=== PATIENT | male | born 1955 | race Caucasian/White ===

== ENCOUNTER 2022-12-12 12:58 | Emergency (ER) | payer MEDICARE, OTHER, SELFPAY ==
[2022-12-12] VITALS (8 sets, daily range): BP systolic 150–194; BP diastolic 70–119; PULSE 56–78; RESP 16–20; TEMP 36.8; O2SAT 94–100; BMI 42.6; BMI 29.9
--- NOTE | 2022-12-12 13:35 | PC.NURSE ---
ROUNDED ON PT HE STATES NO COMPLAINTS AT THIS TIME
--- NOTE | 2022-12-12 13:52 | XR_ITS ---
PROCEDURE INFORMATION: Exam: XR Pelvis Exam date and time: 12/12/2022 2:21 PM Age: 66 years old Clinical indication: Patient HX: Pelvic pain for 2 weeks, no known injury. ; Additional info: Right groin pain TECHNIQUE: Imaging protocol: Radiologic exam of the pelvis. Views: 1 or 2 view. COMPARISON: No relevant prior studies available. FINDINGS: Bones/joints: Degenerative changes of both hips and sacroiliac joints. Findings identified. Normal bony density. Soft tissues: Unremarkable. IMPRESSION: No acute radiographic
--- NOTE | 2022-12-12 14:17 | PC.NURSE ---
PT IS GETTING XRAY AT BEDSIDE
--- NOTE | 2022-12-12 14:50 | HMH.EDGENADL ---
Discharge Plan Disposition Patient Disposition: Home, Self-Care Condition: Good Prescriptions Prescriptions: New diclofenac sodium [Arthritis Pain (diclofenac)] 1 % gel 4 g topical QID Qty: 100 0RF Rx Instructions: apply to single knee, ankle, foot; for foot includes sole/toes/top of foot Referrals Follow up/Referrals: Leigh Chauhan APRN [Primary Care Provider] - See instructions Instructions Patient Instructions: DI for Acute Pain -- Adult Print Language Print Language: Setswana Discharge ED Provider: Jean-Paul Lantigua General Adult HPI General Chief complaint: PAIN Stated complaint: RT leg pain weakness no accident Time Seen by Provider: 12/12/22 14:58 Mode of Arrival: Wheelchair Source of Information: Patient Limitations: No Limitations Description of Symptoms (Recalled from ER Triage Doc. by RN): pt comes in with c/o pain in RIGHT groin area. pt reports that he was laying in bed about a week ago, he stretched his leg out and felt the pain. pt reports weakness in that leg. testicular pain off and on. History of Present Illness HPI narrative: Patient presents to the emergency department with right proximal thigh pain extending into his groin. He states that he was in his bed 2 weeks ago and was startled and his leg jumped. He states that since then he has had pain. He was seen at [facility] and had ultrasound but is unsure of the result. He denies any abdominal pain. He states that he has some pain with pulling his leg up. Denies any back pain. Denies any other trauma Related Data Previous Rx's Medication Instructions Recorded diclofenac sodium 1 % topical gel 4 g topical QID #100 grams 12/12/22 (Arthritis Pain (diclofenac)) Allergies Allergy/AdvReac Type Severity Reaction Status Date / Time INGREDIENT: NO KNOWN - NO Allergy Unknown Uncoded 10/11/17 14:50 KNOWN DRUG ALLERGY [facility] Disclaimer: The information contained in this section may have been updated after the patient was seen, as this information can be updated by other users. Social History Smoking Status: Current every day smoker alcohol intake: never current occupational status: retired Travel in the last 8 weeks: Inside the [place] ROS Obtained: Yes All systems reviewed & no additional complaints except as documented Musculoskeletal Comments: Right thigh pain Physical Exam General General appearance: alert and in no apparent distress Head Head exam: atraumatic and normocephalic Eye Eye exam: Present normal appearance, PERRL and EOMI Respiratory Respiratory exam: Present normal lung sounds bilaterally Cardiovascular Cardiovascular exam: Present regular rate, normal rhythm and normal heart sounds Abdominal Exam Abdominal exam: Present soft Comment: No significant abdominal tenderness. No guarding. No rebound. Normal bowel sounds. No hernia appreciated. Extremities Exam Extremities exam: Present normal inspection and tenderness Neurological Exam Neurological exam: Present alert Psychiatric Psychiatric exam: Present normal affect Skin Skin exam: Present warm, dry, intact and normal color Medical Decision Making Medical Records Medical records reviewed: Yes I reviewed the patient's medical records. Jerome Inquiry Pt receiving controlled substance: No Jerome was queried for this patient: No Vital Signs: 12/12/22 13:11 12/12/22 13:05 12/12/22 13:31 Temperature 98.3 F Temperature Source Oral Pulse Rate 78 72 Pulse Rate [Left] 78 Respiratory Rate 16 20 20 Blood Pressure 194/76 H 156/119 H Blood Pressure [Right Arm] 194/76 H Blood Pressure Mean 91 125 Blood Pressure Mean [Right Arm] 115 02 Sat by Pulse Oximetry 96 94 L 96 Oxygen Delivery Method 12/12/22 14:00 12/12/22 14:34 12/12/22 14:45 Temperature Temperature Source Pulse Rate 64 59 L 60 Pulse Rate [Left] Respiratory Rate Blood Pressure 151/99 H 156/119 H 151/99 H Blood Pres
== END 2022-12-12 15:18 | disposition home or self-care (01) ==
PROVIDERS: Emergency Provider Emergency Medicine; PCP Nurse Practitioner Family
DX: R10.2 Pelvic and perineal pain (principal); R53.1 Weakness; F17.210 Nicotine dependence, cigarettes, uncomplicated
CPT/HCPCS: 72170; 99283; 99284

== ENCOUNTER 2023-10-08 13:28 | Emergency (ER) | payer MEDICARE, SELFPAY ==
[2023-10-08 13:29] VITALS: BP 177/55; PULSE 82; RESP 20; O2SAT 95; BMI 35.5
[2023-10-08 14:01] VITALS: BP 159/65; PULSE 78; O2SAT 95
--- NOTE | 2023-10-08 14:19 | HMH.EDGENADL ---
Discharge Plan Disposition Patient Disposition: Home, Self-Care Condition: Good Prescriptions Prescriptions: New methocarbamol 500 mg tablet 500 mg PO Q8H PRN (Reason: pain) Qty: 20 0RF lidocaine [Lidoderm] 5 % adhesive patch,medicated 1 patch topical DAILY Qty: 15 0RF Rx Instructions: leave on most painful area for up to 12 hrs No Action furosemide 40 mg tablet 40 mg PO DAILY Patient Comments: TAKE ONE TABLET BY MOUTH EVERY MORNING potassium chloride 10 mEq capsule, extended release 10 meq PO DAILY Patient Comments: Take 1 capsule twice a day by oral route for 30 days. ropinirole 1 mg tablet 1 mg PO HS Patient Comments: take 1 tablet 1 to 3 hours before bedtime Once a day for 30 day(s) cetirizine 10 mg tablet 10 mg PO DAILY Patient Comments: take 1 tablet Once a day for 30 day(s) atorvastatin 10 mg tablet 10 mg PO DAILY Patient Comments: TAKE ONE TABLET BY MOUTH DAILY nifedipine 30 mg tablet extended release 30 mg PO DAILY Patient Comments: Take 1 Tablet(s) 1 time a day isosorbide mononitrate 60 mg tablet extended release 24 hr 120 mg PO POSTTR Patient Comments: TAKE TWO TABLETS BY MOUTH ONCE DAILY tamsulosin 0.4 mg capsule 0.4 mg PO DAILY Patient Comments: TAKE ONE CAPSULE BY MOUTH ONCE DAILY for 30 days trazodone 100 mg tablet 1 mg PO HS PRN (Reason: Insomnia) Patient Comments: take 1 tablet at bedtime as needed Once a day for 30 day(s) bumetanide 1 mg tablet 1 mg PO DAILY Patient Comments: Take 1 tablet every day by oral route for 30 days. hydralazine 50 mg tablet 50 mg PO TID Patient Comments: TAKE ONE TABLET BY MOUTH THREE TIMES DAILY gabapentin 100 mg capsule 100 mg PO HS Patient Comments: Take 1 capsule every day by oral route at bedtime for 30 days. lisinopril 40 mg tablet 40 mg PO DAILY Patient Comments: TAKE ONE TABLET BY MOUTH EVERY DAY olmesartan 20 mg tablet 20 mg PO DAILY Patient Comments: Take 1 tablet every day by oral route for 90 days. Eliquis 5 mg tablet 5 mg PO BID Patient Comments: TAKE ONE TABLET BY MOUTH TWICE DAILY for 30 days Referrals Follow up/Referrals: Provider,Referral, MD [Primary Care Provider] - See instructions Activity Restrictions/Add. Instructions Additional Instructions/Restrictions: You were evaluated in the emergency department today. Please meat pickler your prescriptions and use them as needed for pain. You may also take Tylenol and ibuprofen in addition to these. Follow-up with your primary care provider over the next 3 days for reassessment. Return to the emergency department for new or worsening symptoms, such as worsening pain, new numbness or tingling, or other concerns. Clinical Impressions Clinical Impression: Chronic neck and back pain Instructions Patient Instructions: DI for Low Back Pain, DI for Neck Pain Discharge ED Provider: Yasmeen Bermudez General Adult HPI General Chief complaint: Back Pain/Injury Stated complaint: neck pain, difficulty walking, no accident Time Seen by Provider: 10/08/23 13:33 Mode of Arrival: Ambulatory Source of Information: Patient Limitations: No Limitations Description of Symptoms (Recalled from ER Triage Doc. by RN): pt presents to ED c/o neck and back pain x 1 month. pt denies any known injury. pt reports taking Tylenol with no relief. Denies fever. History of Present Illness HPI narrative: This patient is a 67-year-old male with a history of hypertension, hyperlipidemia, atrial fibrillation, and chronic back pain presenting to the emergency department for evaluation with concern for 1 month of neck and back pain. He states that he has not had any trauma or injuries. He states it is mostly on the right side of his neck and back that are hurting. He notes that he has had issues with his neck and back for a daria
[2023-10-08 15:23] VITALS: BP 159/65; PULSE 78; RESP 20; TEMP 36.7; O2SAT 95
== END 2023-10-08 15:24 | disposition home or self-care (01) ==
PROVIDERS: Emergency Provider Emergency Medicine
DX: M54.2 Cervicalgia (principal); M54.9 Dorsalgia, unspecified; I10 Essential (primary) hypertension; E78.5 Hyperlipidemia, unspecified; I48.91 Unspecified atrial fibrillation; Z87.891 Personal history of nicotine dependence
CPT/HCPCS: 99283

== ENCOUNTER 2023-12-12 16:02 | Emergency (ER) | payer MEDICARE, SELFPAY ==
[2023-12-12] VITALS (9 sets, daily range): BP systolic 154–177; BP diastolic 51–93; PULSE 71–89; RESP 16–18; TEMP 36.8; O2SAT 94–96; BMI 38.7
--- NOTE | 2023-12-12 16:22 | PC.NURSE ---
DR BUNN AT BEDSIDE
[2023-12-12 17:27] LABS: Basophils % 0.2 % (0.1-2.0); Eosinophils # 0.2 K/mm3 (0.0-0.4); Eosinophils % 2.5 % (0.1-12.0); Hematocrit 30.6 % (42.0-52.0); Hemoglobin 10.2 g/dL (14.1-18.0); Lymphocytes % 13.5 % (10-50); Mean Corpuscular HGB Conc 33.5 g/dL (31.8-35.4); Mean Corpuscular Volume 83.5 fl (80-94); Mean Platelet Volume 8.3 fl (7.4-10.4); Monocytes # 0.4 K/mm3 (0.1-1.0); Monocytes % 5.7 % (1.7-9.3); Neutrophils # 5.7 K/mm3 (1.8-7.8); Neutrophils % 78.2 % (37.0-80.0); Platelet Count 211 K/mm3 (142-424); Red Blood Count 3.66 M/mm3 (4.60-6.20); Red Cell Distribution Width 15.7 % (11.5-17.5); White Blood Count 7.3 K/mm3 (4.8-10.8)
[2023-12-12 17:35] LABS: Anion Gap 9.6 mEq/L (5-15); Blood Urea Nitrogen 24 mg/dl (9-20); Calcium 9.1 mg/dl (8.4-10.2); Carbon Dioxide 32 mmol/L (22.0-30.0); Chloride 102 mmol/L (98-107); Creatinine Clearance Estimated 55 mL/min (50-200); Estimated Glomerular Filt Rate 33 ml/min (>60); GFR (African American) 41 ML/MIN (>60); Glucose 97 mg/dl (74-100); Potassium 4.6 mmoL/L (3.5-5.1); Sodium 139 mmol/L (136-145)
[2023-12-12 17:41] LABS: C-Reactive Protein 24.2 mg/L (0-4)
[2023-12-12 17:44] LABS: NT Pro Brain Natriuretic Pep. 144 pg/mL (0-125)
[2023-12-12 17:53] LABS: Erythrocyte Sedimentation Rate 97 mm/hr (0-20)
[2023-12-12 18:06] LABS: Activated Partial Thrombo Time 30.4 seconds (22.8-30.6); Prothrombin Time 11.8 seconds (10.1-12.5)
--- NOTE | 2023-12-12 18:23 | PC.NURSE ---
Rounded on pt. No needs voiced and call light within reach.
[2023-12-12 18:30] LABS: D-Dimer 0.93 ug/mL (0.0-0.5)
--- NOTE | 2023-12-12 18:39 | PC.NURSE ---
Urinal emptied and warm blanket provided. Call light within reach.
--- NOTE | 2023-12-12 19:10 | ED_ITS ---
Discharge Plan Disposition Patient Disposition: Home, Self-Care Chief Complaint: Extremity Problem,Nontraumatic Prescriptions Prescriptions: No Action furosemide 40 mg tablet 40 mg PO DAILY Patient Comments: TAKE ONE TABLET BY MOUTH EVERY MORNING potassium chloride 10 mEq capsule, extended release 10 meq PO DAILY Patient Comments: Take 1 capsule twice a day by oral route for 30 days. ropinirole 1 mg tablet 1 mg PO HS Patient Comments: take 1 tablet 1 to 3 hours before bedtime Once a day for 30 day(s) cetirizine 10 mg tablet 10 mg PO DAILY Patient Comments: take 1 tablet Once a day for 30 day(s) atorvastatin 10 mg tablet 10 mg PO DAILY Patient Comments: TAKE ONE TABLET BY MOUTH DAILY nifedipine 30 mg tablet extended release 30 mg PO DAILY Patient Comments: Take 1 Tablet(s) 1 time a day isosorbide mononitrate 60 mg tablet extended release 24 hr 120 mg PO POSTTR Patient Comments: TAKE TWO TABLETS BY MOUTH ONCE DAILY tamsulosin 0.4 mg capsule 0.4 mg PO DAILY Patient Comments: TAKE ONE CAPSULE BY MOUTH ONCE DAILY for 30 days trazodone 100 mg tablet 1 mg PO HS PRN (Reason: Insomnia) Patient Comments: take 1 tablet at bedtime as needed Once a day for 30 day(s) bumetanide 1 mg tablet 1 mg PO DAILY Patient Comments: Take 1 tablet every day by oral route for 30 days. hydralazine 50 mg tablet 50 mg PO TID Patient Comments: TAKE ONE TABLET BY MOUTH THREE TIMES DAILY gabapentin 100 mg capsule 100 mg PO HS Patient Comments: Take 1 capsule every day by oral route at bedtime for 30 days. lisinopril 40 mg tablet 40 mg PO DAILY Patient Comments: TAKE ONE TABLET BY MOUTH EVERY DAY olmesartan 20 mg tablet 20 mg PO DAILY Patient Comments: Take 1 tablet every day by oral route for 90 days. Eliquis 5 mg tablet 5 mg PO BID Patient Comments: TAKE ONE TABLET BY MOUTH TWICE DAILY for 30 days methocarbamol 500 mg tablet 500 mg PO Q8H PRN (Reason: pain) Qty: 20 0RF lidocaine [Lidoderm] 5 % adhesive patch,medicated 1 patch topical DAILY Qty: 15 0RF Rx Instructions: leave on most painful area for up to 12 hrs Referrals Follow up/Referrals: Leigh Chauhan APRN [Primary Care Provider] - See instructions Activity Restrictions/Add. Instructions Additional Instructions/Restrictions: Call your local emergency number (911 in the [place]) for any of the following: * You cannot walk. * You have chest pain or trouble breathing that is worse when you lie down. * You suddenly feel lightheaded and have trouble breathing. * You have new and sudden chest pain. You may have more pain when you take deep breaths or cough. * You cough up blood. Return to the emergency department if: * You feel faint or confused. * Your skin turns blue or chow. * Your leg feels warm, tender, and painful. It may be swollen and red. Call your doctor if: * You have a fever or feel more tired than usual. * The veins in your legs look larger than usual. They may look full or bulging. * Your legs itch or feel heavy. * You have red or white areas or sores on your legs. The skin may also appear dimpled or have indentations. * You are gaining weight. * You have trouble moving your ankles. * The swelling does not go away, or other parts of your body swell. * You have questions or concerns about your condition or care. Self-care: * Elevate your legs.?Raise your legs above the level of your heart as often as you can. This will help decrease swelling and pain. Prop your legs on pillows or blankets to keep them elevated comfortably. * Wear pressure stockings, if directed.?These tight stockings put pressure on your legs to promote blood flow and prevent blood clots. Put them on before you get out of bed. Wear the stockings during the day. Do not wear them while you sleep. Clinical Impressions Clinical Impression: Swelling of left lower extremity Discharge ED Provider: Mckenna Craig General Adult HPI General Chief complaint: Extremity Problem,Nontraumatic Stated complaint: Left knee swelling Time Seen by Provider: 12/12/23 16:13 Mode of Arrival: Wheelchair Source of Information: Patient Limitations: No Limitations Description of Symptoms (Recalled from ER Triage Doc. by RN): PT REPORTS LEFT KNEE PAIN/SWELLING FOR ABOUT 3 WEEKS. NO INJURY History of Present Illness HPI narrative: Forrest Chauhan is a 67-year-old male with previous medical history of hypert ension, hyperlipidemia, coronary artery disease, atrial fibrillation, back pain. He is presenting with acute left lower leg swelling. He states that he has some bilateral lower extremity swelling at baseline and has been told to elevate his legs but had worsening of his left lower leg compared to right over the past 2 weeks. He saw [facility] for this and was told to elevate his le g but says he has difficult doing so because he does not have enough pillows in his house. No fevers, skin changes aside from mild erythema, or other concerns. No injuries. Related Data Home Medications Medication Instructions Recorded Confirmed apixaban 5 mg tablet (Eliquis) 5 mg PO BID Supplement 12/12/22 12/12/22 atorvastatin 10 mg tablet 10 mg PO DAILY Cholesterol 12/12/22 12/12/22 bumetanide 1 mg tablet 1 mg PO DAILY Edema 12/12/22 12/12/22 cetirizine 10 mg tablet 10 mg PO DAILY Seasonal Allergies 12/12/22 12/12/22 furosemide 40 mg tablet 40 mg PO DAILY Edema 12/12/22 12/12/22 gabapentin 100 mg capsule 100 mg PO HS Neuropathy 12/12/22 12/12/22 hydralazine 50 mg tablet 50 mg PO TID Anxiety 12/12/22 12/12/22 isosorbide mononitrate 60 mg 120 mg PO POSTTR Heart 12/12/22 12/12/22 tablet,extended release 24 hr lisinopril 40 mg tablet 40 mg PO DAILY Heart 12/12/22 12/12/22 nifedipine 30 mg tablet,extended 30 mg PO DAILY Heart 12/12/22 12/12/22 release olmesartan 20 mg tablet 20 mg PO DAILY Cholesterol 12/12/22 12/12/22 potassium chloride 10 mEq 10 meq PO DAILY Supplement 12/12/22 12/12/22 capsule,extended release ropinirole 1 mg tablet 1 mg PO HS RLS 12/12/22 12/12/22 tamsulosin 0.4 mg capsule 0.4 mg PO DAILY BPH 12/12/22 12/12/22 trazodone 100 mg tablet 1 mg PO HS PRN Insomnia 12/12/22 12/12/22 Previous Rx's Medication Instructions Recorded lidocaine 5 % topical patch 1 patch topical DAILY #15 ea 10/08/23 (Lidoderm) methocarbamol 500 mg tablet 500 mg PO Q8H PRN pain #20 tabs 10/08/23 Allergies Allergy/AdvReac Type Severity Reaction Status Date / Time No Known Drug Allergies Allergy Verified 10/08/23 13:41 INGREDIENT: NO KNOWN - NO Allergy Unknown Uncoded 10/11/17 14:50 KNOWN DRUG ALLERGY [facility] Disclaimer: The information contained in this section may have been updated after the patient was seen, as this information can be updated by other users. Medical History Former smoker HLD (hyperlipidemia) HTN (hypertension) Surgical History Hx of CABG Hx of tonsillectomy Social History Smoking Status: Former smoker alcohol intake: never current occupational status: retired Travel in the last 8 weeks: Inside the [place] ROS Obtained: Yes All systems reviewed & no additional complaints except as doc umented Physical Exam General General appearance: alert, in no apparent distress and obese Head Head exam: atraumatic, normocephalic and normal inspection Eye Eye exam: Present normal appearance, PERRL and EOMI ENT ENT exam: Present normal exam, normal oropharynx, mucous membranes moist, TM's normal bilaterally and normal external ear exam Neck Neck exam: Present normal inspection, full ROM and trachea midline; Absent meningismus or lymphadenopathy Chest Chest inspection: Present normal inspection and symmetric chest wall rise; Absent tenderness Respiratory Respiratory exam: Present normal lung sounds bilaterally; Absent respiratory distress Cardiovascular Cardiovascular exam: Present regular rate and normal rhythm; Absent JVD Abdominal Exam Abdominal exam: Present soft and normal bowel sounds; Absent distention, tenderness or guarding Extremities Exam Extremities exam: Present full ROM, normal capillary refill and other (Moderate edema from feet to the knees bilaterally. 2+ pitting edema of the right lower extremity, 3+ pitting edema of the left lower extremity and mild erythema of the left lower extremity below the knee.) Back Exam Back exam: Present normal inspection; Absent tenderness Neurological Exam Neurological exam: Present alert and oriented X3 Psychiatric Psychiatric exam: Present normal affect and normal mood Skin Skin exam: Present warm, dry, intact and normal color Lymphatic Lymphatic Findings: no adenopathy Medical Decision Making Jerome Inquiry Pt receiving controlled substance: No Vital Signs: 12/12/23 16:03 12/12/23 16:20 12/12/23 17:00 Temperature 98.3 F Temperature Source Oral Pulse Rate 80 71 Pulse Rate [Radial] 89 Respiratory Rate 18 Blood Pressure 177/77 H 154/51 H Blood Pressure [Right Arm] 168/73 H Blood Pressure Mean Blood Pressure Mean [Right Arm] 104 Blood Pressure Source [Right Arm] Automatic Cuff Blood Pressure Position [Right Arm] Sitting 02 Sat by Pulse Oximetry 96 94 L 96 Oxygen Delivery Method Room Air Room Air Room Air 12/12/23 17:41 12/12/23 18:00 12/12/23 19:00 Temperature Temperature Source Pulse Rate 73 74 75 Pulse Rate [Radial] Respiratory Rate Blood Pressure 174/70 H 163/62 H 170/93 H Blood Pressure [Right Arm] Blood Pressure Mean 118 Blood Pressure Mean [Right Arm] Blood Pressure Source [Right Arm] Blood Pressure Position [Right Arm] 02 Sat by Pulse Oximetry 96 95 96 Oxygen Delivery Method Room Air Room Air Lab Data Lab Results 12/12/23 17:11: WBC 7.3, RBC 3.66 L, Hgb 10.2 L, Hct 30.6 L, MCV 83.5, MCH 28.0, MCHC 33.5, RDW 15.7, Plt Count 211, MPV 8.3, Neut % (Auto) 78.2, Lymph % (Auto) 13.5, [place] % (Auto) 5.7, Eos % (Auto) 2.5, Baso % (Auto) 0.2, Neut # (Auto) 5.7, Lymph # (Auto) 1.0, [place] # (Auto) 0.4, Eos # (Auto) 0.2, Baso # (Auto) 0.0, ESR 97 H, PT Cancelled, INR Cancelled, APTT Cancelled, Sodium 139, Potassium 4.6, Chloride 102, Carbon Dioxide 32 H, Anion Gap 9.6, BUN 24 H, Creatinine 2.00 H, Estimated Creat Clear 55, Estimated GFR 33 L, Est GFR ( Amer) 41 L, Glucose 97, Calcium 9.1, C-Reactive Protein 24.2 H, NT-Pro-B Natriuret Pep 144 H 12/12/23 17:45: PT 11.8, INR 1.10, APTT 30.4, D-Dimer 0.93 H 12/12/23 17:11 12/12/23 17:11 Orders (Tests/Meds): ORDERS Category Date Time Status POCUS Point of Care (ER Only) Stat Exams 12/12/23 19:11 Ordered BMP [Basic Metabolic Panel] Stat Lab 12/12/23 17:11 Completed BNP [Brain Natriuretic Peptide] Stat Lab 12/12/23 17:11 Completed CBC [Complete Blood Count Auto Diff] Stat Lab 12/12/23 17:11 Completed CRP [C-Reactive Protein] Stat Lab 12/12/23 17:11 Completed D-Dimer Stat Lab 12/12/23 17:45 Completed Erythrocyte Sedimentation Rate Stat Lab 12/12/23 17:11 Completed PT/PTT Stat Lab 12/12/23 17:45 Completed Medical Decision Narrative: Considered multiple causes of patient's left lower leg swelling compared to right, including DVT, low suspicion for cellulitis as patient's erythema is extremely mild and is not accompanied by warmth, is not well-demarcated, is not especially tender compared to right. Also low suspicion for injuries to explain this based on patient's history. Obtained laboratory evaluation to risk stratify patient's risk of infection and he has some inflammatory changes to sedimentation rate and CRP but no significant signs of severe infection. D- dimer is positive which in the setting of his unilateral leg swelling is quite concerning for a DVT however patient is already on Eliquis 5 mg twice daily. I then attempted [id number] bedside ultrasound to evaluate for DVT however due to patient's adipose tissue vascular probe was unable to penetrate to the deep veins sufficiently to evaluate for DVT. Discussed with patient that at this time the most likely cause of his symptoms is venous insufficiency vs. DVT so we will provide him with outpatient referral for formal venous ultrasound of the left lower extremity and instructions to follow closely with his primary care. Also discussed with patient that he had kidney dysfunction on his laboratory evaluation and he confirmed that he does have known chronic kidney disease but has been urinating well with no concerns to suggest acute renal failure. At this time patient does not seem to have immediately life-threatening causes of his symptoms and is appropriate for close outpatient follow-up to further elucidate whether he may have a DVT causing his symptoms but this does not seem to be infectious in nature. He understands and agrees to monitor symptoms at home, elevate the leg, and follow-up as referred. Critical Care Critical Care Time Critical Care Time: No
== END 2023-12-12 20:19 | disposition home or self-care (01) ==
PROVIDERS: Emergency Provider Emergency Medicine; PCP Nurse Practitioner Family
DX: R22.42 Localized swelling, mass and lump, left lower limb (principal); M25.562 Pain in left knee; I10 Essential (primary) hypertension; E78.5 Hyperlipidemia, unspecified; I25.10 Atherosclerotic heart disease of native coronary artery without angina pectoris; I48.91 Unspecified atrial fibrillation; Z87.891 Personal history of nicotine dependence
CPT/HCPCS: 80048; 83880; 85025; 85378; 85610; 85651; 85730; 86140; 99285

== ENCOUNTER 2023-12-13 12:30 | Outpatient (CLI) | payer MEDICARE, SELFPAY ==
--- NOTE | 2023-12-13 | CA_ITS ---
FINAL REPORT TECHNIQUE: Ultrasound images of the deep venous system were obtained from the left groin to the calf veins. CLINICAL HISTORY: HTN, HLD, CAD, morbid obesity, AFIB, edema x 2 weeks LLE, Hx CABG, denies trauma, positive d-dimer. Patient currently takes Eliquis 2 times a day. FINDINGS: The deep venous system is normally compressible. Normal flow is identified. IMPRESSION: No evidence of left lower extremity DVT. Reviewed, Interpreted and Dictated by Mamadou Garcia MD Transcribed by Tiffani Medina Authenticated and [facility]
== END 2023-12-13 23:59 ==
LOC: RT 12:33
PROVIDERS: Visit Provider Emergency Medicine
DX: R60.0 Localized edema; M79.605 Pain in left leg
CPT/HCPCS: 93971

== ENCOUNTER 2023-12-24 12:56 | Observation (INO) | payer MEDICARE, SELFPAY ==
[2023-12-24] VITALS (10 sets, daily range): BP systolic 102–172; BP diastolic 49–78; PULSE 62–89; RESP 16–20; TEMP 36.8–37.2; O2SAT 92–98; BMI 30.8; BMI 40.0
--- NOTE | 2023-12-24 13:19 | PC.NURSE ---
Dr. Bermudez at BS for pt eval
--- NOTE | 2023-12-24 13:21 | XR_ITS ---
PROCEDURE INFORMATION: Exam: XR Left Knee Exam date and time: 12/24/2023 1:55 PM Age: 68 years old Clinical indication: Pain; Swelling or effusion of joint; Knee; Left; Additional info: Pain lle, swelling, nwb TECHNIQUE: Imaging protocol: Radiologic exam of the left knee. Views: 3 views. COMPARISON: CA VENOUS DOPPLER LE LT 12/13/2023 12:44 PM FINDINGS: Bones/joints: Tricompartmental joint space narrowing and osteophyte formation consistent with degenerative changes. There is no evidence of acute fracture.There is no evidence of malalignment or dislocation. Soft tissues: Normal. IMPRESSION: 1. Tricompartmental joint space narrowing and osteophyte formation consistent with degenerative changes. 2. There is no evidence of acute fracture.There is no evidence of malalignment or dislocation.
--- NOTE | 2023-12-24 13:21 | XR_ITS ---
PROCEDURE INFORMATION: Exam: XR Left Femur Exam date and time: 12/24/2023 1:56 PM Age: 68 years old Clinical indication: Pain; Swelling or effusion of joint; Joint not specified; Thigh; Left; Additional info: Pain lle, swelling, nwb TECHNIQUE: Imaging protocol: Radiologic exam of the left femur. Views: 2 views. COMPARISON: CA VENOUS DOPPLER LE LT 12/13/2023 12:44 PM FINDINGS: Bones/joints: There is no evidence of acute fracture.There is no evidence of malalignment or dislocation. Degenerative changes in the hip and the knee Soft tissues: Unremarkable. IMPRESSION: There is no evidence of acute fracture.There is no evidence of malalignment or dislocation.
--- NOTE | 2023-12-24 13:21 | XR_ITS ---
PROCEDURE INFORMATION: Exam: XR Left Tibia and Fibula Exam date and time: 12/24/2023 1:52 PM Age: 68 years old Clinical indication: Pain; Swelling or effusion of joint; Joint not specified; Lower leg; Left; Additional info: Pain lle, swelling, nwb TECHNIQUE: Imaging protocol: Radiologic exam of the left tibia and fibula. Views: 2 views. COMPARISON: CA VENOUS DOPPLER LE LT 12/13/2023 12:44 PM FINDINGS: Bones/joints: Tricompartmental joint space narrowing and osteophyte formation consistent with degenerative changes. There is no evidence of acute fracture of the tibia and fibula.There is no evidence of malalignment or dislocation. Soft tissues: Soft tissue swelling of the leg IMPRESSION: 1. Tricompartmental joint space narrowing and osteophyte formation consistent with degenerative changes. 2. There is no evidence of acute fracture of the tibia and fibula.There is no evidence of malalignment or dislocation.
--- NOTE | 2023-12-24 13:21 | XR_ITS ---
PROCEDURE INFORMATION: Exam: XR Left Hip Exam date and time: 12/24/2023 2:02 PM Age: 68 years old Clinical indication: Swelling or effusion of joint; Hip pain; Left hip; Additional info: Pain lle, swelling, nwb TECHNIQUE: Imaging protocol: Radiologic exam of the left hip. Views: 2 or 3 views hip with pelvis when performed. COMPARISON: CR XR FEMUR LT 2V 12/24/2023 1:56 PM FINDINGS: Bones/joints: Degenerative changes in the left hip. There is no evidence of acute fracture.There is no evidence of malalignment or dislocation. Soft tissues: Unremarkable. IMPRESSION: There is no evidence of acute fracture.There is no evidence of malalignment or dislocation.
--- NOTE | 2023-12-24 13:23 | ED_ITS ---
Discharge Plan Disposition Patient Disposition: Admitted Clinical Impressions Clinical Impression: Left leg swelling, Left leg weakness, Physical deconditioning, Declining functional status Discharge ED Provider: Austyn Brown General Adult HPI <Yasmeen Sullivan Bermudez, DO - Last Filed: 12/24/23 16:10> General Chief complaint: Extremity Problem,Nontraumatic Stated complaint: left leg pain Time Seen by Provider: 12/24/23 13:12 Mode of Arrival: Wheelchair Source of Information: Patient Limitations: No Limitations Description of Symptoms (Recalled from ER Triage Doc. by RN): pt c/o pain in his L knee down his guerra. pt presents with 3+ edema on the LLE, acute pain 1/10, and inability to walk due to difficulty bearing wt. pt states he was [place] [employer] [place] when his L leg gave out suddenly. pt was seen here last wk and had a doppler on his L leg. pt reports it was negative for a clot. History of Present Illness HPI narrative: This patient is a 68-year-old male with history of hypertension, hyperlipidemia, atrial fibrillation, and chronic back pain presenting to the emergency department for evaluation with concern for left lower leg pain and weakness. He states that since he was seen here, he has had continued leg swelling and pain. He notes that today, his leg is so weak and heavy he is having a hard time walking and cannot get around. Given this, he decided to come back. On medical record review, he was evaluated here 12/12/2023 for similar symptoms and was found to have elevated D-dimer. Workup was otherwise reassuring, so he was referred outpatient for DVT ultrasound. He did obtain a DVT ultrasound on 12/13/2023, which was negative for any DVT in the left lower extremity. He denies any falls or injuries. He denies any back pain or radiation of pain. He denies any redness, warmth, or lesions. He denies any other concerns or complaints at this time. Related Data Home Medications Medication Instructions Recorded Confirmed apixaban 5 mg tablet (Eliquis) 5 mg PO BID Blood Thinner 12/12/22 12/24/23 atorvastatin 10 mg tablet 10 mg PO DAILY Cholesterol 12/12/22 12/24/23 cetirizine 10 mg tablet 10 mg PO DAILY Seasonal Allergies 12/12/22 12/24/23 furosemide 40 mg tablet 80 mg PO DAILY Edema 12/12/22 12/24/23 gabapentin 100 mg capsule 100 mg PO HS Neuropathy 12/12/22 12/24/23 hydralazine 50 mg tablet 50 mg PO TID BP 12/12/22 12/24/23 isosorbide mononitrate 60 mg 120 mg PO DAILY Heart 12/12/22 12/24/23 tablet,extended release 24 hr nifedipine 30 mg tablet,extended 30 mg PO DAILY Heart 12/12/22 12/24/23 release olmesartan 20 mg tablet 20 mg PO DAILY Cholesterol 12/12/22 12/24/23 potassium chloride 10 mEq 10 meq PO DAILY Supplement 12/12/22 12/24/23 capsule,extended release tamsulosin 0.4 mg capsule 0.4 mg PO DAILY BPH 12/12/22 12/24/23 Previous Rx's Medication Instructions Recorded lidocaine 5 % topical patch 1 patch topical DAILY #15 ea 10/08/23 (Lidoderm) Allergies Allergy/AdvReac Type Severity Reaction Status Date / Time No Known Allergies Allergy Verified 12/24/23 13:22 [facility] <Yasmeen Bermudez DO - Last Filed: 12/24/23 16:10> [facility] Disclaimer: The information contained in this section may have been updated after the patient was seen, as this information can be updated by other users. Medical History Former smoker HLD (hyperlipidemia) HTN (hypertension) Surgical History Hx of CABG Hx of tonsillectomy Social History Smoking Status: Never smoker alcohol intake: never current occupational status: retired Travel in the last 8 weeks: Inside the [place] <Yasmeen Bermudez DO - Last Filed: 12/24/23 16:10> ROS Obtained: Yes All systems reviewed & no additional complaints except as documented Physical Exam <Yasmeen Bermudez DO - Last Filed: 12/24/23 16:10> General General appearance: alert, in no apparent distress and obese Head Head exam: atraumatic and normocephalic Eye Eye exam: Present normal appearance, PERRL and EOMI ENT ENT exam: Present normal exam, normal oropharynx, mucous membranes moist and normal external ear exam Neck Neck exam: Present normal inspection, full ROM and trachea midline; Absent tend erness Chest Chest inspection: Present normal inspection and symmetric chest wall rise; Absent tenderness Respiratory Respiratory exam: Present normal lung sounds bilaterally; Absent respiratory distress, wheezes, stridor or accessory muscle use Cardiovascular Cardiovascular exam: Present regular rate and normal rhythm Abdominal Exam Abdominal exam: Present soft; Absent distention, tenderness or guarding Extremities Exam Extremities exam: Present full ROM, normal capillary refill, edema (Bilateral lower extremity, which is substantially worse on the left leg all the way up to the thigh.) and other (No redness, warmth, lesions, or skin color changes to the left lower extremity. The foot is warm and well-perfused. Range of motion preserved.); Absent tenderness Back Exam Back exam: Present normal inspection and full ROM; Absent tenderness Neurological Exam Neurological exam: Present alert, oriented X3, CN II-XII intact and normal gait; Absent motor sensory deficit Psychiatric Psychiatric exam: Present normal affect and normal mood Skin Skin exam: Present warm and dry Medical Decision Making <Yasmeen Bermudez DO - Last Filed: 12/24/23 16:10> Medical Records Medical records reviewed: Yes I reviewed the patient's medical records. Jerome Inquiry Pt receiving controlled substance: No Vital Signs: 12/24/23 13:11 12/24/23 13:15 12/24/23 13:31 Temperature 98.4 F Temperature Source Oral Pulse Rate 81 70 Pulse Rate [Left] 83 Respiratory Rate 18 Blood Pressure 152/52 H 123/49 L Blood Pressure [Right Arm] 152/52 H Blood Pressure Mean [Right Arm] 85 Blood Pressure Source [Right Arm] Automatic Cuff Blood Pressure Position [Right Arm] Sitting 02 Sat by Pulse Oximetry 96 97 98 Oxygen Delivery Method Room Air Room Air 12/24/23 16:04 12/24/23 17:01 12/24/23 17:30 Temperature Temperature Source Pulse Rate 72 80 62 Pulse Rate [Left] Respiratory Rate Blood Pressure 141/55 H 165/69 H 102/49 L Blood Pressure [Right Arm] Blood Pressure Mean [Right Arm] Blood Pressure Source [Right Arm] Blood Pressure Position [Right Arm] 02 Sat by Pulse Oximetry 96 96 97 Oxygen Delivery Method Room Air Room Air Room Air 12/24/23 17:55 12/24/23 18:36 Temperature 98.4 F Temperature Source Oral Pulse Rate 70 87 Pulse Rate [Left] Respiratory Rate 16 Blood Pressure 144/65 H 144/65 H Blood Pressure [Right Arm] Blood Pressure Mean [Right Arm] Blood Pressure Source [Right Arm] Blood Pressure Position [Right Arm] 02 Sat by Pulse Oximetry 96 Oxygen Delivery Method Room Air Room Air Lab Data Lab results reviewed: Yes I reviewed the patient's lab results. Lab Results 12/24/23 14:50: WBC 17.4 H, RBC 3.72 L, Hgb 10.2 L, Hct 33.5 L, MCV 90.3, MCH 27.4, MCHC 30.3 L, RDW 15.8, Plt Count 286, MPV 8.7, Neut % (Auto) 89.3 H, Lymph % (Auto) 5.9 L, Lanier % (Auto) 4.5, Eos % (Auto) 0.2, Baso % (Auto) 0.1, Neut # (Auto) 15.6 H, Lymph # (Auto) 1.0, Lanier # (Auto) 0.8, Eos # (Auto) 0.0, Baso # (Auto) 0.0, Total Counted 100, Neutrophils % (Manual) 94 H, Lymphocytes % (Manual) 5 L, Monocytes % (Manual) 1 L, Platelet Estimate Normal, RBC Morphology Not Reportable, Hypochromasia 1+, Ovalocytes 1+, ESR 78 H, D-Dimer 0.96 H, Sodium 141, Potassium 4.6, Chloride 108 H, Carbon Dioxide 26, Anion Gap 11.6, BUN 42 H, Creatinine 2.00 H, Estimated Creat Clear 54, Estimated GFR 33 L, Est GFR ( Amer) 40 L, Glucose 99, Calcium 8.5, Total Bilirubin 0.2, AST 23, ALT 18, Alkaline Phosphatase 72, C-Reactive Protein 6.0 H, NT-Pro-B Natriuret Pep 413 H, Total Protein 7.1, Albumin 3.8, Globulin 3.3 H, Albumin/Globulin Ratio 1.2 12/24/23 14:50 12/24/23 14:50 Orders (Tests/Meds): ED MEDICATIONS Generic Name Dose Route Start Last Admin Trade Name Freq PRN Reason Stop Dose Admin Miscellaneous 1 each 12/24/23 15:45 12/24/23 15:50 Vancomycin Consult Request NOTAPPLIC 01/23/24 15:44 1 each CONSULT PHARMACY [facility] Administration Sodium Chloride 10 ml 12/24/23 16:33 12/24/23 16:40 Sodium Chloride 0.9% 10ml Syr (Rad Only) IV 01/23/24 16:32 10 ml NEEDED PRN Administration Maintain IV Site Discontinued Medications Generic Name Dose Route Start Last Admin Trade Name Hubert PRN Reason Stop Dose Admin Ceftriaxone Sodium 2 gm/ 100 mls @ 200 mls/hr 12/24/23 15:44 12/24/23 17:16 Sodium Chloride IV 12/24/23 16:13 200 mls/hr ONCE ONE Administration Vancomycin/PEG/NADA/Lysine/Water 1.75 gm in 350 mls @ 175 mls/hr 12/24/23 16:00 12/24/23 17:29 Vancomycin 1.75gm/350ml (Peg) Premix IV 12/24/23 17:59 175 mls/hr ONCE ONE Administration Iopamidol 120 ml 12/24/23 16:33 12/24/23 16:39 Iopamidol-370 (76%);100ml Bottle IV 12/24/23 16:34 120 ml ONCE ONE Administration Sodium Chloride 250 ml 12/24/23 16:14 12/24/23 17:29 Sodium Chloride 0.9% 250ml Bag IV 12/24/23 16:15 250 ml ONCE ONE Administration Sodium Chloride 100 ml 12/24/23 16:33 12/24/23 16:39 0.9 % Sodium Chloride 50 Ml Vial IV 12/24/23 16:34 100 ml ONCE ONE Administration ORDERS Category Date Time Status CT angio LE BI Stat Cat Scan 12/24/23 15:42 Completed XR femur LT 2V Stat Exams 12/24/23 13:21 Completed XR hip LT 2-3V w/pelvis Stat Exams 12/24/23 13:21 Completed XR knee LT 3V Stat Exams 12/24/23 13:21 Completed XR tibia fibula LT 2V Stat Exams 12/24/23 13:21 Completed Brain Natriuretic Peptide Stat Lab 12/24/23 14:50 Completed C-Reactive Protein Stat Lab 12/24/23 14:50 Completed Complete Blood Count Auto Diff Stat Lab 12/24/23 14:50 Completed Comprehensive Metabolic Panel Stat Lab 12/24/23 14:50 Completed D-Dimer Stat Lab 12/24/23 14:50 Completed Erythrocyte Sedimentation Rate Stat Lab 12/24/23 14:50 Completed Blood Culture Stat Micro 12/24/23 16:16 Received Medical Decision Narrative: In summary, this patient is a 68-year-old male presenting to the Emergency Department for evaluation of persistent left leg swelling and now difficulty walking given left leg weakness and heaviness. Differential diagnoses considered include but are not limited to DVT, cellulitis, sciatica, lumbar radiculopathy. Ruling out the most morbid conditions drove assessment. On exam, the patient is well-appearing. He has significant left lower extremity swelling, however he has no skin color changes or other concerns. He is neurovascularly intact. Workup included lab evaluation including CBC, CMP, ESR, CRP, D-dimer, as well as x-rays of the pelvis, left hip/femur/knee/tib-fib. I independently interpreted x-rays prior to the radiologist read and noted to frac ture or other bony abnormality. I also do not appreciate any subcutaneous gas. Please see their read for final interpretation. Labs were obtained that demonstrated new leukocytosis of 17.4 with neutrophilic predominance, which was not present on prior lab evaluation from 12/12. His BNP is slightly more elevated than it was then, though not clinically significant. Inflammatory markers are elevated. Given leukocytosis and the marked swelling of his leg, I decided to obtain CT scan with contrast to evaluate for possible deep space infection. I also sent blood cultures and administered IV vancomycin and Rocephin for empiric coverage of cellulitis/soft tissue infection. At this time, patient care was signed out to the oncoming provider, Dr. Brown, pending CT. <Austyn Brown MD - Last Filed: 12/24/23 19:57> Vital Signs: 12/24/23 13:11 12/24/23 13:15 12/24/23 13:31 Temperature 98.4 F Temperature Source Oral Pulse Rate 81 70 Pulse Rate [Left] 83 Respiratory Rate 18 Blood Pressure 152/52 H 123/49 L Blood Pressure [Right Arm] 152/52 H Blood Pressure Mean [Right Arm] 85 Blood Pressure Source [Right Arm] Automatic Cuff Blood Pressure Position [Right Arm] Sitting 02 Sat by Pulse Oximetry 96 97 98 Oxygen Delivery Method Room Air Room Air 12/24/23 16:04 12/24/23 17:01 03/02/24 17:30 Temperature Temperature Source Pulse Rate 72 80 62 Pulse Rate [Left] Respiratory Rate Blood Pressure 141/55 H 165/69 H 102/49 L Blood Pressure [Right Arm] Blood Pressure Mean [Right Arm] Blood Pressure Source [Right Arm] Blood Pressure Position [Right Arm] 02 Sat by Pulse Oximetry 96 96 97 Oxygen Delivery Method Room Air Room Air Room Air 12/24/23 17:55 12/24/23 18:36 Temperature 98.4 F Temperature Source Oral Pulse Rate 70 87 Pulse Rate [Left] Respiratory Rate 16 Blood Pressure 144/65 H 144/65 H Blood Pressure [Right Arm] Blood Pressure Mean [Right Arm] Blood Pressure Source [Right Arm] Blood Pressure Position [Right Arm] 02 Sat by Pulse Oximetry 96 Oxygen Delivery Method Room Air Room Air Lab Data Lab Results 12/24/23 14:50: WBC 17.4 H, RBC 3.72 L, Hgb 10.2 L, Hct 33.5 L, MCV 90.3, MCH 27.4, MCHC 30.3 L, RDW 15.8, Plt Count 286, MPV 8.7, Neut % (Auto) 89.3 H, Lymph % (Auto) 5.9 L, Lanier % (Auto) 4.5, Eos % (Auto) 0.2, Baso % (Auto) 0.1, Neut # (Auto) 15.6 H, Lymph # (Auto) 1.0, Lanier # (Auto) 0.8, Eos # (Auto) 0.0, Baso # (Auto) 0.0, Total Counted 100, Neutrophils % (Manual) 94 H, Lymphocytes % (Manual) 5 L, Monocytes % (Manual) 1 L, Platelet Estimate Normal, RBC Morphology Not Reportable, Hypochromasia 1+, Ovalocytes 1+, ESR 78 H, D-Dimer 0.96 H, Sodium 141, Potassium 4.6, Chloride 108 H, Carbon Dioxide 26, Anion Gap 11.6, BUN 42 H, Creatinine 2.00 H, Estimated Creat Clear 54, Estimated GFR 33 L, Est GFR ( Amer) 40 L, Glucose 99, Calcium 8.5, Total Bilirubin 0.2, AST 23, ALT 18, Alkaline Phosphatase 72, C-Reactive Protein 6.0 H, NT-Pro-B Natriuret Pep 413 H, Total Protein 7.1, Albumin 3.8, Globulin 3.3 H, Albumin/Globulin Ratio 1.2 Orders (Tests/Meds): ED MEDICATIONS Generic Name Dose Route Start Last Admin Trade Name Frejory PRN Reason Stop Dose Admin Miscellaneous 1 each 12/24/23 15:45 12/24/23 15:50 Vancomycin Consult Request NOTAPPLIC 01/23/24 15:44 1 each CONSULT PHARMACY [facility] Administration Sodium Chloride 10 ml 12/24/23 16:33 12/24/23 16:40 Sodium Chloride 0.9% 10ml Syr (Rad Only) IV 01/23/24 16:32 10 ml NEEDED PRN Administration Maintain IV Site Discontinued Medications Generic Name Dose Route Start Last Admin Trade Name Freq PRN Reason Stop Dose Admin Ceftriaxone Sodium 2 gm/ 100 mls @ 200 mls/hr 12/24/23 15:44 12/24/23 17:16 Sodium Chloride IV 12/24/23 16:13 200 mls/hr ONCE ONE Administration Vancomycin/PEG/NADA/Lysine/Water 1.75 gm in 350 mls @ 175 mls/hr 12/24/23 16:00 12/24/23 17:29 Vancomycin 1.75gm/350ml (Peg) Premix IV 12/24/23 17:59 175 mls/hr ONCE ONE Administration Iopamidol 120 ml 12/24/23 16:33 12/24/23 16:39 Iopamidol-370 (76%);100ml Bottle IV 12/24/23 16:34 120 ml ONCE ONE Administration Sodium Chloride 250 ml 12/24/23 16:14 12/24/23 17:29 Sodium Chloride 0.9% 250ml Bag IV 12/24/23 16:15 250 ml ONCE ONE Administration Sodium Chloride 100 ml 12/24/23 16:33 12/24/23 16:39 0.9 % Sodium Chloride 50 Ml Vial IV 12/24/23 16:34 100 ml ONCE ONE Administration ORDERS Category Date Time Status CT angio LE BI Stat Cat Scan 12/24/23 15:42 Completed XR femur LT 2V Stat Exams 12/24/23 13:21 Completed XR hip LT 2-3V w/pelvis Stat Exams 12/24/23 13:21 Completed XR knee LT 3V Stat Exams 12/24/23 13:21 Completed XR tibia fibula LT 2V Stat Exams 12/24/23 13:21 Completed Brain Natriuretic Peptide Stat Lab 12/24/23 14:50 Completed C-Reactive Protein Stat Lab 12/24/23 14:50 Completed Complete Blood Count Auto Diff Stat Lab 12/24/23 14:50 Completed Comprehensive Metabolic Panel Stat Lab 12/24/23 14:50 Completed D-Dimer Stat Lab 12/24/23 14:50 Completed Erythrocyte Sedimentation Rate Stat Lab 12/24/23 14:50 Completed Blood Culture Stat Micro 12/24/23 16:16 Received Medical Decision Narrative: In summary, this patient is a 68-year-old male presenting to the Emergency Department for evaluation of persistent left leg swelling and now difficulty walking given left leg weakness and heaviness. Differential diagnoses considered include but are not limited to DVT, cellulitis, sciatica, lumbar radiculopathy. Ruling out the most morbid conditions drove assessment. On exam, the patient is well-appearing. He has significant left lower extremity swelling, however he has no skin color changes or other concerns. He is neurovascularly intact. Workup included lab evaluation including CBC, CMP, ESR, CRP, D-dimer, as well as x-rays of the pelvis, left hip/femur/knee/tib-fib. I independently interpreted x-rays prior to the radiologist read and noted to fracture or other bony abnormality. I also do not appreciate any subcutaneous gas. Please see their read for final interpretation. Labs were obtained that demonstrated new leukocytosis of 17.4 with neutrophilic predominance, which was not present on prior lab evaluation from 12/12. His BNP is slightly more elevated than it was then, though not clinically significant. Inflammatory markers are elevated. Given leukocytosis and the marked swelling of his leg, I decided to obtain CT scan with contrast to evaluate for possible deep space infection. I also sent blood cultures and administered IV vancomycin and Rocephin for empiric coverage of cellulitis/soft tissue infection. At this time, patient care was signed out to the oncoming provider, Dr. Brown, pending CT. Kevin: I assume primary responsibility for this patient after signout from previous physician. On my evaluation, patient still unable to ambulate secondary to severe lower extremity swelling. Independent interpretation of workup demonstrates leukocytosis with neutrophilia, stable CKD, elevated dimer and mildly elevated BNP. CT of the left lower extremity without acute findings. Previous imaging was personally interpreted and negative for acute DVT. D- dimer elevated, but this appears to be chronic for patient. I am unsure as to why patient having severe, progressively worsening swelling. May be attributed to lymphedema of unknown etiology, this was discussed with hospitalist on. Because patient high risk for clinical decompensation, deemed appropriate for inpatient admission. Results were relayed to patient who voiced understanding and patient was agreeable to inpatient admission and management. Patient was admitted to the hospital for further definitive management. Critical Care <Yasmeen Bermudez, DO - Last Filed: 12/24/23 16:10> Critical Care Time Critical Care Time: No
--- NOTE | 2023-12-24 14:00 | PC.NURSE ---
pt going to xr
--- NOTE | 2023-12-24 14:22 | PC.NURSE ---
Pt returned from xray
[2023-12-24 15:02] LABS: Basophils % 0.1 % (0.1-2.0); Eosinophils % 0.2 % (0.1-12.0); Hematocrit 33.5 % (42.0-52.0); Hemoglobin 10.2 g/dL (14.1-18.0); Lymphocytes % 5.9 % (10-50); Mean Corpuscular HGB Conc 30.3 g/dL (31.8-35.4); Mean Corpuscular Hemoglobin 27.4 pg (27.0-31.2); Mean Corpuscular Volume 90.3 fl (80-94); Mean Platelet Volume 8.7 fl (7.4-10.4); Monocytes # 0.8 K/mm3 (0.1-1.0); Monocytes % 4.5 % (1.7-9.3); Neutrophils # 15.6 K/mm3 (1.8-7.8); Neutrophils % 89.3 % (37.0-80.0); Platelet Count 286 K/mm3 (142-424); Red Blood Count 3.72 M/mm3 (4.60-6.20); Red Cell Distribution Width 15.8 % (11.5-17.5); White Blood Count 17.4 K/mm3 (4.8-10.8)
[2023-12-24 15:08] LABS: MANUAL DIFFERENTIAL MANUAL DIFFERENTIAL (MANUAL DIFF)
[2023-12-24 15:18] LABS: Alanine Aminotransferase 18 U/L (12-78); Albumin Level 3.8 g/dl (3.5-5.0); Albumin/Globulin Ratio 1.2 (1.1-1.8); Alkaline Phosphatase 72 U/L (38-126); Anion Gap 11.6 mEq/L (5-15); Aspartate Amino Transferase 23 U/L (17-59); Bilirubin,Total 0.2 mg/dl (0.2-1.3); Blood Urea Nitrogen 42 mg/dl (9-20); Calcium 8.5 mg/dl (8.4-10.2); Carbon Dioxide 26 mmol/L (22.0-30.0); Chloride 108 mmol/L (98-107); Creatinine Clearance Estimated 54 mL/min (50-200); Estimated Glomerular Filt Rate 33 ml/min (>60); GFR (African American) 40 ML/MIN (>60); Globulin 3.3 g/dL (1.3-3.2); Glucose 99 mg/dl (74-100); Potassium 4.6 mmoL/L (3.5-5.1); Sodium 141 mmol/L (136-145); Total Protein,Serum 7.1 g/dl (6.3-8.2)
[2023-12-24 15:23] LABS: D-Dimer 0.96 ug/mL (0.0-0.5)
[2023-12-24 15:26] LABS: Erythrocyte Sedimentation Rate 78 mm/hr (0-20)
--- NOTE | 2023-12-24 15:42 | CT_ITS ---
PROCEDURE INFORMATION: Exam: CTA Abdominal Aorta and Bilateral Lower Extremities (Run-off) With Contrast Exam date and time: 12/24/2023 4:32 PM Age: 68 years old Clinical indication: Swelling, leg or foot; Additional info: Significant soft tissue swelling, pain TECHNIQUE: Imaging protocol: Computed tomographic angiography of the of the abdominal aorta, pelvis and bilateral lower extremities with contrast. 3D rendering (Not supervised by radiologist): MIP and/or 3D reconstructed images were created by the technologist. Radiation optimization: All CT scans at this facility use at least one of these dose optimization techniques: automated exposure control; mA and/or kV adjustment per patient size (includes targeted exams where dose is matched to clinical indication); or iterative reconstruction. Contrast material: ISOVUE; Contrast volume: 120 ml; Contrast route: IV; COMPARISON: CR XR PELVIS 1-2V 12/12/2022 2:21 PM FINDINGS: Aorta: No aortic aneurysm. No aortic dissection. 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 Right iliac arteries: No occlusion or significant stenosis. Right femoral/popliteal arteries: No occlusion or significant stenosis. Right infrapopliteal arteries: No occlusion or significant stenosis. Left iliac arteries: No occlusion or significant stenosis. Left femoral/popliteal arteries: No occlusion or significant stenosis. Left infrapopliteal arteries: No occlusion or significant stenosis. Liver: No mass. Gallbladder and bile ducts: Unremarkable. No calcified stones. No ductal dilation. Pancreas: Unremarkable. No mass. No ductal dilation. Spleen: Normal. No splenomegaly. Adrenal glands: Normal. No mass. Kidneys and ureters: Five millimeter distal LEFT ureteral calculus . No significant dilatation of LEFT collecting system or LEFT ureter. Stomach and bowel: Unremarkable. No obstruction. No mucosal thickening. Appendix: No evidence of appendicitis. Urinary bladder: Unremarkable. No mass. Reproductive: The prostate is enlarged, greater than 6 cm. Recommend urology consult. Intraperitoneal space: Unremarkable. No free air. No significant fluid collection. Lymph nodes: Enlarged node adjacent to the left common iliac artery 2.2 x 1.4 cm series 6, image 78 Bones/joints: No acute fracture. No dislocation. Soft tissues: Edema in the subcutaneous fat of both legs left worse than right Other findings: Motion artifact degrades images IMPRESSION: 1. Five millimeter distal LEFT ureteral calculus . No significant dilatation of LEFT collecting system or LEFT ureter. 2. The prostate is enlarged, greater than 6 cm. Recommend urology consult.
[2023-12-24] MEDS: VANCOMYCIN CONSULT REQUEST 1 EACH NOTAPPLIC (15:50)
[2023-12-24 15:54] LABS: NT Pro Brain Natriuretic Pep. 413 pg/mL (0-125)
[2023-12-24 16:09] LABS: Hypochromasia 1+; Lymphocytes % 5 % (10-50); Monocytes % 1 % (2-9); Neutrophils % 94 % (42-76); Ovalocytes 1+; Platelet Estimate Normal; Total Cells Counted 100
--- NOTE | 2023-12-24 16:27 | PC.NURSE ---
PT gone to RAD via stretcher
[2023-12-24] MEDS: IOPAMIDOL-370 (76%);100ML BOTTLE 120 ML IV (16:39)
[2023-12-24] MEDS: 0.9 % SODIUM CHLORIDE 50 ML VIAL 100 ML IV (16:39)
[2023-12-24] MEDS: SODIUM CHLORIDE 0.9% 10ML SYR (RAD ONLY) 10 ML IV (16:40)
[2023-12-24] MEDS: CEFTRIAXONE SODIUM 2 GM in 0.9 % SODIUM CHLORIDE 100 ML IV (17:16)
[2023-12-24] MEDS: SODIUM CHLORIDE 0.9% 250ML BAG 250 ML IV (17:29)
[2023-12-24] MEDS: VANCOMYCIN/WATER FOR INJ (PEG) 1.75 GM/350 ML PIGGYBACK IV (17:29)
--- NOTE | 2023-12-24 18:20 | PC.NURSE ---
Admissions notified of admit to room 206 for Functional Decline to . OBS
--- NOTE | 2023-12-24 18:28 | PC.NURSE ---
Pt provided with sandwich and drink
--- NOTE | 2023-12-24 18:28 | PC.NURSE ---
report called to melinda strong on second floor
--- NOTE | 2023-12-24 18:39 | PC.NURSE ---
arrived to floor by w/c from ED
--- NOTE | 2023-12-24 20:11 | P.HP_ITS ---
Attending attestation Patient was seen and evaluated at the bedside myself, agree with GERALDINE note. History of Present Illness *Admission Date: 12/24/23 *Reason for visit:: left leg cellulitis *History of present illness: 68 year old male presented to [facility] ED for c/o left lower leg swelling and difficulty ambulating. PMHX of htn, hld, a fib, chronic back pain, and peripheral edema. On 12/13/23, he had a DVT study performed which was negative for DVT in the left leg. The ED workup revealed a leukocytosis of 17.4, d-dimer of 0.96, and BNP of 413. His CTA of his lower extremity demonstrated subcutaneous fat edema of both legs but worse in left. His XRAYs of the left femur, hip, knee, and tib/fib demonstrate no fracture or malignance. There is narrowing of the tricompartmental joint space and osteophyte formation. The ED physician consulted the hospitalist team for further medical management. The pt lives alone and is unable to safely ambulate. He was started on rocephin and vancomycin to cover for cellulitis. Blood cultures are pending. I admitted the pt to the medical floor and will place a consult for physical therapy. [facility] Disclaimer: The information contained in this section may have been updated after the patient was seen, as this information can be updated by other users. Medical History (Updated 12/24/23 @ 20:29 by LIBAN Gerber) Former smoker HLD (hyperlipidemia) HTN (hypertension) Surgical History Hx of CABG Hx of tonsillectomy Social History Smoking Status: Never smoker alcohol intake: never current occupational status: retired Travel in the last 8 weeks: Inside the [place] Review of Systems *Cardiovascular Cardiovascular: Reports leg edema (bilateral w/ left greater than right ) *Musculoskeletal Musculoskeletal: Reports abnormal gait and Reports limited range of motion *Neurologic Neurologic: Reports abnormal gait Meds Home Medications and Allergies Home Medications Medication Instructions Recorded Confirmed Type apixaban 5 mg tablet (Eliquis) 5 mg PO BID Blood Thinner 12/12/22 12/24/23 History atorvastatin 10 mg tablet 10 mg PO DAILY Cholesterol 12/12/22 12/24/23 History cetirizine 10 mg tablet 10 mg PO DAILY Seasonal Allergies 12/12/22 12/24/23 History furosemide 40 mg tablet 80 mg PO DAILY Edema 12/12/22 12/24/23 History gabapentin 100 mg capsule 100 mg PO HS Neuropathy 12/12/22 12/24/23 History hydralazine 50 mg tablet 50 mg PO TID BP 12/12/22 12/24/23 History isosorbide mononitrate 60 mg 120 mg PO DAILY Heart 12/12/22 12/24/23 History tablet,extended release 24 hr nifedipine 30 mg tablet,extended 30 mg PO DAILY Heart 12/12/22 12/24/23 History release olmesartan 20 mg tablet 20 mg PO DAILY Cholesterol 12/12/22 12/24/23 History potassium chloride 10 mEq 10 meq PO DAILY Supplement 12/12/22 12/24/23 History capsule,extended release tamsulosin 0.4 mg capsule 0.4 mg PO DAILY BPH 12/12/22 12/24/23 History lidocaine 5 % topical patch 1 patch topical DAILY #15 ea 10/08/23 12/24/23 Rx (Lidoderm) New Prescriptions to Start Prescriptions: Allergies Allergy/AdvReac Type Severity Reaction Status Date / Time No Known Allergies Allergy Verified 12/24/23 13:22 Exam Data for Last 24 hours Vital signs and Labs for Last 24 Hours: Temp Pulse Resp BP Pulse Ox O2 Del Method 98.3 F 89 20 172/78 H 92 L Room Air 12/24/23 18:46 12/24/23 18:46 12/24/23 18:46 12/24/23 18:46 12/24/23 18:46 12/24/23 19:00 Laboratory Results - last 24 hr 12/24/23 14:50: WBC 17.4 H, RBC 3.72 L, Hgb 10.2 L, Hct 33.5 L, MCV 90.3, MCH 27.4, MCHC 30.3 L, RDW 15.8, Plt Count 286, MPV 8.7, Neut % (Auto) 89.3 H, Lymph % (Auto) 5.9 L, Dorado % (Auto) 4.5, Eos % (Auto) 0.2, Baso % (Auto) 0.1, Neut # (Auto) 15.6 H, Lymph # (Auto) 1.0, Dorado # (Auto) 0.8, Eos # (Auto) 0.0, Baso # (Auto) 0.0, Total Counted 100, Neutrophils % (Manual) 94 H, Lymphocytes % (Manual) 5 L, Monocytes % (Manual) 1 L, Platelet Estimate Normal, RBC Morphology Not Reportable, Hypochromasia 1+, Ovalocytes 1+, ESR 78 H, D-Dimer 0.96 H, Sodium 141, Potassium 4.6, Chloride 108 H, Carbon Dioxide 26, Anion Gap 11.6, BUN 42 H, Creatinine 2.00 H, Estimated Creat Clear 54, Estimated GFR 33 L, Est GFR ( Amer) 40 L, Glucose 99, Calcium 8.5, Total Bilirubin 0.2, AST 23, ALT 18, Alkaline Phosphatase 72, C-Reactive Protein 6.0 H, NT-Pro-B Natriuret Pep 413 H, Total Protein 7.1, Albumin 3.8, Globulin 3.3 H, Albumin/Globulin Ratio 1.2 I & O for Last 24 hours: Intake & Output 12/21/23 12/22/23 12/23/23 12/24/23 23:59 23:59 23:59 23:59 Weight 112.519 kg Constitutional Constitutional: obese *Routine HEENT Exam Head: Present normocephalic Eye: Present EOMI ENT: Present mucous membranes moist *Routine Neck Exam Neck: Present full ROM *Routine Respiratory Exam Respiratory: Present wheezes and symmetric chest movement *Routine Cardiovascular Exam Cardiovascular: Present RRR *Routine Abdominal Exam Abdominal: Present soft, normoactive bowel sounds and distended; Absent tenderness *Routine Rectal Exam Rectal:: deferred *Routine Genitalia Exam Genitalia:: deferred *Routine Extremities Exam Extremities: Present edema and tenderness (left leg ) *Routine Skin Exam Skin: Present warm (left leg ) *Routine Neurological Exam Neurological: Present alert and oriented X3 Assessment and Plan *Assessment and plan (1) Left leg weakness: Status: Acute Category: Medical Code(s): R29.898 - Other symptoms and signs involving the musculoskeletal system (2) Left leg swelling: Status: Acute Category: Medical Code(s): M79.89 - Other specified soft tissue disorders (3) Peripheral edema: Status: Acute Category: Medical Code(s): R60.0 - Localized edema (4) HLD (hyperlipidemia): Status: Acute Category: Medical Code(s): E78.5 - Hyperlipidemia, unspecified (5) HTN (hypertension): Status: Acute Category: Medical Code(s): I10 - Essential (primary) hypertension (6) A-fib: Status: Acute Category: Medical Code(s): I48.91 - Unspecified atrial fibrillation (7) Tobacco use: Status: Acute Category: Social Hx Code(s): Z72.0 - Tobacco use (8) Obesity: Status: Acute Category: Medical Code(s): E66.9 - Obesity, unspecified Plan 68 year old male presented to [facility] ED for c/o left lower leg swelling and difficulty ambulating. PMHX of htn, hld, a fib, chronic back pain, and peripheral edema. On 12/13/23, he had a DVT study performed which was negative for DVT in the left leg. The ED workup revealed a leukocytosis of 17.4, d-dimer of 0.96, and BNP of 413. His CTA of his lower extremity demonstrated subcutaneous fat edema of both legs but worse in left. His XRAYs of the left femur, hip, knee, and tib/fib demonstrate no fracture or malignance. There is narrowing of the tricompartmental joint space and osteophyte formation. The ED physician consulted the hospitalist team for further medical management. The pt lives alone and is unable to safely ambulate. He was started on rocephin and vancomycin to cover for cellulitis. Blood cultures are pending. I admitted the pt to the medical floor and will place a consult for physical therapy. LEFT LEG WEAKNESS LEFT LEG SWELLING -leukocytosis of 17.4, d-dimer of 0.96, and BNP of 413 -CTA of his lower extremity reviewed and reveals subcutaneous fat edema of both legs but worse in left -XRAYs of the left femur, hip, knee, and tib/fib reviewed and reveals no fracture or malignance -Continue rocephin and vancomycin. blood cultures pending -PT consult for difficulty ambulating PERIPHERAL EDEMA HLD HTN A FIB -continue home medications of apixaban, atorvastatin, cetirizine, lasix, gabapentin, hydralazine, isosorbide monoitrate, nifedipine, olmesartan, and tamsulosin TOBACCO USE -nicotine patch prn OBESITY -complicates all aspects of care FULL CODE CARDIAC DIET DVT: APIXABAN
[2023-12-24] MEDS: GABAPENTIN 100MG CAPSULE 100 MG PO (21:38)
--- NOTE | 2023-12-24 21:40 | PC.NURSE ---
pt states he already took hydralazine and eliquis tonight. these night meds held
[2023-12-25] MEDS: CEFTRIAXONE SODIUM 2 GM in 0.9 % SODIUM CHLORIDE 100 ML IV ×2 (03:55→20:19)
[2023-12-25 04:00] VITALS: BP 145/76; PULSE 69; RESP 18; TEMP 37; O2SAT 97; BMI 41.1
[2023-12-25 07:33] VITALS: BP 180/71; PULSE 66; RESP 16; TEMP 36.6; O2SAT 96
[2023-12-25] MEDS: ATORVASTATIN 10MG TABLET 10 MG PO (09:00)
[2023-12-25] MEDS: APIXABAN 5MG TABLET 5 MG PO ×2 (09:00→20:19)
[2023-12-25] MEDS: FUROSEMIDE 80 MG TABLET PO (09:00)
[2023-12-25] MEDS: HYDRALAZINE HCL 25MG TABLET 50 MG PO ×3 (09:00→20:19)
[2023-12-25] MEDS: ISOSORBIDE MONO 60MG TAB.ER.24H 120 MG PO (09:00)
[2023-12-25] MEDS: IRBESARTAN 150MG TAB 150 MG PO (09:00)
[2023-12-25] MEDS: NIFEdipine XL 30MG TABLET 30 MG PO (09:01)
[2023-12-25] MEDS: TAMSULOSIN 0.4MG CAPSULE 0.400000000000000022 MG PO (09:01)
[2023-12-25] MEDS: LORATADINE 10MG TABLET 10 MG PO (09:01)
--- NOTE | 2023-12-25 09:21 | P.CONPHA_ITS ---
Pharmacy Consult Date: 12/25/23 Time: 09:21 Referring provider: DR. FOSTER Reason for Consult:: VANCOMYCIN DOSING Allergies Allergy/AdvReac Type Severity Reaction Status Date / Time No Known Allergies Allergy Verified 12/24/23 13:22 Home Medications Medication Instructions Recorded Confirmed Type apixaban 5 mg tablet (Eliquis) 5 mg PO BID Blood Thinner 12/12/22 12/24/23 History atorvastatin 10 mg tablet 10 mg PO DAILY Cholesterol 12/12/22 12/24/23 History cetirizine 10 mg tablet 10 mg PO DAILY Seasonal Allergies 12/12/22 12/24/23 History furosemide 40 mg tablet 80 mg PO DAILY Edema 12/12/22 12/24/23 History gabapentin 100 mg capsule 100 mg PO HS Neuropathy 12/12/22 12/24/23 History hydralazine 50 mg tablet 50 mg PO TID BP 12/12/22 12/24/23 History isosorbide mononitrate 60 mg 120 mg PO DAILY Heart 12/12/22 12/24/23 History tablet,extended release 24 hr nifedipine 30 mg tablet,extended 30 mg PO DAILY Heart 12/12/22 12/24/23 History release olmesartan 20 mg tablet 20 mg PO DAILY Cholesterol 12/12/22 12/24/23 History potassium chloride 10 mEq 10 meq PO DAILY Supplement 12/12/22 12/24/23 History capsule,extended release tamsulosin 0.4 mg capsule 0.4 mg PO DAILY BPH 12/12/22 12/24/23 History lidocaine 5 % topical patch 1 patch topical DAILY #15 ea 10/08/23 12/24/23 Rx (Lidoderm) New Prescriptions to Start Prescriptions: Height: 1.68 m Weight: 116.21 kg Laboratory Results:: Laboratory Results - last 24 hr 12/24/23 14:50: WBC 17.4 H, RBC 3.72 L, Hgb 10.2 L, Hct 33.5 L, MCV 90.3, MCH 2 7.4, MCHC 30.3 L, RDW 15.8, Plt Count 286, MPV 8.7, Neut % (Auto) 89.3 H, Lymph % (Auto) 5.9 L, Rush % (Auto) 4.5, Eos % (Auto) 0.2, Baso % (Auto) 0.1, Neut # (Auto) 15.6 H, Lymph # (Auto) 1.0, Rush # (Auto) 0.8, Eos # (Auto) 0.0, Baso # (Auto) 0.0, Total Counted 100, Neutrophils % (Manual) 94 H, Lymphocytes % (Manual) 5 L, Monocytes % (Manual) 1 L, Platelet Estimate Normal, RBC Morphology Not Reportable, Hypochromasia 1+, Ovalocytes 1+, ESR 78 H, D-Dimer 0.96 H, Sodium 141, Potassium 4.6, Chloride 108 H, Carbon Dioxide 26, Anion Gap 11.6, BUN 42 H, Creatinine 2.00 H, Estimated Creat Clear 54, Estimated GFR 33 L, Est GFR ( Amer) 40 L, Glucose 99, Calcium 8.5, Total Bilirubin 0.2, AST 23, ALT 18, Alkaline Phosphatase 72, C-Reactive Protein 6.0 H, NT-Pro-B Natriuret Pep 413 H, Total Protein 7.1, Albumin 3.8, Globulin 3.3 H, Albumin/Globulin Ratio 1.2 Medical History: Medical History (Updated 12/24/23 @ 20:29 by LIBAN Gerber) Former smoker HLD (hyperlipidemia) HTN (hypertension) Assessment and Plan Assessment and plan all Dx Assessment and Plan for all problems:: Pharmacokinetic dosing service Objective: Patient: Floor: Age: 68 yo Serum creatinine: 2 mg/dL Height: 66.1 Inches Weight (kg): 116 Assessment: IBW (kg): 64.03 Dosing wt(kg): 116 Estimated Creatinine clearance (ml/min): 32.0 CRCL method: Cockcroft and Gault using ibw(default). Drug selected: Vancomycin Loading dose (mg): 0 Vd (liters): 98.6 (factor used: 0.85 L/kg) Tarik (hr-1): 0.031 Half life (hrs): 22.36 Recommended dose: 1750 mg Interval: 24 hrs Infusion time (hrs): 2.0 Predicted peak (mcg/mL): 32.8 Predicted trough (mcg/mL): 16.58 Total body weight is being used for vancomycin dosing. Recommendations: Give Vancomycin 1750 mg q 24 hrs with an expected Cpeak of 32.8 mcg/ml and an expected Ctrough of 16.58 mcg/ml ----Vanco only - ignore for aminoglycosides----- CLvanco= 3.06 L/hr AUC 0-24 /LAW Data: LAW 0.5 mcg/mL: AUC/LAW: 1143.8 LAW 1.0 mcg/mL: AUC/LAW: 571.9 --------- LAW 1.5 mcg/mL: AUC/LAW: 381.3 LAW 2.0 mcg/mL: AUC/LAW: 285.9
--- NOTE | 2023-12-25 14:18 | HMH.PHAINT1 ---
Pharmacy Intervention Comments: MED LIST ADJUSTED WITH FILL HX.
[2023-12-25 15:20] VITALS: BP 155/81; PULSE 69; RESP 18; TEMP 36.6; O2SAT 97
--- NOTE | 2023-12-25 15:49 | PC.NURSE ---
PT IS RESTING IN BED. ALERT AND ORIENTED X4. EATING AND DRINKING WELL. 3+ PITTING EDEMA NOTED TO BLE. VOIDING PER URINAL. LUNG SOUNDS DIMINISHED. ABDOMEN LARGE/FIRM WITH HYPOACTIVE BOWEL SOUNDS. WILL CONTINUE TO MONITOR.
--- NOTE | 2023-12-25 16:08 | P.PN_ITS ---
Subjective *Date: 12/25/23 *Time: 16:08 Interval history: seen at bedside, still has LE swelling with edema, denied SOB, CP, N/V Exam Data for Last 24 hours Vital signs and Labs for Last 24 Hours: Temp Pulse Resp BP Pulse Ox O2 Del Method O2 Flow Rate 97.8 F 69 18 155/81 H 97 Room Air 3 12/25/23 15:20 12/25/23 15:20 12/25/23 15:20 12/25/23 15:20 12/25/23 15:20 12/25/23 15:20 12/24/23 20:00 Laboratory Results - last 24 hr 12/24/23 14:50: Total Counted 100, Neutrophils % (Manual) 94 H, Lymphocytes % (Manual) 5 L, Monocytes % (Manual) 1 L, Platelet Estimate Normal, RBC Morphology Not Reportable, Hypochromasia 1+, Ovalocytes 1+ I & O for Last 24 hours: Intake & Output 12/22/23 12/23/23 12/24/23 12/25/23 23:59 23:59 23:59 23:59 Intake Total 1080 / 1080 Output Total 250 / 250 1750 / 1750 Balance -250 / -250 -670 / -670 Weight 112.519 kg 116.21 kg Constitutional Constitutional: no acute distress *Routine HEENT Exam Head: Present normocephalic Eye: Present EOMI and PERRL ENT: Present mucous membranes moist *Routine Neck Exam Neck: Present supple; Absent lymphadenopathy *Routine Respiratory Exam Respiratory: Present CTA bilaterally *Routine Cardiovascular Exam Cardiovascular: Present RRR *Routine Abdominal Exam Abdominal: Present soft and normoactive bowel sounds; Absent tenderness *Routine Extremities Exam Extremities: Present edema; Absent cyanosis or clubbing Comments: pitting edema LLE *Routine Skin Exam Skin: Present warm; Absent rash *Routine Neurological Exam Neurological: Present alert and oriented X3 Assessment and Plan *Assessment and plan (1) Left leg weakness: Status: Acute Category: Medical Code(s): R29.898 - Other symptoms and signs involving the musculoskeletal system (2) Left leg swelling: Status: Acute Category: Medical Code(s): M79.89 - Other specified soft tissue disorders (3) Peripheral edema: Status: Acute Category: Medical Code(s): R60.0 - Localized edema (4) HLD (hyperlipidemia): Status: Acute Category: Medical Code(s): E78.5 - Hyperlipidemia, unspecified (5) HTN (hypertension): Status: Acute Category: Medical Code(s): I10 - Essential (primary) hypertension (6) A-fib: Status: Acute Category: Medical Code(s): I48.91 - Unspecified atrial fibrillation (7) Tobacco use: Status: Acute Category: Social Hx Code(s): Z72.0 - Tobacco use (8) Obesity: Status: Acute Category: Medical Code(s): E66.9 - Obesity, unspecified Plan 68 year old male presented to [facility] ED for c/o left lower leg swelling and difficulty ambulating. PMHX of htn, hld, a fib, chronic back pain, and peripheral edema. On 12/13/23, he had a DVT study performed which was negative for DVT in the left leg. The ED workup revealed a leukocytosis of 17.4, d-dimer of 0.96, and BNP of 413. His CTA of his lower extremity demonstrated subcutaneous fat edema of both legs but worse in left. His XRAYs of the left femur, hip, knee, and tib/fib demonstrate no fracture or malignance. There is narrowing of the tricompartmental joint space and osteophyte formation. The ED physician consulted the hospitalist team for further medical management. The pt lives alone and is unable to safely ambulate. He was started on rocephin and vancomycin to cover for cellulitis. Blood cultures are pending. I admitted the pt to the medical floor and will place a consult for physical therapy. LEFT LEG WEAKNESS LEFT LEG SWELLING -leukocytosis of 17.4, d-dimer of 0.96, and BNP of 413 -CTA of his lower extremity reviewed and reveals subcutaneous fat edema of both legs but worse in left -XRAYs of the left femur, hip, knee, and tib/fib reviewed and reveals no fracture or malignance -Continue rocephin and vancomycin. blood cultures pending - Consult cardiology for possible venous insufficiency/ Lympedema, / PAD PERIPHERAL EDEMA HLD HTN A FIB -continue home medications of apixaban, atorvastatin, cetirizine, lasix, gabapentin, hydralazine, isosorbide monoitrate, nifedipine, olmesartan, and tamsulosin TOBACCO USE -nicotine patch prn OBESITY -complicates all aspects of care FULL CODE CARDIAC DIET DVT: APIXABAN continue above managment for now, DC 1-2 days, consult PT/OT
[2023-12-25] MEDS: VANCOMYCIN/WATER FOR INJ (PEG) 1.75 GM/350 ML PIGGYBACK IV (17:01)
[2023-12-25 20:00] VITALS: BP 150/72; PULSE 62; RESP 16; TEMP 36.6; O2SAT 95
[2023-12-25] MEDS: GABAPENTIN 100MG CAPSULE 100 MG PO (20:19)
[2023-12-25 20:26] VITALS: BMI 41.1
[2023-12-26 04:00] VITALS: BP 154/66; PULSE 62; RESP 17; TEMP 36.8; O2SAT 95; BMI 40.8
--- NOTE | 2023-12-26 05:21 | PC.NURSE ---
Patient has had a good night tonight. Has had no complaints. remains on RA and AxO times 4
[2023-12-26 08:00] VITALS: BP 163/69; PULSE 61; RESP 18; TEMP 36.7; O2SAT 96
[2023-12-26] MEDS: TAMSULOSIN 0.4MG CAPSULE 0.400000000000000022 MG PO (08:17)
[2023-12-26] MEDS: APIXABAN 5MG TABLET 5 MG PO ×2 (08:17→20:41)
[2023-12-26] MEDS: IRBESARTAN 150MG TAB 150 MG PO (08:18)
[2023-12-26] MEDS: FUROSEMIDE 80 MG TABLET PO (08:18)
[2023-12-26] MEDS: ISOSORBIDE MONO 60MG TAB.ER.24H 120 MG PO (08:18)
[2023-12-26] MEDS: LORATADINE 10MG TABLET 10 MG PO (08:18)
[2023-12-26] MEDS: HYDRALAZINE HCL 25MG TABLET 50 MG PO ×3 (08:18→20:41)
[2023-12-26] MEDS: ATORVASTATIN 10MG TABLET 10 MG PO (08:18)
[2023-12-26] MEDS: NIFEdipine XL 30MG TABLET 30 MG PO (08:19)
--- NOTE | 2023-12-26 09:59 | CA_ITS ---
APPROVED REPORT EXAM: Comprehensive 2D, Doppler, and color-flow Echocardiogram Registered Nurse Bone [facility] Transplant: Heidy Pacheco RVT Ht: 5 ft 6 in Wt: 253lbs BSA: 2.21 BP: 155/81 mmHg Indications: CHF,CABG,A-FIB,HTN,EDEMA,HLD,EX SMOKER 2D Dimensions LA Volume 36.00 mL LA Volume Index 16.29 mL/m2 (M/F) 16-34 M-Mode Dimensions RVDd 4.66 cm (0.9-2.6) LA Diam 4.72 cm (1.9-4.0) LVDd 4.82 cm (3.5-5.7) LVDs 3.01 cm (3.5-5.7) IVSd 1.13 cm (0.6-1.1) PWd 0.84 cm (0.6-1.1) EF (Teich) 67.50% FS 37.60% EDV (Teich) 108.60 mL TAPSE 1.22 (<1.7) ESV (Teich) 35.30 mL LV Diastology E Decel Time 150 (160-240 msec) E/A Ratio 1.1 Aortic Valve CARMEN Index 1.13 cm2/m2 AoV Peak Jassi. 188.0 (50-130 cm/s) AO Peak GR. 14.10 mmHg AO Mean GR. 9.00 (<5 mmHg) AO VTI 33.1 (18-25 cm) CARMEN (VTI) 2.56 (2.5-4.5 cm2) Mitral Valve MV E Max Jassi. 98.0 (40-130 cm/s) MV A Velocity 88.0 (40-130 cm/s) E/A Ratio 1.12 MV PHT 44.0 ms Pulmonary Valve PV Peak Velocity 95.0 (50-150 cm/s) Tricuspid Valve TR P. Velocity 188.00 cm/s RAP Estimate 10.00 mmHg RVSP 24.10 mmHg Left Ventricle The left ventricle is normal size. The left ventricular systolic function is normal. The left ventricular ejection fraction is within the normal range. There is increased LV wall thickness. There is normal LV segmental wall motion. Transmitral Doppler flow pattern suggests impaired LV relaxation. LVEF is 55%. Right Ventricle Right ventricle is moderately dilated. Right ventricle is mildly hypokinetic. Atria The left atrium size is normal. The right atrium size is normal. There is no Doppler evidence of interatrial shunt. Aortic Valve The aortic valve is mildly thickened. There is no aortic valvular stenosis. Trace aortic regurgitation. Mitral Valve Mitral valve leaflets are mildly thickened. No evidence of mitral valve stenosis. Trace mitral regurgitation. Tricuspid Valve The tricuspid valve leaflets are thin and pliable. Trace tricuspid regurgitation. There is insufficient TR jet to estimate RVSP. Pulmonic Valve The pulmonary valve is normal in structure. Trace pulmonic regurgitation. Great Vessels The aortic root is not well-visualized. The IVC is not well visualized. Pericardium There is no pericardial effusion. Other Information Study Quality: Technically Difficult Conclusion Technically difficult study due to poor accoustic windows. Normal LV systolic function. Moderate RV dilation with mild reduction in RV function. No significant valvular stenosis or regurgitation. Electronically signed by : Laura Warner MD 12/27/2023 20:04:54
--- NOTE | 2023-12-26 10:04 | SW/DCPLANNER ---
Addendum entered by [facility] 12/27/23 15:12: Rochelle w/ [facility] stated that services will start this week for this patient. Addendum entered by [facility] 12/27/23 14:09: Tee schneider/ [facility] stated that she can not accept this patient. Patient information/order has been faxed to [facility]. Addendum entered by [facility] 12/27/23 13:48: Patient information/order has been faxed to Tee schneider/ [facility] [facility]. I will follow up wyatt/ Tee once information is reviewed. Original Note: I spoke w/ this patient regarding plans once medically stable for discharge. PT evaluated patient and recommended home w/ home health services. Patient is agreeable to home health and does not have a preference for home health agency. Patient stated that he does have a rolling walker at home. I will set patient up w/ home health services at time of discharge. Discharge date is unknown at this time.
--- NOTE | 2023-12-26 10:40 | XR_ITS ---
FINAL REPORT CLINICAL HISTORY: Knee pain COMPARISON: 11/15/2023 FINDINGS: Two views of the left knee were obtained. There is no evidence of fracture or dislocation. The bony alignment is normal. Mild and moderate degenerative changes are present in the knee. There are loose bodies measuring up to 18 mm in size in the posterolateral soft tissues. There is no evidence of joint effusion. Anterior soft tissue swelling is noted. There is no evidence of foreign body. No significant changes noted since prior exam of November 20. IMPRESSION: No acute abnormality identified. Mild and moderate degenerative change, with loose bodies, and anterior soft tissue swelling, stable. Reviewed, Interpreted and Dictated by Geovanny Maurice III, MD Transcribed by Linette Mills Authenticated and [facility]
--- NOTE | 2023-12-26 10:49 | HMH.PTEV ---
Physical Therapy Evaluation Rehab PT IP Evaluation Start: 12/24/23 20:38 Freq: ONCE Status: Active Protocol: Document 12/26/23 10:00 JEWELS (Rec: 12/26/23 10:48 PHORNE [id number]) Subjective/History History History 68 yowm adm to [facility] with generalized weakness. He has PMH of HTN, HLD, a-fib. He reports he lives alone in a mobile home, 2-3 ADILIA the home, and he does use a RW for all ambulation at baseline. He states, [place] and I couldn 't walk out. My legs just wouldn't work. Subjective Subjective Pt reports feeling better overall and agrees to OOB mobility assesment. He does reports arellano of 06/02 with WBing on the L LE. New diagnosis of cancer in past 12 No months? Rehab PT IP Eval Objective Appearance Patient Behavior Appropriate Patient Orientation Person,Place,Time Speech Pattern Coherent,Garbled,Patient Baseline Ambulation Patient Able to Ambulate Yes Ambulation Observation IP General Gait Pattern Observation Wide Based Gait,Decrease Stride Lngth (L) Ambulation Distance (feet) 40 Ambulation Assistive Device Rolling Walker Ambulation Ability Contact Guard/Hand Hold Balance Ability to Arise Able, uses arms to help Sitting Balance Steady, safe Standing Balance Steady, wide stance Dynamic Sitting Balance Ability Good Dynamic Standing Balance Ability Fair Transfers Bed Transfer Ability Contact Guard/Hand Hold Chair Transfer Ability Contact Guard/Hand Hold Sit to Stand Bed Transfer Ability Contact Guard/Hand Hold Sit to Stand Chair Transfer Ability Contact Guard/Hand Hold Rehab PT IP prob,goals,plan Problems Date of Evaluation: 12/26/23 PT IP Problems Bed Mobility,Transfers,Gait Rehab Potential Rehab Potential Good Plan PT Intervention Plan Bed Mobility,Transfers,Gait, Therapeutic Exercise PT Plan Frequency Daily Duration LOS Discharge Goals Bed Transfer Ability Supervision/Stand by Sit to Stand Chair Transfer Ability Supervision/Stand by Ambulation Assistive Device Rolling Walker Ambulation Distance (feet) 50 Discharge Plan PT Discharge Plan Pt is appropriate currently to return home with home health therapy after medically stable to d/c. Skilled intervention is needed to prevent further wounds, falls, injury, ot debility. Eval Complexity Eval Charge Codes 68921 - High Complexity PHYSICIAN CERTIFICATION: I certify the specified therapy services for Edward Dom Tien are required, authorized, and reviewed every 30 days.
--- NOTE | 2023-12-26 14:52 | P.CONCA_ITS ---
History of Present Illness History of Present Illness Consult date: 12/26/23 Requesting physician: Olya Alfredo Chief complaint: LLE edema History of present illness: This is a 68-year-old white gentleman who presented to the emergency department complaints of left lower extremity edema and difficulty walking. The patient states that he has been having edema in his left leg for approximately 2 to 3 weeks. He denies any chest pain or pressure. He denies any shortness of breath. He denies any fever, chills, nausea, vomiting, diarrhea, PND or orthopnea. The patient did have a ultrasound of his left leg on December 13 which was negative for a DVT. CTA of the left lower extremity shows no stenosis or thrombus to the left lower extremity. There is subcutaneous fat edema. And he does have an enlarged prostate. [facility] Disclaimer: The information contained in this section may have been updated after the patient was seen, as this information can be updated by other users. Medical History (Updated 12/26/23 @ 14:55 by Romelia Goodman APRN) Former smoker HLD (hyperlipidemia) HTN (hypertension) Surgical History Hx of CABG Hx of tonsillectomy Social History Smoking Status: Never smoker alcohol intake: never current occupational status: retired Travel in the last 8 weeks: Inside the [place] Review of Systems Review of Systems Review of systems:: pertinent systems reviewed and negative unless documented below Constitutional Constitutional: Reports system reviewed and no additional complaints, except as documented Eyes Eyes: Reports system reviewed and no additional complaints, except as documented ENT Ears, Nose, Mouth, and Throat: Reports system reviewed and no additional complaints, except as documented *Cardiovascular Cardiovascular: Reports system reviewed and no additional complaints, except as documented, Denies chest pain, Denies dyspnea and Reports leg edema *Respiratory Respiratory: Reports system reviewed and no additional complaints, except as documented and Denies dyspnea *Gastrointestinal Gastrointestinal: Reports system reviewed and no additional complaints, except as documented *Genitourinary Genitourinary: Reports system reviewed and no additional complaints, except as documented *Musculoskeletal Musculoskeletal: Reports abnormal gait Integumentary/Breasts Skin/Breast: Reports system reviewed and no additional complaints, except as documented *Neurologic Neurologic: Reports abnormal gait Psychiatric Psychiatric: Reports system reviewed and no additional complaints, except as documented Endocrine Endocrine: Reports system reviewed and no additional complaints, except as documented Hematologic/Lymphatic Hematologic/Lymphatic: Reports system reviewed and no additional complaints, except as documented Allergic/Immunologic Allergic/Immunologic: Reports system reviewed and no additional complaints, except as documented Exam Data for Last 24 hours Vital signs and Labs for Last 24 Hours: Temp Pulse Resp BP Pulse Ox O2 Del Method O2 Flow Rate 98.1 F 61 18 163/69 H 96 Room Air 3 12/26/23 08:00 12/26/23 08:00 12/26/23 08:00 12/26/23 08:00 12/26/23 08:00 12/26/23 14:26 12/24/23 20:00 I & O for Last 24 hours: Intake & Output 12/23/23 12/24/23 12/25/23 12/26/23 23:59 23:59 23:59 23:59 Intake Total 1550 / 1900 950 / 950 Output Total 250 / 250 3350 / 3750 2200 / 2200 Balance -250 / -250 -1800 / -1850 -1250 / -1250 Weight 248 lb 1 oz 256 lb 2.834 oz 253 lb 14.4 oz Constitutional Constitutional: no acute distress and average body habitus *Routine HEENT Exam Head: Present normocephalic and atraumatic ENT: Present mucous membranes moist *Routine Neck Exam Neck: Present supple, full ROM and normal carotid upstroke; Absent JVD, carotid bruit or lymphadenopathy *Routine Respiratory Exam Respiratory: Present CTA bilaterally, normal respiratory effort, able to speak in complete sentences and symmetric chest movement *Routine Cardiovascular Exam Cardiovascular: Present RRR, Normal S1 and Normal S2; Absent murmur or gallop *Routine Abdominal Exam Abdominal: Present soft and normoactive bowel sounds; Absent tenderness, distended or organomegaly *Routine Extremities Exam Extremities: Present edema (Left greater than right), full ROM, pulses intact and normal capillary refill; Absent cyanosis or clubbing *Routine Skin Exam Skin: Present intact and warm; Absent erythema *Routine Neurological Exam Neurological: Present alert, oriented X3 and CN II-XII intact; Absent sensory deficit or motor deficit Routine Psychiatric Exam Psychiatric: Present normal affect Meds Home Medications and Allergies Home Medications Medication Instructions Recorded Confirmed Type apixaban 5 mg tablet (Eliquis) 5 mg PO BID Blood Thinner 12/12/22 12/24/23 History atorvastatin 10 mg tablet 10 mg PO DAILY Cholesterol 12/12/22 12/24/23 History cetirizine 10 mg tablet 10 mg PO DAILY Seasonal Allergies 12/12/22 12/24/23 History gabapentin 100 mg capsule 200 mg PO HS Neuropathy 12/12/22 12/25/23 History hydralazine 50 mg tablet 50 mg PO TID Hypertension 12/12/22 12/24/23 History isosorbide mononitrate 60 mg 120 mg PO DAILY Heart 12/12/22 12/24/23 History tablet,extended release 24 hr nifedipine 30 mg tablet,extended 30 mg PO DAILY Heart 12/12/22 12/24/23 History release olmesartan 20 mg tablet 20 mg PO DAILY Cholesterol 12/12/22 12/24/23 History potassium chloride 10 mEq 10 meq PO BID Supplement 12/12/22 12/25/23 History capsule,extended release tamsulosin 0.4 mg capsule 0.4 mg PO DAILY BPH 12/12/22 12/24/23 History bumetanide 1 mg tablet 1 mg PO DAILY Fluid 12/25/23 12/25/23 History furosemide 80 mg tablet 80 mg PO DAILY Fluid 12/25/23 12/25/23 History trazodone 100 mg tablet 100 mg PO HSP PRN Sleep 12/25/23 12/25/23 History New Prescriptions to Start Prescriptions: Allergies Allergy/AdvReac Type Severity Reaction Status Date / Time No Known Allergies Allergy Verified 12/24/23 13:22 Assessment and Plan *Assessment and plan (1) Peripheral edema: Status: Acute Category: Medical Code(s): R60.0 - Localized edema (2) HTN (hypertension): Status: Acute Qualifiers: Hypertension type: primary hypertension Qualified Code(s): I10 - Essential (primary) hypertension Category: Medical Code(s): I10 - Essential (primary) hypertension (3) HLD (hyperlipidemia): Status: Acute Qualifiers: Hyperlipidemia type: mixed hyperlipidemia Qualified Code(s): E78.2 - Mixed hyperlipidemia Category: Medical Code(s): E78.5 - Hyperlipidemia, unspecified (4) A-fib: Status: Acute Qualifiers: Atrial fibrillation type: paroxysmal Qualified Code(s): I48.0 - Paroxysmal atrial fibrillation Category: Medical Code(s): I48.91 - Unspecified atrial fibrillation (5) Obesity: Status: Acute Qualifiers: Obesity classification: adult class 3 (BMI >= 40) Serious obesity comorbidity presence: without serious comorbidity Body mass index: BMI 40.0- 44.9 Obesity type: due to excess calories Qualified Code(s): E66.01 - Morbid (severe) obesity due to excess calories; Z68.41 - Body mass index [BMI] 40.0-4 4.9, adult Category: Medical Code(s): E66.9 - Obesity, unspecified (6) Tobacco use: Status: Acute Category: Social Hx Code(s): Z72.0 - Tobacco use Plan Plan: 1. This patient was admitted to the hospital with left lower extremity edema. CTA of the lower extremity showed no thrombus or stenosis. It did show subcutaneous fat and an enlarged prostate. The patient's left lower extremity is likely not cardiac in nature. 2. His echocardiogram showed a normal ejection fraction with slight increase in LV wall thickness. He had some very mild right ventricular dilatation. We do recommend Lasix 40 mg IV twice daily x 2 doses then he can resume his normal Lasix 80 mg daily dose. 3. His blood pressure is elevated. The addition of Lasix will likely improve his blood pressure as well. 4. His LDL goal is less than 100. 5. Tobacco cessation is highly advised and counseled. 6. No further recommendations at this time from a cardiac standpoint. If the patient has any other cardiac issues arise throughout his hospitalization, please feel free to contact cardiology again. Thank you for the opportunity to participate in the care of this patient. All recommendations and orders are per Dr. Warner.
--- NOTE | 2023-12-26 15:20 | EXP.PN ---
Subjective *Date: 12/26/23 *Time: 15:20 Interval history: seen at bedside, still has LE swelling with edema, he mentions he takes lasix and bumex at home, denied SOB, CP, N/V Exam Data for Last 24 hours Vital signs and Labs for Last 24 Hours: Temp Pulse Resp BP Pulse Ox O2 Del Method O2 Flow Rate 98.1 F 61 18 163/69 H 96 Room Air 3 12/26/23 08:00 12/26/23 08:00 12/26/23 08:00 12/26/23 08:00 12/26/23 08:00 12/26/23 14:26 12/24/23 20:00 I & O for Last 24 hours: Intake & Output 12/23/23 12/24/23 12/25/23 12/26/23 23:59 23:59 23:59 23:59 Intake Total 1550 / 1900 950 / 950 Output Total 250 / 250 3350 / 3750 2200 / 2200 Balance -250 / -250 -1800 / -1850 -1250 / -1250 Weight 112.519 kg 116.2 kg 115.167 kg Constitutional Constitutional: no acute distress *Routine HEENT Exam Head: Present normocephalic Eye: Present EOMI and PERRL ENT: Present mucous membranes moist *Routine Neck Exam Neck: Present supple; Absent lymphadenopathy *Routine Respiratory Exam Respiratory: Present CTA bilaterally *Routine Cardiovascular Exam Cardiovascular: Present RRR *Routine Abdominal Exam Abdominal: Present soft and normoactive bowel sounds; Absent tenderness *Routine Extremities Exam Extremities: Present edema; Absent cyanosis or clubbing Comments: pitting edema LLE *Routine Skin Exam Skin: Present warm; Absent rash *Routine Neurological Exam Neurological: Present alert and oriented X3 Assessment and Plan *Assessment and plan (1) Left leg weakness: Status: Acute Category: Medical Code(s): R29.898 - Other symptoms and signs involving the musculoskeletal system (2) Left leg swelling: Status: Acute Category: Medical Code(s): M79.89 - Other specified soft tissue disorders (3) Peripheral edema: Status: Acute Category: Medical Code(s): R60.0 - Localized edema (4) HLD (hyperlipidemia): Status: Acute Qualifiers: Hyperlipidemia type: mixed hyperlipidemia Qualified Code(s): E78.2 - Mixed hyperlipidemia Category: Medical Code(s): E78.5 - Hyperlipidemia, unspecified (5) HTN (hypertension): Status: Acute Qualifiers: Hypertension type: primary hypertension Qualified Code(s): I10 - Essential (primary) hypertension Category: Medical Code(s): I10 - Essential (primary) hypertension (6) A-fib: Status: Acute Qualifiers: Atrial fibrillation type: paroxysmal Qualified Code(s): I48.0 - Paroxysmal atrial fibrillation Category: Medical Code(s): I48.91 - Unspecified atrial fibrillation (7) Tobacco use: Status: Acute Category: Social Hx Code(s): Z72.0 - Tobacco use (8) Obesity: Status: Acute Qualifiers: Obesity type: due to excess calories Obesity classification: adult class 3 (BMI >= 40) Serious obesity comorbidity presence: without serious comorbidity Body mass index: BMI 40.0-44.9 Qualified Code(s): E66.01 - Morbid (severe) obesity due to excess calories; Z68.41 - Body mass index [BMI] 40.0-44.9, adult Category: Medical Code(s): E66.9 - Obesity, unspecified Plan 68 year old male presented to [facility] ED for c/o left lower leg swelling and difficulty ambulating. PMHX of htn, hld, a fib, chronic back pain, and peripheral edema. On 12/13/23, he had a DVT study performed which was negative for DVT in the left leg. The ED workup revealed a leukocytosis of 17.4, d-dimer of 0.96, and BNP of 413. His CTA of his lower extremity demonstrated subcutaneous fat edema of both legs but worse in left. His XRAYs of the left femur, hip, knee, and tib/fib demonstrate no fracture or malignance. There is narrowing of the tricompartmental joint space and osteophyte formation. The ED physician consulted the hospitalist team for further medical management. The pt lives alone and is unable to safely ambulate. He was started on rocephin and vancomycin to cover for cellulitis. Blood cultures are pending. I admitted the pt to the medical floor and will place a consult for physical therapy. LEFT LEG WEAKNESS LEFT LEG SWELLING -leukocytosis of 17.4, d-dimer of 0.96, and BNP of 413 -CTA of his lower extremity reviewed and reveals subcutaneous fat edema of both legs but worse in left -XRAYs of the left femur, hip, knee, and tib/fib reviewed and reveals no fracture or malignance -Continue rocephin and vancomycin. blood cultures pending - Consult cardiology for possible venous insufficiency/ Lympedema, / PAD - CTA leg - negative for vascular occulsion PERIPHERAL EDEMA HLD HTN A FIB -continue home medications of apixaban, atorvastatin, cetirizine, lasix, gabapentin, hydralazine, isosorbide monoitrate, nifedipine, olmesartan, and tamsulosin TOBACCO USE -nicotine patch prn OBESITY -complicates all aspects of care FULL CODE CARDIAC DIET DVT: APIXABAN started on IV lasix, will dc tomorrow
[2023-12-26 15:47] LABS: Chloride 102 mmol/L (98-107); Potassium 5.1 mmoL/L (3.5-5.1); Sodium 133 mmol/L (136-145)
[2023-12-26 15:50] LABS: Anion Gap 10.1 mEq/L (5-15); Blood Urea Nitrogen 54 mg/dl (9-20); Carbon Dioxide 26 mmol/L (22.0-30.0); Creatinine Clearance Estimated 50 mL/min (50-200); Estimated Glomerular Filt Rate 28 ml/min (>60); GFR (African American) 34 ML/MIN (>60)
[2023-12-26 15:51] LABS: Calcium 8.5 mg/dl (8.4-10.2); Glucose 111 mg/dl (74-100)
[2023-12-26] MEDS: FUROSEMIDE 40MG/4ML VIAL 40 MG IV (15:54)
[2023-12-26 16:00] VITALS: BP 157/67; PULSE 65; RESP 22; TEMP 36.4; O2SAT 96
[2023-12-26] MEDS: VANCOMYCIN/WATER FOR INJ (PEG) 1.75 GM/350 ML PIGGYBACK IV (16:00)
--- NOTE | 2023-12-26 19:20 | PC.NURSE ---
NO COMPLAINTS THIS SHIFT. DID AMBULATE MULTIPLE TIMES AND SPENT MULTIPLE HOURS UP TO CHAIR.
[2023-12-26 20:00] VITALS: BP 160/76; PULSE 68; RESP 16; TEMP 37.1; O2SAT 97
[2023-12-26] MEDS: GABAPENTIN 100MG CAPSULE 100 MG PO (20:41)
[2023-12-26] MEDS: CEFTRIAXONE SODIUM 2 GM in 0.9 % SODIUM CHLORIDE 100 ML IV (20:43)
[2023-12-27 04:00] VITALS: BP 162/77; PULSE 58; RESP 18; TEMP 36.7; O2SAT 95; BMI 39.9
--- NOTE | 2023-12-27 05:39 | P.DS_ITS ---
General Admission date:: 12/24/23 Discharge date: 12/27/23 HPI HPI HPI: 68 year old male presented to [facility] ED for c/o left lower leg swelling and difficulty ambulating. PMHX of htn, hld, a fib, chronic back pain, and peripheral edema. On 12/13/23, he had a DVT study performed which was negative for DVT in the left leg. The ED workup revealed a leukocytosis of 17.4, d-dimer of 0.96, and BNP of 413. His CTA of his lower extremity demonstrated subcutaneous fat edema of both legs but worse in left. His XRAYs of the left femur, hip, knee, and tib/fib demonstrate no fracture or malignance. There is narrowing of the tricompartmental joint space and osteophyte formation. The ED physician consulted the hospitalist team for further medical management. The pt lives alone and is unable to safely ambulate. He was started on rocephin and vancomycin to cover for cellulitis. Blood cultures are pending. I admitted the pt to the medical floor and will place a consult for physical therapy. Hospital Course Hospital Course Hospital Course: 68 year old male presented to [facility] ED for c/o left lower leg swelling and difficulty ambulating. PMHX of htn, hld, a fib, chronic back pain, and peripheral edema. On 12/13/23, he had a DVT study performed which was negative for DVT in the left leg. The ED workup revealed a leukocytosis of 17.4, d-dimer of 0.96, and BNP of 413. His CTA of his lower extremity demonstrated subcutaneous fat edema of both legs but worse in left. His XRAYs of the left femur, hip, knee, and tib/fib demonstrate no fracture or malignance. There is narrowing of the tricompartmental joint space and osteophyte formation. The ED physician consulted the hospitalist team for further medical management. The pt lives alone and is unable to safely ambulate. He was started on rocephin and vancomycin to cover for cellulitis. Blood cultures are pending. Admitted for further management. Therapy evaluated. Patient able to ambulate and is safe to return home with home health. Cardiology consulted for peripheral edema. Recommended Lasix during admission and return to oral Lasix at discharge. Problems addressed as follows: This patient was admitted to the hospital with left lower extremity edema. CTA of the lower extremity showed no thrombus or stenosis. It did show subcutaneous fat and an enlarged prostate. The patient's left lower extremity is likely not cardiac in nature. His echocardiogram showed a normal ejection fraction with slight increase in LV wall thickness. He had some very mild right ventricular dilatation. This is likely not the cause of his lower extremity edema. However, the patient was given 2 doses of IV Lasix and will resume his normal oral Lasix dose at this time. Increase hydralazine to 100 mg 3 times daily for better blood pressure control. LDL is 75. On a statin. Stable discharge home with therapy. Exam Data for Last 24 hours Vital signs and Labs for Last 24 Hours: Temp Pulse Resp BP Pulse Ox O2 Del Method O2 Flow Rate 98.7 F 68 16 160/76 H 97 Room Air 3 12/26/23 20:00 12/26/23 20:00 12/26/23 20:00 12/26/23 20:00 12/26/23 20:00 12/27/23 03:00 12/24/23 20:00 Laboratory Results - last 24 hr 12/26/23 15:30: Sodium 133 L, Potassium 5.1, Chloride 102, Carbon Dioxide 26, Anion Gap 10.1, BUN 54 H D, Creatinine 2.30 H, Estimated Creat Clear 50, Estimated GFR 28 L, Est GFR ( Amer) 34 L, Glucose 111 H, Calcium 8.5 I & O for Last 24 hours: Intake & Output 12/24/23 12/25/23 12/26/23 12/27/23 23:59 23:59 23:59 23:59 Intake Total 1550 / 1900 1310 / 1750 440 / 440 Output Total 250 / 250 3350 / 3750 3450 / 3675 425 / 425 Balance -250 / -250 -1800 / -1850 -2140 / -1925 15 15 Weight 112.519 kg 116.2 kg 115.167 kg Constitutional Constitutional: no acute distress, obese and chronically ill appearing *Routine HEENT Exam Head: Present normocephalic Eye: Present EOMI and PERRL ENT: Present mucous membranes moist *Routine Neck Exam Neck: Present supple; Absent lymphadenopathy *Routine Respiratory Exam Respiratory: Present CTA bilaterally; Absent rhonchi, wheezes or crackles *Routine Cardiovascular Exam Cardiovascular: Present RRR *Routine Abdominal Exam Abdominal: Present soft and normoactive bowel sounds; Absent tenderness *Routine Rectal Exam Patient deferred: visual exam *Routine Exam Patient deferred: penile exam *Routine Extremities Exam Extremities: Absent cyanosis, clubbing or edema *Routine Skin Exam Skin: Present warm; Absent rash *Routine Neurological Exam Neurological: Present alert, oriented X3 and moving all extremities; Absent altered mental status Results Data Completed and Pending Labs on day of discharge: Labs from last 24 hours 12/26/23 15:30 Sodium 133 L Potassium 5.1 Chloride 102 Carbon Dioxide 26 Anion Gap 10.1 BUN 54 H D Creatinine 2.30 H Estimated Creat Clear 50 Estimated GFR 28 L Est GFR ( Amer) 34 L Glucose 111 H Calcium 8.5 DS: Diagnosis Discharge Diagnosis (1) Left leg weakness: Status: Acute Code(s): R29.898 - Other symptoms and signs involving the musculoskeletal system (2) Left leg swelling: Status: Acute Code(s): M79.89 - Other specified soft tissue disorders (3) Peripheral edema: Status: Acute Code(s): R60.0 - Localized edema (4) HLD (hyperlipidemia): Status: Acute Code(s): E78.5 - Hyperlipidemia, unspecified Qualifiers: Hyperlipidemia type: mixed hyperlipidemia Qualified Code(s): E78.2 - Mixed hyperlipidemia (5) HTN (hypertension): Status: Acute Code(s): I10 - Essential (primary) hypertension Qualifiers: Hypertension type: primary hypertension Qualified Code(s): I10 - Essential (primary) hypertension (6) A-fib: Status: Acute Code(s): I48.91 - Unspecified atrial fibrillation Qualifiers: Atrial fibrillation type: paroxysmal Qualified Code(s): I48.0 - Paroxysmal atrial fibrillation (7) Tobacco use: Status: Acute Code(s): Z72.0 - Tobacco use (8) Obesity: Status: Acute Code(s): E66.9 - Obesity, unspecified Qualifiers: Body mass index: BMI 40.0-44.9 Obesity classification: adult class 3 (BMI >= 40) Obesity type: due to excess calories Serious obesity comorbidity presence: without serious comorbidity Qualified Code(s): E66.01 - Morbid (severe) obesity due to excess calories; Z68.41 - Body mass index [BMI] 40.0-44.9, adult Meds Home Medications and Allergies Home Medications Medication Instructions Recorded Confirmed Type apixaban 5 mg tablet (Eliquis) 5 mg PO BID Blood Thinner 12/12/22 12/24/23 History atorvastatin 10 mg tablet 10 mg PO DAILY 12/12/22 12/24/23 History cetirizine 10 mg tablet 10 mg PO DAILY 12/12/22 12/24/23 History gabapentin 100 mg capsule 200 mg PO HS 12/12/22 12/25/23 History hydralazine 50 mg tablet 50 mg PO TID 12/12/22 12/24/23 History isosorbide mononitrate 60 mg 120 mg PO DAILY Heart 12/12/22 12/24/23 History tablet,extended release 24 hr nifedipine 30 mg tablet,extended 30 mg PO DAILY 12/12/22 12/24/23 History release olmesartan 20 mg tablet 20 mg PO DAILY 12/12/22 12/24/23 History potassium chloride 10 mEq 10 meq PO BID 12/12/22 12/25/23 History capsule,extended release tamsulosin 0.4 mg capsule 0.4 mg PO DAILY 12/12/22 12/24/23 History furosemide 80 mg tablet 80 mg PO DAILY 12/25/23 12/25/23 History trazodone 100 mg tablet 100 mg PO HSP PRN Sleep 12/25/23 12/25/23 History nicotine 21 mg/24 hr daily 21 mg transdermal DAILY 30 days 12/27/23 Rx transdermal patch #30 ea New Prescriptions to Start Prescriptions: Jerry Paniagua Allergies Allergy/AdvReac Type Severity Reaction Status Date / Time No Known Allergies Allergy Verified 12/24/23 13:22 Discharge Plan Disposition Patient Disposition: Home Health Service Condition: Fair Discharge Order Discharge Orders: Discharge Order (Routine); Ordered 12/27/23 Ordered By: Jerry Price Follow up Plan Prescriptions/Medication Reconciliation: New nicotine 21 mg/24 hr Patch 24 Hour 21 mg transdermal DAILY 30 Days Qty: 30 0RF Continued furosemide 80 mg tablet 80 mg PO DAILY trazodone 100 mg tablet 100 mg PO HSP PRN (Reason: Sleep) Patient Comments: take 1 tablet at bedtime as needed Once a day potassium chloride 10 mEq capsule, extended release 10 meq PO BID Patient Comments: Take 1 capsule twice a day by oral route for 30 days. cetirizine 10 mg tablet 10 mg PO DAILY Patient Comments: take 1 tablet Once a day for 30 day(s) atorvastatin 10 mg tablet 10 mg PO DAILY Patient Comments: TAKE ONE TABLET BY MOUTH DAILY nifedipine 30 mg tablet extended release 30 mg PO DAILY Patient Comments: Take 1 Tablet(s) 1 time a day isosorbide mononitrate 60 mg tablet extended release 24 hr 120 mg PO DAILY Patient Comments: TAKE TWO TABLETS BY MOUTH ONCE DAILY tamsulosin 0.4 mg capsule 0.4 mg PO DAILY Patient Comments: TAKE ONE CAPSULE BY MOUTH ONCE DAILY for 30 days hydralazine 50 mg tablet 50 mg PO TID Patient Comments: TAKE ONE TABLET BY MOUTH THREE TIMES DAILY gabapentin 100 mg capsule 200 mg PO HS Patient Comments: Take 2 capsule every day by oral route at bedtime for 30 days. olmesartan 20 mg tablet 20 mg PO DAILY Patient Comments: Take 1 tablet every day by oral route for 90 days. Eliquis 5 mg tablet 5 mg PO BID Patient Comments: TAKE ONE TABLET BY MOUTH TWICE DAILY for 30 days Discontinued bumetanide 1 mg tablet 1 mg PO DAILY Problem Reconciliation Problems Reviewed?: Yes Patient Discharge Instructions ACTIVITY: Continue current activity DIET: continue same diet Providers Primary Care Provider: Provider,Referral Admit Provider: Olya Alfredo Attending Provider: Olya Alfredo
[2023-12-27 06:27] LABS: Anion Gap 10.4 mEq/L (5-15); Blood Urea Nitrogen 53 mg/dl (9-20); Calcium 8.3 mg/dl (8.4-10.2); Carbon Dioxide 28 mmol/L (22.0-30.0); Chloride 102 mmol/L (98-107); Creatinine Clearance Estimated 54 mL/min (50-200); Estimated Glomerular Filt Rate 32 ml/min (>60); GFR (African American) 38 ML/MIN (>60); Glucose 91 mg/dl (74-100); Potassium 5.4 mmoL/L (3.5-5.1); Sodium 135 mmol/L (136-145)
--- NOTE | 2023-12-27 06:27 | PC.NURSE ---
pt voided well through the night. no c/o verbalized. pt anxious to go home today
[2023-12-27 06:36] LABS: Basophils % 0.2 % (0.1-2.0); Eosinophils # 0.3 K/mm3 (0.0-0.4); Eosinophils % 2.6 % (0.1-12.0); Hematocrit 32.7 % (42.0-52.0); Hemoglobin 10.2 g/dL (14.1-18.0); Lymphocytes # 1.6 K/mm3 (0.7-4.5); Lymphocytes % 14.6 % (10-50); Mean Corpuscular HGB Conc 31.3 g/dL (31.8-35.4); Mean Corpuscular Hemoglobin 27.7 pg (27.0-31.2); Mean Corpuscular Volume 88.8 fl (80-94); Mean Platelet Volume 8.8 fl (7.4-10.4); Monocytes # 0.9 K/mm3 (0.1-1.0); Monocytes % 7.7 % (1.7-9.3); Neutrophils # 8.3 K/mm3 (1.8-7.8); Neutrophils % 74.8 % (37.0-80.0); Platelet Count 250 K/mm3 (142-424); Red Blood Count 3.68 M/mm3 (4.60-6.20); Red Cell Distribution Width 15.5 % (11.5-17.5); White Blood Count 11.2 K/mm3 (4.8-10.8)
[2023-12-27 08:00] VITALS: BP 188/88; PULSE 59; RESP 22; TEMP 36.9; O2SAT 96
[2023-12-27] MEDS: TAMSULOSIN 0.4MG CAPSULE 0.400000000000000022 MG PO (09:00)
[2023-12-27] MEDS: IRBESARTAN 150MG TAB 150 MG PO (09:00)
[2023-12-27] MEDS: NIFEdipine XL 30MG TABLET 30 MG PO (09:00)
[2023-12-27] MEDS: FUROSEMIDE 40MG/4ML VIAL 40 MG IV (09:00)
[2023-12-27] MEDS: LORATADINE 10MG TABLET 10 MG PO (09:01)
[2023-12-27] MEDS: APIXABAN 5MG TABLET 5 MG PO (09:01)
[2023-12-27] MEDS: ISOSORBIDE MONO 60MG TAB.ER.24H 120 MG PO (09:01)
[2023-12-27] MEDS: ATORVASTATIN 10MG TABLET 10 MG PO (09:01)
[2023-12-27] MEDS: HYDRALAZINE HCL 25MG TABLET 50 MG PO (09:02)
[2023-12-27 09:07] LABS: Chol/HDL Ratio 4.3 (1-3.5); Cholesterol 129 mg/dl (140-200); HDL Cholesterol 30 mg/dl (40-60); Triglycerides 80 mg/dl (30-150); VLDL Cholesterol 16 mg/dL (0-40)
[2023-12-27 09:18] LABS: Direct LDL Cholesterol 75.09 mg/dL (100-129)
[2023-12-27 10:48] VITALS: BP 149/65; PULSE 65; O2SAT 97
--- NOTE | 2023-12-27 13:14 | EXP.CARD.PN ---
Subjective Subjective Date: 12/27/23 Time: 09:30 Principal diagnosis: LLE edema Interval history: The patient denies any chest pain or pressure. He denies any shortness of breath. He states his edema has improved but is still present. He has bilateral lower extremity edema but is worse on the left than the right. He denies any fever, chills, nausea, vomiting, diarrhea, PND or orthopnea. Exam Data for Last 24 hours Vital signs and Labs for Last 24 Hours: Temp Pulse Resp BP Pulse Ox O2 Del Method O2 Flow Rate 98.4 F 65 22 149/65 H 97 Room Air 3 12/27/23 08:00 12/27/23 10:48 12/27/23 08:00 12/27/23 10:48 12/27/23 10:48 12/27/23 12:27 12/24/23 20:00 Laboratory Results - last 24 hr 12/26/23 15:30: Sodium 133 L, Potassium 5.1, Chloride 102, Carbon Dioxide 26, Anion Gap 10.1, BUN 54 H D, Creatinine 2.30 H, Estimated Creat Clear 50, Estimated GFR 28 L, Est GFR ( Amer) 34 L, Glucose 111 H, Calcium 8.5 12/27/23 05:28: WBC 11.2 H D, RBC 3.68 L, Hgb 10.2 L, Hct 32.7 L, MCV 88.8, MCH 27.7, MCHC 31.3 L, RDW 15.5, Plt Count 250, MPV 8.8, Neut % (Auto) 74.8, Lymph % (Auto) 14.6, [place] % (Auto) 7.7, Eos % (Auto) 2.6, Baso % (Auto) 0.2, Neut # (Auto) 8.3 H, Lymph # (Auto) 1.6, [place] # (Auto) 0.9, Eos # (Auto) 0.3, Baso # (Auto) 0.0, Sodium 135 L, Potassium 5.4 H, Chloride 102, Carbon Dioxide 28, Anion Gap 10.4, BUN 53 H, Creatinine 2.10 H, Estimated Creat Clear 54, Estimated GFR 32 L, Est GFR ( Amer) 38 L, Glucose 91, Calcium 8.3 L, Triglycerides 80, Cholesterol 129 L, LDL Cholesterol Direct 75.09 L, VLDL Cholesterol 16, HDL Cholesterol 30 L, Cholesterol/HDL Ratio 4.3 H I & O for Last 24 hours: Intake & Output 12/24/23 12/25/23 12/26/23 12/27/23 23:59 23:59 23:59 23:59 Intake Total 1550 / 1900 1310 / 1750 940 / 940 Output Total 250 / 250 3350 / 3750 3450 / 3675 2300 / 2300 Balance -250 / -250 -1800 / -1850 -2140 / -1925 -1360 / -1360 Weight 248 lb 1 oz 256 lb 2.834 oz 253 lb 14.4 oz 248 lb 8 oz Constitutional Constitutional: no acute distress and average body habitus *Routine HEENT Exam Head: Present normocephalic and atraumatic ENT: Present mucous membranes moist *Routine Neck Exam Neck: Present supple, full ROM and normal carotid upstroke; Absent JVD, carotid bruit or lymphadenopathy *Routine Respiratory Exam Respiratory: Present CTA bilaterally, normal respiratory effort, able to speak in complete sentences and symmetric chest movement *Routine Cardiovascular Exam Cardiovascular: Present RRR, Normal S1 and Normal S2; Absent murmur or gallop *Routine Abdominal Exam Abdominal: Present soft and normoactive bowel sounds; Absent tenderness, distended or organomegaly *Routine Extremities Exam Extremities: Present edema (Left greater than right), full ROM, pulses intact and normal capillary refill; Absent cyanosis or clubbing *Routine Skin Exam Skin: Present intact and warm; Absent erythema *Routine Neurological Exam Neurological: Present alert, oriented X3 and CN II-XII intact; Absent sensory deficit or motor deficit Routine Psychiatric Exam Psychiatric: Present normal affect Progress Note: A&P Assessment and plan (1) Left leg weakness: Status: Acute (2) Left leg swelling: Status: Acute (3) Peripheral edema: Status: Acute (4) HLD (hyperlipidemia): Status: Acute (5) HTN (hypertension): Status: Acute (6) A-fib: Status: Acute (7) Tobacco use: Status: Acute (8) Obesity: Status: Acute Assessment and Plan Assessment and Plan for All Diagnoses:: Plan: 1. This patient was admitted to the hospital with left lower extremity edema. CTA of the lower extremity showed no thrombus or stenosis. It did show subcutaneous fat and an enlarged prostate. The patient's left lower extremity is likely not cardiac in nature. 2. His echocardiogram showed a normal ejection fraction with slight increase in LV wall thickness. He had some very mild right ventricular dilatation. This is likely not the cause of his lower extremity edema. 3. However, the patient was given 2 doses of IV Lasix and will resume his normal oral Lasix dose at this time. 4. His blood pressure is elevated. Increase hydralazine to 100 mg 3 times daily for better blood pressure control. 5. His LDL goal is less than 100. LDL is 75. On a statin. 6. Tobacco cessation is highly advised and counseled. 7. No further recommendations at this time from a cardiac standpoint. If the patient has any other cardiac issues arise throughout his hospitalization, please feel free to contact cardiology again. Thank you for the opportunity to participate in the care of this patient. All recommendations and orders are per Dr. Warner.
[2023-12-27] MEDS: HYDRALAZINE HCL 25MG TABLET 100 MG PO (13:45)
--- NOTE | 2023-12-28 15:45 | SW/DCPLANNER ---
Follow up phone call w/ this patient: patient stated that he is doing well at home at this time. Patient did have any questions/needs at this time.
== END 2023-12-27 14:35 | disposition home health service (06) ==
LOC: ER 15:47 → 2ND 18:34
PROVIDERS: Emergency Medicine; Nurse Practitioner Family; Admitting Provider Internal Medicine; Emergency Provider Emergency Medicine; Visit Provider Internal Medicine
DX: R60.0 Localized edema (principal); R29.898 Other symptoms and signs involving the musculoskeletal system; L03.116 Cellulitis of left lower limb; M79.89 Other specified soft tissue disorders; E78.5 Hyperlipidemia, unspecified; I10 Essential (primary) hypertension; I48.91 Unspecified atrial fibrillation; Z72.0 Tobacco use; E66.9 Obesity, unspecified; E78.2 Mixed hyperlipidemia; I48.0 Paroxysmal atrial fibrillation; E66.01 Morbid (severe) obesity due to excess calories; Z68.41 Body mass index [BMI] 40.0-44.9, adult; G89.29 Other chronic pain; M54.9 Dorsalgia, unspecified; Z87.891 Personal history of nicotine dependence
CPT/HCPCS: 36415; 73502; 73552; 73560; 73562; 73590; 73706; 80048; 80053; 80061; 83880; 85007; 85025; 85378; 85651; 86140; 87040; 93306; 97110; 97116; 97163; 97530; 99285; G0378; J0696; Q9967

== ENCOUNTER 2024-03-04 22:43 | Observation (INO) | payer MEDICARE, SELFPAY ==
[2024-03-04 22:45] VITALS: BP 148/87; PULSE 78; RESP 22; TEMP 36.9; O2SAT 98; BMI 30.8
[2024-03-05] VITALS (7 sets, daily range): BP systolic 131–165; BP diastolic 57–75; PULSE 60–74; RESP 16–20; TEMP 36.6–36.9; O2SAT 96–98; BMI 31.8
--- NOTE | 2024-03-05 00:03 | XR_ITS ---
PROCEDURE INFORMATION: Exam: XR Chest Exam date and time: 03/05/2024 12:29 AM Age: 68 years old Clinical indication: Shortness of breath; Additional info: SOA fluid overload TECHNIQUE: Imaging protocol: Radiologic exam of the chest. Views: 1 view. COMPARISON: CT ANGIO LE BI 12/24/2023 4:32 PM FINDINGS: Lungs: Unremarkable. No consolidation. Pleural spaces: Unremarkable. No pleural effusion. No pneumothorax. Heart/Mediastinum: The heart is enlarged. There is evidence of prior CABG. Vasculature: Unremarkable. Bones/joints: Unremarkable. IMPRESSION: No acute findings. No pulmonary edema.
--- NOTE | 2024-03-05 00:03 | ECG_ITS ---
APPROVED REPORT Exam: Resting ECG HR:71 bpm ECG Measurements Heart Rate 71 AXES OH 198 P 73 QRSd 169 QRS -34 QT 409 T 67 QTc 431 Conclusion SINUS RHYTHM LEFT AXIS DEVIATION [QRS AXIS < -30] RIGHT BUNDLE BRANCH BLOCK [120+ ms QRS DURATION, UPRIGHT V1, 40+ ms S IN I/aVL/V4/V5/V6] ABNORMAL ECG Electronically signed by : OLIVIA CRAIG, 03/05/2024 07:14:26
--- NOTE | 2024-03-05 00:04 | ED_ITS ---
Discharge Plan Disposition Patient Disposition: Admitted Clinical Impressions Clinical Impression: Bilateral edema of lower extremity, Kidney dysfunction Discharge ED Provider: Magdalena Rascon General Adult HPI General Chief complaint: Extremity Problem,Nontraumatic Stated complaint: Legs hurting from knees down Time Seen by Provider: 03/04/24 23:59 Mode of Arrival: Wheelchair Source of Information: Patient Limitations: No Limitations Description of Symptoms (Recalled from ER Triage Doc. by RN): 68 M presents with c/o BLE pain and swelling. 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 Patient states he is unable to walk very far when his legs get this way. Patient denies chest pain, shortness of air, fever, or chills. History of Present Illness HPI narrative: 68-year-old male with history of CHF, hypertension, hyperlipidemia on 80 mg diuretic presents to the ER with concerns of bilateral lower extremity swelling and pain. Patient states has been going on for multiple months, but he noticed today the pain in the left leg specifically was worse than normal. He states this is like that also is significantly more swollen. Patient states he is unable to walk very far due to shortness of breath. He denies chest pain, fevers, nausea, or other associated symptoms at this time. Related Data Home Medications Medication Instructions Recorded Confirmed apixaban 5 mg tablet (Eliquis) 5 mg PO BID Blood Thinner 12/12/22 03/05/24 atorvastatin 10 mg tablet 10 mg PO DAILY 12/12/22 03/05/24 cetirizine 10 mg tablet 10 mg PO DAILY 12/12/22 03/05/24 gabapentin 100 mg capsule 200 mg PO HS 12/12/22 03/05/24 hydralazine 50 mg tablet 50 mg PO TID 12/12/22 03/05/24 isosorbide mononitrate 60 mg 120 mg PO DAILY Heart 12/12/22 03/05/24 tablet,extended release 24 hr nifedipine 30 mg tablet,extended 30 mg PO DAILY 12/12/22 03/05/24 release olmesartan 20 mg tablet 20 mg PO DAILY 12/12/22 03/05/24 potassium chloride 10 mEq 10 meq PO BID 12/12/22 03/05/24 capsule,extended release tamsulosin 0.4 mg capsule 0.4 mg PO DAILY 12/12/22 03/05/24 furosemide 80 mg tablet 80 mg PO DAILY 12/25/23 03/05/24 trazodone 100 mg tablet 100 mg PO HSP PRN Sleep 12/25/23 03/05/24 Allergies Allergy/AdvReac Type Severity Reaction Status Date / Time No Known Allergies Allergy Verified 01/12/24 15:00 [facility] Disclaimer: The information contained in this section may have been updated after the patient was seen, as this information can be updated by other users. Medical History Former smoker HLD (hyperlipidemia) HTN (hypertension) Surgical History Hx of tonsillectomy Hx of CABG Social History (Updated 03/05/24 @ 02:00 by Sejal Coates RN) Smoking Status: Former smoker tobacco type: cigarettes years smoked: 32 smoking status stop date: 2005 alcohol intake: never current occupational status: retired Travel in the last 8 weeks: Inside the [place] ROS Obtained: Yes All systems reviewed & no additional complaints except as documented Constitutional Constitutional: Denies chills, Denies fever(s), Denies headache(s) and Denies weakness Eyes Eyes: Denies change in vision ENT Ears, Nose, Mouth, and Throat: Denies dizziness, Denies headache(s), Denies nasal congestion and Denies sore throat Cardiovascular Cardiovascular: Denies chest pain, Reports dyspnea and Reports leg edema Respiratory Respiratory: Denies cough and Reports dyspnea Gastrointestinal Gastrointestingal: Denies constipation, diarrhea, nausea or vomiting Genitourinary Male Genitourinary: Denies difficulty urinating Musculoskeletal Musculoskeletal: Denies arthralgias, Denies myalgias, Denies numbness and Denies tingling Integumentary/Breasts Skin/Breast: Denies change in pigmentation Neurologic Neurologic: Denies dizziness, Denies headache(s), Denies numbness, Denies tingling and Denies weakness Physical Exam General General appearance: alert and in no apparent distress Head Head exam: atraumatic and normocephalic Eye Eye exam: Present PERRL and EOMI ENT ENT exam: Present mucous membranes moist Neck Neck exam: Present normal inspection and full ROM Chest Chest inspection: Present symmetric chest wall rise Respiratory Respiratory exam: Present normal lung sounds bilaterally; Absent respiratory distress, wheezes or stridor Cardiovascular Cardiovascular exam: Present regular rate and normal rhythm Abdominal Exam Abdominal exam: Present soft; Absent distention, tenderness, guarding or rebound Extremities Exam Extremities exam: Present full ROM, edema (+4 bilateral lower extremity edema, left greater than right) and other (+2 DP and PT bilaterally); Absent tenderness (No findings of trauma) Neurological Exam Neurological exam: Present alert and oriented X3; Absent motor sensory deficit Psychiatric Psychiatric exam: Present normal affect and normal mood Skin Skin exam: Present warm and dry Medical Decision Making Jerome Inquiry Pt receiving controlled substance: No Vital Signs: 03/04/24 22:45 03/05/24 01:15 Temperature 98.5 F 98.5 F Temperature Source Oral Oral Pulse Rate 74 Pulse Rate [Left] 78 Respiratory Rate 22 20 Blood Pressure 141/72 H Blood Pressure [Right Arm] 148/87 H Blood Pressure Mean [Right Arm] 107 Blood Pressure Source [Right Arm] Automatic Cuff Blood Pressure Position [Right Arm] Sitting 02 Sat by Pulse Oximetry 98 Oxygen Delivery Method Room Air Room Air Lab Data Lab Results 03/05/24 00:12: WBC 8.5, RBC 3.59 L, Hgb 9.8 L, Hct 31.7 L, MCV 88.1, MCH 27.2, MCHC 30.9 L, RDW 16.6, Plt Count 241, MPV 9.1, Neut % (Auto) 77.5, Lymph % (Auto) 13.8, [place] % (Auto) 5.6, Eos % (Auto) 2.6, Baso % (Auto) 0.5, Neut # (Auto) 6.6, Lymph # (Auto) 1.2, [place] # (Auto) 0.5, Eos # (Auto) 0.2, Baso # (Auto) 0.0, Sodium 139, Potassium 4.6, Chloride 107, Carbon Dioxide 23, Anion Gap 13.6, BUN 29 H, Creatinine 2.50 H, Estimated Creat Clear 44, Estimated GFR 26 L, Est GFR ( Amer) 31 L, Glucose 92, Calcium 8.9, Total Bilirubin 0.5, AST 23, ALT 14, Alkaline Phosphatase 91, Troponin I 0.04 H, NT-Pro-B Natriuret Pep 198 H, Total Protein 7.5, Albumin 3.9, Globulin 3.6 H, Albumin/Globulin Ratio 1.1 03/05/24 00:12 03/05/24 00:12 Orders (Tests/Meds): ED MEDICATIONS Generic Name Dose Route Start Last Admin Trade Name Freq PRN Reason Stop Dose Admin Acetaminophen 500 mg 03/05/24 01:02 03/05/24 01:15 Acetaminophen 500mg Tab PO 03/05/24 01:03 500 mg ONCE ONE Administration Apixaban 5 mg 03/05/24 09:00 Apixaban 5mg Tablet PO 04/04/24 08:59 BID ROSELYN Atorvastatin Calcium 10 mg 03/05/24 09:00 Atorvastatin 10mg Tablet PO 04/04/24 08:59 DAILY ROSELYN Furosemide 40 mg 03/05/24 01:03 03/05/24 01:15 Furosemide 40mg/4ml Vial IV 03/05/24 01:04 40 mg ONCE ONE Administration Gabapentin 200 mg 03/05/24 21:00 Gabapentin 100mg Capsule PO 04/04/24 20:59 HS ROSELYN Isosorbide Mononitrate 120 mg 03/05/24 09:00 Isosorbide [place] 60mg Tab.Er.24h PO 04/04/24 08:59 DAILY ROSELYN Loratadine 10 mg 03/05/24 09:00 Loratadine 10mg Tablet PO 04/04/24 08:59 DAILY ROSELYN Non-Formulary Medication 50 mg 03/05/24 09:00 Hydralazine PO 04/04/24 08:59 TID ROSELYN Non-Formulary Medication 30 mg 03/05/24 09:00 Nifedipine PO 04/04/24 08:59 DAILY ROSELYN Non-Formulary Medication 100 mg 03/05/24 02:27 Trazodone PO HSP PRN Sleep ORDERS Category Date Time Status CXR --portable [XR chest portable] Stat Exams 03/05/24 00:03 Completed BNP [NT Pro Brain Natriuretic Pep.] Stat Lab 03/05/24 00:12 Completed Basic Metabolic Panel AMLAB Lab 03/05/24 06:00 Ordered CBC w/Auto Diff [Complete Blood Count Auto Diff] Stat Lab 03/05/24 00:12 Completed CMP [Comprehensive Metabolic Panel] Stat Lab 03/05/24 00:12 Completed Complete Blood Count Auto Diff AMLAB Lab 03/05/24 06:00 Ordered Trop I [Troponin I] Stat Lab 03/05/24 00:12 Completed Troponin I Q3H Lab 03/05/24 03:15 Ordered Troponin I Q3H Lab 03/05/24 06:15 Ordered ECG Request Stat Y 03/05/24 00:03 Ordered Medical Decision Narrative: In summary, this 68year old male presents to the emergency department today with bilateral lower extremity swelling, pain, shortness of breath with exertion. Comorbidities of current condition include history of hypertension, hyperlipidemia, peripheral edema, atrial fibrillation, all of which increases overall morbidity. On initial evaluation patient is hemodynamically stable, afebrile, significant peripheral edema, lungs clear to auscultation bilaterally. Differential diagnosis includes but is not limited to CHF, ACS, electrolyte abnormality, dehydration, kidney dysfunction. ECG personally interpreted demonstrates normal sinus rhythm, rate 71, left axis deviation, right bundle branch block, CT nearly prolonged at 198, QTc normal at 431. Labs personally reviewed demonstrate no leukocytosis, anemia is present but stable compared to prior based off my review of previous labs, patient has worsening kidney dysfunction with creatinine 2.5, he also has mildly elevated troponin at 0.04, likely related to patient's kidney dysfunction given his EKG is nonacute appearing. XR personally interpreted demonstrates no obvious pulmonary edema, no pleural effusion, no acute thoracic abnormality, see radiology read for final interpretation. I had interactive discussion with the hospitalist regarding patient's kidney dysfunction and findings of fluid overload despite not having a significantly elevated BNP. They are going to admit the patient for continued management. Patient is amenable to this plan. He was admitted in stable condition. Critical Care Critical Care Time Critical Care Time: No
[2024-03-05 00:21] LABS: Basophils % 0.5 % (0.1-2.0); Eosinophils # 0.2 K/mm3 (0.0-0.4); Eosinophils % 2.6 % (0.1-12.0); Hematocrit 31.7 % (42.0-52.0); Hemoglobin 9.8 g/dL (14.1-18.0); Lymphocytes # 1.2 K/mm3 (0.7-4.5); Lymphocytes % 13.8 % (10-50); Mean Corpuscular HGB Conc 30.9 g/dL (31.8-35.4); Mean Corpuscular Hemoglobin 27.2 pg (27.0-31.2); Mean Corpuscular Volume 88.1 fl (80-94); Mean Platelet Volume 9.1 fl (7.4-10.4); Monocytes # 0.5 K/mm3 (0.1-1.0); Monocytes % 5.6 % (1.7-9.3); Neutrophils # 6.6 K/mm3 (1.8-7.8); Neutrophils % 77.5 % (37.0-80.0); Platelet Count 241 K/mm3 (142-424); Red Blood Count 3.59 M/mm3 (4.60-6.20); Red Cell Distribution Width 16.6 % (11.5-17.5); White Blood Count 8.5 K/mm3 (4.8-10.8)
[2024-03-05 00:25] LABS: Chloride 107 mmol/L (98-107)
[2024-03-05 00:26] LABS: Potassium 4.6 mmoL/L (3.5-5.1); Sodium 139 mmol/L (136-145)
[2024-03-05 00:28] LABS: Alanine Aminotransferase 14 U/L (12-78); Aspartate Amino Transferase 23 U/L (17-59); Blood Urea Nitrogen 29 mg/dl (9-20); Creatinine Clearance Estimated 44 mL/min (50-200); Estimated Glomerular Filt Rate 26 ml/min (>60); GFR (African American) 31 ML/MIN (>60)
[2024-03-05 00:29] LABS: Albumin Level 3.9 g/dl (3.5-5.0); Albumin/Globulin Ratio 1.1 (1.1-1.8); Alkaline Phosphatase 91 U/L (38-126); Anion Gap 13.6 mEq/L (5-15); Bilirubin,Total 0.5 mg/dl (0.2-1.3); Calcium 8.9 mg/dl (8.4-10.2); Carbon Dioxide 23 mmol/L (22.0-30.0); Globulin 3.6 g/dL (1.3-3.2); Glucose 92 mg/dl (74-100); Total Protein,Serum 7.5 g/dl (6.3-8.2)
[2024-03-05 00:41] LABS: Troponin I 0.04 ng/ml (0.00-0.034)
[2024-03-05 00:48] LABS: NT Pro Brain Natriuretic Pep. 198 pg/mL (0-125)
--- NOTE | 2024-03-05 01:04 | PC.NURSE ---
Admitting notified for admission
--- NOTE | 2024-03-05 01:09 | PC.NURSE ---
Report given to Charity
[2024-03-05] MEDS: ACETAMINOPHEN 500MG TAB 500 MG PO (01:15)
[2024-03-05] MEDS: FUROSEMIDE 40MG/4ML VIAL 40 MG IV ×3 (01:15→15:57)
--- NOTE | 2024-03-05 01:23 | PC.NURSE ---
Patient arrived to floor via wheelchair from ED at 1:20.
--- NOTE | 2024-03-05 02:27 | P.HP_ITS ---
History of Present Illness *Admission Date: 03/05/24 *Reason for visit:: Lower extremity edema *History of present illness: This is a 68-year-old male with past medical history of CKD, HTN, HLD, A-fib, obesity, peripheral edema who presents emergency department today with complaints of shortness of breath and lower extremity edema. Patient was admitted approximately 1 month ago for similar complaint. He underwent testing at that time and was noted to have normal EF on his echocardiogram but with persistent peripheral edema. He reports approximately 2 days ago developing shortness of breath that is not typical for him. States that he also has had increasing lower extremity edema. States that has been using his Lasix at home but does not feel he has been urinating like normal. He denies any cough fever or congestion otherwise. States that he has been having difficulty ambulating secondary to his leg edema Emergency department workup notable for mildly worsening renal function with a creatinine of 2.5 with a baseline of around 2. GFR 26. BUN of 29. Mildly elevated troponin at 0.04. EKG without ischemia. BNP of 198. Chest x-ray without notable edema. Given his worsening renal failure and continued increase in lower extremity edema, he will need careful diuresis with monitoring of his renal function. He is admitted to the hospital service for further evaluation management. [facility] Disclaimer: The information contained in this section may have been updated after the patient was seen, as this information can be updated by other users. Medical History Former smoker HLD (hyperlipidemia) HTN (hypertension) Surgical History Hx of tonsillectomy Hx of CABG Social History Smoking Status: Former smoker tobacco type: cigarettes years smoked: 32 smoking status stop date: 2005 alcohol intake: never current occupational status: retired Travel in the last 8 weeks: [place] the [place] Review of Systems Constitutional Constitutional: Reports as per HPI Eyes Eyes: Reports as per HPI ENT Ears, Nose, Mouth, and Throat: Reports as per HPI *Cardiovascular Cardiovascular: Reports as per HPI *Respiratory Respiratory: Reports as per HPI *Gastrointestinal Gastrointestinal: Reports as per HPI *Genitourinary Genitourinary: Reports as per HPI *Musculoskeletal Musculoskeletal: Reports as per HPI Integumentary/Breasts Skin/Breast: Reports as per HPI *Neurologic Neurologic: Reports as per HPI Psychiatric Psychiatric: Reports as per HPI Endocrine Endocrine: Reports as per HPI Meds Home Medications and Allergies Home Medications Medication Instructions Recorded Confirmed Type apixaban 5 mg tablet (Eliquis) 5 mg PO BID Afib 12/12/22 03/05/24 History atorvastatin 10 mg tablet 10 mg PO DAILY 12/12/22 03/05/24 History cetirizine 10 mg tablet 10 mg PO DAILY 12/12/22 03/05/24 History gabapentin 100 mg capsule 200 mg PO HS 12/12/22 03/05/24 History hydralazine 50 mg tablet 50 mg PO TID 12/12/22 03/05/24 History isosorbide mononitrate 60 mg 120 mg PO DAILY 12/12/22 03/05/24 History tablet,extended release 24 hr nifedipine 30 mg tablet,extended 30 mg PO DAILY 12/12/22 03/05/24 History release olmesartan 20 mg tablet 20 mg PO DAILY 12/12/22 03/05/24 History potassium chloride 10 mEq 10 meq PO BID 12/12/22 03/05/24 History capsule,extended release tamsulosin 0.4 mg capsule 0.4 mg PO DAILY 12/12/22 03/05/24 History trazodone 100 mg tablet 100 mg PO HSP PRN Sleep 12/25/23 03/05/24 History bumetanide 2 mg tablet 2 mg PO DAILY 30 days #30 tabs 03/05/24 Rx ropinirole 1 mg tablet 1 mg PO HS 03/05/24 03/05/24 History New Prescriptions to Start Prescriptions: Jerry Keith Allergies Allergy/AdvReac Type Severity Reaction Status Date / Time No Known Allergies Allergy Verified 01/12/24 15:00 Exam Data for Last 24 hours Vital signs and Labs for Last 24 Hours: Temp Pulse Resp BP Pulse Ox O2 Del Method 98.1 F 73 18 165/75 H 96 Room Air 03/05/24 01:37 03/05/24 01:37 03/05/24 01:37 03/05/24 01:37 03/05/24 01:37 03/05/24 02:01 Laboratory Results - last 24 hr 03/05/24 00:12: WBC 8.5, RBC 3.59 L, Hgb 9.8 L, Hct 31.7 L, MCV 88.1, MCH 27.2, MCHC 30.9 L, RDW 16.6, Plt Count 241, MPV 9.1, Neut % (Auto) 77.5, Lymph % (Auto) 13.8, [place] % (Auto) 5.6, Eos % (Auto) 2.6, Baso % (Auto) 0.5, Neut # (Auto) 6.6, Lymph # (Auto) 1.2, [place] # (Auto) 0.5, Eos # (Auto) 0.2, Baso # (Auto) 0.0, Sodium 139, Potassium 4.6, Chloride 107, Carbon Dioxide 23, Anion Gap 13.6, BUN 29 H, Creatinine 2.50 H, Estimated Creat Clear 44, Estimated GFR 26 L, Est GFR ( Amer) 31 L, Glucose 92, Calcium 8.9, Total Bilirubin 0.5, AST 23, ALT 14, Alkaline Phosphatase 91, Troponin I 0.04 H, NT-Pro-B Natriuret Pep 198 H, Total Protein 7.5, Albumin 3.9, Globulin 3.6 H, Albumin/Globulin Ratio 1.1 I & O for Last 24 hours: Intake & Output 03/02/24 03/03/24 03/04/24 03/05/24 23:59 23:59 23:59 23:59 Output Total 100 / 100 Balance -100 / -100 Weight 108.862 kg 112.763 kg Constitutional Constitutional: no acute distress *Routine HEENT Exam Head: Present normocephalic Eye: Present EOMI and PERRL ENT: Present mucous membranes moist *Routine Neck Exam Neck: Present supple; Absent lymphadenopathy *Routine Respiratory Exam Respiratory: Present CTA bilaterally *Routine Cardiovascular Exam Cardiovascular: Present RRR Comments: Bilateral lower extremity edema, +4 pitting *Routine Abdominal Exam Abdominal: Present soft and normoactive bowel sounds; Absent tenderness *Routine Rectal Exam Rectal:: deferred *Routine Genitalia Exam Genitalia:: deferred *Routine Extremities Exam Extremities: Absent cyanosis, clubbing or edema *Routine Skin Exam Skin: Present warm *Routine Neurological Exam Neurological: Present alert and oriented X3 Assessment and Plan *Assessment and plan (1) CKD (chronic kidney disease), stage IV: Status: Acute Category: Medical Code(s): N18.4 - Chronic kidney disease, stage 4 (severe) (2) Acute kidney injury: Status: Acute Category: Medical Code(s): N17.9 - Acute kidney failure, unspecified (3) NSTEMI (non-ST elevated myocardial infarction): Status: Acute Category: Medical Code(s): I21.4 - Non-ST elevation (NSTEMI) myocardial infarction (4) Peripheral edema: Status: Acute Category: Medical Code(s): R60.0 - Localized edema (5) HTN (hypertension): Status: Acute Qualifiers: Hypertension type: primary hypertension Qualified Code(s): I10 - Essential (primary) hypertension Category: Medical Code(s): I10 - Essential (primary) hypertension (6) HLD (hyperlipidemia): Status: Acute Qualifiers: Hyperlipidemia type: mixed hyperlipidemia Qualified Code(s): E78.2 - Mixed hyperlipidemia Category: Medical Code(s): E78.5 - Hyperlipidemia, unspecified Plan This is a 68-year-old male with past medical history of atrial fibrillation, hypertension, hyperlipidemia, CKD and peripheral edema admitted for further evaluation of dyspnea on exertion, increased lower extremity edema. # Peripheral edema +4 pitting edema noted. Patient also reports dyspnea on exertion Recent echocardiogram with normal LV With moderate RV dilatation and mild reduction in RV function Will initiate IV Lasix. Patient states that his oral Lasix is not him to be creating as much urine at baseline Unsure of any recent weight gain #ALBERT on CKD stage IV Likely secondary to mild volume overload. Does appear to need IV diuresis. Will monitor renal function Avoid other nephrotoxic medications #Hypertension Continue oral home medications #Atrial fibrillation Continue Eliquis #HLD Continue statin medication #Obesity class II Complicates all aspects of care DVT PPx on Eliquis Full code Rounded on patient after nurse practitioner. Personally examined and interviewed patient. Agree with exam findings and care plan as documented.
[2024-03-05 05:13] LABS: Basophils % 0.4 % (0.1-2.0); Eosinophils # 0.2 K/mm3 (0.0-0.4); Eosinophils % 3.1 % (0.1-12.0); Hematocrit 30.3 % (42.0-52.0); Hemoglobin 9.4 g/dL (14.1-18.0); Lymphocytes # 1.2 K/mm3 (0.7-4.5); Lymphocytes % 15.7 % (10-50); Mean Corpuscular HGB Conc 31.2 g/dL (31.8-35.4); Mean Corpuscular Hemoglobin 27.4 pg (27.0-31.2); Mean Corpuscular Volume 88.1 fl (80-94); Monocytes # 0.5 K/mm3 (0.1-1.0); Monocytes % 6.5 % (1.7-9.3); Neutrophils # 5.7 K/mm3 (1.8-7.8); Neutrophils % 74.4 % (37.0-80.0); Platelet Count 226 K/mm3 (142-424); Red Blood Count 3.44 M/mm3 (4.60-6.20); Red Cell Distribution Width 16.5 % (11.5-17.5); White Blood Count 7.6 K/mm3 (4.8-10.8)
[2024-03-05 05:18] LABS: Blood Urea Nitrogen 31 mg/dl (9-20); Calcium 8.7 mg/dl (8.4-10.2); Carbon Dioxide 28 mmol/L (22.0-30.0); Chloride 104 mmol/L (98-107); Creatinine Clearance Estimated 47 mL/min (50-200); Estimated Glomerular Filt Rate 27 ml/min (>60); GFR (African American) 33 ML/MIN (>60); Glucose 97 mg/dl (74-100); Sodium 141 mmol/L (136-145)
[2024-03-05 05:31] LABS: Troponin I 0.04 ng/ml (0.00-0.034)
--- NOTE | 2024-03-05 08:18 | HMH.PHAINT1 ---
Pharmacy Intervention Comments: MEDICATION RECONCILIATION COMPLETED ON PATIENT USING EXTERNAL FILL HISTORY FROM PHARMACY, LIST FROM CARDIOLOGY OFFICE, AND DISCHARGE SUMMARY FROM PREVIOUS ADMISSION. -UBALDO DIOP, PHARMD
[2024-03-05 08:30] LABS: Troponin I 0.04 ng/ml (0.00-0.034)
[2024-03-05] MEDS: NIFEdipine XL 30MG TABLET 30 MG PO (08:54)
[2024-03-05] MEDS: APIXABAN 5MG TABLET 5 MG PO (08:54)
[2024-03-05] MEDS: HYDRALAZINE HCL 25MG TABLET 50 MG PO ×2 (08:54→14:39)
[2024-03-05] MEDS: ISOSORBIDE MONO 60MG TAB.ER.24H 120 MG PO (08:54)
[2024-03-05] MEDS: LORATADINE 10MG TABLET 10 MG PO (08:55)
[2024-03-05 10:00] LABS: Microscopic, Urine URINE MICROSCOPIC (MICROSCOPIC)
--- NOTE | 2024-03-05 11:37 | EXP.DC.SUM ---
General Admission date:: 03/05/24 Discharge date: 03/05/24 HPI HPI HPI: This is a 68-year-old male with past medical history of CKD, HTN, HLD, A-fib, obesity, peripheral edema who presents emergency department today with complaints of shortness of breath and lower extremity edema. Patient was admitted approximately 1 month ago for similar complaint. He underwent testing at that time and was noted to have normal EF on his echocardiogram but with persistent peripheral edema. He reports approximately 2 days ago developing shortness of breath that is not typical for him. States that he also has had increasing lower extremity edema. States that has been using his Lasix at home but does not feel he has been urinating like normal. He denies any cough fever or congestion otherwise. States that he has been having difficulty ambulating secondary to his leg edema Emergency department workup notable for mildly worsening renal function with a creatinine of 2.5 with a baseline of around 2. GFR 26. BUN of 29. Mildly elevated troponin at 0.04. EKG without ischemia. BNP of 198. Chest x-ray without notable edema. Given his worsening renal failure and continued increase in lower extremity edema, he will need careful diuresis with monitoring of his renal function. He is admitted to the hospital service for further evaluation management. Hospital Course Hospital Course Hospital Course: This is a 68-year-old male with past medical history of atrial fibrillation, hypertension, hyperlipidemia, CKD and peripheral edema admitted for further evaluation of dyspnea on exertion, increased lower extremity edema. Admitted to medicine for diuresis. Responded well overnight. Stable on room air. Cardiology evaluated, optimizing diuretic therapy. Stable to discharge home with further management as an outpatient. # Peripheral edema +3 pitting edema noted. Patient also reports dyspnea on exertion. O2 sats above 90 during admission. No oxygen requirement. Recent echocardiogram reviewed with normal LV with moderate RV dilation and mild reduction in RV function. Initiated on IV Lasix. Diuresed over a liter over the course of the night. Patient feeling better. Marginal improvement in swelling. Oral Lasix just not having diuretic effect that he thinks it should. Cardiology was consulted, recommend changing Lasix to Bumex for better efficacy. Transition to Bumex 2 mg daily. Recommend follow-up with cardiology in 2 to 3 weeks to monitor fluid status. Would benefit from follow-up with lymphedema clinic. Will refer for further management. #CKD stage IV BUN and creatinine at patient's baseline. BUN 31, creatinine 2.4 on day of discharge. Appears to be within the upper limit of his normal range. Would benefit from referral to nephrology. Discussed this with cardiology, will defer referral to cardiology at follow-up. #Hypertension: Continue oral home medications #Atrial fibrillation: Continue Eliquis #HLD: Continue statin medication #Obesity class II: Complicates all aspects of care Exam Data for Last 24 hours Vital signs and Labs for Last 24 Hours: Temp Pulse Resp BP Pulse Ox O2 Del Method 97.9 F 62 16 152/73 H 97 Room Air 03/05/24 08:00 03/05/24 08:00 03/05/24 08:00 03/05/24 08:00 03/05/24 08:00 03/05/24 09:09 Laboratory Results - last 24 hr 03/05/24 00:12: WBC 8.5, RBC 3.59 L, Hgb 9.8 L, Hct 31.7 L, MCV 88.1, MCH 27.2, MCHC 30.9 L, RDW 16.6, Plt Count 241, MPV 9.1, Neut % (Auto) 77.5, Lymph % (Auto) 13.8, [place] % (Auto) 5.6, Eos % (Auto) 2.6, Baso % (Auto) 0.5, Neut # (Auto) 6.6, Lymph # (Auto) 1.2, [place] # (Auto) 0.5, Eos # (Auto) 0.2, Baso # (Auto) 0.0, Sodium 139, Potassium 4.6, Chloride 107, Carbon Dioxide 23, Anion Gap 13.6, BUN 29 H, Creatinine 2.50 H, Estimated Creat Clear 44, Estimated GFR 26 L, Est GFR ( Amer) 31 L, Glucose 92, Calcium 8.9, Total Bilirubin 0.5, AST 23, ALT 14, Alkaline Phosphatase 91, Troponin I 0.04 H, NT-Pro-B Natriuret Pep 198 H, Total Protein 7.5, Albumin 3.9, Globulin 3.6 H, Albumin/Globulin Ratio 1.1 03/05/24 04:40: WBC 7.6, RBC 3.44 L, Hgb 9.4 L, Hct 30.3 L, MCV 88.1, MCH 27.4, MCHC 31.2 L, RDW 16.5, Plt Count 226, MPV 9.0, Neut % (Auto) 74.4, Lymph % (Auto) 15.7, [place] % (Auto) 6.5, Eos % (Auto) 3.1, Baso % (Auto) 0.4, Neut # (Auto) 5.7, Lymph # (Auto) 1.2, [place] # (Auto) 0.5, Eos # (Auto) 0.2, Baso # (Auto) 0.0, Sodium 141, Potassium 4.0, Chloride 104, Carbon Dioxide 28, Anion Gap 13.0, BUN 31 H, Creatinine 2.40 H, Estimated Creat Clear 47, Estimated GFR 27 L, Est GFR ( Amer) 33 L, Glucose 97, Calcium 8.7, Troponin I 0.04 H 03/05/24 07:45: Troponin I 0.04 H I & O for Last 24 hours: Intake & Output 03/02/24 03/03/24 03/04/24 03/05/24 23:59 23:59 23:59 23:59 Intake Total 480 / 480 Output Total 1950 / 1950 Balance -1470 / -1470 Weight 108.862 kg 112.763 kg Constitutional Constitutional: no acute distress, obese and chronically ill appearing *Routine HEENT Exam Head: Present normocephalic Eye: Present EOMI and PERRL ENT: Present mucous membranes moist *Routine Neck Exam Neck: Present supple; Absent lymphadenopathy *Routine Respiratory Exam Respiratory: Present CTA bilaterally; Absent rhonchi, wheezes or crackles *Routine Cardiovascular Exam Cardiovascular: Present RRR *Routine Abdominal Exam Abdominal: Present soft and normoactive bowel sounds; Absent tenderness *Routine Rectal Exam Patient deferred: visual exam *Routine Exam Patient deferred: penile exam *Routine Extremities Exam Extremities: Present edema (3+ to mid guerra); Absent cyanosis or clubbing *Routine Skin Exam Skin: Present warm; Absent rash *Routine Neurological Exam Neurological: Present alert, oriented X3 and moving all extremities; Absent altered mental status Results Data Completed and Pending Labs on day of discharge: Labs from last 24 hours 03/05/24 03/05/24 03/05/24 07:45 04:40 00:12 WBC 7.6 8.5 RBC 3.44 L 3.59 L Hgb 9.4 L 9.8 L Hct 30.3 L 31.7 L MCV 88.1 88.1 MCH 27.4 27.2 MCHC 31.2 L 30.9 L RDW 16.5 16.6 Plt Count 226 241 MPV 9.0 9.1 Neut % (Auto) 74.4 77.5 Lymph % (Auto) 15.7 13.8 [place] % (Auto) 6.5 5.6 Eos % (Auto) 3.1 2.6 Baso % (Auto) 0.4 0.5 Neut # (Auto) 5.7 6.6 Lymph # (Auto) 1.2 1.2 [place] # (Auto) 0.5 0.5 Eos # (Auto) 0.2 0.2 Baso # (Auto) 0.0 0.0 Sodium 141 139 Potassium 4.0 4.6 Chloride 104 107 Carbon Dioxide 28 23 Anion Gap 13.0 13.6 BUN 31 H 29 H Creatinine 2.40 H 2.50 H Estimated Creat Clear 47 44 Estimated GFR 27 L 26 L Est GFR ( Amer) 33 L 31 L Glucose 97 92 Calcium 8.7 8.9 Total Bilirubin 0.5 AST 23 ALT 14 Alkaline Phosphatase 91 Troponin I 0.04 H 0.04 H 0.04 H NT-Pro-B Natriuret Pep 198 H Total Protein 7.5 Albumin 3.9 Globulin 3.6 H Albumin/Globulin Ratio 1.1 DS: Diagnosis Discharge Diagnosis (1) CKD (chronic kidney disease), stage IV: Status: Acute Code(s): N18.4 - Chronic kidney disease, stage 4 (severe) (2) Acute kidney injury: Status: Acute Code(s): N17.9 - Acute kidney failure, unspecified (3) NSTEMI (non-ST elevated myocardial infarction): Status: Acute Code(s): I21.4 - Non-ST elevation (NSTEMI) myocardial infarction (4) Peripheral edema: Status: Acute Code(s): R60.0 - Localized edema (5) HTN (hypertension): Status: Acute Code(s): I10 - Essential (primary) hypertension Qualifiers: Hypertension type: primary hypertension Qualified Code(s): I10 - Essential (primary) hypertension (6) HLD (hyperlipidemia): Status: Acute Code(s): E78.5 - Hyperlipidemia, unspecified Qualifiers: Hyperlipidemia type: mixed hyperlipidemia Qualified Code(s): E78.2 - Mixed hyperlipidemia Meds Home Medications and Allergies Home Medications Medication Instructions Recorded Confirmed Type apixaban 5 mg tablet (Eliquis) 5 mg PO BID Afib 12/12/22 03/05/24 History atorvastatin 10 mg tablet 10 mg PO DAILY 12/12/22 03/05/24 History cetirizine 10 mg tablet 10 mg PO DAILY 12/12/22 03/05/24 History gabapentin 100 mg capsule 200 mg PO HS 12/12/22 03/05/24 History hydralazine 50 mg tablet 50 mg PO TID 12/12/22 03/05/24 History isosorbide mononitrate 60 mg 120 mg PO DAILY 12/12/22 03/05/24 History tablet,extended release 24 hr nifedipine 30 mg tablet,extended 30 mg PO DAILY 12/12/22 03/05/24 History release olmesartan 20 mg tablet 20 mg PO DAILY 12/12/22 03/05/24 History potassium chloride 10 mEq 10 meq PO BID 12/12/22 03/05/24 History capsule,extended release tamsulosin 0.4 mg capsule 0.4 mg PO DAILY 12/12/22 03/05/24 History trazodone 100 mg tablet 100 mg PO HSP PRN Sleep 12/25/23 03/05/24 History bumetanide 2 mg tablet 2 mg PO DAILY 30 days #30 tabs 03/05/24 Rx ropinirole 1 mg tablet 1 mg PO HS 03/05/24 03/05/24 History New Prescriptions to Start Prescriptions: Jerry Keith Allergies Allergy/AdvReac Type Severity Reaction Status Date / Time No Known Allergies Allergy Verified 01/12/24 15:00 Discharge Plan Disposition Patient Disposition: Home, Self-Care Condition: Fair Follow up Plan Follow up with: Lymphedema clinic [Other] - 03/08/24 11:00 am Nima Galan MD [Primary Care Provider] - 03/12/24 11:30 am Malik Warner MD [Staff Physician] - 03/20/24 1:30 pm Prescriptions/Medication Reconciliation: New bumetanide 2 mg tablet 2 mg PO DAILY 30 Days Qty: 30 0RF Continued trazodone 100 mg tablet 100 mg PO HSP PRN (Reason: Sleep) Patient Comments: take 1 tablet at bedtime as needed Once a day potassium chloride 10 mEq capsule, extended release 10 meq PO BID Patient Comments: Take 1 capsule twice a day by oral route for 30 days. cetirizine 10 mg tablet 10 mg PO DAILY Patient Comments: take 1 tablet Once a day for 30 day(s) atorvastatin 10 mg tablet 10 mg PO DAILY Patient Comments: TAKE ONE TABLET BY MOUTH DAILY nifedipine 30 mg tablet extended release 30 mg PO DAILY Patient Comments: Take 1 Tablet(s) 1 time a day isosorbide mononitrate 60 mg tablet extended release 24 hr 120 mg PO DAILY Patient Comments: TAKE TWO TABLETS BY MOUTH ONCE DAILY tamsulosin 0.4 mg capsule 0.4 mg PO DAILY Patient Comments: TAKE ONE CAPSULE BY MOUTH ONCE DAILY for 30 days hydralazine 50 mg tablet 50 mg PO TID Patient Comments: TAKE ONE TABLET BY MOUTH THREE TIMES DAILY gabapentin 100 mg capsule 200 mg PO HS Patient Comments: Take 2 capsule every day by oral route at bedtime for 30 days. olmesartan 20 mg tablet 20 mg PO DAILY Patient Comments: Take 1 tablet every day by oral route for 90 days. Eliquis 5 mg tablet 5 mg PO BID Patient Comments: TAKE ONE TABLET BY MOUTH TWICE DAILY for 30 days ropinirole 1 mg tablet 1 mg PO HS Patient Comments: TAKE ONE TABLET BY MOUTH AT BEDTIME Discontinued furosemide 80 mg tablet 80 mg PO DAILY Problem Reconciliation Problems Reviewed?: Yes Patient Discharge Instructions ACTIVITY: Continue current activity DIET: continue same diet Patient Instructions: Edema Providers Primary Care Provider: Nima Galan Admit Provider: Jerry Price Attending Provider: Jerry Price
[2024-03-05 11:50] LABS: Appearance,Urine CLEAR (Clear); Bilirubin,Urine Negative (Negative); Blood, Urine Negative (Negative); Color,Urine YELLOW (Yellow); Glucose,Urine (UA) Negative (Negative); Ketones,Urine Negative (Negative); Leukocyte Esterase,Urine Negative (Negative); Nitrate,Urine Negative (Negative); PH,Urine 5.5 (5.0-8.5); Protein,Urine Negative (Negative); Specific Gravity, Urine 1.015 (1.005-1.030); Urobilinogen,Urine 0.2 EU/dl (0.2)
[2024-03-05 12:16] LABS: Bacteria,Urine Trace /lpf; Squamous Epithelial Cell,Urine Occasional #/hpf (0-5); WBC,Urine Occasional #/hpf (0-3)
--- NOTE | 2024-03-05 13:52 | EXP.CARD.CON ---
History of Present Illness History of Present Illness Consult date: 03/05/24 Requesting physician: Jerry Price Chief complaint: edema Additional Medical History:: History of present illness: 68 yo WM with hx of PAF and Moderate RV dilation admitted with vol overload. He was here for the same in December which is when we started seeing him. ECHO at that time showed normal EF. Cr is 2+ at baseline but has not seen Nephrology yet. States his mother from renal failure. Pt started on Bumex over the weekend and he reports some improvement in his LE Edema. He presented with flank edema and it is now just below knees. He has severe swelling on the stops of his feet. Has never seen lymphedema clinic. ProBNP 198, CXR clear. PFSH [facility] Disclaimer: The information contained in this section may have been updated after the patient was seen, as this information can be updated by other users. Medical History Former smoker HLD (hyperlipidemia) HTN (hypertension) Surgical History Hx of tonsillectomy Hx of CABG Social History Smoking Status: Former smoker tobacco type: cigarettes years smoked: 32 smoking status stop date: 2005 alcohol intake: never current occupational status: retired Travel in the last 8 weeks: Inside the [place] Review of Systems Constitutional Constitutional: Denies headache(s) and Denies weakness Eyes Eyes: Denies loss of vision ENT Ears, Nose, Mouth, and Throat: Denies dizziness and Denies headache(s) *Cardiovascular Cardiovascular: Denies chest pain and Denies dyspnea Comments: BLE Edema *Respiratory Respiratory: Denies cough and Denies dyspnea *Gastrointestinal Gastrointestinal: Denies change in stool character, Denies nausea and Denies vomiting *Genitourinary Genitourinary: Denies difficulty urinating *Musculoskeletal Musculoskeletal: Denies numbness and Denies tingling Integumentary/Breasts Skin/Breast: Denies changing lesions *Neurologic Neurologic: Reports as per HPI, Denies dizziness, Denies headache(s), Denies loss of vision, Denies numbness, Denies tingling and Denies weakness Exam Data for Last 24 hours Vital signs and Labs for Last 24 Hours: Temp Pulse Resp BP Pulse Ox O2 Del Method 98.1 F 63 16 131/57 L 96 Room Air 03/05/24 12:00 03/05/24 12:00 03/05/24 12:00 03/05/24 12:00 03/05/24 12:00 03/05/24 13:00 Laboratory Results - last 24 hr 03/05/24 00:12: WBC 8.5, RBC 3.59 L, Hgb 9.8 L, Hct 31.7 L, MCV 88.1, MCH 27.2, MCHC 30.9 L, RDW 16.6, Plt Count 241, MPV 9.1, Neut % (Auto) 77.5, Lymph % (Auto) 13.8, [place] % (Auto) 5.6, Eos % (Auto) 2.6, Baso % (Auto) 0.5, Neut # (Auto) 6.6, Lymph # (Auto) 1.2, [place] # (Auto) 0.5, Eos # (Auto) 0.2, Baso # (Auto) 0.0, Sodium 139, Potassium 4.6, Chloride 107, Carbon Dioxide 23, Anion Gap 13.6, BUN 29 H, Creatinine 2.50 H, Estimated Creat Clear 44, Estimated GFR 26 L, Est GFR ( Amer) 31 L, Glucose 92, Calcium 8.9, Total Bilirubin 0.5, AST 23, ALT 14, Alkaline Phosphatase 91, Troponin I 0.04 H, NT-Pro-B Natriuret Pep 198 H, Total Protein 7.5, Albumin 3.9, Globulin 3.6 H, Albumin/Globulin Ratio 1.1 03/05/24 04:40: WBC 7.6, RBC 3.44 L, Hgb 9.4 L, Hct 30.3 L, MCV 88.1, MCH 27.4, MCHC 31.2 L, RDW 16.5, Plt Count 226, MPV 9.0, Neut % (Auto) 74.4, Lymph % (Auto) 15.7, [place] % (Auto) 6.5, Eos % (Auto) 3.1, Baso % (Auto) 0.4, Neut # (Auto) 5.7, Lymph # (Auto) 1.2, [place] # (Auto) 0.5, Eos # (Auto) 0.2, Baso # (Auto) 0.0, Sodium 141, Potassium 4.0, Chloride 104, Carbon Dioxide 28, Anion Gap 13.0, BUN 31 H, Creatinine 2.40 H, Estimated Creat Clear 47, Estimated GFR 27 L, Est GFR ( Amer) 33 L, Glucose 97, Calcium 8.7, Troponin I 0.04 H 03/05/24 07:45: Troponin I 0.04 H 03/05/24 09:56: Urine Color Yellow, Urine Appearance Clear, Urine pH 5.5, Ur Specific [place] 1.015, Urine Protein Negative, Urine Glucose (UA) Negative, Urine Ketones Negative, Urine Blood Negative, Urine Nitrate Negative, Urine Bilirubin Negative, Urine Urobilinogen 0.2, Ur Leukocyte Esterase Negative, Urine RBC None, Urine WBC Occasional, Ur Squamous Epith Cells Occasional, Urine Bacteria Trace I & O for Last 24 hours: Intake & Output 03/02/24 03/03/24 03/04/24 03/05/24 23:59 23:59 23:59 23:59 Intake Total 960 / 960 Output Total 1949 / 1949 Balance -990 / -990 Weight 240 lb 248 lb 9.6 oz Constitutional Constitutional: no acute distress and cooperative *Routine HEENT Exam Eye: Present PERRL *Routine Respiratory Exam Respiratory: Present CTA bilaterally; Absent accessory muscle use, wheezes or crackles *Routine Cardiovascular Exam Cardiovascular: Present RRR, Normal S1 and Normal S2; Absent murmur, gallop or rubs *Routine Abdominal Exam Abdominal: Present soft; Absent tenderness *Routine Extremities Exam Extremities: Present pulses intact; Absent cyanosis or edema *Routine Skin Exam Skin: Present intact; Absent erythema or wounds *Routine Neurological Exam Neurological: Present alert and oriented X3 Comments: baseline speech impairment/stuttering since childhood Routine Psychiatric Exam Psychiatric: Present cooperative Meds Home Medications and Allergies Home Medications Medication Instructions Recorded Confirmed Type apixaban 5 mg tablet (Eliquis) 5 mg PO BID Afib 12/12/22 03/05/24 History atorvastatin 10 mg tablet 10 mg PO DAILY 12/12/22 03/05/24 History cetirizine 10 mg tablet 10 mg PO DAILY 12/12/22 03/05/24 History gabapentin 100 mg capsule 200 mg PO HS 12/12/22 03/05/24 History hydralazine 50 mg tablet 50 mg PO TID 12/12/22 03/05/24 History isosorbide mononitrate 60 mg 120 mg PO DAILY 12/12/22 03/05/24 History tablet,extended release 24 hr nifedipine 30 mg tablet,extended 30 mg PO DAILY 12/12/22 03/05/24 History release olmesartan 20 mg tablet 20 mg PO DAILY 12/12/22 03/05/24 History potassium chloride 10 mEq 10 meq PO BID 12/12/22 03/05/24 History capsule,extended release tamsulosin 0.4 mg capsule 0.4 mg PO DAILY 12/12/22 03/05/24 History trazodone 100 mg tablet 100 mg PO HSP PRN Sleep 12/25/23 03/05/24 History furosemide 80 mg tablet 80 mg PO DAILY 03/05/24 03/05/24 History ropinirole 1 mg tablet 1 mg PO HS 03/05/24 03/05/24 History New Prescriptions to Start Prescriptions: Allergies Allergy/AdvReac Type Severity Reaction Status Date / Time No Known Allergies Allergy Verified 01/12/24 15:00 Assessment and Plan *Assessment and plan (1) CKD (chronic kidney disease), stage IV: Status: Acute Category: Medical Code(s): N18.4 - Chronic kidney disease, stage 4 (severe) (2) A-fib: Status: Acute Qualifiers: Atrial fibrillation type: paroxysmal Qualified Code(s): I48.0 - Paroxysmal atrial fibrillation Category: Medical Code(s): I48.91 - Unspecified atrial fibrillation (3) Lymphedema: Status: Acute Category: Medical Code(s): I89.0 - Lymphedema, not elsewhere classified Plan Anasarca - known dx, appears to be renal etiology - change lasix to bumex for better efficacy at home BLE Lymphedema - recommend Barbara boots and f/u with lymphedema clinic PAF - SR here - cont Eliquis CKD-IV - Cr 2+ at baseline - needs outpatient Nephrology evaluation -*Of note, pt's mother from renal failure CV stable for discharge home with plans as outlined above. Office f/u with us in 2-3 weeks.
--- NOTE | 2024-03-06 12:57 | CARE MANAGER ---
Contacted patient related to hospital discharge. He is aware of appointments and informed him of lymphedema appointment on . He has new medication and denies any questions or concerns. DINO García
== END 2024-03-05 16:20 | disposition home or self-care (01) ==
LOC: ER 03-05 01:03 → 2ND 03-05 01:13
PROVIDERS: Nurse Practitioner Acute Care; Physician Assistant; Admitting Provider Internal Medicine Adolescent Medicine; Emergency Provider Emergency Medicine; PCP Family Medicine; Visit Provider Internal Medicine Adolescent Medicine
DX: N18.4 Chronic kidney disease, stage 4 (severe); N17.9 Acute kidney failure, unspecified; I12.9 Hypertensive chronic kidney disease with stage 1 through stage 4 chronic kidney disease, or unspecified chronic kidney disease; E78.2 Mixed hyperlipidemia; I48.0 Paroxysmal atrial fibrillation; I89.0 Lymphedema, not elsewhere classified; Z79.899 Other long term (current) drug therapy; Z79.01 Long term (current) use of anticoagulants; Z79.891 Long term (current) use of opiate analgesic; E66.9 Obesity, unspecified; Z68.31 Body mass index [BMI] 31.0-31.9, adult; R06.02 Shortness of breath; Z87.891 Personal history of nicotine dependence
CPT/HCPCS: 71045; 80048; 80053; 81001; 83880; 84484; 85025; 93005; 99285; G0378

== ENCOUNTER 2024-03-28 10:52 | Emergency (ER) | payer MEDICARE, SELFPAY ==
[2024-03-28 10:53] VITALS: BP 188/64; PULSE 72; RESP 14; TEMP 36.7; O2SAT 98; BMI 32.5
--- NOTE | 2024-03-28 11:25 | XR_ITS ---
FINAL REPORT CLINICAL HISTORY: atraumtiac R kniee pain FINDINGS: Right knee Three views were obtained. There is no acute fracture or dislocation. There are mild degenerative changes. No soft tissue abnormality is identified. IMPRESSION: No acute process. Reviewed, Interpreted and Dictated by Geovanny Maurice III, MD Transcribed by Tiffani Medina Authenticated and . [facility]
--- NOTE | 2024-03-28 11:25 | XR_ITS ---
FINAL REPORT CLINICAL HISTORY: leg swelling, uinable to ambulate FINDINGS: SINGLE-VIEW CHEST There is cardiomegaly. Patient is status post median sternotomy. There is mild bibasilar atelectasis or scar. There is no pneumothorax. IMPRESSION: Bibasilar atelectasis versus scar. Reviewed, Interpreted and Dictated by Geovanny Maurice III, MD Transcribed by Tiffani Medina Authenticated and [facility]
[2024-03-28 11:30] VITALS: BP 168/70; PULSE 65; O2SAT 97
[2024-03-28 11:47] LABS: Basophils % 0.6 % (0.1-2.0); Eosinophils # 0.2 K/mm3 (0.0-0.4); Eosinophils % 2.8 % (0.1-12.0); Hematocrit 30.7 % (42.0-52.0); Hemoglobin 9.7 g/dL (14.1-18.0); Lymphocytes # 1.1 K/mm3 (0.7-4.5); Lymphocytes % 15.8 % (10-50); Mean Corpuscular HGB Conc 31.7 g/dL (31.8-35.4); Mean Corpuscular Hemoglobin 27.7 pg (27.0-31.2); Mean Corpuscular Volume 87.3 fl (80-94); Mean Platelet Volume 10.2 fl (7.4-10.4); Monocytes # 0.4 K/mm3 (0.1-1.0); Monocytes % 6.2 % (1.7-9.3); Neutrophils # 5.3 K/mm3 (1.8-7.8); Neutrophils % 74.6 % (37.0-80.0); Platelet Count 232 K/mm3 (142-424); Red Blood Count 3.52 M/mm3 (4.60-6.20); Red Cell Distribution Width 15.9 % (11.5-17.5); White Blood Count 7.1 K/mm3 (4.8-10.8)
[2024-03-28 11:50] LABS: Chloride 105 mmol/L (98-107); Potassium 4.2 mmoL/L (3.5-5.1); Sodium 138 mmol/L (136-145)
[2024-03-28 11:52] LABS: Blood Urea Nitrogen 22 mg/dl (9-20)
[2024-03-28 11:53] LABS: Alanine Aminotransferase 15 U/L (12-78); Albumin Level 3.7 g/dl (3.5-5.0); Albumin/Globulin Ratio 1.1 (1.1-1.8); Alkaline Phosphatase 78 U/L (38-126); Anion Gap 9.2 mEq/L (5-15); Aspartate Amino Transferase 22 U/L (17-59); Bilirubin,Total 0.3 mg/dl (0.2-1.3); Carbon Dioxide 28 mmol/L (22.0-30.0); Creatinine Clearance Estimated 57 mL/min (50-200); Estimated Glomerular Filt Rate 35 ml/min (>60); GFR (African American) 43 ML/MIN (>60); Globulin 3.4 g/dL (1.3-3.2); Total Protein,Serum 7.1 g/dl (6.3-8.2)
[2024-03-28 11:54] LABS: Calcium 8.7 mg/dl (8.4-10.2); Glucose 112 mg/dl (74-100)
--- NOTE | 2024-03-28 11:54 | ED_ITS ---
Discharge Plan Disposition Patient Disposition: Home, Self-Care Chief Complaint: PAIN Prescriptions Prescriptions: No Action trazodone 100 mg tablet 100 mg PO HSP PRN (Reason: Sleep) Patient Comments: take 1 tablet at bedtime as needed Once a day potassium chloride 10 mEq capsule, extended release 10 meq PO BID Patient Comments: Take 1 capsule twice a day by oral route for 30 days. cetirizine 10 mg tablet 10 mg PO DAILY Patient Comments: take 1 tablet Once a day for 30 day(s) atorvastatin 10 mg tablet 10 mg PO DAILY Patient Comments: TAKE ONE TABLET BY MOUTH DAILY nifedipine 30 mg tablet extended release 30 mg PO DAILY Patient Comments: Take 1 Tablet(s) 1 time a day isosorbide mononitrate 60 mg tablet extended release 24 hr 120 mg PO DAILY Patient Comments: TAKE TWO TABLETS BY MOUTH ONCE DAILY tamsulosin 0.4 mg capsule 0.4 mg PO DAILY Patient Comments: TAKE ONE CAPSULE BY MOUTH ONCE DAILY for 30 days hydralazine 50 mg tablet 50 mg PO TID Patient Comments: TAKE ONE TABLET BY MOUTH THREE TIMES DAILY gabapentin 100 mg capsule 200 mg PO HS Patient Comments: Take 2 capsule every day by oral route at bedtime for 30 days. olmesartan 20 mg tablet 20 mg PO DAILY Patient Comments: Take 1 tablet every day by oral route for 90 days. Eliquis 5 mg tablet 5 mg PO BID Patient Comments: TAKE ONE TABLET BY MOUTH TWICE DAILY for 30 days ropinirole 1 mg tablet 1 mg PO HS Patient Comments: TAKE ONE TABLET BY MOUTH AT BEDTIME bumetanide 2 mg tablet 2 mg PO DAILY 30 Days Qty: 30 0RF Referrals Follow up/Referrals: Beau Cruz MD [Staff Physician] - See instructions Activity Restrictions/Add. Instructions Additional Instructions/Restrictions: Follow-up with your orthopedic knee surgeon for further evaluation and potential knee replacement in the setting of chronic knee pain. Workup today was negative. Take Tylenol 1000 mg every 6 hours (4 times daily) and ibuprofen 400 mg every 6 hours (4 times daily) as needed with food and water to prevent GI upset and kidney damage. Call your family doctor to establish care for this visit to the emergency department and schedule follow-up within 48 hours to ensure improvement. If you have any worsening of your condition or any other concerning signs or symptoms, return to the emergency department or your primary care doctor for further evaluation. Clinical Impressions Clinical Impression: Swelling of both lower extremities, Acute pain of right knee Discharge ED Provider: Austyn Brown General Adult [facility] General Chief complaint: PAIN Stated complaint: pain and swelling in both knees Time Seen by Provider: 03/28/24 10:56 Mode of Arrival: Wheelchair Source of Information: Patient Limitations: No Limitations Description of Symptoms (Recalled from ER Triage Doc. by RN): pt presents to ED with c/o bilateral knee pain. pt reports he has had ongoing pain for the past two to three months, but last night he could not get any sleep due to the pain. History of Present Illness HPI narrative: Please note that above description of symptoms, in this electronic medical record under categorization of recalled from ER triage doctor by RN are reflective of an initial nursing assessment, however, is not reflective of my full history and physical exam that was personally taken and clarified. Consequentially, this preceding description of symptoms, which may include the patient's categorized chief complaint in the EMR, do not reflect my personal clinical impression, and the ultimate description of history of present illness and patient stated complaints should be deferred to this section of the note. Unless stated otherwise or congruent with this section of the note, additional signs, symptoms, or incongruence should be interpreted as inaccurate with my clinical impression. Related Data Home Medications Medication Instructions Recorded Confirmed apixaban 5 mg tablet (Eliquis) 5 mg PO BID Afib 12/12/22 03/05/24 atorvastatin 10 mg tablet 10 mg PO DAILY 12/12/22 03/05/24 cetirizine 10 mg tablet 10 mg PO DAILY 12/12/22 03/05/24 gabapentin 100 mg capsule 200 mg PO HS 12/12/22 03/05/24 hydralazine 50 mg tablet 50 mg PO TID 12/12/22 03/05/24 isosorbide mononitrate 60 mg 120 mg PO DAILY 12/12/22 03/05/24 tablet,extended release 24 hr nifedipine 30 mg tablet,extended 30 mg PO DAILY 12/12/22 03/05/24 release olmesartan 20 mg tablet 20 mg PO DAILY 12/12/22 03/05/24 potassium chloride 10 mEq 10 meq PO BID 12/12/22 03/05/24 capsule,extended release tamsulosin 0.4 mg capsule 0.4 mg PO DAILY 12/12/22 03/05/24 trazodone 100 mg tablet 100 mg PO HSP PRN Sleep 12/25/23 03/05/24 ropinirole 1 mg tablet 1 mg PO HS 03/05/24 03/05/24 Previous Rx's Medication Instructions Recorded bumetanide 2 mg tablet 2 mg PO DAILY 30 days #30 tabs 03/05/24 Allergies Allergy/AdvReac Type Severity Reaction Status Date / Time No Known Allergies Allergy Verified 01/12/24 15:00 [facility] Disclaimer: The information contained in this section may have been updated after the patient was seen, as this information can be updated by other users. Medical History Former smoker HLD (hyperlipidemia) HTN (hypertension) Surgical History Hx of tonsillectomy Hx of CABG Social History Smoking Status: Never smoker years smoked: 32 smoking status stop date: 2005 alcohol intake: never current occupational status: retired Travel in the last 8 weeks: Inside the [place] ROS Obtained: Yes All systems reviewed & no additional complaints except as documented Physical Exam Narrative Physical exam: Bedbugs General General appearance: alert, in no apparent distress and obese Head Head exam: atraumatic and normocephalic Eye Eye exam: Present normal appearance, PERRL and EOMI ENT ENT exam: Present mucous membranes moist Neck Neck exam: Present normal inspection, full ROM and trachea midline Respiratory Respiratory exam: Present normal lung sounds bilaterally; Absent respiratory distress, wheezes, stridor, accessory muscle use or prolonged expiratory phase Cardiovascular Cardiovascular exam: Present regular rate and normal rhythm Abdominal Exam Abdominal exam: Present soft; Absent distention, tenderness, guarding, rebound or rigidity Extremities Exam Extremities exam: Present edema (2+ bilateral lower extremity pitting edema, worse,) Neurological Exam Neurological exam: Present alert, oriented X3, CN II-XII intact and normal gait; Absent motor sensory deficit Skin Skin exam: Present warm and dry; Absent diaphoresis or erythema Medical Decision Making Medical Records Medical records reviewed: Yes I reviewed the patient's medical records. Jerome Inquiry Pt receiving controlled substance: No Jerome was queried for this patient: No Vital Signs: 03/28/24 10:53 03/28/24 11:30 03/28/24 12:35 Temperature 98.1 F Temperature Source Oral Pulse Rate 65 66 Pulse Rate [Left Radial] 72 Respiratory Rate 14 16 Blood Pressure 168/70 H 164/64 H Blood Pressure [Right Arm] 188/64 H Blood Pressure Mean 85 Blood Pressure Mean [Right Arm] 105 02 Sat by Pulse Oximetry 98 97 97 03/28/24 13:01 Temperature Temperature Source Pulse Rate 60 Pulse Rate [Left Radial] Respiratory Rate 18 Blood Pressure 162/60 H Blood Pressure [Right Arm] Blood Pressure Mean 94 Blood Pressure Mean [Right Arm] 02 Sat by Pulse Oximetry 94 L Lab Data Lab Results 03/28/24 11:38: WBC 7.1, RBC 3.52 L, Hgb 9.7 L, Hct 30.7 L, MCV 87.3, MCH 27.7, MCHC 31.7 L, RDW 15.9, Plt Count 232, MPV 10.2, Neut % (Auto) 74.6, Lymph % (Auto) 15.8, [place] % (Auto) 6.2, Eos % (Auto) 2.8, Baso % (Auto) 0.6, Neut # (Auto) 5.3, Lymph # (Auto) 1.1, [place] # (Auto) 0.4, Eos # (Auto) 0.2, Baso # (Auto) 0.0, Sodium 138, Potassium 4.2, Chloride 105, Carbon Dioxide 28, Anion Gap 9.2, BUN 22 H, Creatinine 1.90 H, Estimated Creat Clear 57, Estimated GFR 35 L, Est GFR ( Amer) 43 L, Glucose 112 H, Calcium 8.7, Total Bilirubin 0.3, AST 22, ALT 15, Alkaline Phosphatase 78, Troponin I 0.03, NT-Pro-B Natriuret Pep 219 H, Total Protein 7.1, Albumin 3.7, Globulin 3.4 H, Albumin/Globulin Ratio 1.1 03/28/24 11:38 03/28/24 11:38 Orders (Tests/Meds): ORDERS Category Date Time Status CXR --portable [XR chest portable] Stat Exams 03/28/24 11:25 Taken Knee XR right 3 views [XR knee RT 3V] Stat Exams 03/28/24 11:25 Taken CBC w/Auto Diff [Complete Blood Count Auto Diff] Stat Lab 03/28/24 11:38 Completed CMP [Comprehensive Metabolic Panel] Stat Lab 03/28/24 11:38 Completed NT Pro Brain Natriuretic Pep. Stat Lab 03/28/24 11:38 Completed Trop I [Troponin I] Stat Lab 03/28/24 11:38 Completed Troponin I Q3H Lab 03/28/24 14:30 Ordered Troponin I Q3H Lab 03/28/24 17:30 Ordered Medical Decision Narrative: 68-year-old male history of hypertension, lipidemia, diabetes, CHF, chronic bilateral knee pain presenting with lower extremity swelling and knee pain. Patient states his knee pain has been getting worse over the past few months, had an injection in his knee [facility] about 7 days prior to this visit, states is not getting any better and he is having trouble getting around at home. No falls or any trauma. Feels well otherwise. He does state that his legs are getting more swollen than usual, denies shortness of breath, PND, orthopnea, chest pain, or other symptoms. History was obtained via conversation with patient. On arrival, patient hemodynamically stable, alert, oriented x4, appropriate, GCS 15, moving all extremities spontaneously, pupils equal and reactive to light. Full physical exam performed and significant for chronically ill-appearing male no acute distress. He is covered in bedbugs. Lower extremity edema 2+ pitting. Cardiopulmonary exam within normal limits otherwise. Differential includes CHF exacerbation, sprain, strain, lymphedema, ACS, ME, pneumonia, among others. Workup independently interpreted and significant for nonactionable CBC or chemistry. Stable kidney function. Troponin and BNP negative. Chest x-ray without acute cardiopulmonary airspace disease. Right knee films without acute bony abnormality, small joint effusion. See radiology read for full review of final results. On reevaluation, patient resting at baseline. He was decontaminated and bedbugs removed. Given patient presentation, workup, history, this most likely represents acute on chronic right knee pain, acute on chronic dependent lower extremity edema. Because patient at baseline without signs or symptoms of clinical decompensation, deemed appropriate for discharge. Results were relayed to patient who voiced understanding and were agreeable to outpatient management and follow up. I discussed my clinical impression with patient and answered all questions. At this time, the evidence for any other entities in the differential is insufficient to warrant any further testing or ED observation. This was explained as well. Advisory was given that persistent or worsening symptoms require further evaluation. I confirmed the understanding of this discussion. Laboratory Apparatus Glass [employer]lower disclaimer Much of this encounter note is an electronic human service technician spoken language to printed text. Electronic human service technician of the spoken language may permit errors. Although I have reviewed the note, some errors may still exist. Critical Care Critical Care Time Critical Care Time: No
[2024-03-28 12:02] LABS: NT Pro Brain Natriuretic Pep. 219 pg/mL (0-125)
[2024-03-28 12:05] LABS: Troponin I 0.03 ng/ml (0.00-0.034)
[2024-03-28 12:35] VITALS: BP 164/64; PULSE 66; RESP 16; O2SAT 97
[2024-03-28 13:01] VITALS: BP 162/60; PULSE 60; RESP 18; O2SAT 94
[2024-03-28 13:33] VITALS: BP 186/59; PULSE 62; RESP 18; TEMP 36.6; O2SAT 97
[2024-03-28 13:35] VITALS: BP 140/70; PULSE 80; RESP 18; TEMP 36.7; O2SAT 98
== END 2024-03-28 13:37 | disposition home or self-care (01) ==
PROVIDERS: Emergency Provider Emergency Medicine
DX: M25.561 Pain in right knee (principal); M25.562 Pain in left knee; R22.43 Localized swelling, mass and lump, lower limb, bilateral; I11.0 Hypertensive heart disease with heart failure; I50.9 Heart failure, unspecified; Z87.891 Personal history of nicotine dependence; E78.5 Hyperlipidemia, unspecified
CPT/HCPCS: 71045; 73562; 80053; 83880; 84484; 85025; 99283

== ENCOUNTER 2024-05-09 08:35 | Emergency (ER) | payer MEDICARE, SELFPAY ==
[2024-05-09 08:36] VITALS: BP 185/65; PULSE 78; RESP 18; TEMP 36.8; O2SAT 98; BMI 35.1
--- NOTE | 2024-05-09 08:49 | HMH.EDGENADL ---
Discharge Plan Disposition Patient Disposition: Home, Self-Care Condition: Good Prescriptions Prescriptions: No Action gabapentin 300 mg capsule 300 mg PO BID Patient Comments: Take 2 capsules twice a day by oral route for 30 days. bumetanide 2 mg tablet 2 mg PO BID PRN (Reason: edema) Qty: 60 1RF potassium chloride 10 mEq capsule, extended release 10 meq PO BID Patient Comments: Take 1 capsule twice a day by oral route for 30 days. cetirizine 10 mg tablet 10 mg PO DAILY Patient Comments: take 1 tablet Once a day for 30 day(s) atorvastatin 10 mg tablet 10 mg PO DAILY Patient Comments: TAKE ONE TABLET BY MOUTH DAILY nifedipine 30 mg tablet extended release 30 mg PO DAILY Patient Comments: Take 1 Tablet(s) 1 time a day isosorbide mononitrate 60 mg tablet extended release 24 hr 120 mg PO DAILY Patient Comments: TAKE TWO TABLETS BY MOUTH ONCE DAILY tamsulosin 0.4 mg capsule 0.4 mg PO DAILY Patient Comments: TAKE ONE CAPSULE BY MOUTH ONCE DAILY for 30 days hydralazine 50 mg tablet 50 mg PO TID Patient Comments: TAKE ONE TABLET BY MOUTH THREE TIMES DAILY olmesartan 20 mg tablet 20 mg PO DAILY Patient Comments: Take 1 tablet every day by oral route for 90 days. Eliquis 5 mg tablet 5 mg PO BID Patient Comments: TAKE ONE TABLET BY MOUTH TWICE DAILY for 30 days Referrals Follow up/Referrals: Provider,Referral, MD [Referring] - See instructions Activity Restrictions/Add. Instructions Additional Instructions/Restrictions: Please steel pickler the medications that were prescribed by the emergency medicine doctors yesterday, and please follow-up with the urologist as discussed. Please return with any new or worsening symptoms. Clinical Impressions Clinical Impression: Kidney stone Instructions Patient Instructions: DI for Urinary Tract Infection (UTI), DI for Urinary Tract Infection in Children Discharge ED Provider: Albert Brooks General Adult HPI General Chief complaint: Urogenital-Male Stated complaint: possible kidney stone Time Seen by Provider: 05/09/24 08:49 History of Present Illness HPI narrative: The patient presents with left-sided pain that started around 2 o'clock in the morning. He denies having any fever or chills. The pain does not spread and is not present on the other side. He reports no pain during urination. The pain was gradual in onset, constant, improving in course, no previous therapies today. The patient has a recent history of being seen at a different hospital for similar symptoms. He underwent a scan last night, but he is unsure about the size of the stone or if any stones were identified. He has no prior history of kidney stones. He was written prescriptions for expulsive therapy as well as analgesia, however has not been able to steel pickler his medications at this time Please note that above description of symptoms, in this electronic medical record under categorization of recalled from ER triage doctor by RN are reflective of an initial nursing assessment, however, is not reflective of my full history and physical exam that was personally taken and clarified. Consequentially, this preceding description of symptoms, which may include the patient's categorized chief complaint in the EMR, do not reflect my personal clinical impression, and the ultimate description of history of present illness and patient stated complaints should be deferred to this section of the note. Unless stated otherwise or congruent with this section of the note, additional signs, symptoms, or incongruence should be interpreted as inaccurate with my clinical impression. Related Data Home Medications Medication Instructions Recorded Confirmed apixaban 5 mg tablet (Eliquis) 5 mg PO BID Afib 12/12/22 05/08/24 atorvastatin 10 mg tablet 10 mg PO DAILY 12/12/22 05/08/24 cetirizine 10 mg tablet 10 mg PO DAILY 12/12/22 05/08/24 hydralazine 50 mg tablet 50 mg PO TID 12/12/22 05/08/24 isosorbide mononitrate 60 mg 120 mg PO DAILY 12/12/22 05/08/24 tablet,extended release 24 hr nifedipine 30 mg tablet,extended 30 mg PO DAILY 12/12/22 05/08/24 release olmesartan 20 mg tablet 20 mg PO DAILY 12/12/22 05/08/24 potassium chloride 10 mEq 10 meq PO BID 12/12/22 05/08/24 capsule,extended release tamsulosin 0.4 mg capsule 0.4 mg PO DAILY 12/12/22 05/08/24 gabapentin 300 mg capsule 300 mg PO BID 05/08/24 05/08/24 Previous Rx's Medication Instructions Recorded bumetanide 2 mg tablet 2 mg PO BID PRN edema #60 tabs 05/08/24 Allergies Allergy/AdvReac Type Severity Reaction Status Date / Time No Known Allergies Allergy Verified 05/08/24 13:02 [facility] Disclaimer: The information contained in this section may have been updated after the patient was seen, as this information can be updated by other users. Medical History (Updated 05/09/24 @ 10:07 by Albert Brooks MD) Former smoker HLD (hyperlipidemia) HTN (hypertension) Surgical History (Updated 05/08/24 @ 13:29 by Cindy Trevizo RN) Hx of tonsillectomy Hx of CABG Social History Smoking Status: Never smoker years smoked: 32 smoking status stop date: 2005 alcohol intake: never current occupational status: retired Travel in the last 8 weeks: Inside the [place] ROS Obtained: Yes other As per HPI Physical Exam General General appearance: alert and in no apparent distress Head Head exam: atraumatic and normocephalic Eye Eye exam: Present normal appearance Neck Neck exam: Present normal inspection Chest Chest inspection: Present normal inspection and symmetric chest wall rise Respiratory Respiratory exam: Present normal lung sounds bilaterally; Absent respiratory distress Cardiovascular Cardiovascular exam: Present regular rate and normal rhythm Abdominal Exam Abdominal exam: Present soft Neurological Exam Neurological exam: Present alert and oriented X3 Psychiatric Psychiatric exam: Present normal affect and normal mood Skin Skin exam: Present warm and dry Other Other exam information: Mild left-sided CVA tenderness to percussion, no midline spinal tenderness to palpation, no abdominal tenderness to palpation. Medical Decision Making Medical Records Medical records reviewed: Yes I reviewed the patient's medical records. Jerome Inquiry Pt receiving controlled substance: No Vital Signs: 05/09/24 08:36 05/09/24 08:52 05/09/24 10:12 Temperature 98.2 F 97.9 F Temperature Source Oral Pulse Rate 72 67 Pulse Rate [Left Radial] 78 Respiratory Rate 18 17 Blood Pressure 154/56 H Blood Pressure [Right Arm] 185/65 H Blood Pressure Mean [Right Arm] 105 02 Sat by Pulse Oximetry 98 98 Oxygen Delivery Method Room Air Lab Data Lab Results 05/09/24 08:42: Urine Color Yellow, Urine Appearance Clear, Urine pH 6.0, Ur Specific [place] 1.015, Urine Protein Negative, Urine Glucose (UA) Negative, Urine Ketones Negative, Urine Blood Negative, Urine Nitrate Negative, Urine Bilirubin Negative, Urine Urobilinogen 0.2, Ur Leukocyte Esterase 1+ A, Urine RBC 5-10, Urine WBC 5-10, Ur Squamous Epith Cells 3-5, Urine Bacteria Trace, Urine Yeast 2+ 05/09/24 08:50: WBC 11.8 H, RBC 3.53 L, Hgb 9.6 L, Hct 30.6 L, MCV 86.8, MCH 27.3, MCHC 31.5 L, RDW 15.7, Plt Count 221, MPV 8.7, Neut % (Auto) 81.0 H, Lymph % (Auto) 11.6, [place] % (Auto) 5.4, Eos % (Auto) 1.8, Baso % (Auto) 0.3, Neut # (Auto) 9.6 H, Lymph # (Auto) 1.4, [place] # (Auto) 0.6, Eos # (Auto) 0.2, Baso # (Auto) 0.0, Sodium 139, Potassium 4.6, Chloride 105, Carbon Dioxide 24, Anion Gap 14.6, BUN 35 H, Creatinine 2.20 H, Estimated Creat Clear 53, Estimated GFR 30 L, Est GFR ( Amer) 36 L, Glucose 116 H, Calcium 8.6, Total Bilirubin 0.5, AST 22, ALT 19, Alkaline Phosphatase 90, Total Protein 7.0, Albumin 3.9, Globulin 3.1, Albumin/Globulin Ratio 1.3 05/09/24 08:50 05/09/24 08:50 Orders (Tests/Meds): ED MEDICATIONS Discontinued Medications Generic Name Dose Route Start Last Admin Trade Name Freq PRN Reason Stop Dose Admin Lactated Ringer's 1,000 mls @ 999 mls/hr 05/09/24 09:15 05/09/24 09:04 Lactated Ringer's 1000 Ml Bag IV 05/09/24 10:15 999 mls/hr .Q1H1M ROSELYN Administration Ketorolac Tromethamine 30 mg 05/09/24 09:02 05/09/24 09:03 Ketorolac 30mg/Ml Vial IV 05/09/24 09:03 30 mg ONCE ONE Administration Ondansetron HCl 4 mg 05/09/24 09:02 05/09/24 09:03 Ondansetron 4mg/2ml Vial IV 05/09/24 09:03 4 mg ONCE ONE Administration ORDERS Category Date Time Status CBC w/Auto Diff [Complete Blood Count Auto Diff] Stat Lab 05/09/24 08:50 Completed CMP [Comprehensive Metabolic Panel] Stat Lab 05/09/24 08:50 Completed Urinalysis and Microscopic Stat Lab 05/09/24 08:42 Completed Urine Culture Stat Micro 05/09/24 08:42 Received Medical Decision Narrative: Patient with history and exam per above presenting for evaluation of flank pain Diagnoses considered include urolithiasis, cystitis, pyelonephritis, hydronephrosis, infected urolithiasis ED workup and treatment included: ED MEDICATIONS Discontinued Medications Generic Name Dose Route Start Last Admin Trade Name Freq PRN Reason Stop Dose Admin Lactated Ringer's 1,000 mls @ 999 mls/hr 05/09/24 09:15 05/09/24 09:04 Lactated Ringer's 1000 Ml Bag IV 05/09/24 10:15 999 mls/hr .Q1H1M ROSELYN Administration Ketorolac Tromethamine 30 mg 05/09/24 09:02 05/09/24 09:03 Ketorolac 30mg/Ml Vial IV 05/09/24 09:03 30 mg ONCE ONE Administration Ondansetron HCl 4 mg 05/09/24 09:02 05/09/24 09:03 Ondansetron 4mg/2ml Vial IV 05/09/24 09:03 4 mg ONCE ONE Administration ORDERS Category Date Time Status CBC w/Auto Diff [Complete Blood Count Auto Diff] Stat Lab 05/09/24 08:50 Completed CMP [Comprehensive Metabolic Panel] Stat Lab 05/09/24 08:50 Completed Urinalysis and Microscopic Stat Lab 05/09/24 08:42 Completed Urine Culture Stat Micro 05/09/24 08:42 Received Labs were independently interpreted by me, significant for leukocytosis to 11.8, creatinine 2.2 consistent with baseline, urinalysis with squamous cells, 1+ leukocyte esterase, microscopic pyuria I reviewed records from outside hospital revealing 3 mm distal stone with mild amount of hydronephrosis, and documented plan for expeditious outpatient follow-up after discussion with urology at outside hospital. Patient reports complete improvement of symptoms upon repeat evaluation. My clinical impression at this time is most consistent with small urolithiasis, possibly passed at this time given complete resolution of symptoms, regardless, patient is requesting to be discharged at this time, is amenable to discharge with plan to steel pickler outpatient analgesia and expulsive therapy, with continued agreement of plan to follow-up with urology. The patient was advised that persistent or worsening symptoms require further evaluation. I confirmed the patient's understanding of this discussion. Critical Care Critical Care Time Critical Care Time: No
[2024-05-09 08:52] VITALS: PULSE 72; O2SAT 98
[2024-05-09] MEDS: KETOROLAC 30MG/ML VIAL 30 MG IV (09:03)
[2024-05-09] MEDS: ONDANSETRON 4MG/2ML VIAL 4 MG IV (09:03)
[2024-05-09] MEDS: LACTATED RINGERS 1000ML 1,000 ML 999 ML IV (09:04)
[2024-05-09 09:07] LABS: Basophils % 0.3 % (0.1-2.0); Eosinophils # 0.2 K/mm3 (0.0-0.4); Eosinophils % 1.8 % (0.1-12.0); Hematocrit 30.6 % (42.0-52.0); Hemoglobin 9.6 g/dL (14.1-18.0); Lymphocytes # 1.4 K/mm3 (0.7-4.5); Lymphocytes % 11.6 % (10-50); Mean Corpuscular HGB Conc 31.5 g/dL (31.8-35.4); Mean Corpuscular Hemoglobin 27.3 pg (27.0-31.2); Mean Corpuscular Volume 86.8 fl (80-94); Mean Platelet Volume 8.7 fl (7.4-10.4); Monocytes # 0.6 K/mm3 (0.1-1.0); Monocytes % 5.4 % (1.7-9.3); Neutrophils # 9.6 K/mm3 (1.8-7.8); Platelet Count 221 K/mm3 (142-424); Red Blood Count 3.53 M/mm3 (4.60-6.20); Red Cell Distribution Width 15.7 % (11.5-17.5); White Blood Count 11.8 K/mm3 (4.8-10.8)
[2024-05-09 09:09] LABS: Alanine Aminotransferase 19 U/L (12-78); Albumin Level 3.9 g/dl (3.5-5.0); Albumin/Globulin Ratio 1.3 (1.1-1.8); Alkaline Phosphatase 90 U/L (38-126); Anion Gap 14.6 mEq/L (5-15); Aspartate Amino Transferase 22 U/L (17-59); Bilirubin,Total 0.5 mg/dl (0.2-1.3); Blood Urea Nitrogen 35 mg/dl (9-20); Calcium 8.6 mg/dl (8.4-10.2); Carbon Dioxide 24 mmol/L (22.0-30.0); Chloride 105 mmol/L (98-107); Creatinine Clearance Estimated 53 mL/min (50-200); Estimated Glomerular Filt Rate 30 ml/min (>60); GFR (African American) 36 ML/MIN (>60); Globulin 3.1 g/dL (1.3-3.2); Glucose 116 mg/dl (74-100); Potassium 4.6 mmoL/L (3.5-5.1); Sodium 139 mmol/L (136-145)
[2024-05-09 09:14] LABS: Microscopic, Urine URINE MICROSCOPIC (MICROSCOPIC)
[2024-05-09 09:24] LABS: Appearance,Urine CLEAR (Clear); Bilirubin,Urine Negative (Negative); Blood, Urine Negative (Negative); Color,Urine YELLOW (Yellow); Glucose,Urine (UA) Negative (Negative); Ketones,Urine Negative (Negative); Leukocyte Esterase,Urine 1+ (Negative); Nitrate,Urine Negative (Negative); Protein,Urine Negative (Negative); Specific Gravity, Urine 1.015 (1.005-1.030); Urobilinogen,Urine 0.2 EU/dl (0.2)
--- NOTE | 2024-05-09 09:33 | PC.NURSE ---
called [facility] to get records from pt visit there yesterday
[2024-05-09 09:42] LABS: Bacteria,Urine Trace /lpf; Yeast,Urine 2+ /lpf
--- NOTE | 2024-05-09 09:44 | PC.NURSE ---
[facility] will send records at this time.
[2024-05-09 10:12] VITALS: BP 154/56; PULSE 67; RESP 17; TEMP 36.6
--- NOTE | 2024-05-11 13:08 | PC.NURSE ---
URINE CULTURE DISCUSSED WITH DR MORTON, NO RX GIVEN TO PT AT DISCHARGE. ORDERS FOR ABX. ATTEMPTED TO CALL PT FOR UPDATE AND TO ADD MEDICATION. PT DID NOT ANSWER, NOR DID EMERGENCY CONTACT. UNABLE TO LEAVE MESSAGE WITH EITHER
--- NOTE | 2024-05-11 17:15 | PC.NURSE ---
contacted pt, denies fevers. instructed urine culture requires abx, will call rx in to [facility] in [place]. instructed pt to pick-up and complete abx. v/u
== END 2024-05-09 10:13 | disposition home or self-care (01) ==
PROVIDERS: Emergency Provider Emergency Medicine; PCP Family Medicine
DX: N13.0 Hydronephrosis with ureteropelvic junction obstruction (principal); N39.0 Urinary tract infection, site not specified; B96.4 Proteus (mirabilis) (morganii) as the cause of diseases classified elsewhere; M54.59 Other low back pain; I10 Essential (primary) hypertension; E78.5 Hyperlipidemia, unspecified
CPT/HCPCS: 80053; 81001; 85025; 87086; 87088; 87186; 96361; 96374; 96375; 99284; J1885; J2405; J7120

== ENCOUNTER 2024-05-10 23:11 | Emergency (ER) | payer MEDICARE, SELFPAY ==
[2024-05-10 23:13] VITALS: BP 176/63; PULSE 80; RESP 18; TEMP 36.8; O2SAT 95; BMI 33.2
--- NOTE | 2024-05-10 23:21 | ED_ITS ---
Discharge Plan Disposition Patient Disposition: Home, Self-Care Prescriptions Prescriptions: New oxycodone 5 mg tablet 5 mg PO Q8H PRN (Reason: pain) Qty: 12 0RF No Action gabapentin 300 mg capsule 300 mg PO BID Patient Comments: Take 2 capsules twice a day by oral route for 30 days. bumetanide 2 mg tablet 2 mg PO BID PRN (Reason: edema) Qty: 60 1RF potassium chloride 10 mEq capsule, extended release 10 meq PO BID Patient Comments: Take 1 capsule twice a day by oral route for 30 days. cetirizine 10 mg tablet 10 mg PO DAILY Patient Comments: take 1 tablet Once a day for 30 day(s) atorvastatin 10 mg tablet 10 mg PO DAILY Patient Comments: TAKE ONE TABLET BY MOUTH DAILY nifedipine 30 mg tablet extended release 30 mg PO DAILY Patient Comments: Take 1 Tablet(s) 1 time a day isosorbide mononitrate 60 mg tablet extended release 24 hr 120 mg PO DAILY Patient Comments: TAKE TWO TABLETS BY MOUTH ONCE DAILY tamsulosin 0.4 mg capsule 0.4 mg PO DAILY Patient Comments: TAKE ONE CAPSULE BY MOUTH ONCE DAILY for 30 days hydralazine 50 mg tablet 50 mg PO TID Patient Comments: TAKE ONE TABLET BY MOUTH THREE TIMES DAILY olmesartan 20 mg tablet 20 mg PO DAILY Patient Comments: Take 1 tablet every day by oral route for 90 days. Eliquis 5 mg tablet 5 mg PO BID Patient Comments: TAKE ONE TABLET BY MOUTH TWICE DAILY for 30 days Referrals Follow up/Referrals: Nima Galan MD [Primary Care Provider] - See instructions Activity Restrictions/Add. Instructions Additional Instructions/Restrictions: Please take Tylenol as needed for pain. Please take ibuprofen intermittently as needed for pain. Please take oxycodone intermittently as needed for pain. If you develop uncontrollable pain or signs of infection, please return to be evaluated. Recommend following up with urology. Clinical Impressions Clinical Impression: Left flank pain, Ureterolithiasis Discharge ED Provider: Deuce Huerta Adult HPI General Chief complaint: PAIN Stated complaint: kidney stones Time Seen by Provider: 05/10/24 23:21 History of Present Illness HPI narrative: 68-year-old male presents with left flank pain. He was seen at an outside hospital less than 48 hours ago and was told he had a 3 mm obstructing stone. He returned to our ER earlier this morning and got some pain medications and had his urine checked and was discharged again. He reports he was not sent home with any pain medications. He reports he been taking only Tylenol and Flomax at home. He denies any burning with urination, fevers chills or systemic symptoms. Related Data Home Medications Medication Instructions Recorded Confirmed apixaban 5 mg tablet (Eliquis) 5 mg PO BID Afib 12/12/22 05/08/24 atorvastatin 10 mg tablet 10 mg PO DAILY 12/12/22 05/08/24 cetirizine 10 mg tablet 10 mg PO DAILY 12/12/22 05/08/24 hydralazine 50 mg tablet 50 mg PO TID 12/12/22 05/08/24 isosorbide mononitrate 60 mg 120 mg PO DAILY 12/12/22 05/08/24 tablet,extended release 24 hr nifedipine 30 mg tablet,extended 30 mg PO DAILY 12/12/22 05/08/24 release olmesartan 20 mg tablet 20 mg PO DAILY 12/12/22 05/08/24 potassium chloride 10 mEq 10 meq PO BID 12/12/22 05/08/24 capsule,extended release tamsulosin 0.4 mg capsule 0.4 mg PO DAILY 12/12/22 05/08/24 gabapentin 300 mg capsule 300 mg PO BID 05/08/24 05/08/24 Previous Rx's Medication Instructions Recorded bumetanide 2 mg tablet 2 mg PO BID PRN edema #60 tabs 05/08/24 oxycodone 5 mg tablet 5 mg PO Q8H PRN pain #12 tabs 05/10/24 Allergies Allergy/AdvReac Type Severity Reaction Status Date / Time No Known Allergies Allergy Verified 05/08/24 13:02 [facility] Disclaimer: The information contained in this section may have been updated after the patient was seen, as this information can be updated by other users. Medical History (Updated 05/10/24 @ 23:35 by Deuce Huerta MD) Former smoker HLD (hyperlipidemia) HTN (hypertension) Surgical History (Updated 05/08/24 @ 13:29 by Cindy Trevizo RN) Hx of tonsillectomy Hx of CABG Social History Smoking Status: Never smoker years smoked: 32 smoking status stop date: 2006 alcohol intake: never current occupational status: retired Travel in the last 8 weeks: Inside the [place] ROS Obtained: Yes All systems reviewed & no additional complaints except as documented Physical Exam General General appearance: alert and in no apparent distress Head Head exam: atraumatic and normocephalic Eye Eye exam: Present normal appearance, PERRL and EOMI ENT ENT exam: Present normal oropharynx and normal external ear exam Neck Neck exam: Present normal inspection and full ROM Chest Chest inspection: Present normal inspection and symmetric chest wall rise; Absent tenderness Respiratory Respiratory exam: Present normal lung sounds bilaterally; Absent respiratory distress Cardiovascular Cardiovascular exam: Present regular rate and normal rhythm Abdominal Exam Abdominal exam: Present soft; Absent distention, tenderness or guarding Extremities Exam Extremities exam: Present normal inspection; Absent edema or joint swelling Back Exam Back exam: Present normal inspection; Absent tenderness Neurological Exam Neurological exam: Present alert and oriented X3; Absent motor sensory deficit Psychiatric Psychiatric exam: Present normal affect and normal mood Skin Skin exam: Present warm, dry and normal color Lymphatic Lymphatic Findings: no adenopathy Medical Decision Making Medical Records Medical records reviewed: Yes I reviewed the patient's medical records. Jerome Inquiry Pt receiving controlled substance: No Jerome was queried for this patient: No Vital Signs: 05/10/24 23:13 05/10/24 23:53 Temperature 98.3 F 98 F Temperature Source Oral Oral Pulse Rate 71 Pulse Rate [Left] 80 Respiratory Rate 18 20 Blood Pressure 169/55 H Blood Pressure [Right Arm] 176/63 H Blood Pressure Mean [Right Arm] 100 Blood Pressure Source Automatic Cuff Blood Pressure Source [Right Arm] Automatic Cuff Blood Pressure Position Sitting Blood Pressure Position [Right Arm] Sitting 02 Sat by Pulse Oximetry 95 Oxygen Delivery Method Room Air Room Air Lab Data Lab results reviewed: Yes I reviewed the patient's lab results. Orders (Tests/Meds): ED MEDICATIONS Discontinued Medications Generic Name Dose Route Start Last Admin Trade Name Freq PRN Reason Stop Dose Admin Oxycodone HCl 5 mg 05/10/24 23:32 05/10/24 23:41 Oxycodone 5mg Immediate Release Tablet PO 05/10/24 23:33 5 mg ONCE ONE Administration Medical Decision Narrative: 68-year-old male with history as documented above presents for continuing left flank pain after being diagnosed with a distal 3 mm obstructing stone within the last 48 hours. He presents due to worsening pain, though reports pain is significantly improved since arriving because he took Tylenol before coming.. History was obtained via interactive discussion with patient, review of prior notes. On arrival, patient is [afebrile, hemodynamically stable, satting appropriately, alert, oriented x4, GCS 15], moving all extremities spontaneously. Full physical exam performed and significant for no significant exam abnormalities. Differential includes but is not limited to obstructive nephrolithiasis, pyelonephritis, septic stone. I reviewed the patient's ED note from earlier today. They document that he had a 3-minute millimeter obstructing left distal stone at that time. His urine at that time was not consistent with acute infection, he continues to have no systemic symptoms to suggest a septic stone. His pain is already improving from his Tylenol at home. Given his stone is likely to pass on its own, patient was given dose of oxycodone and discharged in stable condition with prescription for oxycodone for breakthrough pain control. Encouraged follow-up with urology. Procedures Risk/Benefits of Procedure(s) Were Explained: Yes Critical Care Critical Care Time Critical Care Time: No
[2024-05-10] MEDS: OXYCODONE 5MG IMMEDIATE RELEASE TABLET 5 MG PO (23:41)
--- NOTE | 2024-05-10 23:51 | PC.NURSE ---
while being evaluated by physician the pain went away and Pt. feels better. Pt. given an Oxycodone to take at home .
[2024-05-10 23:53] VITALS: BP 169/55; PULSE 71; RESP 20; TEMP 36.6; O2SAT 96
== END 2024-05-10 23:56 | disposition home or self-care (01) ==
PROVIDERS: Emergency Provider Emergency Medicine; PCP Family Medicine
DX: R10.32 Left lower quadrant pain (principal); M54.59 Other low back pain; N13.0 Hydronephrosis with ureteropelvic junction obstruction
CPT/HCPCS: 99283

== ENCOUNTER 2024-08-21 13:42 | Outpatient (CLI) | payer MEDICARE, SELFPAY ==
--- NOTE | 2024-08-21 13:45 | CA_ITS ---
FINAL REPORT TECHNIQUE: Color Doppler, duplex Doppler and chow scale sonography of the bilateral neck arterial vasculature was performed. Velocities were measured in the carotid arteries. Stenosis evaluation based on the validated velocity criteria. CLINICAL HISTORY: R CEA, HTN, HLD PT MOVED THRU OUT EXAM DUE TO BACK PAIN. UNCCOPERATIVE. 6'2 265# COMPARISON: None FINDINGS: The peak systolic velocity of the right common carotid artery is 120 cm/s. The peak systolic velocity of the right internal carotid artery is 111 cm/s and end diastolic velocity 29 cm/s. The ICA/CCA ratio is 1.24. A mild amount of plaque is present. The right external carotid artery is patent. The right vertebral artery is patent with antegrade flow. The peak systolic velocity of the left common carotid artery is 80 cm/s. The peak systolic velocity of the left internal carotid artery is 157 cm/s and end diastolic velocity 30 cm/s. The ICA/CCA ratio is 2.40. A mild amount of plaque is present. The left external carotid artery is patent.The left vertebral artery is patent with antegrade flow. IMPRESSION: Less than 50% bilateral carotid stenoses. Bilateral patent vertebral arteries with antegrade flow. If indicated, CTA or MRA could further evaluate. Reviewed, Interpreted and Dictated by Geovanny Maurice III, MD Transcribed by Mojgan Gustafson Authenticated and [facility]
[2024-08-21 15:12] LABS: Anion Gap 16.4 mEq/L (5-15); Blood Urea Nitrogen 34 mg/dl (9-20); Calcium 8.5 mg/dl (8.4-10.2); Carbon Dioxide 28 mmol/L (22.0-30.0); Chloride 96 mmol/L (98-107); Estimated Glomerular Filt Rate 27 ml/min (>60); GFR (African American) 33 ML/MIN (>60); Glucose 114 mg/dl (74-100); Potassium 4.4 mmoL/L (3.5-5.1); Sodium 136 mmol/L (136-145)
[2024-08-21 15:23] LABS: NT Pro Brain Natriuretic Pep. 166 pg/mL (0-125)
== END 2024-08-21 23:59 | disposition home or self-care (01) ==
LOC: RT 13:45
PROVIDERS: PCP Family Medicine; Visit Provider Internal Medicine
DX: R09.89 Other specified symptoms and signs involving the circulatory and respiratory systems (principal); R06.00 Dyspnea, unspecified; I12.9 Hypertensive chronic kidney disease with stage 1 through stage 4 chronic kidney disease, or unspecified chronic kidney disease; N18.4 Chronic kidney disease, stage 4 (severe); I89.0 Lymphedema, not elsewhere classified; I25.810 Atherosclerosis of coronary artery bypass graft(s) without angina pectoris; Z95.1 Presence of aortocoronary bypass graft; I65.29 Occlusion and stenosis of unspecified carotid artery; E78.2 Mixed hyperlipidemia; E66.01 Morbid (severe) obesity due to excess calories; Z68.41 Body mass index [BMI] 40.0-44.9, adult; Z87.891 Personal history of nicotine dependence; Z98.890 Other specified postprocedural states
CPT/HCPCS: 36415; 80048; 83880; 93880

== ENCOUNTER 2024-10-17 06:46 | Inpatient (IN) | payer MEDICARE, SELFPAY ==
[2024-10-17] VITALS (8 sets, daily range): BP systolic 109–138; BP diastolic 63–81; PULSE 90–140; RESP 18–22; TEMP 36.6–37.1; O2SAT 93–96; BMI 35.2
--- NOTE | 2024-10-17 06:52 | EXP.HP ---
History of Present Illness *Admission Date: 10/17/24 *Reason for visit:: chest pain palpatations *History of present illness: Patient with past medical history of atrial fibrillation, CAD, right bundle branch block, CKD, lymphedema, history of CABG, hypertension, hyperlipidemia. Patient presents complaining of chest discomfort and palpitations. Patient presented to emergency room at [facility] complaining of chest pain/palpitations around 2 AM. CP described as 3/10, sharp, lasting 3mins, with rad to neck. Pt CP free at time of my admission 10/17 646am in registration. Patient noted to have wide-complex tachycardia with heart rate in 140s. Patient given IV diltiazem, with rhythm change in A-fib with RVR. Patient started on diltiazem drip 15 Mg per hour, with heart rate stabilizing less than 110 bpm. Patient's D-dimer 884, but no CTA chest done secondary to renal insufficiency. Patient's creatinine 3.2, with normal creatinine baseline of 2.4. Patient discussed with Dr. Feldman, process development chemist prior to admission, who recommended patient be admitted to this institution and that cardiology will closely follow. Patient has history of previous admission to this institution 03/05/2024 for similar presentation. Denies current chest discomfort, SOB, productive cough, fevers, chills, sick contacts, recent travel, blurry vision, headaches, abdominal pain, diarrhea, constipation. Patient states that he lives alone at baseline. [facility] Disclaimer: The information contained in this section may have been updated after the patient was seen, as this information can be updated by other users. Medical History Former smoker HLD (hyperlipidemia) HTN (hypertension) Surgical History Hx of tonsillectomy Hx of CABG Social History Smoking Status: Never smoker years smoked: 32 smoking status stop date: 2005 alcohol intake: never current occupational status: retired Travel in the last 8 weeks: Inside the [place] Have you lived/traveled outside US in past 30 days?: No Contact w/someone who lives/traveled outside US past 30 days?: No Exposure to someone with infectious disease in past 14 days?: No Do you have a fever (greater than 100.4 F or 38 C)?: No Have you tested positive for COVID-19: No Exposed to someone with COVID-19 in past 14 days?: No Do you have a sore throat?: No Do you have a cough?: No Do you have any weakness?: No Do you have any diarrhea?: No Are you experiencing any unusual bleeding?: No Do you have any muscle aches/pain?: No Do you have any abdominal pain?: No Are you experiencing loss of taste or smell?: No Other Medical History Have you received the Flu Vaccine for this season: No Have you received the Pneumonia Vaccine: No Review of Systems Review of Systems Review of systems:: pertinent systems reviewed and negative unless documented below Constitutional Constitutional: Reports system reviewed and no additional complaints, except as documented Meds Home Medications and Allergies Home Medications ?Medication ?Instructions ?Recorded ?Confirmed ?Type apixaban 5 mg tablet (Eliquis) 5 mg PO BID Afib 12/12/22 08/22/24 History atorvastatin 10 mg tablet 10 mg PO DAILY 12/12/22 08/22/24 History cetirizine 10 mg tablet 10 mg PO DAILY 12/12/22 08/22/24 History nifedipine 30 mg tablet,extended 30 mg PO DAILY 12/12/22 08/22/24 History release olmesartan 20 mg tablet 20 mg PO DAILY 12/12/22 08/22/24 History potassium chloride 10 mEq 10 meq PO BID 12/12/22 08/22/24 History capsule,extended release tamsulosin 0.4 mg capsule 0.4 mg PO DAILY 12/12/22 08/22/24 History gabapentin 300 mg capsule 300 mg PO BID 05/08/24 08/22/24 History albuterol sulfate 90 mcg/actuation inhalation 08/14/24 08/22/24 History aerosol inhaler dexamethasone 4 mg tablet mg PO 08/14/24 08/22/24 History ferrous sulfate 142 mg (45 mg mg PO 08/14/24 08/22/24 History iron) tablet,extended release (Slow Release Iron) fluticasone fur. 200 mcg-umeclid inhalation 08/14/24 08/22/24 History 62.5 mcg-vilant 25 mcg inhalat.powder (Trelegy Ellipta) fluticasone propionate 50 intranasal 08/14/24 08/22/24 History mcg/actuation nasal spray,suspension hydralazine 100 mg tablet 100 mg PO TID #90 tabs 08/14/24 08/22/24 Rx metolazone 2.5 mg tablet 2.5 mg PO DIRECTED #15 tabs 08/14/24 08/22/24 Rx ropinirole 1 mg tablet mg PO 08/14/24 08/22/24 History trazodone 100 mg tablet mg PO 08/14/24 08/22/24 History bumetanide 2 mg tablet 2 mg PO BID PRN edema #60 tabs 10/12/24 Rx isosorbide mononitrate 60 mg 60 mg PO DAILY #30 tabs 10/12/24 Rx tablet,extended release 24 hr New Prescriptions to Start Prescriptions: Allergies Allergy/AdvReac Type Severity Reaction Status Date / Time No Known Allergies Allergy Verified 08/22/24 13:21 Exam Constitutional Constitutional: no acute distress *Routine HEENT Exam Head: Present normocephalic Eye: Present normal accommodation ENT: Present mucous membranes moist *Routine Neck Exam Neck: Present supple and full ROM *Routine Respiratory Exam Respiratory: Present decreased breath sounds; Absent accessory muscle use *Routine Cardiovascular Exam Cardiovascular: Present tachycardia and irregular rhythm *Routine Abdominal Exam Abdominal: Present soft and normoactive bowel sounds *Routine Rectal Exam Rectal:: deferred *Routine Genitalia Exam Genitalia:: deferred *Routine Extremities Exam Extremities: Present full ROM *Routine Skin Exam Skin: Present intact and warm *Routine Neurological Exam Neurological: Present alert and oriented X3 Assessment and Plan *Assessment and plan (1) A-fib: Status: Acute Qualifiers: Atrial fibrillation type: paroxysmal Qualified Code(s): I48.0 - Paroxysmal atrial fibrillation Category: Medical Code(s): I48.91 - Unspecified atrial fibrillation (2) CKD (chronic kidney disease), stage IV: Status: Acute Category: Medical Code(s): N18.4 - Chronic kidney disease, stage 4 (severe) (3) NSTEMI (non-ST elevated myocardial infarction): Status: Acute Category: Medical Code(s): I21.4 - Non-ST elevation (NSTEMI) myocardial infarction (4) Tobacco use: Status: Acute Category: Social Hx Code(s): Z72.0 - Tobacco use (5) Obesity: Status: Acute Qualifiers: Body mass index: BMI 40.0-44.9 Obesity classification: adult class 3 (BMI >= 40) Obesity type: due to excess calories Serious obesity comorbidity presence: without serious comorbidity Qualified Code(s): E66.01 - Morbid (severe) obesity due to excess calories; Z68.41 - Body mass index [BMI] 40.0-44.9, adult Category: Medical Code(s): E66.9 - Obesity, unspecified (6) HTN (hypertension): Status: Acute Qualifiers: Hypertension type: primary hypertension Qualified Code(s): I10 - Essential (primary) hypertension Category: Medical Code(s): I10 - Essential (primary) hypertension (7) Lymphedema: Status: Acute Category: Medical Code(s): I89.0 - Lymphedema, not elsewhere classified (8) Swelling of both lower extremities: Status: Acute Category: Medical Code(s): M79.89 - Other specified soft tissue disorders (9) Coronary artery disease: Status: Acute Qualifiers: Associated angina: without angina Coronary Disease-Associated Artery/Lesion type: bypass graft [place] vs. transplanted heart: [place] heart Qualified Code(s): I25.810 - Atherosclerosis of coronary artery bypass graft(s) without angina pectoris Category: Medical Code(s): I25.10 - Atherosclerotic heart disease of [place] coronary artery without angina pectoris (10) Chest pain: Status: Acute Category: Medical Code(s): R07.9 - Chest pain, unspecified (11) Atrial fibrillation with RVR: Status: Acute Category: Medical Code(s): I48.91 - Unspecified atrial fibrillation Plan Patient with past medical history of atrial fibrillation, CAD, right bundle branch block, CKD, lymphedema, history of CABG, hypertension, hyperlipidemia. Patient presents complaining of chest discomfort and palpitations. Patient presented to emergency room at [facility] complaining of chest pain/palpitations around 2 AM. CP described as 3/10, sharp, lasting 3mins, with rad to neck. Pt CP free at time of my admission 10/17 646am in registration. Patient noted to have wide-complex tachycardia with heart rate in 140s. Patient given IV diltiazem, with rhythm change in A-fib with RVR. Patient started on diltiazem drip 15 Mg per hour, with heart rate stabilizing less than 110 bpm. Patient's D-dimer 884, but no CTA chest done secondary to renal insufficiency. Patient's creatinine 3.2, with normal creatinine baseline of 2.4. Patient discussed with Dr. Feldman, process development chemist prior to admission, who recommended patient be admitted to this institution and that cardiology will closely follow. PLease as listed below: Imaging/Labs from outside hospital: Creatinine 3.2. D-dimer 884. Portable chest x-ray within normal limits. EKG A-fib with RVR. I will repeat EKG, CMP, mag,FLP, CBC this a.m. Afib with RVR- dialtiazem gtt 15mg/hr, serial trop Q6hrs x2, morphine 2 mg IV every 4 as needed moderate pain, morphine 4 mg IV every 4 as needed severe pain. Cardiac monitoring. Consult cardiology. Nitroglycerin 0.4 SL PRN CP. CAD/history of CABG: As detailed in A-fib, hypertension, hyperlipidemia sections. Cardiology consultation planned for this hospitalization. Right bundle branch block: As above in A-fib with RVR. ALBERT superimposed on CKD: Patient's baseline creatinine appears to be around 2.4-2.7. Current creatinine per appropriate records 3.2. Will cautiously hydrate patient on 75 cc/h normal saline x 12 hours and reevaluate creatinine. lymphedema: Cautious use of MIVF and diuretics throughout hospitalization hypertension: hold bumex 2mg po daily due to albert, hydralazine 100mg po TID, imdur 60mg po daily, olmesartan 20mg PO daily hyperlipidemia: atorvastatin 10mg po daily BPH: flowmax 0.4mg podaily Restless leg syndrome. Requip 1 mg p.o. daily PPX Lovenox 40mg SQ Daily CODE STATUS: Full MDM [place]opa: High. Patient suffering from acute chest pain and atrial fibrillation with rapid ventricular response with systemic symptoms of weakness, functional decline. Patient has atrial fibrillation with rapid ventricular response poses threat to life and bodily function. data: High. See above. I spoke with the emergency room provider and we agreed that patient required admission to hospital for evaluation of acute chest pain and A-fib with RVR. I interpreted patient's EKG from [facility] and agree that EKG shows A-fib with RVR. Risk: High. I made decision to admit patient to hospital for A-fib with RVR into stepdown unit for resolution utilizing Cardizem gtt., and prescription drug management including IV morphine listed above. 35 minutes of total care time spent with patient by Dr. Houser 10/17/2024
--- NOTE | 2024-10-17 06:53 | PC.NURSE ---
Report given by Adrienne Hayes RN at [facility] was received by me at around 06:00 this shift. Direct admit patient arrived to his room at this time by EMS.
--- NOTE | 2024-10-17 06:54 | PC.NURSE ---
Patient arrived to floor with EMS from [facility] at 06:52.
--- NOTE | 2024-10-17 07:13 | ECG_ITS ---
APPROVED REPORT Exam: Resting ECG HR:93 bpm ECG Measurements Heart Rate 93 AXES QRSd 165 QRS -43 QT 360 T 63 QTc 411 Conclusion ATRIAL FLUTTER/TACHYCARDIA LEFT AXIS DEVIATION [QRS AXIS < -30] RIGHT BUNDLE BRANCH BLOCK [120+ ms QRS DURATION, UPRIGHT V1, 40+ ms S IN I/aVL/V4/V5/V6] ABNORMAL ECG UNCONFIRMED REPORT Electronically signed by : Neri Li MD 10/18/2024 19:24:42
[2024-10-17 07:52] LABS: Chloride 103 mmol/L (98-107)
[2024-10-17 07:53] LABS: Potassium 5.4 mmoL/L (3.5-5.1); Sodium 137 mmol/L (136-145)
[2024-10-17 07:55] LABS: Alanine Aminotransferase 17 U/L (12-78); Albumin/Globulin Ratio 1.1 (1.1-1.8); Alkaline Phosphatase 74 U/L (38-126); Anion Gap 8.4 mEq/L (5-15); Aspartate Amino Transferase 22 U/L (17-59); Bilirubin,Total 0.6 mg/dl (0.2-1.3); Blood Urea Nitrogen 35 mg/dl (9-20); Carbon Dioxide 31 mmol/L (22.0-30.0); Creatinine Clearance Estimated 39 mL/min (50-200); Estimated Glomerular Filt Rate 19 ml/min (>60); GFR (African American) 23 ML/MIN (>60); Globulin 3.5 g/dL (1.3-3.2); Total Protein,Serum 7.5 g/dl (6.3-8.2)
[2024-10-17 07:56] LABS: Calcium 8.8 mg/dl (8.4-10.2); Glucose 94 mg/dl (74-100); Magnesium 1.9 mg/dl (1.6-2.3)
[2024-10-17] MEDS: ENOXAPARIN 40MG/0.4ML SYRINGE 40 MG SUBCUT (07:59)
[2024-10-17] MEDS: DOCUSATE SODIUM 100 MG CAPSULE PO (07:59)
[2024-10-17 08:08] LABS: Troponin I 0.08 ng/ml (0.00-0.034)
[2024-10-17 08:29] LABS: Hematocrit 34.6 % (42.0-52.0); Hemoglobin 10.5 g/dL (14.1-18.0); Mean Corpuscular HGB Conc 30.3 g/dL (31.8-35.4); Mean Corpuscular Hemoglobin 27.3 pg (27.0-31.2); Mean Corpuscular Volume 89.9 fl (80-94); Mean Platelet Volume 10.1 fl (7.4-10.4); Platelet Count 231 K/mm3 (142-424); Red Blood Count 3.85 M/mm3 (4.60-6.20); Red Cell Distribution Width 14.7 % (11.5-17.5); White Blood Count 12.1 K/mm3 (4.8-10.8)
[2024-10-17 08:30] LABS: Basophils # 0.1 K/mm3 (0-0.2); Basophils % 0.5 % (0.1-2.0); Eosinophils # 0.1 K/mm3 (0.0-0.4); Eosinophils % 0.4 % (0.1-12.0); Lymphocytes % 8.3 % (10-50); Monocytes # 0.9 K/mm3 (0.1-1.0); Monocytes % 7.6 % (1.7-9.3); NT Pro Brain Natriuretic Pep. 5770 pg/mL (0-125); Neutrophils % 82.8 % (37.0-80.0)
--- NOTE | 2024-10-17 08:50 | HMH.PHAINT1 ---
Pharmacy Intervention Comments: HOME MEDICATION LIST VERIFIED USING LIST FROM OUTPATIENT PHARMACY
[2024-10-17] MEDS: BUMETANIDE 1MG/4ML VIAL 2 MG IV (10:46)
[2024-10-17] MEDS: METOPROLOL TARTRATE 50MG TABLET 50 MG PO (10:46)
[2024-10-17] MEDS: METOPROLOL TARTRATE 5MG/5ML VIAL 5 MG IV (10:46)
[2024-10-17] MEDS: APIXABAN 5MG TABLET 5 MG PO ×2 (10:47→20:39)
[2024-10-17 13:48] LABS: Chloride 101 mmol/L (98-107); Potassium 5.5 mmoL/L (3.5-5.1); Sodium 135 mmol/L (136-145)
[2024-10-17 13:51] LABS: Anion Gap 8.5 mEq/L (5-15); Blood Urea Nitrogen 41 mg/dl (9-20); Calcium 8.6 mg/dl (8.4-10.2); Carbon Dioxide 31 mmol/L (22.0-30.0); Creatinine Clearance Estimated 40 mL/min (50-200); Estimated Glomerular Filt Rate 20 ml/min (>60); GFR (African American) 24 ML/MIN (>60); Glucose 102 mg/dl (74-100)
[2024-10-17] MEDS: BUMETANIDE 10 MG in 0.9 % SODIUM CHLORIDE 60 ML IV (14:43)
[2024-10-17] MEDS: dilTIAZem 60MG TABLET 60 MG PO ×2 (14:50→21:05)
[2024-10-17 15:48] LABS: Troponin I 0.09 ng/ml (0.00-0.034)
[2024-10-17] MEDS: GABAPENTIN 600MG TABLET 600 MG PO (20:38)
[2024-10-17] MEDS: TAMSULOSIN 0.4MG CAPSULE 0.4 MG PO (21:06)
--- NOTE | 2024-10-17 21:36 | EXP.EVENT.NO ---
Patient's RVR unresponsive to diltiazem p.o. overnight. Will therefore restart Cardizem gtt. overnight.
[2024-10-17] MEDS: dilTIAZem HCL 100 MG in 0.9 % SODIUM CHLORIDE 100 ML IV (22:04)
[2024-10-18] VITALS (13 sets, daily range): BP systolic 99–165; BP diastolic 26–85; PULSE 70–109; RESP 15–23; TEMP 36.6; O2SAT 92–100; BMI 35.1
[2024-10-18] MEDS: BUMETANIDE 10 MG in 0.9 % SODIUM CHLORIDE 60 ML IV ×2 (00:13→09:29)
--- NOTE | 2024-10-18 02:19 | PC.NURSE ---
Addendum entered by Thelma Chauhan RN 10/18/24 02:20: 2145: Report given to DINO Diaz at this time. Pt transferred from Med surg to ICU. (Updated to correct time) Original Note: Report given to DINO Diaz at this time. Pt transferred from Med surg to ICU
--- NOTE | 2024-10-18 04:32 | EXP.EVENT.NO ---
Patient desat to 65% transiently overnight. Patient placed on 2 L nasal cannula with improvement in O2 saturations. Likely suffering from undiagnosed obstructive sleep apnea. Patient would likely benefit from sleep study in near future as outpatient.
--- NOTE | 2024-10-18 06:23 | CA_ITS ---
APPROVED REPORT EXAM: Comprehensive 2D, Doppler, and color-flow Echocardiogram Recruiter Account Manager: ORAL Link, RVS Ht: 6 ft 0 in Wt: 273lbs BSA: 2.43 BP: 102/60 mmHg Rhythm: Atrial Fibrillation Indications: Afib, CAD-CABG,CHF,SOA,HTN,HLD,Ex-smoker Echo Enhancing Agent Comments: TDS: Poor acoustic windows 2D Dimensions LVDd 4.82 cm M: 4.2 - 5.9 LVEF (Visual) 51.80 % LVDs 3.54 cm M: 2.5 - 4.0 LA Volume 109.10 mL Left Atrium 3.93 cm M: 3.0 - 4.0 LA Volume Index [id number] mL/m2 (M/F) 16-34 M-Mode Dimensions RVDd 4.62 cm (0.9-2.6) LA Diam 4.52 cm (1.9-4.0) LVDd 4.86 cm (3.5-5.7) LVDs 3.50 cm (3.5-5.7) IVSd 0.96 cm (0.6-1.1) PWd 0.96 cm (0.6-1.1) EF (Teich) 54.00% EPSs 0.44 cm FS 28.00% EDV (Teich) 110.70 mL TAPSE 0.99 (<1.7) ESV (Teich) 50.90 mL LV Diastology E Decel Time 150 (160-240 msec) E/A Ratio 2.90 MED A' 3.50 cm/s LAT A' 4.50 cm/s Aortic Valve CARMEN Index 0.92 cm2/m2 AoV Peak Jassi. 164.0 (50-130 cm/s) AO Peak GR. 10.80 mmHg AO Mean GR. 5.30 (<5 mmHg) AO VTI 32.7 (18-25 cm) CARMEN (VTI) 2.28 (2.5-4.5 cm2) Mitral Valve MV A Velocity 44.0 (40-130 cm/s) E/A Ratio 2.90 Pulmonary Valve PV Peak Velocity 92.0 (50-150 cm/s) NE End VMAX 177.0 cm/s Tricuspid Valve TR P. Velocity 220.00 cm/s RAP Estimate 10.00 mmHg RVSP 29.40 mmHg Left Ventricle The left ventricle is normal size. The left ventricular systolic function is normal. The left ventricular ejection fraction is within the normal range. There is increased LV wall thickness. There is normal LV segmental wall motion. Transmitral Doppler flow pattern suggests impaired LV relaxation. LVEF is 55%. Right Ventricle Right ventricle is moderately dilated. Right ventricle is mildly hypokinetic. Atria The left atrium size is normal. The right atrium size is normal. There is no Doppler evidence of interatrial shunt. Aortic Valve The aortic valve is mildly thickened. There is no aortic valvular stenosis. Trace aortic regurgitation. Mitral Valve The mitral valve is normal in structure. No evidence of mitral valve stenosis. Mild mitral regurgitation. Tricuspid Valve Tricuspid valve is grossly normal in structure and function. Trace tricuspid regurgitation. There is insufficient TR jet to estimate RVSP. Pulmonic Valve The pulmonary valve is normal in structure. Trace pulmonic regurgitation. Great Vessels The aortic root is normal in size. IVC is normal in size and collapses >50% with inspiration. Pericardium There is no pericardial effusion. Other Information Study Quality: Fair Conclusion Normal LV systolic function. Moderate RV dilation with mild reduction in RV function. Mild MR. Electronically signed by : Laura Warner MD 10/19/2024 11:12:13
[2024-10-18 06:51] LABS: Albumin Level 3.4 g/dl (3.5-5.0); Chloride 103 mmol/L (98-107); Potassium 5.4 mmoL/L (3.5-5.1); Sodium 134 mmol/L (136-145)
[2024-10-18 06:54] LABS: Alanine Aminotransferase 14 U/L (12-78); Albumin/Globulin Ratio 1.1 (1.1-1.8); Alkaline Phosphatase 63 U/L (38-126); Anion Gap 6.4 mEq/L (5-15); Aspartate Amino Transferase 22 U/L (17-59); Bilirubin,Total 0.5 mg/dl (0.2-1.3); Blood Urea Nitrogen 50 mg/dl (9-20); Calcium 8.2 mg/dl (8.4-10.2); Carbon Dioxide 30 mmol/L (22.0-30.0); Creatinine Clearance Estimated 40 mL/min (50-200); Estimated Glomerular Filt Rate 20 ml/min (>60); GFR (African American) 24 ML/MIN (>60); Globulin 3.1 g/dL (1.3-3.2); Glucose 74 mg/dl (74-100); Total Protein,Serum 6.5 g/dl (6.3-8.2)
[2024-10-18 07:13] LABS: Red Blood Count 3.34 M/mm3 (4.60-6.20); White Blood Count 10.1 K/mm3 (4.8-10.8)
[2024-10-18 07:14] LABS: Lymphocytes % 9.9 % (10-50); Mean Corpuscular HGB Conc 30.3 g/dL (31.8-35.4); Mean Corpuscular Hemoglobin 27.2 pg (27.0-31.2); Mean Corpuscular Volume 89.8 fl (80-94); Mean Platelet Volume 10.7 fl (7.4-10.4); Neutrophils % 78.5 % (37.0-80.0); Platelet Count 203 K/mm3 (142-424); Red Cell Distribution Width 14.7 % (11.5-17.5)
[2024-10-18 07:15] LABS: Basophils % 0.4 % (0.1-2.0); Eosinophils # 0.2 K/mm3 (0.0-0.4); Eosinophils % 2.2 % (0.1-12.0); Monocytes # 0.9 K/mm3 (0.1-1.0); Monocytes % 8.4 % (1.7-9.3); Neutrophils # 7.9 K/mm3 (1.8-7.8)
[2024-10-18 07:34] LABS: Hemoglobin 9.3 g/dL (14.1-18.0)
[2024-10-18 07:47] LABS: Chol/HDL Ratio 4.4 (1-3.5); Cholesterol 102 mg/dl (140-200); HDL Cholesterol 23 mg/dl (40-60); Triglycerides 86 mg/dl (30-150); VLDL Cholesterol 17 mg/dL (0-40)
[2024-10-18 07:58] LABS: Direct LDL Cholesterol 59.85 mg/dL (100-129)
--- NOTE | 2024-10-18 09:15 | XR_ITS ---
FINAL REPORT CLINICAL HISTORY: CHF, COPD COMPARISON: 10/17/2024 FINDINGS: The heart size is mildly enlarged. Sternotomy wires are present. Scarring is noted at the lung bases. There is no focal infiltrate or edema. There are no pleural effusions. There is no pneumothorax. There is no osseous abnormality. IMPRESSION: No acute cardiopulmonary process Reviewed, Interpreted and Dictated by Mamadou Garcia MD Transcribed by Mojgan Gustafson Authenticated and [facility]
[2024-10-18] MEDS: dilTIAZem HCL 100 MG in 0.9 % SODIUM CHLORIDE 100 ML IV (09:29)
[2024-10-18] MEDS: DOCUSATE SODIUM 100 MG CAPSULE PO (09:40)
[2024-10-18] MEDS: APIXABAN 5MG TABLET 5 MG PO ×2 (09:40→20:11)
[2024-10-18] MEDS: GABAPENTIN 600MG TABLET 600 MG PO ×2 (09:40→20:11)
[2024-10-18] MEDS: dilTIAZem HCL 180MG CAP.ER.24H 180 MG PO (11:00)
--- NOTE | 2024-10-18 12:17 | P.CONCA_ITS ---
History of Present Illness History of Present Illness Consult date: 10/18/24 Requesting physician: Jerry Price Consult reason: atrial fibrillation Chief complaint: palpitations History of present illness: 68-year-old white male well-established patient of our office with a history of CAD s/p CABG 2008, status post CEA 2008, moderate LV dilation, CKD 3, bilateral lower extremity lymphedema, anasarca with 2 admissions already this year. Poor compliance outpatient. Patient presented to his local ER last night with complaints of palpitations and shortness of breath with severe worsening lower extremity edema. He was diagnosed with new A-fib RVR and anasarca and was subsequently transferred to this facility on diltiazem drip. He has elevated creatinine at 3.2, baseline 2.4. Troponin is flat at 0.08, 0.1, 0.09, proBNP 5770. Patient has been rate controlled overnight and diuresed. He reports feeling back to baseline and significantly improved. [facility] Disclaimer: The information contained in this section may have been updated after the patient was seen, as this information can be updated by other users. Medical History Heart failure RLS (restless legs syndrome) CKD (chronic kidney disease) Former smoker HLD (hyperlipidemia) HTN (hypertension) Surgical History Hx of tonsillectomy Hx of CABG Family History Other No significant family history Social History Smoking Status: Former smoker tobacco type: cigarettes years smoked: 32 smoking status stop date: 2005 alcohol intake: never current occupational status: retired Travel in the last 8 weeks: None Have you lived/traveled outside US in past 30 days?: No Contact w/someone who lives/traveled outside US past 30 days?: No Exposure to someone with infectious disease in past 14 days?: No Do you have a fever (greater than 100.4 F or 38 C)?: No Have you tested positive for COVID-19: No Exposed to someone with COVID-19 in past 14 days?: No Do you have a sore throat?: No Do you have a cough?: No Do you have any weakness?: No Are you experiencing any nausea/vomitting?: No Do you have any diarrhea?: No Are you experiencing any unusual bleeding?: No Do you have any muscle aches/pain?: No Do you have any abdominal pain?: No Are you experiencing loss of taste or smell?: No Review of Systems Constitutional Constitutional: Denies fatigue and Reports weakness Eyes Eyes: Denies loss of vision ENT Ears, Nose, Mouth, and Throat: Denies hearing loss and Denies vertigo *Cardiovascular Cardiovascular: Reports dyspnea, Reports irregular heart rhythm and Denies syncope Comments: BLE Edema *Respiratory Respiratory: Denies cough and Reports dyspnea *Gastrointestinal Gastrointestinal: Denies change in stool character, Denies nausea and Denies vomiting *Genitourinary Genitourinary: Denies difficulty urinating *Musculoskeletal Musculoskeletal: Denies muscle weakness Integumentary/Breasts Skin/Breast: Denies changing lesions *Neurologic Neurologic: Denies loss of vision, Denies syncope, Denies vertigo and Reports weakness Endocrine Endocrine: Denies fatigue Exam Data for Last 24 hours Vital signs and Labs for Last 24 Hours: Temp Pulse Resp BP Pulse Ox O2 Del Method O2 Flow Rate 97.9 F 94 H 20 149/82 H 99 Nasal Cannula 2 10/18/24 00:00 10/18/24 10:00 10/18/24 10:00 10/18/24 10:00 10/18/24 10:00 10/18/24 11:00 10/18/24 11:00 Laboratory Results - last 24 hr 10/17/24 13:00: Sodium 135 L, Potassium 5.5 H, Chloride 101, Carbon Dioxide 31 H , Anion Gap 8.5, BUN 41 H, Creatinine 3.10 H, Estimated Creat Clear 40, Estimated GFR 20 L, Est GFR ( Amer) 24 L, Glucose 102 H, Calcium 8.6, Troponin I 0.10 H 10/17/24 15:20: Troponin I 0.09 H 10/18/24 05:27: WBC 10.1, RBC 3.34 L, Hgb 9.3 L D, Hct 30.0 L, MCV 89.8, MCH 27.2, MCHC 30.3 L, RDW 14.7, Plt Count 203, MPV 10.7 H, Neut % (Auto) 78.5, Lymph % (Auto) 9.9 L, [place] % (Auto) 8.4, Eos % (Auto) 2.2, Baso % (Auto) 0.4, Neut # (Auto) 7.9 H, Lymph # (Auto) 1.0, [place] # (Auto) 0.9, Eos # (Auto) 0.2, Baso # (Auto) 0.0, Sodium 134 L, Potassium 5.4 H, Chloride 103, Carbon Dioxide 30, Anion Gap 6.4, BUN 50 H, Creatinine 3.10 H, Estimated Creat Clear 40, Estimated GFR 20 L, Est GFR ( Amer) 24 L, Glucose 74 D, Calcium 8.2 L, Magnesium 2.0, Total Bilirubin 0.5, AST 22, ALT 14, Alkaline Phosphatase 63, Total Protein 6.5, Albumin 3.4 L D, Globulin 3.1, Albumin/Globulin Ratio 1.1, Triglycerides 86, Cholesterol 102 L, LDL Cholesterol Direct 59.85 L, VLDL Cholesterol 17, HDL Cholesterol 23 L, Cholesterol/HDL Ratio 4.4 H I & O for Last 24 hours: Intake & Output 10/15/24 10/16/24 10/17/24 10/18/24 23:59 23:59 23:59 23:59 Intake Total 990 / 1230 1029.334 / 1029.334 Output Total 2950 / 3450 500 / 500 Balance -1960 / -2220 529.334 / 529.334 Weight 273 lb 14.4 oz 273 lb 14.437 oz Constitutional Constitutional: no acute distress, obese and cooperative *Routine HEENT Exam Eye: Present PERRL *Routine Respiratory Exam Respiratory: Present CTA bilaterally; Absent accessory muscle use, wheezes or crackles *Routine Cardiovascular Exam Cardiovascular: Present Normal S1, Normal S2 and irregularly irregular; Absent murmur, gallop or rubs Comments: BLE Edema thigh high *Routine Abdominal Exam Abdominal: Present soft; Absent tenderness *Routine Extremities Exam Extremities: Present pulses intact; Absent cyanosis or edema *Routine Skin Exam Skin: Present intact; Absent erythema or wounds *Routine Neurological Exam Neurological: Present alert and oriented X3 Routine Psychiatric Exam Psychiatric: Present cooperative Meds Home Medications and Allergies Home Medications ?Medication ?Instructions ?Recorded ?Confirmed ?Type apixaban 5 mg tablet (Eliquis) 5 mg PO BID 12/12/22 10/17/24 History atorvastatin 10 mg tablet 10 mg PO DAILY 12/12/22 10/17/24 History cetirizine 10 mg tablet 10 mg PO DAILY 12/12/22 10/17/24 History nifedipine 30 mg tablet,extended 30 mg PO DAILY 12/12/22 10/17/24 History release olmesartan 20 mg tablet 20 mg PO DAILY 12/12/22 10/17/24 History potassium chloride 10 mEq 10 meq PO BID 12/12/22 10/17/24 History capsule,extended release tamsulosin 0.4 mg capsule 0.4 mg PO DAILY 12/12/22 10/17/24 History gabapentin 300 mg capsule 600 mg PO BID 05/08/24 10/17/24 History ferrous sulfate 142 mg (45 mg 45 mg PO BID 08/14/24 10/17/24 History iron) tablet,extended release (Slow Release Iron) fluticasone propionate 50 1 spray intranasal DAILY 08/14/24 10/17/24 History mcg/actuation nasal spray,suspension bumetanide 2 mg tablet 2 mg PO BID PRN edema #60 tabs 10/12/24 10/17/24 Rx hydralazine 100 mg tablet 50 mg PO TID 10/17/24 10/17/24 History isosorbide mononitrate 60 mg 120 mg PO DAILY 10/17/24 10/17/24 History tablet,extended release 24 hr New Prescriptions to Start Prescriptions: Allergies Allergy/AdvReac Type Severity Reaction Status Date / Time No Known Allergies Allergy Verified 08/22/24 13:21 Assessment and Plan *Assessment and plan (1) Atrial fibrillation with RVR: Status: Acute Category: Medical Code(s): I48.91 - Unspecified atrial fibrillation (2) Acute on chronic heart failure with preserved ejection fraction (HFpEF): Status: Acute Category: Medical Code(s): I50.33 - Acute on chronic diastolic (congestive) heart failure (3) Coronary artery disease: Status: Acute Qualifiers: Coronary Disease-Associated Artery/Lesion type: bypass graft [place] vs. transplanted heart: [place] heart Associated angina: without angina Qualified Code(s): I25.810 - Atherosclerosis of coronary artery bypass graft(s) without angina pectoris Category: Medical Code(s): I25.10 - Atherosclerotic heart disease of [place] coronary artery without angina pectoris (4) Lymphedema: Status: Acute Category: Medical Code(s): I89.0 - Lymphedema, not elsewhere classified Plan A-fib RVR - known dx, acute exacerbation - he is asymptomatic with rate control, will change IV to PO - cont Eliquis 5mg BID - will not do DCCV this admission unless urgent as he would benefit from ALEIDA which is unavailable over the holiday - will need 2 week monitor at discharge and OP f/u on obesity and YONATAN Acute on Chronic HFpEF - NYHA = 4 on presentation with ProBNP 5K and thigh high pitting edema bilat erally - ECHO 01/14 - nml LV function, mod RV dilation with mild reduction in RV function - CXR - no acute process - continue diuresis - add Farxiga - no ARNI/MRA due to CKD-III/IV - check 2D ECHO - consider worsening ischemia CAD, [place] s/p CABG 2008 - CCS = 4 HERNÁNDEZ equivalent, pt denies CP - EKG with A-fib - Trop flat 0.08, 0.1, 0.09 - cont Eliquis, statin - check ECHO for LV/WMA, consider LHC vs outpatient ischemic workup Carotid Stenosis s/p CEA 2008 - asymptomatic - cont statin, Eliquis Chronic BLE Lymphedema - needs aggressive weight loss and outpatient lymphedema clinic CKD-IV - Cr 3.2 here, baseline 2.4 - dose adjust meds, trend labs - OP Neph ref CV stable/improving, further plans pending ECHO results.
[2024-10-18] MEDS: DAPAGLIFLOZIN PROPANEDIOL 10 MG TABLET PO (13:40)
--- NOTE | 2024-10-18 13:50 | HMH.PTEV ---
Physical Therapy Evaluation Rehab PT IP Evaluation Start: 10/18/24 09:53 Freq: .once Status: Active Protocol: Document 10/18/24 13:47 JEWELS (Rec: 10/18/24 13:50 PHOCHEO [id number]) Subjective/History History History 68 yowm adm to [facility] after transfer from outside hospital with possible NSTEMI. He has past medical history of atrial fibrillation, CAD, right bundle branch block, CKD, lymphedema, history of CABG, hypertension, hyperlipidemia. Patient presents complaining of chest discomfort and palpitations. He reports he lives alone, no ADILIA the home, and he is generally independent with all mobility using a RW for ambulation. Subjective Subjective He reports no c/o this pm, agrees to mobility assessment. Rehab PT IP Eval Objective Appearance Patient Behavior Appropriate Patient Orientation Person,Place,Time Difficulty following instructions none Speech Pattern Coherent,Garbled,Patient Baseline Ambulation Patient Able to Ambulate Yes Ambulation Observation IP General Gait Pattern Observation Wide Based Gait Ambulation Distance (feet) 25 Ambulation Assistive Device Rolling Walker Ambulation Ability Supervision/Stand by Balance Ability to Arise Able, uses arms to help Sitting Balance Steady, safe Standing Balance Steady, wide stance Dynamic Sitting Balance Ability Good Dynamic Standing Balance Ability Fair Transfers Bed Transfer Ability Supervision/Stand by Chair Transfer Ability Supervision/Stand by Sit to Stand Bed Transfer Ability Supervision/Stand by Sit to Stand Chair Transfer Ability Supervision/Stand by Rehab PT IP prob,goals,plan Problems Date of Evaluation: 10/18/24 Discharge Plan PT Discharge Plan Pt is currently appropriate to return home once medically stable for d/c. Recommend Home Health therapy after d/c home . Eval Complexity Eval Charge Codes 79908 - High Complexity PHYSICIAN CERTIFICATION: I certify the specified therapy services for Forrest Chauhan are required, authorized, and reviewed every 30 days.
--- NOTE | 2024-10-18 14:56 | P.PN_ITS ---
Subjective *Date: 10/18/24 *Time: 15:13 Interval history: Patient had an event overnight hypoxia, suspected secondary to sleep apnea. Did well for the rest of the night on 2 L oxygen. Heart rate better controlled, controlled on dill drip at this time. Rate 70 to 80 bpm. Denies any chest pain, nausea, vomiting, diarrhea, syncope. Legs looking better on exam Medical Exam Vital signs and Labs for Last 24 Hours: Vital Signs Temp Pulse Pulse Resp BP Pulse Ox O2 Del Method 10/18/24 14:00 96 H 20 156/81 H 96 Nasal Cannula 10/18/24 13:25 Nasal Cannula 10/18/24 12:00 70 10/18/24 12:00 92 H 18 111/55 L 100 Nasal Cannula 10/18/24 11:00 Nasal Cannula 10/18/24 10:00 94 H 20 149/82 H 99 Nasal Cannula 10/18/24 09:15 Nasal Cannula 10/18/24 09:00 72 20 108/44 L 98 Nasal Cannula 10/18/24 08:00 71 99 Nasal Cannula 10/18/24 08:00 72 20 99/43 L 92 L Nasal Cannula 10/18/24 08:00 100 H 10/18/24 06:09 Nasal Cannula 10/18/24 05:00 Room Air 10/18/24 04:00 90 10/18/24 04:00 100 Nasal Cannula 10/18/24 03:13 109 H 20 145/85 H 92 L Room Air 10/18/24 03:00 Room Air 10/18/24 01:00 Room Air 10/18/24 00:00 88 20 138/63 92 L Room Air 10/18/24 00:00 107 H 10/18/24 00:00 97.9 F 94 H 16 138/63 93 L Room Air 10/17/24 23:00 Room Air 10/17/24 21:00 Room Air 10/17/24 20:11 90 10/17/24 20:00 Room Air 10/17/24 20:00 98.0 F 139 H 18 120/73 93 L Room Air 10/17/24 18:34 Room Air 10/17/24 17:00 Room Air 10/17/24 16:00 140 H 10/17/24 16:00 97.9 F 138 H 18 127/74 95 Room Air 10/17/24 15:00 Room Air O2 Flow Rate 10/18/24 14:00 2 10/18/24 13:25 2 10/18/24 12:00 10/18/24 12:00 2 10/18/24 11:00 2 10/18/24 10:00 2 10/18/24 09:15 2 10/18/24 09:00 2 10/18/24 08:00 2 10/18/24 08:00 2 10/18/24 08:00 10/18/24 06:09 2 10/18/24 05:00 10/18/24 04:00 10/18/24 04:00 2 10/18/24 03:13 10/18/24 03:00 10/18/24 01:00 96 10/18/24 00:00 10/18/24 00:00 10/18/24 00:00 10/17/24 23:00 10/17/24 21:00 10/17/24 20:11 10/17/24 20:00 10/17/24 20:00 10/17/24 18:34 10/17/24 17:00 10/17/24 16:00 10/17/24 16:00 10/17/24 15:00 Intake and Output 10/17/24 10/18/24 10/18/24 23:59 07:59 15:59 Intake Total 480 / 1230 410.667 / 6255.870 7107.667 / 1624.334 Output Total 2850 / 3450 500 / 1400 900 / 1400 Balance -2370 / -2220 -89.333 / 224.334 313.667 / 224.334 Intake: Intake, Oral Amount 480 / 1230 240 / 1320 1080 / 1320 Intake, Total IV Amount 170.667 / 304.334 133.667 / 304.334 Output: Output, Urine Amount 2850 / 3450 500 / 1400 900 / 1400 Other: Number of Unmeasured Voids 0 Weight 124.24 kg Patient Weight 10/18/24 23:59 Weight 124.24 kg Laboratory Results - last 24 hr 10/17/24 15:20: Troponin I 0.09 H 10/18/24 05:27: WBC 10.1, RBC 3.34 L, Hgb 9.3 L D, Hct 30.0 L, MCV 89.8, MCH 27.2, MCHC 30.3 L, RDW 14.7, Plt Count 203, MPV 10.7 H, Neut % (Auto) 78.5, Lymph % (Auto) 9.9 L, [place] % (Auto) 8.4, Eos % (Auto) 2.2, Baso % (Auto) 0.4, Neut # (Auto) 7.9 H, Lymph # (Auto) 1.0, [place] # (Auto) 0.9, Eos # (Auto) 0.2, Baso # (Auto) 0.0, Sodium 134 L, Potassium 5.4 H, Chloride 103, Carbon Dioxide 30, Anion Gap 6.4, BUN 50 H, Creatinine 3.10 H, Estimated Creat Clear 40, Estimated GFR 20 L, Est GFR ( Amer) 24 L, Glucose 74 D, Calcium 8.2 L, Magnesium 2.0, Total Bilirubin 0.5, AST 22, ALT 14, Alkaline Phosphatase 63, Total Protein 6.5, Albumin 3.4 L D, Globulin 3.1, Albumin/Globulin Ratio 1.1, Triglycerides 86, Cholesterol 102 L, LDL Cholesterol Direct 59.85 L, VLDL Cholesterol 17, HDL Cholesterol 23 L, Cholesterol/HDL Ratio 4.4 H I & O for Labs for Last 24 Hours: Intake & Output 10/15/24 10/16/24 10/17/24 10/18/24 23:59 23:59 23:59 23:59 Intake Total 990 / 1230 1624.334 / 1624.334 Output Total 2950 / 3450 1400 / 1400 Balance -1960 / -2220 224.334 / 224.334 Weight 124.239 kg 124.24 kg Constitutional: Present no acute distress, obese, chronically ill appearing and cooperative Head: Present atraumatic and normocephalic ENT: Present normal exam Comment:: Well-healed scar right side of neck consistent with endarterectomy Respiratory: Present normal respiratory effort; Absent rhonchi, stridor, wheezes or crackles Cardiac: Present Reg Rate and Rhythm Comment:: Appears to be in rate controlled a flutter on telemetry GI: Present soft and normal bowel sounds; Absent distention or tenderness Extremities: Present normal inspection, full ROM and edema (Improving, 2+ below knees.) Skin: Present intact; Absent erythema Neuro: Present Grossly Intact, alert, awake, oriented x 3 and moves all extremities Assessment and Plan *Assessment and plan (1) Atrial fibrillation with RVR: Status: Acute Category: Medical Code(s): I48.91 - Unspecified atrial fibrillation (2) CKD (chronic kidney disease), stage IV: Status: Acute Category: Medical Code(s): N18.4 - Chronic kidney disease, stage 4 (severe) (3) NSTEMI (non-ST elevated myocardial infarction): Status: Acute Category: Medical Code(s): I21.4 - Non-ST elevation (NSTEMI) myocardial infarction (4) Tobacco use: Status: Acute Category: Social Hx Code(s): Z72.0 - Tobacco use (5) Obesity: Status: Acute Qualifiers: Body mass index: BMI 40.0-44.9 Obesity classification: adult class 3 (BMI >= 40) Obesity type: due to excess calories Serious obesity comorbidity presence: without serious comorbidity Qualified Code(s): E66.01 - Morbid (severe) obesity due to excess calories; Z68.41 - Body mass index [BMI] 40.0-44.9, adult Category: Medical Code(s): E66.9 - Obesity, unspecified (6) HTN (hypertension): Status: Acute Qualifiers: Hypertension type: primary hypertension Qualified Code(s): I10 - Essential (primary) hypertension Category: Medical Code(s): I10 - Essential (primary) hypertension (7) Lymphedema: Status: Acute Category: Medical Code(s): I89.0 - Lymphedema, not elsewhere classified (8) Swelling of both lower extremities: Status: Acute Category: Medical Code(s): M79.89 - Other specified soft tissue disorders (9) Coronary artery disease: Status: Acute Qualifiers: Associated angina: without angina Coronary Disease-Associated Artery/Lesion type: bypass graft [place] vs. transplanted heart: [place] heart Qualified Code(s): I25.810 - Atherosclerosis of coronary artery bypass graft(s) without angina pectoris Category: Medical Code(s): I25.10 - Atherosclerotic heart disease of [place] coronary artery without angina pectoris (10) Chest pain: Status: Acute Category: Medical Code(s): R07.9 - Chest pain, unspecified (11) Acute on chronic heart failure with preserved ejection fraction (HFpEF): Status: Acute Category: Medical Code(s): I50.33 - Acute on chronic diastolic (congestive) heart failure Plan Patient with past medical history of atrial fibrillation, CAD, right bundle branch block, CKD, lymphedema, history of CABG, hypertension, hyperlipidemia. Patient presents complaining of chest discomfort and palpitations. Patient presented to emergency room at [facility] complaining of chest pain/palpitations around 2 AM. CP described as 3/10, sharp, lasting 3mins, with rad to neck. Pt CP free at time of my admission 10/17 646am in registration. Patient noted to have wide-complex tachycardia with heart rate in 140s. Patient given IV diltiazem, with rhythm change in A-fib with RVR. Patient started on diltiazem drip 15 Mg per hour, with heart rate stabilizing less than 110 bpm. Patient's D-dimer 884, but no CTA chest done secondary to renal insufficiency. Patient's creatinine 3.2, with normal creatinine baseline of 2.4. Patient discussed with Dr. Feldman, textbook associate prior to admission, who recommended patient be admitted to this institution and that cardiology will closely follow. Doing better this morning after diltiazem drip overnight. Rate controlled. Transition to oral therapy. Continues to require inpatient management. Problems addressed as follows: A-fib RVR Acute on chronic heart failure with preserved ejection fraction - Discussed case with cardiology, will need ALEIDA as an outpatient. No plan for cardioversion at this time. Patient remains asymptomatic. - Continue Eliquis 5 mg twice daily. Will need 2-week event monitor at discharge. Would benefit from follow-up and workup for sleep apnea as an outpatient. Transition to oral long-acting diltiazem 180 mg daily. Monitor for control. Discontinue diltiazem drip. - NYHA = 4 on presentation with ProBNP 5K and thigh high pitting edema bilaterally - ECHO 01/14 - nml LV function, mod RV dilation with mild reduction in RV function -Continue Bumex, discontinue drip. Transition to 2 mg IV twice daily -Cardiology recommends adding Farxiga. Contraindicated for ARNI/MRA due to CKD 4 -Continue Lipitor 10 mg daily Carotid Stenosis s/p CEA 2008 - asymptomatic; cont statin, Eliquis ALBERT CKD-IV - Cr 3.2 on admission, baseline 2.4. improved to bun 50, cr 3.1 today -Continue to monitor closely with diuresis. Repeat BMP ordered for this afternoon. Repeat CBC, CMP, magnesium ordered for the morning. -Will refer to nephrology as an outpatient. BPH: flowmax 0.4mg po daily Restless leg syndrome. Requip 1 mg p.o. daily Eliquis twice daily Cardiac diet CODE STATUS: Full
[2024-10-18] MEDS: BUMETANIDE 1MG/4ML VIAL 2 MG IV (17:39)
[2024-10-18 17:43] LABS: Chloride 97 mmol/L (98-107); Potassium 5.8 mmoL/L (3.5-5.1); Sodium 132 mmol/L (136-145)
[2024-10-18 17:46] LABS: Anion Gap 10.8 mEq/L (5-15); Blood Urea Nitrogen 55 mg/dl (9-20); Carbon Dioxide 30 mmol/L (22.0-30.0); Creatinine Clearance Estimated 40 mL/min (50-200); Estimated Glomerular Filt Rate 20 ml/min (>60); GFR (African American) 24 ML/MIN (>60)
[2024-10-18 17:47] LABS: Glucose 104 mg/dl (74-100)
[2024-10-18] MEDS: METOPROLOL TARTRATE 5MG/5ML VIAL 5 MG IV (17:54)
[2024-10-18] MEDS: ATORVASTATIN 10MG TABLET 10 MG PO (20:11)
[2024-10-18] MEDS: LOKELMA 5GM PACKET 10 GM PO (20:11)
[2024-10-18] MEDS: TAMSULOSIN 0.4MG CAPSULE 0.4 MG PO (20:11)
[2024-10-19] VITALS (10 sets, daily range): BP systolic 114–161; BP diastolic 42–82; PULSE 80–133; RESP 17–20; TEMP 36.7–37.4; O2SAT 93–98; BMI 35.6
[2024-10-19] MEDS: ACETAMINOPHEN 325MG TAB 650 MG PO (00:21)
[2024-10-19 07:15] LABS: Albumin Level 3.4 g/dl (3.5-5.0); Chloride 96 mmol/L (98-107); Sodium 132 mmol/L (136-145)
[2024-10-19 07:16] LABS: Potassium 5.4 mmoL/L (3.5-5.1)
[2024-10-19 07:18] LABS: Alanine Aminotransferase 13 U/L (12-78); Albumin/Globulin Ratio 1.1 (1.1-1.8); Alkaline Phosphatase 59 U/L (38-126); Anion Gap 10.4 mEq/L (5-15); Aspartate Amino Transferase 22 U/L (17-59); Bilirubin,Total 0.4 mg/dl (0.2-1.3); Blood Urea Nitrogen 56 mg/dl (9-20); Calcium 7.8 mg/dl (8.4-10.2); Carbon Dioxide 31 mmol/L (22.0-30.0); Creatinine Clearance Estimated 41 mL/min (50-200); Estimated Glomerular Filt Rate 20 ml/min (>60); GFR (African American) 24 ML/MIN (>60); Globulin 3.1 g/dL (1.3-3.2); Glucose 92 mg/dl (74-100); Total Protein,Serum 6.5 g/dl (6.3-8.2)
[2024-10-19 07:45] LABS: Basophils % 0.5 % (0.1-2.0); Eosinophils # 0.2 K/mm3 (0.0-0.4); Eosinophils % 2.6 % (0.1-12.0); Hematocrit 30.2 % (42.0-52.0); Hemoglobin 8.9 g/dL (14.1-18.0); Lymphocytes # 1.1 K/mm3 (0.7-4.5); Lymphocytes % 13.2 % (10-50); Mean Corpuscular HGB Conc 29.5 g/dL (31.8-35.4); Mean Corpuscular Volume 91.5 fl (80-94); Mean Platelet Volume 11.1 fl (7.4-10.4); Monocytes # 0.7 K/mm3 (0.1-1.0); Monocytes % 8.3 % (1.7-9.3); Neutrophils % 74.8 % (37.0-80.0); Platelet Count 200 K/mm3 (142-424); Red Cell Distribution Width 14.5 % (11.5-17.5)
[2024-10-19] MEDS: dilTIAZem ER 240MG CAPSULE 240 MG PO ×2 (09:02→20:17)
[2024-10-19] MEDS: GABAPENTIN 600MG TABLET 600 MG PO ×2 (09:03→20:17)
[2024-10-19] MEDS: DOCUSATE SODIUM 100 MG CAPSULE PO (09:03)
[2024-10-19] MEDS: APIXABAN 5MG TABLET 5 MG PO ×2 (09:03→20:17)
--- NOTE | 2024-10-19 09:05 | HMH.OTEV ---
OT Inpatient Evaluation Rehab OT IP Evaluation Start: 10/18/24 09:53 Freq: ONCE Status: Active Protocol: [facility] 10/19/24 08:59 [facility] (Rec: 10/19/24 09:04 [email or web address] [id number]) Rehab OT IP Assessment Subjective History Pt oriented x 3 on arrival. Pt agreeable to engage in therapy evaluation. Pt admitted on 10/17/24 due to chest pain and heart palpitations. Pt transferred from [facility]. History and physical: Patient with past medical history of atrial fibrillation , CAD, right bundle branch block, CKD, lymphedema, history of CABG, hypertension, hyperlipidemia. Patient presents complaining of chest discomfort and palpitations. Patient presented to emergency room at [facility] complaining of chest pain/ palpitations around 2 AM. CP described as 3/10, sharp, lasting 3mins, with rad to neck. Pt CP free at time of my admission 10/17 646am in registration. Patient noted to have wide-complex tachycardia with heart rate in 140s. Patient given IV diltiazem, with rhythm change in A-fib with RVR. Patient started on diltiazem drip 15 Mg per hour, with heart rate stabilizing less than 110 bpm. Patient's D-dimer 884, but no CTA chest done secondary to renal insufficiency. Patient 's creatinine 3.2, with normal creatinine baseline of 2.4. Patient discussed with Dr. Feldman, show card writer prior to admission, who recommended patient be admitted to this institution and that cardiology will closely follow . Patient has history of previous admission to this institution 03/05/2024 for similar presentation. Denies current chest discomfort, SOB, productive cough, fevers, chills, sick contacts, recent travel, blurry vision, headaches, abdominal pain, diarrhea, constipation. Patient states that he lives alone at baseline. Subjective I am usually able to do what I need to do. Prior to being in the hospital , pt lived at home alone. Pt claims normally he is independent with all ADLs and IADLs. Pt does use a rolling walker during functional transfers. Pt also still drives. Objective Patient Orientation Person,Place,Birthday Right Upper Extremity Gross ROM WFL Left Upper Extremity Gross ROM WFL Bed Mobility bed mobility-scooting,bed mobility - supine/sit Assist Level Contact Guard/Hand Hold Transfer Training Sit/Stand Transfer Assist Level Moderate x 1 (50% assist) Rehab OT IP prob,goals,plan Problems Date of Evaluation: 10/19/24 OT IP Problems Bed Mobility,Transfers,Balance ,Self care,Safety Rehab Potential Rehab Potential Good Equipment Needs Assistive Devices Rolling / Wheeled Walker Plan OT intervention Plan Bed Mobility,Transfers,Balance ,Self care,Safety,Therapeutic Exercise OT Plan Frequency Daily Duration LOS Discharge Goals Bed Mobility Ability Standby Assistance Sit to Stand Chair Transfer Ability Minimal x 1 (25% assist) Chair Transfer Ability Minimal x 1 (25% assist) Chair Transfer Technique Sit to/from Ambulatory Chair Transfer Assistive Devices Rolling Walker Feeding Ability Assist with Tray Set Up Lower Body Dressing Ability Minimal Assistance Upper Body Dressing Ability Contact Guard Bathing Ability Minimal Assistance Performing Toilet Hygiene Ability Minimal Assistance Overall Commode/Toilet Transfer Ability Minimal Assistance Commode/Toilet Transfer Technique Sit to/from Ambulatory Commode/Toilet Transfer Assistive Grab Bars Devices Oral Care Assist Minimal Assistance Decrease in Endurance No Discharge Plan OT Discharge Plan Pt will continue to be seen for OT services while at [facility]. At this time, pt would benefit most for short term rehab at SNF upon discharge. However, if pt demonstrates great improvement while at hospital he could possibly return home with OT evaluation. Continued skilled therapy is important in order for patient to improve strength, safety, endurance, ADL independence, and functional transfer to reach PLOF. Eval Complexity Eval Charge Codes 60481 - Moderate Complexity PHYSICIAN CERTIFICATION: I certify the specified therapy services for Forrest Chauhan are required, authorized, and reviewed every 30 days.
[2024-10-19] MEDS: BUMETANIDE 1MG/4ML VIAL 2 MG IV ×2 (09:52→18:29)
--- NOTE | 2024-10-19 10:42 | P.PN_ITS ---
Subjective Subjective Date: 10/19/24 Time: 10:00 Interval history: Remains in A-fib, heart rate approximately 100 at rest. Patient reports feeling significantly better. He has diuresed approximately 4 L since admission. Exam Data for Last 24 hours Vital signs and Labs for Last 24 Hours: Temp Pulse Resp BP Pulse Ox O2 Del Method O2 Flow Rate 98.0 F 93 H 18 161/42 H 94 L Nasal Cannula 2 10/19/24 08:00 10/19/24 08:00 10/19/24 08:00 10/19/24 08:00 10/19/24 08:00 10/19/24 09:00 10/19/24 09:00 Laboratory Results - last 24 hr 10/18/24 17:24: Sodium 132 L, Potassium 5.8 H, Chloride 97 L, Carbon Dioxide 30, Anion Gap 10.8, BUN 55 H, Creatinine 3.10 H, Estimated Creat Clear 40, Estimated GFR 20 L, Est GFR ( Amer) 24 L, Glucose 104 H D, Calcium 8.0 L 10/19/24 05:26: WBC 8.0, RBC 3.30 L, Hgb 8.9 L, Hct 30.2 L, MCV 91.5, MCH 27.0, MCHC 29.5 L, RDW 14.5, Plt Count 200, MPV 11.1 H, Neut % (Auto) 74.8, Lymph % (Auto) 13.2, [place] % (Auto) 8.3, Eos % (Auto) 2.6, Baso % (Auto) 0.5, Neut # (Auto) 6.0, Lymph # (Auto) 1.1, [place] # (Auto) 0.7, Eos # (Auto) 0.2, Baso # (Auto) 0.0, Sodium 132 L, Potassium 5.4 H, Chloride 96 L, Carbon Dioxide 31 H, Anion Gap 10.4, BUN 56 H, Creatinine 3.10 H, Estimated Creat Clear 41, Estimated GFR 20 L, Est GFR ( Amer) 24 L, Glucose 92, Calcium 7.8 L, Magnesium 2.0, Total Bilirubin 0.4, AST 22, ALT 13, Alkaline Phosphatase 59, Total Protein 6.5, Albumin 3.4 L, Globulin 3.1, Albumin/Globulin Ratio 1.1 I & O for Last 24 hours: Intake & Output 10/16/24 10/17/24 10/18/24 10/19/24 23:59 23:59 23:59 23:59 Intake Total 990 / 1230 1894.334 / 1894.334 480 / 480 Output Total 2950 / 3450 1900 / 2700 1700 / 1700 Balance -1960 / -2220 -5.666 / -805.666 -1220 / -1220 Weight 273 lb 14.4 oz 273 lb 14.437 oz 278 lb 3.2 oz Constitutional Constitutional: no acute distress and cooperative *Routine HEENT Exam Eye: Present PERRL *Routine Respiratory Exam Respiratory: Present CTA bilaterally; Absent accessory muscle use, wheezes or crackles *Routine Cardiovascular Exam Cardiovascular: Present RRR, Normal S1 and Normal S2; Absent murmur, gallop or rubs Comments: Severe bilateral lower extremity lymphedema is back to baseline *Routine Abdominal Exam Abdominal: Present soft; Absent tenderness *Routine Extremities Exam Extremities: Present pulses intact; Absent cyanosis or edema *Routine Skin Exam Skin: Present intact; Absent erythema or wounds *Routine Neurological Exam Neurological: Present alert and oriented X3 Routine Psychiatric Exam Psychiatric: Present cooperative Progress Note: A&P Assessment and plan (1) Acute on chronic heart failure with preserved ejection fraction (HFpEF): Status: Acute (2) Atrial fibrillation with RVR: Status: Acute (3) CKD (chronic kidney disease), stage IV: Status: Acute (4) Tobacco use: Status: Acute (5) Obesity: Status: Acute (6) HTN (hypertension): Status: Acute (7) Lymphedema: Status: Acute (8) Coronary artery disease: Status: Acute Assessment and Plan Assessment and Plan for All Diagnoses:: A-fib RVR - known dx, acute exacerbation - he is asymptomatic with rate control, will change IV to PO - cont Eliquis 5mg BID - will not do DCCV this admission unless urgent as he would benefit from ALEIDA which is unavailable over the holiday - will need 2 week monitor at discharge and OP f/u on obesity and YONATAN 10/19 - pt asymptomatic with relative rate control <110 bpm. Increase Cardizem CD to 240mg BID. Acute on Chronic HFpEF - NYHA = 4 on presentation with ProBNP 5K and thigh high pitting edema bilaterally - ECHO 01/14 - nml LV function, mod RV dilation with mild reduction in RV function - CXR - no acute process - continue diuresis - add Farxiga - no ARNI/MRA due to CKD-III/IV - check 2D ECHO - consider worsening ischemia 10/19 - Diuresed 4L, awaiting ECHO results CAD, NV s/p CABG 2008 - CCS = 4 HERNÁNDEZ equivalent, pt denies CP - EKG with A-fib - Trop flat 0.08, 0.1, 0.09 - cont Eliquis, statin - check ECHO for LV/WMA, consider LHC vs outpatient ischemic workup Carotid Stenosis s/p CEA 2008 - asymptomatic - cont statin, Eliquis Chronic BLE Lymphedema - needs aggressive weight loss and outpatient lymphedema clinic 10/19 - LE back to baseline per pt CKD-IV - Cr 3.2 here, baseline 2.4 - dose adjust meds, trend labs - OP Neph ref 10/19: Awaiting ECHO. Increase Cardizem for better rate control. F
--- NOTE | 2024-10-19 11:34 | EXP.ACUTE.PN ---
Subjective *Date: 10/19/24 *Time: 21:13 Interval history: Remains stable on 2 L oxygen. Working with therapy today, more weak. Admitted to rate control. Asymptomatic. Denies chest pain, nausea, vomiting, shortness of breath. Tolerating p.o. intake. Diuresing well -3 L since admission. Medical Exam Vital signs and Labs for Last 24 Hours: Vital Signs Temp Pulse Pulse Resp BP Pulse Ox O2 Del Method 10/19/24 11:00 Nasal Cannula 10/19/24 09:00 Nasal Cannula 10/19/24 08:00 98.0 F 93 H 18 161/42 H 94 L Nasal Cannula 10/19/24 07:37 Nasal Cannula 10/19/24 06:51 Nasal Cannula 10/19/24 05:00 Nasal Cannula 10/19/24 04:00 90 10/19/24 03:31 98.2 F 87 18 114/53 L 94 L Nasal Cannula 10/19/24 03:00 Nasal Cannula 10/19/24 02:00 108 H 130/75 98 Nasal Cannula 10/19/24 01:00 Nasal Cannula 10/19/24 00:00 80 10/19/24 00:00 84 17 144/74 H 97 Nasal Cannula 10/18/24 23:20 Nasal Cannula 10/18/24 22:00 91 H 23 165/79 H 98 Nasal Cannula 10/18/24 20:52 Nasal Cannula 10/18/24 20:00 77 10/18/24 20:00 89 99 Nasal Cannula 10/18/24 20:00 82 15 143/72 H 97 Nasal Cannula 10/18/24 18:54 Nasal Cannula 10/18/24 18:00 97 H 18 105/26 L 95 Nasal Cannula 10/18/24 17:47 Nasal Cannula 10/18/24 16:00 100 H 10/18/24 16:00 94 H 22 154/82 H 96 Nasal Cannula 10/18/24 15:46 96 H 97 Nasal Cannula 10/18/24 15:18 Nasal Cannula 10/18/24 14:00 96 H 20 156/81 H 96 Nasal Cannula 10/18/24 13:25 Nasal Cannula 10/18/24 12:00 70 10/18/24 12:00 92 H 18 111/55 L 100 Nasal Cannula O2 Flow Rate 10/19/24 11:00 2 10/19/24 09:00 2 10/19/24 08:00 2 10/19/24 07:37 2 10/19/24 06:51 2 10/19/24 05:00 2 10/19/24 04:00 10/19/24 03:31 2 10/19/24 03:00 2 10/19/24 02:00 2 10/19/24 01:00 2 10/19/24 00:00 10/19/24 00:00 2 10/18/24 23:20 2 10/18/24 22:00 2 10/18/24 20:52 2 10/18/24 20:00 10/18/24 20:00 2 10/18/24 20:00 2 10/18/24 18:54 10/18/24 18:00 2 10/18/24 17:47 2 10/18/24 16:00 10/18/24 16:00 2 10/18/24 15:46 2 10/18/24 15:18 2 10/18/24 14:00 2 10/18/24 13:25 2 10/18/24 12:00 10/18/24 12:00 2 Intake and Output 10/18/24 10/19/24 10/19/24 23:59 07:59 15:59 Intake Total 270 / 1894.334 480 / 480 Output Total 500 / 2700 1700 / 1700 Balance -230 / -805.666 -1700 / -1220 480 / -1220 Intake: Intake, Oral Amount 270 / 1590 480 / 480 Output: Output, Urine Amount 500 / 2700 1700 / 1700 Other: Weight 126.189 kg Patient Weight 10/19/24 23:59 Weight 126.189 kg Laboratory Results - last 24 hr 10/18/24 17:24: Sodium 132 L, Potassium 5.8 H, Chloride 97 L, Carbon Dioxide 30, Anion Gap 10.8, BUN 55 H, Creatinine 3.10 H, Estimated Creat Clear 40, Estimated GFR 20 L, Est GFR ( Amer) 24 L, Glucose 104 H D, Calcium 8.0 L 10/19/24 05:26: WBC 8.0, RBC 3.30 L, Hgb 8.9 L, Hct 30.2 L, MCV 91.5, MCH 27.0, MCHC 29.5 L, RDW 14.5, Plt Count 200, MPV 11.1 H, Neut % (Auto) 74.8, Lymph % (Auto) 13.2, [place] % (Auto) 8.3, Eos % (Auto) 2.6, Baso % (Auto) 0.5, Neut # (Auto) 6.0, Lymph # (Auto) 1.1, [place] # (Auto) 0.7, Eos # (Auto) 0.2, Baso # (Auto) 0.0, Sodium 132 L, Potassium 5.4 H, Chloride 96 L, Carbon Dioxide 31 H, Anion Gap 10.4, BUN 56 H, Creatinine 3.10 H, Estimated Creat Clear 41, Estimated GFR 20 L, Est GFR ( Amer) 24 L, Glucose 92, Calcium 7.8 L, Magnesium 2.0, Total Bilirubin 0.4, AST 22, ALT 13, Alkaline Phosphatase 59, Total Protein 6.5, Albumin 3.4 L, Globulin 3.1, Albumin/Globulin Ratio 1.1 I & O for Labs for Last 24 Hours: Intake & Output 10/16/24 10/17/24 10/18/24 10/19/24 23:59 23:59 23:59 23:59 Intake Total 990 / 1230 1894.334 / 1894.334 480 / 480 Output Total 2950 / 3450 1900 / 2700 1700 / 1700 Balance -1960 / -2220 -5.666 / -805.666 -1220 / -1220 Weight 124.239 kg 124.24 kg 126.189 kg Constitutional: Present no acute distress, obese, chronically ill appearing and cooperative Head: Present atraumatic and normocephalic ENT: Present normal exam Comment:: Well-healed scar right side of neck consistent with endarterectomy Respiratory: Present normal respiratory effort; Absent rhonchi, stridor, wheezes or crackles Cardiac: Present Reg Rate and Rhythm Comment:: Appears to be in rate controlled a flutter on telemetry GI: Present soft and normal bowel sounds; Absent distention or tenderness Extremities: Present normal inspection, full ROM and edema (Improving, 2+ below knees.) Skin: Present intact; Absent erythema Neuro: Present Grossly Intact, alert, awake, oriented x 3 and moves all extremities Assessment and Plan *Assessment and plan (1) Atrial fibrillation with RVR: Status: Acute Category: Medical Code(s): I48.91 - Unspecified atrial fibrillation (2) CKD (chronic kidney disease), stage IV: Status: Acute Category: Medical Code(s): N18.4 - Chronic kidney disease, stage 4 (severe) (3) NSTEMI (non-ST elevated myocardial infarction): Status: Acute Category: Medical Code(s): I21.4 - Non-ST elevation (NSTEMI) myocardial infarction (4) Tobacco use: Status: Acute Category: Social Hx Code(s): Z72.0 - Tobacco use (5) Obesity: Status: Acute Qualifiers: Obesity type: due to excess calories Obesity classification: adult class 3 (BMI >= 40) Serious obesity comorbidity presence: without serious comorbidity Body mass index: BMI 40.0-44.9 Qualified Code(s): E66.01 - Morbid (severe) obesity due to excess calories; Z68.41 - Body mass index [BMI] 40.0-44.9, adult Category: Medical Code(s): E66.9 - Obesity, unspecified (6) HTN (hypertension): Status: Acute Qualifiers: Hypertension type: primary hypertension Qualified Code(s): I10 - Essential (primary) hypertension Category: Medical Code(s): I10 - Essential (primary) hypertension (7) Lymphedema: Status: Acute Category: Medical Code(s): I89.0 - Lymphedema, not elsewhere classified (8) Swelling of both lower extremities: Status: Acute Category: Medical Code(s): M79.89 - Other specified soft tissue disorders (9) Coronary artery disease: Status: Acute Qualifiers: Coronary Disease-Associated Artery/Lesion type: bypass graft [place] vs. transplanted heart: [place] heart Associated angina: without angina Qualified Code(s): I25.810 - Atherosclerosis of coronary artery bypass graft(s) without angina pectoris Category: Medical Code(s): I25.10 - Atherosclerotic heart disease of [place] coronary artery without angina pectoris (10) Chest pain: Status: Acute Category: Medical Code(s): R07.9 - Chest pain, unspecified (11) Acute on chronic heart failure with preserved ejection fraction (HFpEF): Status: Acute Category: Medical Code(s): I50.33 - Acute on chronic diastolic (congestive) heart failure Plan Patient with past medical history of atrial fibrillation, CAD, right bundle branch block, CKD, lymphedema, history of CABG, hypertension, hyperlipidemia. Patient presents complaining of chest discomfort and palpitations. Patient presented to emergency room at [facility] complaining of chest pain/palpitations around 2 AM. CP described as 3/10, sharp, lasting 3mins, with rad to neck. Pt CP free at time of my admission 10/17 646am in registration. Patient noted to have wide-complex tachycardia with heart rate in 140s. Patient given IV diltiazem, with rhythm change in A-fib with RVR. Patient started on diltiazem drip 15 Mg per hour, with heart rate stabilizing less than 110 bpm. Patient's D-dimer 884, but no CTA chest done secondary to renal insufficiency. Patient's creatinine 3.2, with normal creatinine baseline of 2.4. Patient discussed with Dr. Feldman, rpg programmer analyst prior to admission, who recommended patient be admitted to this institution and that cardiology will closely follow. Patient showed gradual improvement. Transition to oral diltiazem. Increasing dose today. Working with therapy. More weak, would benefit from rehab. Case management assisting. Continues to require inpatient management. Problems addressed as follows: A-fib RVR Acute on chronic heart failure with preserved ejection fraction - Discussed case with cardiology, continue diltiazem, increase to 240 mg twice daily for improved rate control. Asymptomatic at this time. Recommend ALEIDA as an outpatient. No cardioversion planned. - Continue Eliquis 5 mg twice daily. Will need 2-week event monitor at discharge. Would benefit from follow-up and workup for sleep apnea as an outpatient. - ECHO 01/14 - nml LV function, mod RV dilation with mild reduction in RV function -Continue Bumex 2mg IV twice daily -Cardiology recommends adding Farxiga but contraindicated with his renal failure. - Contraindicated for ARNI/MRA due to CKD 4 -Continue Lipitor 10 mg daily Carotid Stenosis s/p CEA 2008 - asymptomatic; cont statin, Eliquis ALBERT CKD-IV - Cr 3.2 on admission, baseline 2.4. improved to bun 50, cr 3.1 today -Continue to monitor closely with diuresis. Repeat BMP ordered for this afternoon. Repeat CBC, CMP, magnesium ordered for the morning. -Will refer to nephrology as an outpatient. BPH: flowmax 0.4mg po daily Restless leg syndrome. Requip 1 mg p.o. daily Eliquis twice daily Cardiac diet CODE STATUS: Full
[2024-10-19] MEDS: METOPROLOL TARTRATE 5MG/5ML VIAL 5 MG IV ×2 (13:06→20:50)
--- NOTE | 2024-10-19 15:52 | PC.NURSE ---
Pt has been up to the chair majority of the shift. Has voided via purewick with a total of 700 ml. Pt has had one episode this shift of HR increasing and maintaining 130s. PRN Metoprolol 5 mg IV administered. HR has been controlled since administration. Family is currently visiting with pt. Call light within reach.
--- NOTE | 2024-10-19 16:37 | SW/DCPLANNER ---
Addendum entered by Daphne England RN 10/26/24 12:36: Spoke with patient this morning, he stated that he feels better and is able to ambulate around the room independently. He is now requesting to be discharged home and refuses the need for home health services. Addendum entered by Daphne England RN 10/25/24 11:50: Per Sarah, auth has been started. Addendum entered by Daphne England RN 10/25/24 08:15: [facility] Should [facility] today. Addendum entered by [facility] 10/23/24 14:12: I am currently waiting on a phone call back from darci regarding insurance change starting 10/24/24. Patient is unsure of which insurance he is changing to at this time. Addendum entered by [facility] 10/23/24 11:48: Sarah w/ [facility] can accept this patient and will start precert today. Sarah stated that she will have a bed available on (pending precert). I have updated patient, MD and nursing staff regarding situation. Addendum entered by [facility] 10/23/24 09:42: I spoke w/ niece (Angely) this AM regarding discharge plans. Angely does agree is [facility] can not accept patient she would plan to care for patient at home w/ assistance from home health. Addendum entered by [facility] 10/23/24 08:33: Sarah w/ [facility] is still reviewing referral at this time. I did speak w/ patient this AM and informed him the following facilities are also in network w/ his insurance: [facility], [facility] and [facility]. Patient stated that if [facility] is unable to accept him his plan is to go home w/ his niece. Patient is not interested in other facilities due to location. Addendum entered by [facility] 10/22/24 13:07: [facility] is not able to accept patient now. Sarah w/ [facility] is still reviewing. Addendum entered by [facility] 10/22/24 12:03: Alethea w/ [facility] stated that precert will be started today. Addendum entered by [facility] 10/22/24 10:22: I attempted to contact patient's niece regarding caring for patient's cat during SNF placement: no answer at this time. Addendum entered by Rosita Hernandez 10/22/24 09:43: Per Thelma schneider/ [facility] patient's insurance is not in network and no out of network benefits. Addendum entered by Rosita Hernandez 10/22/24 09:27: Updated patient information has been faxed to facilities. Addendum entered by Rosita Hernandez 10/22/24 08:18: Patient is still interested in placement at this time. I am waiting to hear back from [facility], [facility] and [facility]. I have reached out to facilities this AM. Addendum entered by Dia Vargas RN 10/21/24 11:55: [facility] will review patient's information on Tuesday. Original Note: Therapy recommended short term rehab for patient today. Patient wanted me to speak with nimer and I attempted to call her multiple times with no answer or voicemail option. Patient called darci while in room and they agreed for me to send patient's information to [facility], [facility], [facility], [facility] and [facility]. [facility] and [facility] are reviewing information. [facility] is not accepting referrals at this time. [facility] does not have an available bed, and [facility] is out of network with [facility]. [facility] has not responded. Nimer came to see patient and I spoke with her and patient. They are not sure about agreeing for him to go to placement but stated I could send his information. If patient's mobility improves over the weekend they would like him to go home with home health. I have informed Dr. Price of this as well.
[2024-10-19] MEDS: TAMSULOSIN 0.4MG CAPSULE 0.4 MG PO (20:17)
[2024-10-19] MEDS: ATORVASTATIN 10MG TABLET 10 MG PO (20:17)
[2024-10-20] VITALS (7 sets, daily range): BP systolic 137–188; BP diastolic 48–97; PULSE 48–110; RESP 16–18; TEMP 36.6–37.6; O2SAT 86–98; BMI 34.7
--- NOTE | 2024-10-20 08:06 | PC.NURSE ---
Oxygen saturation 86% on room air at rest
[2024-10-20 08:09] LABS: Basophils % 0.4 % (0.1-2.0); Eosinophils # 0.2 K/mm3 (0.0-0.4); Eosinophils % 2.4 % (0.1-12.0); Hematocrit 31.1 % (42.0-52.0); Hemoglobin 9.2 g/dL (14.1-18.0); Lymphocytes % 11.3 % (10-50); Mean Corpuscular HGB Conc 29.6 g/dL (31.8-35.4); Mean Corpuscular Hemoglobin 27.4 pg (27.0-31.2); Mean Corpuscular Volume 92.6 fl (80-94); Mean Platelet Volume 10.6 fl (7.4-10.4); Monocytes # 0.7 K/mm3 (0.1-1.0); Monocytes % 7.5 % (1.7-9.3); Neutrophils # 7.2 K/mm3 (1.8-7.8); Platelet Count 211 K/mm3 (142-424); Red Blood Count 3.36 M/mm3 (4.60-6.20); Red Cell Distribution Width 14.5 % (11.5-17.5); White Blood Count 9.2 K/mm3 (4.8-10.8)
[2024-10-20 08:20] LABS: Albumin Level 3.5 g/dl (3.5-5.0); Chloride 97 mmol/L (98-107)
[2024-10-20 08:21] LABS: Potassium 5.8 mmoL/L (3.5-5.1); Sodium 133 mmol/L (136-145)
[2024-10-20 08:23] LABS: Alanine Aminotransferase 13 U/L (12-78); Alkaline Phosphatase 59 U/L (38-126); Anion Gap 8.8 mEq/L (5-15); Aspartate Amino Transferase 20 U/L (17-59); Bilirubin,Total 0.3 mg/dl (0.2-1.3); Blood Urea Nitrogen 62 mg/dl (9-20); Carbon Dioxide 33 mmol/L (22.0-30.0); Creatinine Clearance Estimated 41 mL/min (50-200); Estimated Glomerular Filt Rate 21 ml/min (>60); GFR (African American) 25 ML/MIN (>60)
[2024-10-20 08:24] LABS: Albumin/Globulin Ratio 1.1 (1.1-1.8); Calcium 8.2 mg/dl (8.4-10.2); Globulin 3.3 g/dL (1.3-3.2); Glucose 97 mg/dl (74-100); Magnesium 2.2 mg/dl (1.6-2.3); Total Protein,Serum 6.8 g/dl (6.3-8.2)
[2024-10-20] MEDS: BUMETANIDE 1MG/4ML VIAL 2 MG IV ×2 (09:54→15:50)
[2024-10-20] MEDS: GABAPENTIN 600MG TABLET 600 MG PO ×2 (09:54→20:20)
[2024-10-20] MEDS: dilTIAZem ER 240MG CAPSULE 240 MG PO ×2 (09:54→20:21)
[2024-10-20] MEDS: DOCUSATE SODIUM 100 MG CAPSULE PO (09:54)
[2024-10-20] MEDS: APIXABAN 5MG TABLET 5 MG PO ×2 (09:54→20:20)
--- NOTE | 2024-10-20 12:21 | PC.NURSE ---
Late entry. Pt placed on RA. O2 sats decreased to 86% on RA while resting. Pt was placed back on 2L NC.
--- NOTE | 2024-10-20 14:07 | P.PN_ITS ---
Subjective *Date: 10/20/24 *Time: 20:06 Interval history: Patient states he is feeling well. Heart rate between 80 and 110. Tolerating p.o. meds. Diuresing well. Down 4 and half liters since admission. Stable on 2 L. No nausea or vomiting. Kidney function remains within baseline range. Awaiting placement Medical Exam Vital signs and Labs for Last 24 Hours: Vital Signs Temp Pulse Pulse Resp BP Pulse Ox O2 Del Method 10/20/24 13:56 Nasal Cannula 10/20/24 13:00 Nasal Cannula 10/20/24 11:00 Nasal Cannula 10/20/24 09:00 Nasal Cannula 10/20/24 08:00 110 H 10/20/24 08:00 Nasal Cannula 10/20/24 08:00 98 F 103 H 18 179/87 H 97 Nasal Cannula 10/20/24 07:50 86 L Room Air 10/20/24 06:59 Nasal Cannula 10/20/24 05:00 Nasal Cannula 10/20/24 04:00 97 H 10/20/24 04:00 99.6 F 93 H 18 188/97 H 95 Nasal Cannula 10/20/24 03:00 Nasal Cannula 10/20/24 01:00 Nasal Cannula 10/20/24 00:00 90 10/19/24 23:55 Nasal Cannula 10/19/24 23:37 99.4 F 92 H 18 150/82 H 96 Nasal Cannula 10/19/24 23:00 Nasal Cannula 10/19/24 20:40 132 H 10/19/24 20:37 Nasal Cannula 10/19/24 20:00 133 H 10/19/24 20:00 96 H 94 L Nasal Cannula 10/19/24 20:00 98.8 F 110 H 20 143/78 H 93 L Nasal Cannula 10/19/24 17:00 Nasal Cannula 10/19/24 16:00 80 10/19/24 16:00 98.1 F 89 18 120/67 94 L Nasal Cannula 10/19/24 15:00 Nasal Cannula O2 Flow Rate 10/20/24 13:56 2 10/20/24 13:00 2 10/20/24 11:00 2 10/20/24 09:00 2 10/20/24 08:00 10/20/24 08:00 2 10/20/24 08:00 10/20/24 07:50 10/20/24 06:59 2 10/20/24 05:00 2 10/20/24 04:00 10/20/24 04:00 2 10/20/24 03:00 2 10/20/24 01:00 2 10/20/24 00:00 10/19/24 23:55 2 10/19/24 23:37 2 10/19/24 23:00 2 10/19/24 20:40 10/19/24 20:37 2 10/19/24 20:00 10/19/24 20:00 2 10/19/24 20:00 2 10/19/24 17:00 2 10/19/24 16:00 10/19/24 16:00 2 10/19/24 15:00 2 Intake and Output 10/19/24 10/20/24 10/20/24 23:59 07:59 15:59 Intake Total 480 / 1080 360 / 360 Output Total 250 / 2650 900 / 1200 300 / 1200 Balance 230 / -1570 -900 / -840 60 / -840 Intake: Intake, Oral Amount 480 / 1080 360 / 360 Output: Output, Urine Amount 250 / 2650 900 / 1200 300 / 1200 Other: Number of Unmeasured Voids 1 0 Number of Bowel Movements 1 Weight 122.527 kg Patient Weight 10/20/24 23:59 Weight 122.527 kg Laboratory Results - last 24 hr 10/20/24 07:34: WBC 9.2, RBC 3.36 L, Hgb 9.2 L, Hct 31.1 L, MCV 92.6, MCH 27.4, MCHC 29.6 L, RDW 14.5, Plt Count 211, MPV 10.6 H, Neut % (Auto) 78.0, Lymph % (Auto) 11.3, [place] % (Auto) 7.5, Eos % (Auto) 2.4, Baso % (Auto) 0.4, Neut # (Auto) 7.2, Lymph # (Auto) 1.0, [place] # (Auto) 0.7, Eos # (Auto) 0.2, Baso # (Auto) 0.0, Sodium 133 L, Potassium 5.8 H, Chloride 97 L, Carbon Dioxide 33 H, Anion Gap 8.8, BUN 62 H, Creatinine 3.00 H, Estimated Creat Clear 41, Estimated GFR 21 L, Est GFR ( Amer) 25 L, Glucose 97, Calcium 8.2 L, Magnesium 2.2, Total Bilirubin 0.3, AST 20, ALT 13, Alkaline Phosphatase 59, Total Protein 6.8, Albumin 3.5, Globulin 3.3 H, Albumin/Globulin Ratio 1.1 I & O for Labs for Last 24 Hours: Intake & Output 10/17/24 10/18/24 10/19/24 10/20/24 23:59 23:59 23:59 23:59 Intake Total 990 / 1230 1894.334 / 3645.043 0017 / 1080 360 / 360 Output Total 2950 / 3450 1900 / 2700 2650 / 2650 1200 / 1200 Balance -1960 / -2220 -5.666 / -805.666 -1570 / -1570 -840 / -840 Weight 124.239 kg 124.24 kg 126 kg 122.527 kg Constitutional: Present no acute distress, obese, chronically ill appearing and cooperative Head: Present atraumatic and normocephalic ENT: Present normal exam Comment:: Well-healed scar right side of neck consistent with endarterectomy Respiratory: Present normal respiratory effort; Absent rhonchi, stridor, wheezes or crackles Cardiac: Present Reg Rate and Rhythm Comment:: Appears to be in rate controlled a flutter on telemetry GI: Present soft and normal bowel sounds; Absent distention or tenderness Extremities: Present normal inspection, full ROM and edema (Improving, 2+ below knees.) Skin: Present intact; Absent erythema Neuro: Present Grossly Intact, alert, awake, oriented x 3 and moves all extremities Assessment and Plan *Assessment and plan (1) Atrial fibrillation with RVR: Status: Acute Category: Medical Code(s): I48.91 - Unspecified atrial fibrillation (2) CKD (chronic kidney disease), stage IV: Status: Acute Category: Medical Code(s): N18.4 - Chronic kidney disease, stage 4 (severe) (3) NSTEMI (non-ST elevated myocardial infarction): Status: Acute Category: Medical Code(s): I21.4 - Non-ST elevation (NSTEMI) myocardial infarction (4) Tobacco use: Status: Acute Category: Social Hx Code(s): Z72.0 - Tobacco use (5) Obesity: Status: Acute Qualifiers: Obesity type: due to excess calories Obesity classification: adult class 3 (BMI >= 40) Serious obesity comorbidity presence: without serious comorbidity Body mass index: BMI 40.0-44.9 Qualified Code(s): E66.01 - Morbid (severe) obesity due to excess calories; Z68.41 - Body mass index [BMI] 40.0- 44.9, adult Category: Medical Code(s): E66.9 - Obesity, unspecified (6) HTN (hypertension): Status: Acute Qualifiers: Hypertension type: primary hypertension Qualified Code(s): I10 - Essential (primary) hypertension Category: Medical Code(s): I10 - Essential (primary) hypertension (7) Lymphedema: Status: Acute Category: Medical Code(s): I89.0 - Lymphedema, not elsewhere classified (8) Swelling of both lower extremities: Status: Acute Category: Medical Code(s): M79.89 - Other specified soft tissue disorders (9) Coronary artery disease: Status: Acute Qualifiers: Coronary Disease-Associated Artery/Lesion type: bypass graft [place] vs. transplanted heart: [place] heart Associated angina: without angina Qualified Code(s): I25.810 - Atherosclerosis of coronary artery bypass graft(s) without angina pectoris Category: Medical Code(s): I25.10 - Atherosclerotic heart disease of [place] coronary artery without angina pectoris (10) Chest pain: Status: Acute Category: Medical Code(s): R07.9 - Chest pain, unspecified (11) Acute on chronic heart failure with preserved ejection fraction (HFpEF): Status: Acute Category: Medical Code(s): I50.33 - Acute on chronic diastolic (congestive) heart failure Plan Patient with past medical history of atrial fibrillation, CAD, right bundle branch block, CKD, lymphedema, history of CABG, hypertension, hyperlipidemia. Patient presents complaining of chest discomfort and palpitations. Patient presented to emergency room at [facility] complaining of chest pain/palpitations around 2 AM. CP described as 3/10, sharp, lasting 3mins, with rad to neck. Pt CP free at time of my admission 10/17 646am in registration. Patient noted to have wide-complex tachycardia with heart rate in 140s. Patient given IV diltiazem, with rhythm change in A-fib with RVR. Patient started on diltiazem drip 15 Mg per hour, with heart rate stabilizing less than 110 bpm. Patient's D-dimer 884, but no CTA chest done secondary to renal insufficiency. Patient's creatinine 3.2, with normal creatinine baseline of 2.4. Patient discussed with Dr. Feldman, adult family home program manager prior to admission, who recommended patient be admitted to this institution and that cardiology will closely follow. Patient showing stable gradual improvement. Tolerating oral diltiazem. Awaiting placement for rehab. Working with therapy daily. Problems addressed as follows: A-fib RVR Acute on chronic heart failure with preserved ejection fraction - continue diltiazem 240 mg twice daily for improved rate control. Asymptomatic at this time. Recommend ALEIDA as an outpatient. No cardioversion planned. - Continue Eliquis 5 mg twice daily. Will need 2-week event monitor at dis charge. Would benefit from follow-up and workup for sleep apnea as an outpatient. - ECHO 01/14 - nml LV function, mod RV dilation with mild reduction in RV function - Continue Bumex 2mg IV twice daily - Cardiology recommends adding Farxiga but contraindicated with his renal failure. - Contraindicated for ARNI/MRA due to CKD 4 -Continue Lipitor 10 mg daily Carotid Stenosis s/p CEA 2008 - asymptomatic; cont statin, Eliquis ALBERT CKD-IV - Cr 3.2 on admission, baseline 2.4. BUN 62, creatinine 3.0. Electrolytes stable with potassium 5.8, magnesium 2.2. Will administer 1 dose of Lokelma today 10 mg p.o. -Continue to monitor closely with diuresis. Repeat CBC, CMP, magnesium ordered for the morning. -Will refer to nephrology as an outpatient. BPH: flowmax 0.4mg po daily Restless leg syndrome. Requip 1 mg p.o. daily Eliquis twice daily Cardiac diet CODE STATUS: Full
[2024-10-20] MEDS: TAMSULOSIN 0.4MG CAPSULE 0.4 MG PO (20:20)
[2024-10-20] MEDS: ATORVASTATIN 10MG TABLET 10 MG PO (20:20)
--- NOTE | 2024-10-20 22:47 | ECG_ITS ---
APPROVED REPORT Exam: Resting ECG HR:99 bpm ECG Measurements Heart Rate 99 AXES QRSd 164 QRS -49 QT 359 T 66 QTc 415 Conclusion ATRIAL FLUTTER/TACHYCARDIA LEFT AXIS DEVIATION [QRS AXIS < -30] RIGHT BUNDLE BRANCH BLOCK [120+ ms QRS DURATION, UPRIGHT V1, 40+ ms S IN I/aVL/V4/V5/V6] ABNORMAL ECG INTERPRETATION BASED ON A DEFAULT AGE OF 40 YEARS UNCONFIRMED REPORT Electronically signed by : Neri Li MD 10/21/2024 07:59:36
[2024-10-21] VITALS (8 sets, daily range): BP systolic 114–174; BP diastolic 51–78; PULSE 58–140; RESP 18–22; TEMP 36.4–37.1; O2SAT 84–97; BMI 34.6
--- NOTE | 2024-10-21 06:01 | PC.NURSE ---
0600: Pt. is alert and orientated x 4. Pt. on youth nutritional monitor and has has a couple episodes of increased heart rate but did not have to give PRN Metropolol. Pt. on pure wick this shift. Pt. BLE very swollen. pitting ededma BLE. Pt. c/o pain when anyone touches the legs. VSS. Personal items and call smith in reach.
--- NOTE | 2024-10-21 07:39 | P.PN_ITS ---
Subjective *Date: 10/21/24 *Time: 13:23 Interval history: Feeling somewhat better today. Weaning oxygen. Tolerating 2 L on rounds. -6.7 L of diuresis. Kidney function electrolytes doing well. Blood pressure well- controlled. No nausea or vomiting. Working with therapy Medical Exam Vital signs and Labs for Last 24 Hours: Vital Signs Temp Pulse Pulse Resp BP Pulse Ox O2 Del Method 10/21/24 07:00 Nasal Cannula 10/21/24 04:42 Nasal Cannula 10/21/24 04:00 98.2 F 90 20 114/72 91 L Nasal Cannula 10/21/24 03:00 Nasal Cannula 10/21/24 01:00 Nasal Cannula 10/21/24 00:00 100 H 10/21/24 00:00 98.7 F 83 18 124/59 L 93 L Nasal Cannula 10/20/24 23:00 Nasal Cannula 10/20/24 21:00 Nasal Cannula 10/20/24 20:00 100 H 10/20/24 20:00 Nasal Cannula 10/20/24 20:00 98.4 F 93 H 16 155/90 H 94 L Nasal Cannula 10/20/24 17:39 Nasal Cannula 10/20/24 16:17 Nasal Cannula 10/20/24 16:00 98.0 F 48 L 18 142/73 H 98 Room Air 10/20/24 13:56 Nasal Cannula 10/20/24 13:00 Nasal Cannula 10/20/24 12:00 97.9 F 49 L 18 137/48 L 96 Nasal Cannula 10/20/24 11:00 Nasal Cannula 10/20/24 09:00 Nasal Cannula 10/20/24 08:00 110 H 10/20/24 08:00 Nasal Cannula 10/20/24 08:00 98 F 103 H 18 179/87 H 97 Nasal Cannula 10/20/24 07:50 86 L Room Air O2 Flow Rate 10/21/24 07:00 2 10/21/24 04:42 2 10/21/24 04:00 3 10/21/24 03:00 2 10/21/24 01:00 2 10/21/24 00:00 10/21/24 00:00 3 10/20/24 23:00 2 10/20/24 21:00 2 10/20/24 20:00 10/20/24 20:00 2 10/20/24 20:00 2 10/20/24 17:39 2 10/20/24 16:17 2 10/20/24 16:00 10/20/24 13:56 2 10/20/24 13:00 2 10/20/24 12:00 2 10/20/24 11:00 2 10/20/24 09:00 2 10/20/24 08:00 10/20/24 08:00 2 10/20/24 08:00 10/20/24 07:50 Intake and Output 10/20/24 10/20/24 10/21/24 15:59 23:59 07:59 Intake Total 840 / 960 120 / 960 Output Total 2000 / 4200 1300 / 4200 0 / 0 Balance -1160 / -3240 -1180 / -3240 0 / 0 Intake: Intake, Oral Amount 840 / 960 120 / 960 Output: Output, Urine Amount 2000 / 4200 1300 / 4200 0 / 0 Other: Number of Unmeasured Voids 0 0 1 Number of Bowel Movements 1 Weight 122.517 kg Patient Weight 10/21/24 23:59 Weight 122.517 kg Laboratory Results - last 24 hr 10/20/24 07:34: WBC 9.2, RBC 3.36 L, Hgb 9.2 L, Hct 31.1 L, MCV 92.6, MCH 27.4, MCHC 29.6 L, RDW 14.5, Plt Count 211, MPV 10.6 H, Neut % (Auto) 78.0, Lymph % (Auto) 11.3, [place] % (Auto) 7.5, Eos % (Auto) 2.4, Baso % (Auto) 0.4, Neut # (Auto) 7.2, Lymph # (Auto) 1.0, [place] # (Auto) 0.7, Eos # (Auto) 0.2, Baso # (A uto) 0.0, Sodium 133 L, Potassium 5.8 H, Chloride 97 L, Carbon Dioxide 33 H, Anion Gap 8.8, BUN 62 H, Creatinine 3.00 H, Estimated Creat Clear 41, Estimated GFR 21 L, Est GFR ( Amer) 25 L, Glucose 97, Calcium 8.2 L, Magnesium 2.2, Total Bilirubin 0.3, AST 20, ALT 13, Alkaline Phosphatase 59, Total Protein 6.8, Albumin 3.5, Globulin 3.3 H, Albumin/Globulin Ratio 1.1 I & O for Labs for Last 24 Hours: Intake & Output 10/18/24 10/19/24 10/20/24 10/21/24 23:59 23:59 23:59 23:59 Intake Total 1894.334 / 4650.766 4712 / 1080 960 / 960 Output Total 1900 / 2700 2650 / 2650 4200 / 4200 0 / 0 Balance -5.666 / -805.666 -1570 / -1570 -3240 / -3240 0 / 0 Weight 124.24 kg 126 kg 122.527 kg 122.517 kg Constitutional: Present no acute distress, obese, chronically ill appearing and cooperative Head: Present atraumatic and normocephalic ENT: Present normal exam Respiratory: Present normal respiratory effort; Absent rhonchi, stridor, wheezes or crackles Cardiac: Present Reg Rate and Rhythm Comment:: Appears to be in rate controlled a flutter on telemetry GI: Present soft and normal bowel sounds; Absent distention or tenderness Extremities: Present normal inspection, full ROM and edema (Improving, 2+ below knees.) Skin: Present intact; Absent erythema Neuro: Present Grossly Intact, alert, awake, oriented x 3 and moves all extremities Assessment and Plan *Assessment and plan (1) Atrial fibrillation with RVR: Status: Acute Category: Medical Code(s): I48.91 - Unspecified atrial fibrillation (2) CKD (chronic kidney disease), stage IV: Status: Acute Category: Medical Code(s): N18.4 - Chronic kidney disease, stage 4 (severe) (3) NSTEMI (non-ST elevated myocardial infarction): Status: Acute Category: Medical Code(s): I21.4 - Non-ST elevation (NSTEMI) myocardial infarction (4) Tobacco use: Status: Acute Category: Social Hx Code(s): Z72.0 - Tobacco use (5) Obesity: Status: Acute Qualifiers: Obesity type: due to excess calories Obesity classification: adult class 3 (BMI >= 40) Serious obesity comorbidity presence: without serious comorbidity Body mass index: BMI 40.0-44.9 Qualified Code(s): E66.01 - Morbid (severe) obesity due to excess calories; Z68.41 - Body mass index [BMI] 40.0- 44.9, adult Category: Medical Code(s): E66.9 - Obesity, unspecified (6) HTN (hypertension): Status: Acute Qualifiers: Hypertension type: primary hypertension Qualified Code(s): I10 - Essential (primary) hypertension Category: Medical Code(s): I10 - Essential (primary) hypertension (7) Lymphedema: Status: Acute Category: Medical Code(s): I89.0 - Lymphedema, not elsewhere classified (8) Swelling of both lower extremities: Status: Acute Category: Medical Code(s): M79.89 - Other specified soft tissue disorders (9) Coronary artery disease: Status: Acute Qualifiers: Coronary Disease-Associated Artery/Lesion type: bypass graft [place] vs. transplanted heart: [place] heart Associated angina: without angina Qualified Code(s): I25.810 - Atherosclerosis of coronary artery bypass graft(s) without angina pectoris Category: Medical Code(s): I25.10 - Atherosclerotic heart disease of [place] coronary artery without angina pectoris (10) Chest pain: Status: Acute Category: Medical Code(s): R07.9 - Chest pain, unspecified (11) Acute on chronic heart failure with preserved ejection fraction (HFpEF): Status: Acute Category: Medical Code(s): I50.33 - Acute on chronic diastolic (congestive) heart failure Plan Patient with past medical history of atrial fibrillation, CAD, right bundle branch block, CKD, lymphedema, history of CABG, hypertension, hyperlipidemia. Patient presents complaining of chest discomfort and palpitations. Patient presented to emergency room at [facility] complaining of chest pain/palpitations around 2 AM. CP described as 3/10, sharp, lasting 3mins, with rad to neck. Pt CP free at time of my admission 10/17 646am in registration. Patient noted to have wide-complex tachycardia with heart rate in 140s. Patient given IV diltiazem, with rhythm change in A-fib with RVR. Was transferred for cardiology eval. Doing better with adjustment to diltiazem. Diuresing well for heart failure. Awaiting placement for rehab. Working with therapy. Problems addressed as follows: A-fib RVR Acute on chronic heart failure with preserved ejection fraction - continue diltiazem 240 mg twice daily for improved rate control <90. Asymptomatic at this time. Recommend ALEIDA as an outpatient. No cardioversion planned. - Continue Eliquis 5 mg twice daily. Will need 2-week event monitor at discharge. Would benefit from follow-up and workup for sleep apnea as an outpatient. - ECHO 01/14 - nml LV function, mod RV dilation with mild reduction in RV function - Continue Bumex 2mg IV twice daily, transition to oral dosing of 2 mg - Cardiology recommends adding Farxiga but contraindicated with his renal fa ilure. - Contraindicated for ARNI/MRA due to CKD 4 -Continue Lipitor 10 mg daily Carotid Stenosis s/p CEA 2009: asymptomatic; cont statin, Eliquis ALBERT CKD-IV - Cr 3.2 on admission, baseline 2.4. BUN 62, creatinine 2.8. Electrolytes stable with potassium 5.7 -Continue to monitor closely with diuresis. Repeat CBC, CMP, magnesium ordered for the morning. -Will refer to nephrology as an outpatient. BPH: flowmax 0.4mg po daily Restless leg syndrome. Requip 1 mg p.o. daily Eliquis twice daily Cardiac diet CODE STATUS: Full
[2024-10-21 07:49] LABS: Basophils % 0.5 % (0.1-2.0); Eosinophils # 0.2 K/mm3 (0.0-0.4); Eosinophils % 2.1 % (0.1-12.0); Hematocrit 29.1 % (42.0-52.0); Hemoglobin 8.8 g/dL (14.1-18.0); Lymphocytes # 0.8 K/mm3 (0.7-4.5); Lymphocytes % 10.1 % (10-50); Mean Corpuscular HGB Conc 30.2 g/dL (31.8-35.4); Mean Corpuscular Hemoglobin 27.8 pg (27.0-31.2); Mean Corpuscular Volume 91.8 fl (80-94); Mean Platelet Volume 9.8 fl (7.4-10.4); Monocytes # 0.6 K/mm3 (0.1-1.0); Monocytes % 7.8 % (1.7-9.3); Neutrophils # 6.1 K/mm3 (1.8-7.8); Neutrophils % 79.2 % (37.0-80.0); Platelet Count 187 K/mm3 (142-424); Red Blood Count 3.17 M/mm3 (4.60-6.20); Red Cell Distribution Width 14.2 % (11.5-17.5); White Blood Count 7.7 K/mm3 (4.8-10.8)
[2024-10-21 08:01] LABS: Albumin Level 3.3 g/dl (3.5-5.0); Chloride 98 mmol/L (98-107); Sodium 133 mmol/L (136-145)
[2024-10-21 08:02] LABS: Potassium 5.7 mmoL/L (3.5-5.1)
[2024-10-21 08:04] LABS: Alanine Aminotransferase 13 U/L (12-78); Albumin/Globulin Ratio 1.1 (1.1-1.8); Alkaline Phosphatase 58 U/L (38-126); Anion Gap 7.7 mEq/L (5-15); Aspartate Amino Transferase 26 U/L (17-59); Bilirubin,Total 0.4 mg/dl (0.2-1.3); Blood Urea Nitrogen 62 mg/dl (9-20); Carbon Dioxide 33 mmol/L (22.0-30.0); Creatinine Clearance Estimated 44 mL/min (50-200); Estimated Glomerular Filt Rate 23 ml/min (>60); GFR (African American) 27 ML/MIN (>60); Total Protein,Serum 6.3 g/dl (6.3-8.2)
[2024-10-21 08:05] LABS: Calcium 8.4 mg/dl (8.4-10.2); Glucose 94 mg/dl (74-100)
[2024-10-21 08:14] LABS: Magnesium 2.2 mg/dl (1.6-2.3)
[2024-10-21] MEDS: dilTIAZem ER 240MG CAPSULE 240 MG PO ×2 (09:11→20:23)
[2024-10-21] MEDS: APIXABAN 5MG TABLET 5 MG PO ×2 (09:11→20:22)
[2024-10-21] MEDS: DOCUSATE SODIUM 100 MG CAPSULE PO (09:11)
[2024-10-21] MEDS: BUMETANIDE 1MG/4ML VIAL 2 MG IV (09:11)
[2024-10-21] MEDS: ACETAMINOPHEN 325MG TAB 650 MG PO ×2 (10:57→22:57)
--- NOTE | 2024-10-21 14:24 | PC.NURSE ---
Aox 4, up with assistance times 2, 02-2L nc 90's, afib on monitor, 22g L FA sl, BLE pitting edema, plan d/c with home healt vs placement.
[2024-10-21] MEDS: BUMETANIDE 1 MG TABLET 2 MG PO (14:49)
--- NOTE | 2024-10-21 19:46 | PC.NURSE ---
Pt veterinarian helper D/C per hospitalist
[2024-10-21] MEDS: ATORVASTATIN 10MG TABLET 10 MG PO (20:23)
[2024-10-21] MEDS: TAMSULOSIN 0.4MG CAPSULE 0.4 MG PO (20:23)
[2024-10-21] MEDS: GABAPENTIN 600MG TABLET 600 MG PO (20:23)
--- NOTE | 2024-10-21 20:28 | EXP.EVENT.NO ---
Patient informed the nurse that he felt that he did not need to gabapentin at the present dose of 600 mg twice daily, he did agree to take half of it tonight so I went ahead and I have changed his gabapentin to 300 twice daily. I we will see if the patient feels better with this if not we can go ahead and decrease it and DC it as needed
[2024-10-22] VITALS: BP 192/54; PULSE 72; RESP 16; TEMP 36.7; O2SAT 96
[2024-10-22 03:50] VITALS: BP 151/69; PULSE 55; RESP 18; TEMP 36.8; O2SAT 96; BMI 35.4
[2024-10-22] MEDS: ACETAMINOPHEN 325MG TAB 650 MG PO (04:00)
[2024-10-22 07:16] LABS: Magnesium 2.3 mg/dl (1.6-2.3)
[2024-10-22 07:20] LABS: Basophils % 0.5 % (0.1-2.0); Eosinophils # 0.2 K/mm3 (0.0-0.4); Eosinophils % 2.9 % (0.1-12.0); Hematocrit 30.5 % (42.0-52.0); Hemoglobin 9.4 g/dL (14.1-18.0); Lymphocytes # 0.8 K/mm3 (0.7-4.5); Lymphocytes % 9.9 % (10-50); Mean Corpuscular HGB Conc 30.8 g/dL (31.8-35.4); Mean Corpuscular Hemoglobin 27.7 pg (27.0-31.2); Mean Platelet Volume 10.9 fl (7.4-10.4); Monocytes # 0.7 K/mm3 (0.1-1.0); Monocytes % 8.8 % (1.7-9.3); Neutrophils # 6.2 K/mm3 (1.8-7.8); Neutrophils % 77.5 % (37.0-80.0); Platelet Count 214 K/mm3 (142-424); Red Blood Count 3.39 M/mm3 (4.60-6.20); Red Cell Distribution Width 14.1 % (11.5-17.5)
[2024-10-22 07:56] VITALS: BP 120/59; PULSE 71; RESP 20; TEMP 36.6; O2SAT 97
[2024-10-22] MEDS: GABAPENTIN 300MG CAPSULE 300 MG PO (08:28)
[2024-10-22] MEDS: DOCUSATE SODIUM 100 MG CAPSULE PO (08:28)
[2024-10-22] MEDS: dilTIAZem ER 240MG CAPSULE 240 MG PO ×2 (08:29→21:31)
[2024-10-22] MEDS: APIXABAN 5MG TABLET 5 MG PO ×2 (08:29→21:31)
[2024-10-22] MEDS: BUMETANIDE 1 MG TABLET 2 MG PO ×2 (10:13→16:09)
[2024-10-22 10:39] LABS: Albumin Level 3.4 g/dl (3.5-5.0); Chloride 96 mmol/L (98-107); Potassium 5.3 mmoL/L (3.5-5.1); Sodium 136 mmol/L (136-145)
[2024-10-22 10:42] LABS: Alanine Aminotransferase 15 U/L (12-78); Alkaline Phosphatase 56 U/L (38-126); Anion Gap 13.3 mEq/L (5-15); Aspartate Amino Transferase 27 U/L (17-59); Bilirubin,Total 0.3 mg/dl (0.2-1.3); Blood Urea Nitrogen 64 mg/dl (9-20); Carbon Dioxide 32 mmol/L (22.0-30.0); Creatinine Clearance Estimated 48 mL/min (50-200); Estimated Glomerular Filt Rate 25 ml/min (>60); GFR (African American) 30 ML/MIN (>60); Globulin 3.3 g/dL (1.3-3.2); Total Protein,Serum 6.7 g/dl (6.3-8.2)
[2024-10-22 10:43] LABS: Calcium 8.6 mg/dl (8.4-10.2); Glucose 106 mg/dl (74-100)
[2024-10-22 12:00] VITALS: BP 146/57; PULSE 69; RESP 18; TEMP 36.6; O2SAT 95
[2024-10-22 15:41] VITALS: BP 117/62; PULSE 67; RESP 17; TEMP 36.6; O2SAT 93
--- NOTE | 2024-10-22 17:17 | PC.NURSE ---
pt has remained on 2L nc this shift. pt has remained alert and oriented. pt still has 3+ BLE and 4+ on bilat. feet. pt has been up to chair numerous times this shift w/ x2 assistance w/ o2 use. pt has had no complaints this shift. pt has had significant output as well. no new orders at this time. call light within reach.
[2024-10-22 20:00] VITALS: BP 132/58; PULSE 70; RESP 18; TEMP 36.6; O2SAT 100
[2024-10-22] MEDS: TAMSULOSIN 0.4MG CAPSULE 0.4 MG PO (21:31)
[2024-10-22] MEDS: ATORVASTATIN 10MG TABLET 10 MG PO (21:31)
--- NOTE | 2024-10-22 21:43 | P.PN_ITS ---
Subjective *Date: 10/22/24 *Time: 11:30 Interval history: Feeling well today. O2 at 2L, saturation in the mid 80s. Continuing to diurese well. Over -7 L since admission. Kidney function and electrolytes stable. No nausea or vomiting. Working with therapy. Discussion with patient about therapy today. He is worried about his cat. He is worried about who is going to look after his cat. If unable to go to placement, would like to go home with his niece and home health until he stronger to be at home by himself. Medical Exam Vital signs and Labs for Last 24 Hours: Vital Signs Temp Pulse Resp BP Pulse Ox O2 Del Method O2 Flow Rate 10/22/24 20:00 97.9 F 70 18 132/58 L 100 Nasal Cannula 3 10/22/24 18:26 Nasal Cannula 2 10/22/24 17:00 Room Air 10/22/24 15:41 97.8 F 67 17 117/62 93 L Nasal Cannula 2 10/22/24 15:00 Nasal Cannula 2 10/22/24 13:00 Room Air 10/22/24 12:00 97.8 F 69 18 146/57 H 95 Nasal Cannula 2 10/22/24 11:00 Nasal Cannula 2 10/22/24 09:00 Nasal Cannula 2 10/22/24 08:00 Nasal Cannula 2 10/22/24 07:56 97.8 F 71 20 120/59 L 97 Nasal Cannula 2 10/22/24 07:00 Nasal Cannula 2 10/22/24 05:00 Nasal Cannula 2 10/22/24 03:50 98.2 F 55 L 18 151/69 H 96 Nasal Cannula 2 10/22/24 03:00 Nasal Cannula 2 10/22/24 01:00 Nasal Cannula 2 10/22/24 00:00 98.1 F 72 16 192/54 H 96 Nasal Cannula 2 10/21/24 23:00 Nasal Cannula 2 Intake and Output 10/22/24 10/22/24 10/22/24 07:59 15:59 23:59 Intake Total 960 / 2040 120 / 2040 960 / 2040 Output Total 0 / 1600 0 / 1600 1600 / 1600 Balance 960 / 440 120 / 440 -640 / 440 Intake: Intake, Oral Amount 960 / 2040 120 / 2040 960 / 2040 Output: Output, Urine Amount 0 / 1600 0 / 1600 1600 / 1600 Other: Number of Voids 0 Number of Unmeasured Voids 1 0 Weight 125.418 kg Patient Weight 10/22/24 23:59 Weight 125.418 kg Laboratory Results - last 24 hr 10/22/24 06:33: WBC 8.0, RBC 3.39 L, Hgb 9.4 L, Hct 30.5 L, MCV 90.0, MCH 27.7, MCHC 30.8 L, RDW 14.1, Plt Count 214, MPV 10.9 H, Neut % (Auto) 77.5, Lymph % (Auto) 9.9 L, [place] % (Auto) 8.8, Eos % (Auto) 2.9, Baso % (Auto) 0.5, Neut # (Auto) 6.2, Lymph # (Auto) 0.8, [place] # (Auto) 0.7, Eos # (Auto) 0.2, Baso # (Auto) 0.0, Sodium 136, Potassium 5.3 H, Chloride 96 L, Carbon Dioxide 32 H, Anion Gap 13.3, BUN 64 H, Creatinine 2.60 H, Estimated Creat Clear 48, Estimated GFR 25 L, Est GFR ( Amer) 30 L, Glucose 106 H, Calcium 8.6, Magnesium 2.3, Total Bilirubin 0.3, AST 27, ALT 15, Alkaline Phosphatase 56, Total Protein 6.7, Albumin 3.4 L, Globulin 3.3 H, Albumin/Globulin Ratio 1.0 L I & O for Labs for Last 24 Hours: Intake & Output 10/19/24 10/20/24 10/21/24 10/22/24 23:59 23:59 23:59 23:59 Intake Total 1080 / 1080 960 / 960 1770 / 2490 2039 Output Total 2650 / 2650 4200 / 4200 0 / 0 1600 / 1600 Balance -1570 / -1570 -3240 / -3240 177 / 249 440 / 440 Weight 126 kg 122.527 kg 122.517 kg 125.418 kg Constitutional: Present no acute distress, obese, chronically ill appearing and cooperative Head: Present atraumatic and normocephalic ENT: Present normal exam Respiratory: Present normal respiratory effort; Absent rhonchi, stridor, wheezes or crackles Cardiac: Present Reg Rate and Rhythm Comment:: Appears to be in rate controlled a flutter on telemetry GI: Present soft and normal bowel sounds; Absent distention or tenderness Extremities: Present normal inspection, full ROM and edema (Improving) Comment:: Chronic lymphedema Skin: Present intact; Absent erythema Neuro: Present Grossly Intact, alert, awake, oriented x 3 and moves all extremities Assessment and Plan *Assessment and plan (1) Atrial fibrillation with RVR: Status: Acute Category: Medical Code(s): I48.91 - Unspecified atrial fibrillation (2) CKD (chronic kidney disease), stage IV: Status: Acute Category: Medical Code(s): N18.4 - Chronic kidney disease, stage 4 (severe) (3) NSTEMI (non-ST elevated myocardial infarction): Status: Acute Category: Medical Code(s): I21.4 - Non-ST elevation (NSTEMI) myocardial infarction (4) Tobacco use: Status: Acute Category: Social Hx Code(s): Z72.0 - Tobacco use (5) Obesity: Status: Acute Qualifiers: Obesity type: due to excess calories Obesity classification: adult class 3 (BMI >= 40) Serious obesity comorbidity presence: without serious comorbidity Body mass index: BMI 40.0-44.9 Qualified Code(s): E66.01 - Morbid (severe) obesity due to excess calories; Z68.41 - Body mass index [BMI] 40.0- 44.9, adult Category: Medical Code(s): E66.9 - Obesity, unspecified (6) HTN (hypertension): Status: Acute Qualifiers: Hypertension type: primary hypertension Qualified Code(s): I10 - Essential (primary) hypertension Category: Medical Code(s): I10 - Essential (primary) hypertension (7) Lymphedema: Status: Acute Category: Medical Code(s): I89.0 - Lymphedema, not elsewhere classified (8) Swelling of both lower extremities: Status: Acute Category: Medical Code(s): M79.89 - Other specified soft tissue disorders (9) Coronary artery disease: Status: Acute Qualifiers: Coronary Disease-Associated Artery/Lesion type: bypass graft [place] vs. transplanted heart: [place] heart Associated angina: without angina Qualified Code(s): I25.810 - Atherosclerosis of coronary artery bypass graft(s) without angina pectoris Category: Medical Code(s): I25.10 - Atherosclerotic heart disease of [place] coronary artery without angina pectoris (10) Chest pain: Status: Acute Category: Medical Code(s): R07.9 - Chest pain, unspecified (11) Acute on chronic heart failure with preserved ejection fraction (HFpEF): Status: Acute Category: Medical Code(s): I50.33 - Acute on chronic diastolic (congestive) heart failure Plan Patient with past medical history of atrial fibrillation, CAD, right bundle branch block, CKD, lymphedema, history of CABG, hypertension, hyperlipidemia. Patient presents complaining of chest discomfort and palpitations. Patient presented to emergency room at [facility] complaining of chest pain/palpitations around 2 AM. CP described as 3/10, sharp, lasting 3mins, with rad to neck. Pt CP free at time of my admission 10/17 646am in registration. Patient noted to have wide-complex tachycardia with heart rate in 140s. Patient given IV diltiazem, with rhythm change in A-fib with RVR. Was transferred for cardiology eval. has responded well to dose adjustment. Rate controlled on current regimen. Awaiting placement. Continuing to diurese. Problems addressed as follows: A-fib RVR Acute on chronic heart failure with preserved ejection fraction - continue diltiazem 240 mg twice daily for improved rate control <90. Asymptomatic at this time. Recommend ALEIDA as an outpatient. No cardioversion planned. - Continue Eliquis 5 mg twice daily. Will need 2-week event monitor at discharge. Would benefit from follow-up and workup for sleep apnea as an outpatient. - ECHO 01/14 - nml LV function, mod RV dilation with mild reduction in RV function - Continue Bumex 2mg twice daily - Contraindicated for ARNI/MRA due to CKD 4 -Continue Lipitor 10 mg daily Carotid Stenosis s/p CEA 2009: asymptomatic; cont statin, Eliquis ALBERT CKD-IV - Cr 3.2 on admission, baseline 2.4. BUN 64, creatinine 2.6. Potassium 5.3, magnesium 2.3. -Continue to monitor closely with diuresis. Repeat CBC, CMP, magnesium ordered for the morning. -Will refer to nephrology as an outpatient. BPH: flowmax 0.4mg po daily Restless leg syndrome. Requip 1 mg p.o. daily Eliquis twice daily Cardiac diet CODE STATUS: Full
[2024-10-23] VITALS: BP 160/70; PULSE 64; RESP 14; TEMP 36.7; O2SAT 98
[2024-10-23] MEDS: MORPHINE 4MG/ML SYRINGE 4 MG IV (03:27)
[2024-10-23 04:00] VITALS: BP 109/45; PULSE 76; RESP 16; TEMP 36.7; O2SAT 96; BMI 35.2
--- NOTE | 2024-10-23 05:26 | PC.NURSE ---
Pt alert and oriented and has remained on 2L nasal cannula throughout the shift. 4+ pitting edema noted to bilateral lower extremities. Pt required x2 assist to get from chair to bed. [place] has remained in place with good output. He did complain of leg pain once and was medicated per MAR. No other complaints at this time, call light within reach.
[2024-10-23 07:16] LABS: Basophils # 0.1 K/mm3 (0-0.2); Basophils % 0.9 % (0.1-2.0); Eosinophils # 0.2 K/mm3 (0.0-0.4); Eosinophils % 3.6 % (0.1-12.0); Hematocrit 30.5 % (42.0-52.0); Hemoglobin 9.1 g/dL (14.1-18.0); Lymphocytes # 0.8 K/mm3 (0.7-4.5); Lymphocytes % 12.2 % (10-50); Mean Corpuscular HGB Conc 29.8 g/dL (31.8-35.4); Mean Corpuscular Volume 90.5 fl (80-94); Mean Platelet Volume 10.5 fl (7.4-10.4); Monocytes # 0.5 K/mm3 (0.1-1.0); Monocytes % 7.4 % (1.7-9.3); Neutrophils # 5.1 K/mm3 (1.8-7.8); Neutrophils % 75.2 % (37.0-80.0); Platelet Count 207 K/mm3 (142-424); Red Blood Count 3.37 M/mm3 (4.60-6.20); Red Cell Distribution Width 14.1 % (11.5-17.5); White Blood Count 6.7 K/mm3 (4.8-10.8)
[2024-10-23 07:29] LABS: Chloride 94 mmol/L (98-107)
[2024-10-23 07:30] LABS: Albumin Level 3.5 g/dl (3.5-5.0); Potassium 5.5 mmoL/L (3.5-5.1); Sodium 133 mmol/L (136-145)
[2024-10-23 07:32] LABS: Alanine Aminotransferase 13 U/L (12-78); Aspartate Amino Transferase 24 U/L (17-59); Blood Urea Nitrogen 62 mg/dl (9-20); Creatinine Clearance Estimated 50 mL/min (50-200); Estimated Glomerular Filt Rate 26 ml/min (>60); GFR (African American) 31 ML/MIN (>60)
[2024-10-23 07:33] LABS: Albumin/Globulin Ratio 1.1 (1.1-1.8); Alkaline Phosphatase 58 U/L (38-126); Anion Gap 8.5 mEq/L (5-15); Bilirubin,Total 0.4 mg/dl (0.2-1.3); Calcium 8.6 mg/dl (8.4-10.2); Carbon Dioxide 36 mmol/L (22.0-30.0); Globulin 3.2 g/dL (1.3-3.2); Glucose 98 mg/dl (74-100); Total Protein,Serum 6.7 g/dl (6.3-8.2)
[2024-10-23 07:47] VITALS: BP 150/77; PULSE 60; RESP 20; TEMP 36.8; O2SAT 95
[2024-10-23 08:04] LABS: Magnesium 2.5 mg/dl (1.6-2.3)
[2024-10-23] MEDS: BUMETANIDE 1 MG TABLET 2 MG PO ×2 (08:45→15:40)
[2024-10-23] MEDS: dilTIAZem ER 240MG CAPSULE 240 MG PO ×2 (08:46→20:12)
[2024-10-23] MEDS: DOCUSATE SODIUM 100 MG CAPSULE PO (08:46)
[2024-10-23] MEDS: APIXABAN 5MG TABLET 5 MG PO ×2 (08:46→20:12)
[2024-10-23] MEDS: BUMETANIDE 1MG/4ML VIAL 2 MG IV (10:12)
--- NOTE | 2024-10-23 11:24 | P.PN_ITS ---
Subjective *Date: 10/23/24 *Time: 11:24 Interval history: Patient quite weak. Working with therapy. Needing significant assistance to walk. Weaning oxygen as tolerated, stable on 2 L. Will attempt to wean to room air today given continued diuresis. No nausea or vomiting. Afebrile. H emodynamically stable. Medical Exam Vital signs and Labs for Last 24 Hours: Vital Signs Temp Pulse Resp BP Pulse Ox O2 Del Method O2 Flow Rate 10/23/24 07:47 98.3 F 60 20 150/77 H 95 Nasal Cannula 2 10/23/24 06:55 Nasal Cannula 2 10/23/24 05:00 Nasal Cannula 2 10/23/24 04:00 98.1 F 76 16 109/45 L 96 Nasal Cannula 2 10/23/24 03:00 Nasal Cannula 2 10/23/24 01:00 Nasal Cannula 2 10/23/24 00:00 98.1 F 64 14 160/70 H 98 Nasal Cannula 2 10/22/24 23:00 Nasal Cannula 2 10/22/24 21:00 Nasal Cannula 2 10/22/24 20:00 Nasal Cannula 2 10/22/24 20:00 97.9 F 70 18 132/58 L 100 Nasal Cannula 3 10/22/24 18:26 Nasal Cannula 2 10/22/24 17:00 Room Air 10/22/24 15:41 97.8 F 67 17 117/62 93 L Nasal Cannula 2 10/22/24 15:00 Nasal Cannula 2 10/22/24 13:00 Room Air 10/22/24 12:00 97.8 F 69 18 146/57 H 95 Nasal Cannula 2 Intake and Output 10/22/24 10/23/24 10/23/24 23:59 07:59 15:59 Intake Total 960 / 2340 300 / 570 270 / 570 Output Total 1600 / 1600 1300 / 1300 Balance -640 / 740 -1000 / -730 270 / -730 Intake: Intake, Oral Amount 960 / 2340 300 / 570 270 / 570 Output: Output, Urine Amount 1600 / 1600 1300 / 1300 Other: Number of Unmeasured Voids 0 0 Weight 124.647 kg Patient Weight 10/23/24 23:59 Weight 124.647 kg Laboratory Results - last 24 hr 10/23/24 07:00: WBC 6.7, RBC 3.37 L, Hgb 9.1 L, Hct 30.5 L, MCV 90.5, MCH 27.0, MCHC 29.8 L, RDW 14.1, Plt Count 207, MPV 10.5 H, Neut % (Auto) 75.2, Lymph % (Auto) 12.2, [place] % (Auto) 7.4, Eos % (Auto) 3.6, Baso % (Auto) 0.9, Neut # (Auto) 5.1, Lymph # (Auto) 0.8, [place] # (Auto) 0.5, Eos # (Auto) 0.2, Baso # (Auto) 0.1, Sodium 133 L, Potassium 5.5 H, Chloride 94 L, Carbon Dioxide 36 H, Anion Gap 8.5, BUN 62 H, Creatinine 2.50 H, Estimated Creat Clear 50, Estimated GFR 26 L, Est GFR ( Amer) 31 L, Glucose 98, Calcium 8.6, Magnesium 2.5 H, Total Bilirubin 0.4, AST 24, ALT 13, Alkaline Phosphatase 58, Total Protein 6.7, Albumin 3.5, Globulin 3.2, Albumin/Globulin Ratio 1.1 I & O for Labs for Last 24 Hours: Intake & Output 10/20/24 10/21/24 10/22/24 10/23/24 23:59 23:59 23:59 23:59 Intake Total 960 / 960 1770 / 2490 2040 / 2340 570 / 570 Output Total 4200 / 4200 0 / 0 1600 / 1600 1300 / 1300 Balance -3240 / -3240 1770 / 2490 440 / 740 -730 / -730 Weight 122.527 kg 122.517 kg 125.418 kg 124.647 kg Constitutional: Present no acute distress, obese, chronically ill appearing and cooperative Head: Present atraumatic and normocephalic ENT: Present normal exam Respiratory: Present normal respiratory effort; Absent rhonchi, stridor, wheezes or crackles Cardiac: Present Reg Rate and Rhythm Comment:: Appears to be in rate controlled a flutter on telemetry GI: Present soft and normal bowel sounds; Absent distention or tenderness Extremities: Present normal inspection, full ROM and edema (Improving) Comment:: Chronic lymphedema Skin: Present intact; Absent erythema Neuro: Present Grossly Intact, alert, awake, oriented x 3 and moves all extremities Assessment and Plan *Assessment and plan (1) Atrial fibrillation with RVR: Status: Acute Category: Medical Code(s): I48.91 - Unspecified atrial fibrillation (2) CKD (chronic kidney disease), stage IV: Status: Acute Category: Medical Code(s): N18.4 - Chronic kidney disease, stage 4 (severe) (3) NSTEMI (non-ST elevated myocardial infarction): Status: Acute Category: Medical Code(s): I21.4 - Non-ST elevation (NSTEMI) myocardial infarction (4) Tobacco use: Status: Acute Category: Social Hx Code(s): Z72.0 - Tobacco use (5) Obesity: Status: Acute Qualifiers: Obesity type: due to excess calories Obesity classification: adult class 3 (BMI >= 40) Serious obesity comorbidity presence: without serious comorbidity Body mass index: BMI 40.0-44.9 Qualified Code(s): E66.01 - Morbid (severe) obesity due to excess calories; Z68.41 - Body mass index [BMI] 40.0- 44.9, adult Category: Medical Code(s): E66.9 - Obesity, unspecified (6) HTN (hypertension): Status: Acute Qualifiers: Hypertension type: primary hypertension Qualified Code(s): I10 - Essential (primary) hypertension Category: Medical Code(s): I10 - Essential (primary) hypertension (7) Lymphedema: Status: Acute Category: Medical Code(s): I89.0 - Lymphedema, not elsewhere classified (8) Swelling of both lower extremities: Status: Acute Category: Medical Code(s): M79.89 - Other specified soft tissue disorders (9) Coronary artery disease: Status: Acute Qualifiers: Coronary Disease-Associated Artery/Lesion type: bypass graft [place] vs. transplanted heart: [place] heart Associated angina: without angina Qualified Code(s): I25.810 - Atherosclerosis of coronary artery bypass graft(s) without angina pectoris Category: Medical Code(s): I25.10 - Atherosclerotic heart disease of [place] coronary artery without angina pectoris (10) Chest pain: Status: Acute Category: Medical Code(s): R07.9 - Chest pain, unspecified (11) Acute on chronic heart failure with preserved ejection fraction (HFpEF): Status: Acute Category: Medical Code(s): I50.33 - Acute on chronic diastolic (congestive) heart failure Plan Patient with past medical history of atrial fibrillation, CAD, right bundle branch block, CKD, lymphedema, history of CABG, hypertension, hyperlipidemia. Patient presents complaining of chest discomfort and palpitations. Patient presented to emergency room at [facility] complaining of chest pain/palpitations around 2 AM. CP described as 3/10, sharp, lasting 3mins, with rad to neck. Pt CP free at time of my admission 10/17 646am in registration. Patient noted to have wide-complex tachycardia with heart rate in 140s at admission. Patient given IV diltiazem, with rhythm change in A-fib with RVR. Was transferred for cardiology eval. has responded well to dose adjustment. Rate controlled on current regimen. Awaiting placement. Continuing to diurese. Problems addressed as follows: A-fib RVR Acute on chronic heart failure with preserved ejection fraction - continue diltiazem 240 mg twice daily for improved rate control <90. Asymptomatic at this time. Recommend ALEIDA as an outpatient. No cardioversion planned. - Continue Eliquis 5 mg twice daily. Will need 2-week event monitor at discharg e. Would benefit from follow-up and workup for sleep apnea as an outpatient. - ECHO 01/14 - nml LV function, mod RV dilation with mild reduction in RV function - Continue Bumex 2mg PO twice daily - Contraindicated for ARNI/MRA due to CKD 4 - Continue Lipitor 10 mg daily - Has had some pain with legs/edema. One dose of morphine yesterday. Morphine stopped as of today. treat pain with tylenol 650mg q4hprn Carotid Stenosis s/p CEA 2009: asymptomatic; cont statin, Eliquis ALBERT CKD-IV - Cr 3.2 on admission, baseline 2.4. BUN 62, creatinine 2.5. Potassium 5.5, magnesium 2.5 -Continue to monitor closely with diuresis. Repeat CBC, CMP, magnesium ordered for the morning. -Will refer to nephrology as an outpatient. BPH: flowmax 0.4mg po daily Restless leg syndrome. Requip 0.25mg TID Eliquis twice daily Cardiac diet CODE STATUS: Full
[2024-10-23] MEDS: ACETAMINOPHEN 325MG TAB 650 MG PO ×2 (11:34→20:14)
[2024-10-23 11:36] VITALS: BP 157/67; PULSE 78; RESP 22; TEMP 36.8; O2SAT 94
[2024-10-23] MEDS: ROPINIROLE HCL 0.25 MG TABLET PO ×2 (12:50→20:13)
--- NOTE | 2024-10-23 14:35 | PC.NURSE ---
room air saturation 92%
[2024-10-23 15:33] VITALS: BP 121/70; PULSE 126; RESP 18; TEMP 36.7; O2SAT 92
--- NOTE | 2024-10-23 18:38 | PC.NURSE ---
PT IS RESTING IN BED. ALERT AND ORIENTED X4. EATING AND DRINKING WELL. ROOM AIR SATURATION HAS MAINTAINED 90-94%. LUNG SOUNDS DIMINISHED. 3-4+ PITTING EDEMA NOTED TO BLE. ABDOMEN SOFT/ROUND/NON TENDER WITH HYPOACTIVE BOWEL SOUNDS. 2 ASSIST TO TRANSFER. WILL CONTINUE TO MONITOR.
[2024-10-23 20:00] VITALS: BP 146/64; PULSE 58; RESP 16; TEMP 37; O2SAT 94
[2024-10-23] MEDS: FLUTICASONE PROP 50MCG NASAL SPRAY 16GM 1 SPRAY NS (20:12)
[2024-10-23] MEDS: ATORVASTATIN 10MG TABLET 10 MG PO (20:12)
[2024-10-23] MEDS: TAMSULOSIN 0.4MG CAPSULE 0.4 MG PO (20:13)
[2024-10-24] MEDS: ACETAMINOPHEN 325MG TAB 650 MG PO (02:03)
[2024-10-24 04:00] VITALS: BP 105/44; PULSE 54; RESP 16; TEMP 36.9; O2SAT 95; BMI 34.7
--- NOTE | 2024-10-24 05:09 | PC.NURSE ---
Pt A&OX4. 02 sats dropped to 85% on room air. Pt was placed back on 2L nasal cannula where he is currently at 96%. Pt transfer to bedside requiring x2 assist. He has complained of leg pain and was medicated twice per MAR. 3-4+ edema noted to BLE. No other complaints at this time, call light within reach.
[2024-10-24 07:09] LABS: Alanine Aminotransferase 14 U/L (12-78); Albumin Level 3.3 g/dl (3.5-5.0); Albumin/Globulin Ratio 1.1 (1.1-1.8); Alkaline Phosphatase 57 U/L (38-126); Anion Gap 9.2 mEq/L (5-15); Aspartate Amino Transferase 21 U/L (17-59); Bilirubin,Total 0.5 mg/dl (0.2-1.3); Blood Urea Nitrogen 64 mg/dl (9-20); Calcium 8.7 mg/dl (8.4-10.2); Carbon Dioxide 37 mmol/L (22.0-30.0); Chloride 94 mmol/L (98-107); Creatinine Clearance Estimated 51 mL/min (50-200); Estimated Glomerular Filt Rate 27 ml/min (>60); GFR (African American) 33 ML/MIN (>60); Globulin 3.1 g/dL (1.3-3.2); Glucose 96 mg/dl (74-100); Potassium 5.2 mmoL/L (3.5-5.1); Sodium 135 mmol/L (136-145); Total Protein,Serum 6.4 g/dl (6.3-8.2)
[2024-10-24 08:00] VITALS: BP 133/55; PULSE 77; RESP 20; O2SAT 93
[2024-10-24] MEDS: dilTIAZem ER 240MG CAPSULE 240 MG PO ×2 (08:09→21:27)
[2024-10-24] MEDS: ROPINIROLE HCL 0.25 MG TABLET PO ×3 (08:09→21:27)
[2024-10-24] MEDS: DOCUSATE SODIUM 100 MG CAPSULE PO (08:09)
[2024-10-24] MEDS: FLUTICASONE PROP 50MCG NASAL SPRAY 16GM 1 SPRAY NS ×2 (08:10→21:27)
[2024-10-24] MEDS: BUMETANIDE 1 MG TABLET 2 MG PO ×2 (08:10→15:30)
[2024-10-24] MEDS: APIXABAN 5MG TABLET 5 MG PO ×2 (08:10→21:27)
[2024-10-24 08:18] VITALS: BP 132/77; PULSE 62; RESP 20; TEMP 36.6; O2SAT 93
[2024-10-24 08:25] LABS: Basophils # 0.1 K/mm3 (0-0.2); Basophils % 0.8 % (0.1-2.0); Eosinophils # 0.3 K/mm3 (0.0-0.4); Eosinophils % 3.4 % (0.1-12.0); Hematocrit 26.5 % (42.0-52.0); Hemoglobin 8.2 g/dL (14.1-18.0); Lymphocytes # 0.8 K/mm3 (0.7-4.5); Lymphocytes % 10.8 % (10-50); Mean Corpuscular HGB Conc 30.9 g/dL (31.8-35.4); Mean Corpuscular Hemoglobin 27.6 pg (27.0-31.2); Mean Corpuscular Volume 89.2 fl (80-94); Mean Platelet Volume 11.4 fl (7.4-10.4); Monocytes # 0.6 K/mm3 (0.1-1.0); Monocytes % 7.8 % (1.7-9.3); Neutrophils # 5.8 K/mm3 (1.8-7.8); Neutrophils % 76.7 % (37.0-80.0); Platelet Count 209 K/mm3 (142-424); Red Blood Count 2.97 M/mm3 (4.60-6.20); Red Cell Distribution Width 14.3 % (11.5-17.5); White Blood Count 7.6 K/mm3 (4.8-10.8)
[2024-10-24 09:25] LABS: Magnesium 2.3 mg/dl (1.6-2.3)
--- NOTE | 2024-10-24 10:11 | PC.NURSE ---
patient did not need anything at this time
[2024-10-24 15:56] VITALS: BP 147/60; PULSE 50; RESP 16; TEMP 36.3; O2SAT 97
--- NOTE | 2024-10-24 17:14 | PC.NURSE ---
PT IS RESTING IN BED. ALERT AND ORIENTED X4. EATING AND DRINKING WELL. PT TOLERATED SITTING UP IN THE CHAIR FOR SEVERAL HOURS THIS AFTERNOON. 1 ASSIST WITH WALKER. PT HAD A BOWEL MOVEMENT THIS SHIFT. LUNG SOUNDS DIMINISHED. 3-4+ PITTING EDEMA NOTED TO BLE. O2 SATURATION 93-96% ON 2 L NC. WILL CONTINUE TO MONITOR.
--- NOTE | 2024-10-24 17:46 | EXP.PN ---
Subjective *Date: 10/24/24 *Time: 17:46 Interval history: Continues to be very pleasant, diuresing well. No chest pain, shortness of breath. Continues to have significant peripheral edema lower extremities 4+. Exam Data for Last 24 hours Vital signs and Labs for Last 24 Hours: Temp Pulse Resp BP Pulse Ox O2 Del Method O2 Flow Rate 97.4 F L 50 L 16 147/60 H 97 Nasal Cannula 2 10/24/24 15:56 10/24/24 15:56 10/24/24 15:56 10/24/24 15:56 10/24/24 15:56 10/24/24 16:58 10/24/24 16:58 Laboratory Results - last 24 hr 10/24/24 06:10: WBC 7.6, RBC 2.97 L, Hgb 8.2 L, Hct 26.5 L, MCV 89.2, MCH 27.6, MCHC 30.9 L, RDW 14.3, Plt Count 209, MPV 11.4 H, Neut % (Auto) 76.7, Lymph % (Auto) 10.8, [place] % (Auto) 7.8, Eos % (Auto) 3.4, Baso % (Auto) 0.8, Neut # (Auto) 5.8, Lymph # (Auto) 0.8, [place] # (Auto) 0.6, Eos # (Auto) 0.3, Baso # (Auto) 0.1, Sodium 135 L, Potassium 5.2 H, Chloride 94 L, Carbon Dioxide 37 H, Anion Gap 9.2, BUN 64 H, Creatinine 2.40 H, Estimated Creat Clear 51, Estimated GFR 27 L, Est GFR ( Amer) 33 L, Glucose 96, Calcium 8.7, Magnesium 2.3, Total Bilirubin 0.5, AST 21, ALT 14, Alkaline Phosphatase 57, Total Protein 6.4, Albumin 3.3 L, Globulin 3.1, Albumin/Globulin Ratio 1.1 I & O for Last 24 hours: Intake & Output 10/21/24 10/22/24 10/23/24 10/24/24 23:59 23:59 23:59 23:59 Intake Total 1770 / 2490 2040 / 2340 1330 / 1630 910 / 910 Output Total 0 / 0 1600 / 1600 3550 / 3550 1775 / 1775 Balance 1770 / 2490 440 / 740 -2220 / -1920 -865 / -865 Weight 122.517 kg 125.418 kg 124.647 kg 122.697 kg Constitutional Constitutional: no acute distress and cooperative *Routine HEENT Exam Eye: Present PERRL *Routine Respiratory Exam Respiratory: Present CTA bilaterally; Absent accessory muscle use, wheezes or crackles *Routine Cardiovascular Exam Cardiovascular: Present RRR, Normal S1 and Normal S2; Absent murmur, gallop or rubs *Routine Abdominal Exam Abdominal: Present soft; Absent tenderness *Routine Extremities Exam Extremities: Present pulses intact; Absent cyanosis or edema Comments: Bilateral lower extremity pitting edema 4+. *Routine Skin Exam Skin: Present intact; Absent erythema or wounds *Routine Neurological Exam Neurological: Present alert and oriented X3 Routine Psychiatric Exam Psychiatric: Present cooperative Assessment and Plan *Assessment and plan (1) Atrial fibrillation with RVR: Status: Acute Category: Medical Code(s): I48.91 - Unspecified atrial fibrillation (2) CKD (chronic kidney disease), stage IV: Status: Acute Category: Medical Code(s): N18.4 - Chronic kidney disease, stage 4 (severe) (3) NSTEMI (non-ST elevated myocardial infarction): Status: Acute Category: Medical Code(s): I21.4 - Non-ST elevation (NSTEMI) myocardial infarction (4) Tobacco use: Status: Acute Category: Social Hx Code(s): Z72.0 - Tobacco use (5) Obesity: Status: Acute Qualifiers: Obesity type: due to excess calories Obesity classification: adult class 3 (BMI >= 40) Serious obesity comorbidity presence: without serious comorbidity Body mass index: BMI 40.0-44.9 Qualified Code(s): E66.01 - Morbid (severe) obesity due to excess calories; Z68.41 - Body mass index [BMI] 40.0-44.9, adult Category: Medical Code(s): E66.9 - Obesity, unspecified (6) HTN (hypertension): Status: Acute Qualifiers: Hypertension type: primary hypertension Qualified Code(s): I10 - Essential (primary) hypertension Category: Medical Code(s): I10 - Essential (primary) hypertension (7) Lymphedema: Status: Acute Category: Medical Code(s): I89.0 - Lymphedema, not elsewhere classified (8) Swelling of both lower extremities: Status: Acute Category: Medical Code(s): M79.89 - Other specified soft tissue disorders (9) Coronary artery disease: Status: Acute Qualifiers: Coronary Disease-Associated Artery/Lesion type: bypass graft [place] vs. transplanted heart: [place] heart Associated angina: without angina Qualified Code(s): I25.810 - Atherosclerosis of coronary artery bypass graft(s) without angina pectoris Category: Medical Code(s): I25.10 - Atherosclerotic heart disease of [place] coronary artery without angina pectoris (10) Chest pain: Status: Acute Category: Medical Code(s): R07.9 - Chest pain, unspecified (11) Acute on chronic heart failure with preserved ejection fraction (HFpEF): Status: Acute Category: Medical Code(s): I50.33 - Acute on chronic diastolic (congestive) heart failure Plan Patient with past medical history of atrial fibrillation, CAD, right bundle branch block, CKD, lymphedema, history of CABG, hypertension, hyperlipidemia. Patient presents complaining of chest discomfort and palpitations. Patient presented to emergency room at [facility] complaining of chest pain/palpitations around 2 AM. CP described as 3/10, sharp, lasting 3mins, with rad to neck. Pt CP free at time of my admission 10/17 646am in registration. Patient noted to have wide-complex tachycardia with heart rate in 140s at admission. Patient given IV diltiazem, with rhythm change in A-fib with RVR. Was transferred for cardiology eval. has responded well to dose adjustment. Rate controlled on current regimen. Awaiting placement. Continuing to diurese. Problems addressed as follows: #A-fib RVR #Acute HFpEF - Currently rate controlled. Continue diltiazem 240 mg twice daily for improved rate control <90. Asymptomatic at this time. Recommend ALEIDA as an outpatient. No cardioversion planned. - Continue Eliquis 5 mg twice daily. Will need 2-week event monitor at discharge. Would benefit from follow-up and workup for sleep apnea as an outpatient. - ECHO 10/18/2024 normal biventricular function, moderate RV dilation with mild reduction in RV function - Continue Bumex 2mg PO twice daily. Continues to have significant lower extremity pitting edema 4+. Total net -7.6 L this admission. - Contraindicated for ARNI/MRA, SGLT2i due to CKD 4. - Continue Lipitor 10 mg daily. ? Follow-up bilateral venous Doppler studies for lower extremity pitting edema, left calf pain Carotid Stenosis s/p CEA 2008: asymptomatic; cont statin, Eliquis. ALBERT CKD-IV - Cr 3.2 on admission, baseline 2.4. Creatinine 2.4 today. - Continue to monitor closely with diuresis. Repeat CBC, CMP, magnesium ordered for the morning. - Will refer to nephrology as an outpatient. BPH: flowmax 0.4mg po daily Restless leg syndrome. Requip 0.25mg TID Eliquis twice daily Cardiac diet CODE STATUS: Full
[2024-10-24 19:34] VITALS: BP 150/70; PULSE 47; RESP 16; TEMP 36.6; O2SAT 96
[2024-10-24 20:00] VITALS: PULSE 47; RESP 16; O2SAT 96
--- NOTE | 2024-10-24 21:16 | PC.NURSE ---
Patient is to receive diltiazem HCl this shift per DEC; patient's blood pressure was 150/70 and his heart rate was 47. Allison GRANADO was paged at this time to clarify whether or not the medication is safe to give at this time. Administration will be proceeded per DEC; patient has been getting this medication on a regular basis.
[2024-10-24] MEDS: TAMSULOSIN 0.4MG CAPSULE 0.4 MG PO (21:27)
[2024-10-24] MEDS: ATORVASTATIN 10MG TABLET 10 MG PO (21:27)
[2024-10-25 04:00] VITALS: BMI 33.7
--- NOTE | 2024-10-25 04:40 | PC.NURSE ---
Patient is alert and oriented although his speech is occasionally mumbled, stuttered, and repetitive. At times, the patient has difficulty finding words. Patient was observed to be awake for nearly the entirety of the shift. Patient has not had any complaints of palpitations or pain, but he has complained of congestion that makes it hard for [him] to breathe this shift. He has had to be educated about administration of Flonase; patient returns understanding each time. Patient refused to take gabapentin this shift because it makes him feel too funny. Other scheduled medications were administered per DEC. Upon palpation of his abdomen, it was found to be firm, large, and non-tender. A purewick has remained in place; it has been changed a few times this shift. He has had very adequate urine output that has been emptied and documented accordingly. Redness was observed in his intergluteal cleft; zinc paste has been applied to the area this shift. Patient has significant pitting edema (+3, +4) in his bilateral lower extremities; pillows were placed underneath his legs for elevation. Patient has requested a few Starry sodas to drink and chocolate pudding cups to eat. Patient's heart rate has been bradycardic and his blood pressure has been slightly elevated this shift. Oxygen saturations have remained > 90% on 2 L of oxygen via nasal cannula. At this time, the patient is sitting up in bed. He has been repositioned regularly this shift. Call light within reach.
--- NOTE | 2024-10-25 06:15 | CA_ITS ---
FINAL REPORT CLINICAL HISTORY: LYMPHEDEMA BILATERAL LE'S,PAIN BILATERAL LE'S,PT ON ELIQUIS COMPARISON: None FINDINGS: DUPLEX VENOUS SONOGRAPHY OF THE BILATERAL LOWER EXTREMITIES Multiple transverse and longitudinal scans were performed of the femoropopliteal deep venous systems, with augmentation and compression maneuvers. HISTORY: Pain, lymphedema FINDINGS: Normal phasic flow was noted in the visualized deep venous systems. No intraluminal increased echogenicity is noted to suggest thrombus. There is normal compression and augmentation of the venous structures. No abnormal venous collaterals are seen. IMPRESSION: No evidence of deep venous thrombosis of the bilateral lower extremities. Reviewed, Interpreted and Dictated by Renetta Gandhi MD Transcribed by Linette Mills Authenticated and [facility]
[2024-10-25 07:19] LABS: Alanine Aminotransferase 15 U/L (12-78); Alkaline Phosphatase 54 U/L (38-126); Aspartate Amino Transferase 24 U/L (17-59); Bilirubin,Total 0.5 mg/dl (0.2-1.3); Blood Urea Nitrogen 61 mg/dl (9-20); Calcium 8.8 mg/dl (8.4-10.2); Chloride 94 mmol/L (98-107); Creatinine Clearance Estimated 50 mL/min (50-200); Estimated Glomerular Filt Rate 27 ml/min (>60); GFR (African American) 33 ML/MIN (>60); Glucose 101 mg/dl (74-100); Sodium 135 mmol/L (136-145); Total Protein,Serum 6.6 g/dl (6.3-8.2)
[2024-10-25 07:20] LABS: Albumin Level 3.5 g/dl (3.5-5.0); Albumin/Globulin Ratio 1.1 (1.1-1.8); Carbon Dioxide 39 mmol/L (22.0-30.0); Globulin 3.1 g/dL (1.3-3.2)
[2024-10-25 07:37] LABS: Anion Gap 7.3 mEq/L (5-15); Potassium 5.3 mmoL/L (3.5-5.1)
[2024-10-25] MEDS: ROPINIROLE HCL 0.25 MG TABLET PO ×3 (07:56→20:56)
[2024-10-25] MEDS: DOCUSATE SODIUM 100 MG CAPSULE PO (07:56)
[2024-10-25] MEDS: APIXABAN 5MG TABLET 5 MG PO ×2 (07:56→20:56)
[2024-10-25] MEDS: dilTIAZem ER 240MG CAPSULE 240 MG PO ×2 (07:56→20:56)
[2024-10-25] MEDS: FLUTICASONE PROP 50MCG NASAL SPRAY 16GM 1 SPRAY NS ×2 (07:56→22:27)
[2024-10-25 08:00] VITALS: BP 124/67; PULSE 68; RESP 16; TEMP 36.7; O2SAT 96
[2024-10-25] MEDS: BUMETANIDE 1 MG TABLET 2 MG PO (15:04)
[2024-10-25 16:00] VITALS: BP 133/58; PULSE 44; RESP 20; TEMP 36.7; O2SAT 96
--- NOTE | 2024-10-25 16:01 | P.PN_ITS ---
Subjective *Date: 10/25/24 *Time: 16:01 Interval history: Doing well, diuresing well. No complaints. Pending placement. Exam Data for Last 24 hours Vital signs and Labs for Last 24 Hours: Temp Pulse Resp BP Pulse Ox O2 Del Method O2 Flow Rate 98.0 F 68 16 124/67 96 Nasal Cannula 2 10/25/24 08:00 10/25/24 08:00 10/25/24 08:00 10/25/24 08:00 10/25/24 08:00 10/25/24 14:18 10/25/24 14:18 Laboratory Results - last 24 hr 10/25/24 06:27: Sodium 135 L, Potassium 5.3 H, Chloride 94 L, Carbon Dioxide 39 H, Anion Gap 7.3, BUN 61 H, Creatinine 2.40 H, Estimated Creat Clear 50, Estimated GFR 27 L, Est GFR ( Amer) 33 L, Glucose 101 H, Calcium 8.8, Total Bilirubin 0.5, AST 24, ALT 15, Alkaline Phosphatase 54, Total Protein 6.6, Albumin 3.5, Globulin 3.1, Albumin/Globulin Ratio 1.1 I & O for Last 24 hours: Intake & Output 10/22/24 10/23/24 10/24/24 10/25/24 23:59 23:59 23:59 23:59 Intake Total 2040 / 2340 1330 / 1630 1060 / 1521 1061 / 1061 Output Total 1600 / 1600 3550 / 3550 3225 / 4050 1225 / 1225 Balance 440 / 740 -2220 / -1920 -2165 / -2529 -164 / -164 Weight 125.418 kg 124.647 kg 122.697 kg 119.431 kg Constitutional Constitutional: no acute distress and cooperative *Routine HEENT Exam Eye: Present PERRL *Routine Respiratory Exam Respiratory: Present CTA bilaterally; Absent accessory muscle use, wheezes or crackles *Routine Cardiovascular Exam Cardiovascular: Present RRR, Normal S1 and Normal S2; Absent murmur, gallop or rubs *Routine Abdominal Exam Abdominal: Present soft; Absent tenderness *Routine Extremities Exam Extremities: Present pulses intact; Absent cyanosis or edema Comments: Bilateral lower extremity pitting edema 4+. *Routine Skin Exam Skin: Present intact; Absent erythema or wounds *Routine Neurological Exam Neurological: Present alert and oriented X3 Routine Psychiatric Exam Psychiatric: Present cooperative Assessment and Plan *Assessment and plan (1) Atrial fibrillation with RVR: Status: Acute Category: Medical Code(s): I48.91 - Unspecified atrial fibrillation (2) CKD (chronic kidney disease), stage IV: Status: Acute Category: Medical Code(s): N18.4 - Chronic kidney disease, stage 4 (severe) (3) NSTEMI (non-ST elevated myocardial infarction): Status: Acute Category: Medical Code(s): I21.4 - Non-ST elevation (NSTEMI) myocardial infarction (4) Tobacco use: Status: Acute Category: Social Hx Code(s): Z72.0 - Tobacco use (5) Obesity: Status: Acute Qualifiers: Obesity type: due to excess calories Obesity classification: adult class 3 (BMI >= 40) Serious obesity comorbidity presence: without serious comorbidity Body mass index: BMI 40.0-44.9 Qualified Code(s): E66.01 - Morbid (severe) obesity due to excess calories; Z68.41 - Body mass index [BMI] 40.0- 44.9, adult Category: Medical Code(s): E66.9 - Obesity, unspecified (6) HTN (hypertension): Status: Acute Qualifiers: Hypertension type: primary hypertension Qualified Code(s): I10 - Essential (primary) hypertension Category: Medical Code(s): I10 - Essential (primary) hypertension (7) Lymphedema: Status: Acute Category: Medical Code(s): I89.0 - Lymphedema, not elsewhere classified (8) Swelling of both lower extremities: Status: Acute Category: Medical Code(s): M79.89 - Other specified soft tissue disorders (9) Coronary artery disease: Status: Acute Qualifiers: Coronary Disease-Associated Artery/Lesion type: bypass graft [place] vs. transplanted heart: [place] heart Associated angina: without angina Qualified Code(s): I25.810 - Atherosclerosis of coronary artery bypass graft(s) without angina pectoris Category: Medical Code(s): I25.10 - Atherosclerotic heart disease of [place] coronary artery without angina pectoris (10) Chest pain: Status: Acute Category: Medical Code(s): R07.9 - Chest pain, unspecified (11) Acute on chronic heart failure with preserved ejection fraction (HFpEF): Status: Acute Category: Medical Code(s): I50.33 - Acute on chronic diastolic (congestive) heart failure Plan Patient with past medical history of atrial fibrillation, CAD, right bundle branch block, CKD, lymphedema, history of CABG, hypertension, hyperlipidemia. Patient presents complaining of chest discomfort and palpitations. Patient presented to emergency room at [facility] complaining of chest pain/palpitations around 2 AM. CP described as 3/10, sharp, lasting 3mins, with rad to neck. Pt CP free at time of my admission 10/17 646am in registration. Patient noted to have wide-complex tachycardia with heart rate in 140s at admission. Patient given IV diltiazem, with rhythm change in A-fib with RVR. Was transferred for cardiology eval. has responded well to dose adjustment. Rate controlled on current regimen. Awaiting placement. Continuing to diurese. Problems addressed as follows: #A-fib RVR #Acute HFpEF - Currently rate controlled. Continue diltiazem 240 mg twice daily for improved rate control <90. Asymptomatic at this time. Recommend ALEIDA as an outpatient. No cardioversion planned. - Continue Eliquis 5 mg twice daily. Will need 2-week event monitor at discharge. Would benefit from follow-up and workup for sleep apnea as an outpatient. - ECHO 10/18/2024 normal biventricular function, moderate RV dilation with mild reduction in RV function - Continue Bumex 2mg PO twice daily. Continues to have significant lower extremity pitting edema 4+. Total net -7.6 L this admission. - Contraindicated for ARNI/MRA, SGLT2i due to CKD 4. - Continue Lipitor 10 mg daily. ? No DVTs on bilateral lower extremity Dopplers. ? Medically stable. Pending placement at [facility]. Carotid Stenosis s/p CEA 2008: asymptomatic; cont statin, Eliquis. ALBERT CKD-IV - Cr 3.2 on admission, baseline 2.4. Creatinine 2.4 today. - Continue to monitor closely with diuresis. Repeat CBC, CMP, magnesium ordered for the morning. - Will refer to nephrology as an outpatient. BPH: flowmax 0.4mg po daily Restless leg syndrome. Requip 0.25mg TID Eliquis twice daily Cardiac diet CODE STATUS: Full
--- NOTE | 2024-10-25 16:54 | PC.NURSE ---
Aox 4, up with assistance times 2, 02-2l nc sats in the 90' s, 22g L fa sl, needs threat monitoring analyst when d/c, awaiting bed at [facility].
[2024-10-25] MEDS: TAMSULOSIN 0.4MG CAPSULE 0.4 MG PO (20:56)
[2024-10-25] MEDS: ATORVASTATIN 10MG TABLET 10 MG PO (20:56)
[2024-10-26] VITALS: BP 151/62; PULSE 64; RESP 18; TEMP 36.4; O2SAT 94
[2024-10-26 04:00] VITALS: BMI 33.7
--- NOTE | 2024-10-26 07:23 | PC.NURSE ---
Pt. had a stable and uneventful night. He slept on and off. He is alert and orientated x 4. No c/o pain. Purewick in place. Eating and drinking well. VSS. Personal items and call smith in reach.
[2024-10-26 08:00] VITALS: BP 140/59; PULSE 65; RESP 18; TEMP 36.7; O2SAT 95
[2024-10-26] MEDS: BUMETANIDE 1 MG TABLET 2 MG PO (08:05)
[2024-10-26] MEDS: dilTIAZem ER 240MG CAPSULE 240 MG PO (08:05)
[2024-10-26] MEDS: DOCUSATE SODIUM 100 MG CAPSULE PO (08:06)
[2024-10-26] MEDS: ROPINIROLE HCL 0.25 MG TABLET PO ×2 (08:06→11:48)
[2024-10-26] MEDS: APIXABAN 5MG TABLET 5 MG PO (08:06)
[2024-10-26] MEDS: FLUTICASONE PROP 50MCG NASAL SPRAY 16GM 1 SPRAY NS (08:26)
[2024-10-26] MEDS: FINASTERIDE 5MG TABLET 5 MG PO (08:46)
--- NOTE | 2024-10-26 12:10 | P.DS_ITS ---
General Admission date:: 10/17/24 HPI HPI HPI: Patient with past medical history of atrial fibrillation, CAD, right bundle branch block, CKD, lymphedema, history of CABG, hypertension, hyperlipidemia. Patient presents complaining of chest discomfort and palpitations. Patient presented to emergency room at [facility] complaining of chest pain/palpitations around 2 AM. CP described as 3/10, sharp, lasting 3mins, with rad to neck. Pt CP free at time of my admission 10/17 646am in registration. Patient noted to have wide-complex tachycardia with heart rate in 140s. Patient given IV diltiazem, with rhythm change in A-fib with RVR. Patient started on diltiazem drip 15 Mg per hour, with heart rate stabilizing less than 110 bpm. Patient's D-dimer 884, but no CTA chest done secondary to renal insufficiency. Patient's creatinine 3.2, with normal creatinine baseline of 2.4. Patient discussed with Dr. Feldman, diesel engine i pipe fitter prior to admission, who recommended patient be admitted to this institution and that cardiology will closely follow. Patient has history of previous admission to this institution 03/05/2024 for similar presentation. Denies current chest discomfort, SOB, productive cough, fevers, chills, sick contacts, recent travel, blurry vision, headaches, abdominal pain, diarrhea, constipation. Patient states that he lives alone at baseline. Hospital Course Hospital Course Hospital Course: Patient with past medical history of atrial fibrillation, CAD, right bundle branch block, CKD, lymphedema, history of CABG, hypertension, hyperlipidemia. Patient presents complaining of chest discomfort and palpitations. Patient presented to emergency room at [facility] complaining of chest pain/palpitations around 2 AM. CP described as 3/10, sharp, lasting 3mins, with rad to neck. Pt CP free at time of my admission 10/17 646am in registration. Patient noted to have wide-complex tachycardia with heart rate in 140s at admission. Patient given IV diltiazem, with rhythm change in A-fib with RVR. Was transferred for cardiology eval. has responded well to dose adjustment. Rate controlled on current regimen. Awaiting placement. Continuing to diurese. Problems addressed as follows: #A-fib RVR #Acute HFpEF exacerbation - Currently rate controlled. Continue diltiazem 240 mg twice daily for improved rate control <90. Asymptomatic at this time. Cardiology recommends ALEIDA as an outpatient. No cardioversion planned. - Continue Eliquis 5 mg twice daily. Will need 2-week event monitor at discharge. Would benefit from follow-up and workup for sleep apnea as an outpatient. - ECHO 10/18/2024 normal biventricular function, moderate RV dilation with mild reduction in RV function - Continue Bumex 2mg PO twice daily. Total net -11 L this admission. - Contraindicated for ARNI/MRA, SGLT2i due to CKD 4. - Continue Lipitor 10 mg daily. ? No DVTs on bilateral lower extremity Dopplers. ? PT initially recommended SNF, but patient improved and ambulating independently. Carotid Stenosis s/p CEA 2008: asymptomatic; cont statin, Eliquis. ALBERT CKD-IV - Cr 3.2 on admission, baseline 2.4. Creatinine 2.4 today. BPH: flowmax 0.4mg po daily, started finasteride Restless leg syndrome. Requip 0.25mg TID Total time spent on discharge: 32 minutes on chart review, counseling, documentation, and direct care with patient. Exam Data for Last 24 hours Vital signs and Labs for Last 24 Hours: Temp Pulse Resp BP Pulse Ox O2 Del Method O2 Flow Rate 98.0 F 65 18 140/59 L 95 Nasal Cannula 2 10/26/24 08:00 10/26/24 08:00 10/26/24 08:00 10/26/24 08:00 10/26/24 08:00 10/26/24 11:54 10/26/24 11:54 I & O for Last 24 hours: Intake & Output 10/23/24 10/24/24 10/25/24 10/26/24 23:59 23:59 23:59 23:59 Intake Total 1330 / 1630 1060 / 1521 1421 / 1421 240 / 240 Output Total 3550 / 3550 3225 / 4050 2475 / 2475 1825 / 1825 Balance -2220 / -1920 -2165 / -2529 -1054 / -1054 -1585 / -1585 Weight 124.647 kg 122.697 kg 119.431 kg 119.421 kg Constitutional Constitutional: no acute distress and cooperative *Routine HEENT Exam Eye: Present PERRL *Routine Respiratory Exam Respiratory: Present CTA bilaterally; Absent accessory muscle use, wheezes or crackles *Routine Cardiovascular Exam Cardiovascular: Present RRR, Normal S1 and Normal S2; Absent murmur, gallop or rubs *Routine Abdominal Exam Abdominal: Present soft; Absent tenderness *Routine Extremities Exam Extremities: Present pulses intact; Absent cyanosis or edema Comments: Bilateral lower extremity pitting edema 3+ and lymphedema. *Routine Skin Exam Skin: Present intact; Absent erythema or wounds *Routine Neurological Exam Neurological: Present alert and oriented X3 Routine Psychiatric Exam Psychiatric: Present cooperative DS: Diagnosis Discharge Diagnosis (1) Atrial fibrillation with RVR: Status: Acute Code(s): I48.91 - Unspecified atrial fibrillation (2) CKD (chronic kidney disease), stage IV: Status: Acute Code(s): N18.4 - Chronic kidney disease, stage 4 (severe) (3) NSTEMI (non-ST elevated myocardial infarction): Status: Acute Code(s): I21.4 - Non-ST elevation (NSTEMI) myocardial infarction (4) Tobacco use: Status: Acute Code(s): Z72.0 - Tobacco use (5) Obesity: Status: Acute Code(s): E66.9 - Obesity, unspecified Qualifiers: Body mass index: BMI 40.0-44.9 Obesity classification: adult class 3 (BMI >= 40) Obesity type: due to excess calories Serious obesity comorbidity presence: without serious comorbidity Qualified Code(s): E66.01 - Morbid (severe) obesity due to excess calories; Z68.41 - Body mass index [BMI] 40.0-44.9, adult (6) HTN (hypertension): Status: Acute Code(s): I10 - Essential (primary) hypertension Qualifiers: Hypertension type: primary hypertension Qualified Code(s): I10 - Essential (primary) hypertension (7) Lymphedema: Status: Acute Code(s): I89.0 - Lymphedema, not elsewhere classified (8) Swelling of both lower extremities: Status: Acute Code(s): M79.89 - Other specified soft tissue disorders (9) Coronary artery disease: Status: Acute Code(s): I25.10 - Atherosclerotic heart disease of [place] coronary artery without angina pectoris Qualifiers: Associated angina: without angina Coronary Disease-Associated Artery/Lesion type: bypass graft [place] vs. transplanted heart: [place] heart Qualified Code(s): I25.810 - Atherosclerosis of coronary artery bypass graft(s) without angina pectoris (10) Chest pain: Status: Acute Code(s): R07.9 - Chest pain, unspecified (11) Acute on chronic heart failure with preserved ejection fraction (HFpEF): Status: Acute Code(s): I50.33 - Acute on chronic diastolic (congestive) heart failure Meds Home Medications and Allergies Home Medications ?Medication ?Instructions ?Recorded ?Confirmed ?Type apixaban 5 mg tablet (Eliquis) 5 mg PO BID 12/12/22 10/17/24 History atorvastatin 10 mg tablet 10 mg PO DAILY 12/12/22 10/17/24 History cetirizine 10 mg tablet 10 mg PO DAILY 12/12/22 10/17/24 History potassium chloride 10 mEq 10 meq PO BID 12/12/22 10/17/24 History capsule,extended release tamsulosin 0.4 mg capsule 0.4 mg PO DAILY 12/12/22 10/17/24 History gabapentin 300 mg capsule 600 mg PO BID 05/08/24 10/17/24 History ferrous sulfate 142 mg (45 mg 45 mg PO BID 08/14/24 10/17/24 History iron) tablet,extended release (Slow Release Iron) fluticasone propionate 50 1 spray intranasal DAILY 08/14/24 10/17/24 History mcg/actuation nasal spray,suspension bumetanide 2 mg tablet 2 mg PO BID edema 30 days #60 tabs 10/26/24 Rx diltiazem HCl 240 mg 240 mg PO BID 30 days #60 caps 10/26/24 Rx capsule,extended release 24 hr finasteride 5 mg tablet 5 mg PO DAILY 30 days #30 tabs 10/26/24 Rx isosorbide mononitrate 60 mg 60 mg PO DAILY 30 days #30 tabs 10/26/24 Rx tablet,extended release 24 hr ropinirole 0.25 mg tablet 0.25 mg PO TID 30 days #90 tabs 10/26/24 Rx New Prescriptions to Start Prescriptions: bumetanide Constantin,Nima diltiazem HCl Constantin,Nima finasteride Constantin,Nima isosorbide mononitrate Constantin,Nima ropinirole Nima Killian Allergies Allergy/AdvReac Type Severity Reaction Status Date / Time No Known Allergies Allergy Verified 08/22/24 13:21 Discharge Plan Disposition Patient Disposition: Home, Self-Care Condition: Fair Discharge Order Discharge Orders: Discharge Order (Routine); Ordered 10/26/24 Ordered By: Nima Killian Follow up Plan Follow up with: Jerry Romano PA [Physician Arc Air Operator] - 11/01/24 2:15 pm True Barker APRN [Primary Care Provider] - 10/29/24 11:15 am Prescriptions/Medication Reconciliation: New diltiazem HCl 240 mg Capsule,Extended Release 24hr 240 mg PO BID 30 Days Qty: 60 0RF finasteride 5 mg Tablet 5 mg PO DAILY 30 Days Qty: 30 0RF ropinirole 0.25 mg Tablet 0.25 mg PO TID 30 Days Qty: 90 0RF Continued gabapentin 300 mg capsule 600 mg PO BID Patient Comments: Take 2 capsules twice a day by oral route for 30 days. fluticasone propionate 50 mcg/actuation spray,suspension 1 spray intranasal DAILY Patient Comments: [place] 1 spray every day by intranasal route for 30 days. ferrous sulfate [Slow Release Iron] 142 mg (45 mg iron) tablet extended release 45 mg PO BID Patient Comments: TAKE ONE TABLET BY MOUTH TWICE DAILY potassium chloride 10 mEq capsule, extended release 10 meq PO BID Patient Comments: Take 1 capsule twice a day by oral route for 30 days. cetirizine 10 mg tablet 10 mg PO DAILY Patient Comments: take 1 tablet Once a day for 30 day(s) atorvastatin 10 mg tablet 10 mg PO DAILY Patient Comments: TAKE ONE TABLET BY MOUTH DAILY tamsulosin 0.4 mg capsule 0.4 mg PO DAILY Patient Comments: TAKE ONE CAPSULE BY MOUTH ONCE DAILY for 30 days Eliquis 5 mg tablet 5 mg PO BID Patient Comments: TAKE ONE TABLET BY MOUTH TWICE DAILY for 30 days isosorbide mononitrate 60 mg tablet extended release 24 hr 60 mg PO DAILY 30 Days Qty: 30 0RF Changed bumetanide 2 mg tablet 2 mg PO BID 30 Days Qty: 60 0RF Discontinued nifedipine 30 mg tablet extended release 30 mg PO DAILY Patient Comments: Take 1 Tablet(s) 1 time a day olmesartan 20 mg tablet 20 mg PO DAILY Patient Comments: Take 1 tablet every day by oral route for 90 days. hydralazine 100 mg tablet 50 mg PO TID Problem Reconciliation Problems Reviewed?: Yes Patient Discharge Instructions Patient Instructions: DI for Atrial Fibrillation Print Language: [place] Providers Primary Care Provider: True Barker Admit Provider: Jerry Price Attending Provider: Jerry Price
--- NOTE | 2024-10-30 11:40 | CARE MANAGER ---
Called and spoke with patient regarding recent discharge. Patient stated that he is doing well, was able to get all medication prescribed at discharge and was aware of scheduled f/u appts. He was unable to attend yesterday's appt with PCP, but plans to reschedule once weather is better.
== END 2024-10-26 14:30 | disposition home or self-care (01) | DRG 280 ==
PROVIDERS: Internal Medicine; Admitting Provider Internal Medicine Adolescent Medicine; PCP Nurse Practitioner Family; Visit Provider Internal Medicine Adolescent Medicine
DX: I13.0 Hypertensive heart and chronic kidney disease with heart failure and stage 1 through stage 4 chronic kidney disease, or unspecified chronic kidney disease (principal); I50.33 Acute on chronic diastolic (congestive) heart failure; I21.4 Non-ST elevation (NSTEMI) myocardial infarction; I25.810 Atherosclerosis of coronary artery bypass graft(s) without angina pectoris; N18.4 Chronic kidney disease, stage 4 (severe); Z68.41 Body mass index [BMI] 40.0-44.9, adult; I48.0 Paroxysmal atrial fibrillation; Z72.0 Tobacco use; E66.01 Morbid (severe) obesity due to excess calories; I89.0 Lymphedema, not elsewhere classified; M79.89 Other specified soft tissue disorders; R07.9 Chest pain, unspecified; I48.91 Unspecified atrial fibrillation; I65.29 Occlusion and stenosis of unspecified carotid artery; E66.9 Obesity, unspecified; Z68.33 Body mass index [BMI] 33.0-33.9, adult
CPT/HCPCS: 36415; 71045; 80048; 80053; 80061; 83735; 83880; 84484; 85025; 93005; 93270; 93306; 93970; 94761; 97110; 97116; 97163; 97166; 97530; J1650; J1939; J2270

== ENCOUNTER 2024-11-12 13:49 | Outpatient (CLI) | payer MEDICARE, SELFPAY ==
[2024-11-12 14:09] LABS: Basophils % 0.3 % (0.1-2.0); Eosinophils # 0.2 K/mm3 (0.0-0.4); Hematocrit 31.4 % (42.0-52.0); Hemoglobin 9.6 g/dL (14.1-18.0); Lymphocytes # 0.9 K/mm3 (0.7-4.5); Lymphocytes % 10.2 % (10-50); Mean Corpuscular HGB Conc 30.6 g/dL (31.8-35.4); Mean Corpuscular Hemoglobin 27.6 pg (27.0-31.2); Mean Corpuscular Volume 90.2 fl (80-94); Mean Platelet Volume 10.3 fl (7.4-10.4); Monocytes # 0.7 K/mm3 (0.1-1.0); Monocytes % 7.9 % (1.7-9.3); Neutrophils # 6.8 K/mm3 (1.8-7.8); Neutrophils % 78.9 % (37.0-80.0); Platelet Count 168 K/mm3 (142-424); Red Blood Count 3.48 M/mm3 (4.60-6.20); Red Cell Distribution Width 14.3 % (11.5-17.5); White Blood Count 8.7 K/mm3 (4.8-10.8)
[2024-11-12 15:02] LABS: Alanine Aminotransferase 14 U/L (12-78); Albumin Level 3.7 g/dl (3.5-5.0); Alkaline Phosphatase 75 U/L (38-126); Aspartate Amino Transferase 18 U/L (17-59); Bilirubin,Direct 0.2 mg/dl (0.0-0.4); Bilirubin,Indirect 0.1 mg/dL (0.0-0.9); Bilirubin,Total 0.3 mg/dl (0.2-1.3); Blood Urea Nitrogen 27 mg/dl (9-20); Calcium 8.6 mg/dl (8.4-10.2); Carbon Dioxide 32 mmol/L (22.0-30.0); Chloride 102 mmol/L (98-107); Chol/HDL Ratio 3.5 (1-3.5); Cholesterol 92 mg/dl (140-200); Estimated Glomerular Filt Rate 33 ml/min (>60); GFR (African American) 40 ML/MIN (>60); Glucose 109 mg/dl (74-100); HDL Cholesterol 26 mg/dl (40-60); Magnesium 1.5 mg/dl (1.6-2.3); Potassium 4.4 mmoL/L (3.5-5.1); Total Protein,Serum 6.7 g/dl (6.3-8.2); Triglycerides 89 mg/dl (30-150); VLDL Cholesterol 18 mg/dL (0-40)
[2024-11-12 15:14] LABS: Anion Gap 9.4 mEq/L (5-15); Sodium 139 mmol/L (136-145)
[2024-11-12 15:19] LABS: Free T4 (Free Thyroxine) 1.26 ng/dl (0.78-2.19)
== END 2024-11-12 23:59 | disposition home or self-care (01) ==
LOC: LAB 13:49
PROVIDERS: PCP Nurse Practitioner Family; Visit Provider Nurse Practitioner
DX: I48.91 Unspecified atrial fibrillation (principal); Z98.890 Other specified postprocedural states; I65.29 Occlusion and stenosis of unspecified carotid artery; I25.810 Atherosclerosis of coronary artery bypass graft(s) without angina pectoris; I89.0 Lymphedema, not elsewhere classified; N18.4 Chronic kidney disease, stage 4 (severe); R60.0 Localized edema; Z72.0 Tobacco use; E66.01 Morbid (severe) obesity due to excess calories; Z68.41 Body mass index [BMI] 40.0-44.9, adult; Z95.1 Presence of aortocoronary bypass graft; I10 Essential (primary) hypertension; E78.2 Mixed hyperlipidemia
CPT/HCPCS: 36415; 80048; 80061; 80076; 83735; 84439; 84443; 85025

== ENCOUNTER 2024-11-27 10:33 | Outpatient (CLI) | payer MEDICARE, SELFPAY ==
[2024-11-27 11:22] LABS: PHA INR Fingerstick 2.3 (0.9-1.1)
== END 2024-11-27 11:24 ==
PROVIDERS: PCP Nurse Practitioner Family; Visit Provider Nurse Practitioner
DX: Z79.01 Long term (current) use of anticoagulants (principal); I48.91 Unspecified atrial fibrillation
CPT/HCPCS: 85610; 99211; G0463

== ENCOUNTER 2024-12-03 10:35 | Outpatient (CLI) | payer MEDICARE, SELFPAY ==
[2024-12-03 12:04] LABS: PHA INR Fingerstick 1.6 (0.9-1.1)
== END 2024-12-03 13:04 ==
LOC: ACC 10:36
PROVIDERS: PCP Nurse Practitioner Family; Visit Provider Nurse Practitioner
DX: Z79.01 Long term (current) use of anticoagulants (principal); I48.91 Unspecified atrial fibrillation
CPT/HCPCS: 85610; 99211; G0463

== ENCOUNTER 2024-12-18 10:28 | Outpatient (CLI) | payer MEDICARE, SELFPAY ==
[2024-12-18 11:30] LABS: PHA INR Fingerstick 1.8 (0.9-1.1)
== END 2024-12-18 11:40 ==
LOC: ACC 10:29
PROVIDERS: PCP Nurse Practitioner Family; Visit Provider Nurse Practitioner
DX: Z79.01 Long term (current) use of anticoagulants (principal); I48.91 Unspecified atrial fibrillation
CPT/HCPCS: 85610; 99211; G0463

== ENCOUNTER 2024-12-19 12:35 | Inpatient (IN) | payer MEDICARE, SELFPAY ==
[2024-12-19] VITALS (10 sets, daily range): BP systolic 94–187; BP diastolic 66–91; PULSE 48–117; RESP 15–26; TEMP 36.6–36.8; O2SAT 91–100; BMI 40.6
--- NOTE | 2024-12-19 12:50 | CT_ITS ---
FINAL REPORT TECHNIQUE: Axial imaging of the chest was obtained without contrast. Reformatted images were also obtained and reviewed.This study was performed with techniques to keep radiation doses as low as reasonably achievable, (ALARA). Individualized dose reduction technique using automated exposure control or adjustment of mA and/or kV according to the patient's size were employed. CLINICAL HISTORY: Abd pain/SOA, chest, tightness FINDINGS: There is no axillary adenopathy. There is no hilar or mediastinal mass or adenopathy. Heart size is normal. There is no pericardial or pleural effusion. There is bronchial wall thickening suggestive of bronchitis. Patchy density in the right middle lobe and lingula is consistent with mild bronchopneumonia. IMPRESSION: Mild bronchopneumonia. Reviewed, Interpreted and Dictated by Quita Quiroz MD Transcribed by Talya Schneider Authenticated and [facility]
--- NOTE | 2024-12-19 12:50 | XR_ITS ---
FINAL REPORT TECHNIQUE: Single view chest CLINICAL HISTORY: SOA COMPARISON: 10/18/2024 FINDINGS: A single view of the chest was obtained. There is mild, stable cardiomegaly. Patient is status post CABG. There are chronic changes at the lung bases. The lungs are otherwise clear. There is no pneumothorax. IMPRESSION: No acute cardiopulmonary process. Reviewed, Interpreted and Dictated by Quita Quiroz MD Transcribed by Talya Schneider Authenticated and [facility]
--- NOTE | 2024-12-19 12:50 | CT_ITS ---
FINAL REPORT TECHNIQUE: After the administration of intravenous contrast, axial images were obtained through the abdomen and pelvis by computed tomography. This study was performed with technique to keep radiation doses as low as reasonably achievable, (ALARA). Individualized dose reduction techniques using automated exposure control or adjustment of the MA and/or KV according to the patient's size were employed. CLINICAL HISTORY: Abd pain/tightness FINDINGS: Abdomen: The liver is fatty infiltrated. There is cholelithiasis without acute gallbladder disease. The spleen is unremarkable. The adrenals are normal. The pancreas is unremarkable. The kidneys enhance appropriately. The aorta is normal in caliber. There is no free fluid. There is moderate fecal impaction. There is a mildly enlarged, upper left common iliac lymph node measuring 14 mm. There are no other areas of adenopathy. Pelvis: The appendix is normal. The urinary bladder is unremarkable. Prostate is moderately enlarged. There is no free fluid or adenopathy. IMPRESSION: No bowel obstruction or ascites. Nonspecific, mild left common iliac adenopathy. Uncomplicated cholelithiasis. Reviewed, Interpreted and Dictated by Quita Quiroz MD Transcribed by Talya Schneider Authenticated and [facility]
--- NOTE | 2024-12-19 12:53 | ECG_ITS ---
APPROVED REPORT Exam: Resting ECG HR:86 bpm ECG Measurements Heart Rate 86 AXES MD 216 P 83 QRSd 170 QRS -51 QT 397 T 84 QTc 440 Conclusion Atrial flutter left axis deviation, right bundle branch block Electronically signed by : REESE MOTA, 12/19/2024 15:04:24
--- NOTE | 2024-12-19 12:55 | ED_ITS ---
<Statement entered by Renato Connelly MD - 12/19/24 21:40> I was consulted by the GERALDINE, and we discussed the complexity of the problems being addressed. I approved the treatment and management plan for this patient's care in the emergency department, thus performing a substantive portion of the medical decision making. Renato Connelly MD Discharge Plan Disposition Patient Disposition: Admitted Condition: Good Clinical Impressions Clinical Impression: Pneumonia, Acute and chronic respiratory failure, Bilateral edema of lower extremity Discharge ED Provider: Austyn Brown General Adult HPI <SHAWN Simmons - Last Filed: 12/19/24 16:11> General Chief complaint: Shortness of Breath/Dyspnea Stated complaint: soa can't bare weight swelling high bp Time Seen by Provider: 12/19/24 12:42 Mode of Arrival: Ambulatory Source of Information: Patient Limitations: No Limitations History of Present Illness HPI narrative: 69-year-old male presents the emergency department request of his primary care provider for bilateral peripheral edema that is worsened within the last for 5 months, as well as shortness of air that is worsened within the last for 5 months, acutely worsened over the last 2 to 3 days. Patient was seen in his PCPs office today, recommended to come to the emergency department further evaluation. Patient denies any chest pain, fever chills cough congestion sore throat, denies abdominal pain nausea vomiting constipation diarrhea, does complain of some abdominal tightness ., Admits to some constipation for the last 2 to 3 days, denies any urinary type symptomatology, denies hematuria melena hematochezia or hematemesis. He is a current everyday tobacco user (smokeless tobacco), denies any alcohol or drug use. Initial triage vitals Notable for tachypnea and oxygen saturation around 91 to 92% on room air. No other history of substance use. Other past medical history consistent with carotid endarterectomy, coronary artery disease status post CABG, lymphedema, CKD stage IV, obesity, fibrillation on anticoagulation therapy with warfarin, hypertension, hyperlipidemia, Onset (ago): day(s) Related Data Home Medications ?Medication ?Instructions ?Recorded ?Confirmed cetirizine 10 mg tablet 10 mg PO DAILY 12/12/22 12/19/24 potassium chloride 10 mEq 10 meq PO BID 12/12/22 12/19/24 capsule,extended release tamsulosin 0.4 mg capsule 0.4 mg PO HS 12/12/22 12/20/24 gabapentin 300 mg capsule 600 mg PO BID 05/08/24 12/19/24 ferrous sulfate 142 mg (45 mg 45 mg PO BID 08/14/24 12/19/24 iron) tablet,extended release (Slow Release Iron) fluticasone propionate 50 1 spray intranasal DAILY 08/14/24 12/19/24 mcg/actuation nasal spray,suspension aspirin 81 mg tablet,delayed 81 mg PO DAILY 11/12/24 12/19/24 release (Adult Low Dose Aspirin) warfarin 4 mg tablet 4 mg PO MOWEFR 11/27/24 12/20/24 albuterol sulfate 90 mcg/actuation 2 puff inhalation Q4H PRN 12/19/24 12/20/24 aerosol inhaler Shortness Of Breath bumetanide 2 mg tablet 4 mg PO BID 12/20/24 12/20/24 folic acid 400 mcg tablet 400 mcg PO DAILY 12/20/24 12/20/24 magnesium oxide 400 mg (241.3 mg 400 mg PO DAILY 12/20/24 12/20/24 magnesium) tablet warfarin 4 mg tablet 2 mg PO SUTUTHSA 12/20/24 12/20/24 Previous Rx's ?Medication ?Instructions ?Recorded finasteride 5 mg tablet 5 mg PO DAILY 30 days #30 tabs 10/26/24 ropinirole 0.25 mg tablet 0.25 mg PO TID 30 days #90 tabs 10/26/24 atorvastatin 10 mg tablet 10 mg PO DAILY #30 tabs 11/12/24 diltiazem HCl 240 mg 240 mg PO BID 30 days #60 caps 11/12/24 capsule,extended release 24 hr isosorbide mononitrate 60 mg 60 mg PO DAILY 30 days #30 tabs 11/12/24 tablet,extended release 24 hr metoprolol succinate 25 mg 25 mg PO BID #180 tabs 11/20/24 tablet,extended release 24 hr Allergies Allergy/AdvReac Type Severity Reaction Status Date / Time No Known Allergies Allergy Verified 12/19/24 15:50 [facility] <SHAWN Simmons - Last Filed: 12/19/24 16:11> [facility] Disclaimer: The information contained in this section may have been updated after the patient was seen, as this information can be updated by other users. Medical History Chest pain Ureterolithiasis Left flank pain Kidney stone Acute pain of right knee Acute kidney injury Kidney dysfunction Peripheral edema Declining functional status Physical deconditioning Left leg weakness Left leg swelling Heart failure RLS (restless legs syndrome) CKD (chronic kidney disease) Former smoker HLD (hyperlipidemia) HTN (hypertension) Surgical History Hx of tonsillectomy Hx of CABG Family History Other No significant family history Social History Smoking Status: Never smoker years smoked: 32 smoking status stop date: 2005 alcohol intake: never current occupational status: retired Travel in the last 8 weeks: None Have you lived/traveled outside [place] in past 30 days?: No Contact w/someone who lives/traveled outside US past 30 days?: No Exposure to someone with infectious disease in past 14 days?: No Do you have a fever (greater than 100.4 F or 38 C)?: No Have you tested positive for COVID-19: No Exposed to someone with COVID-19 in past 14 days?: No Do you have a sore throat?: No Do you have a cough?: No Do you have any weakness?: No Do you have any diarrhea?: No Are you experiencing any unusual bleeding?: No Do you have any muscle aches/pain?: No Do you have any abdominal pain?: No Are you experiencing loss of taste or smell?: No Other Medical History Have you received the Flu Vaccine for this season: No Have you received the Pneumonia Vaccine: No <SHAWN Simmons - Last Filed: 12/19/24 16:11> ROS Obtained: Yes All systems reviewed & no additional complaints except as documented Physical Exam <SHAWN Simmons - Last Filed: 12/19/24 16:11> General General appearance: alert and in no apparent distress Head Head exam: atraumatic and normocephalic Eye Eye exam: Present PERRL and EOMI ENT ENT exam: Present mucous membranes moist Neck Neck exam: Present normal inspection Chest Chest inspection: Present normal inspection and symmetric chest wall rise Respiratory Respiratory exam: Present other (Some rales present bilaterally, mild tachypnea, no tachycardia,); Absent normal lung sounds bilaterally, respiratory distress, wheezes or stridor Cardiovascular Cardiovascular exam: Present regular rate and normal rhythm Abdominal Exam Abdominal exam: Present soft and distention; Absent tenderness, guarding, rebound or rigidity Extremities Exam Extremities exam: Present normal inspection Neurological Exam Neurological exam: Present alert and oriented X3 Psychiatric Psychiatric exam: Present normal affect Skin Skin exam: Present warm and dry Medical Decision Making <SHAWN Simmons - Last Filed: 12/19/24 16:11> Medical Records Medical records reviewed: Yes I reviewed the patient's medical records. Screening: Per USPSTF and CDC recommendations, given the prevalence of disease in our region, it is our hospital?s policy to screen for HIV and viral Hepatitis for all patients aged 18 and over and those with ongoing risk factors. Jerome Inquiry Pt receiving controlled substance: No Jerome was queried for this patient: No Vital Signs: 12/19/24 12:36 12/19/24 15:33 12/19/24 16:00 Temperature 97.9 F Temperature Source Oral Pulse Rate 48 L 117 H Pulse Rate [Left Radial] 80 Respiratory Rate 26 H 21 Blood Pressure 120/91 H 94/66 L Blood Pressure [Right Arm] 149/76 H Blood Pressure Mean [Right Arm] 100 02 Sat by Pulse Oximetry 91 L 98 91 L Oxygen Delivery Method Room Air Oxygen Flow Rate (LPM) 12/19/24 16:10 12/19/24 16:21 Temperature 98.2 F Temperature Source Pulse Rate 72 104 H Pulse Rate [Left Radial] Respiratory Rate 20 Blood Pressure 121/78 121/78 Blood Pressure [Right Arm] Blood Pressure Mean [Right Arm] 02 Sat by Pulse Oximetry 96 Oxygen Delivery Method Nasal Cannula Oxygen Flow Rate (LPM) 3 Lab Data Lab results reviewed: Yes I reviewed the patient's lab results. Lab Results 12/19/24 13:46: WBC 9.6, RBC 4.02 L, Hgb 10.9 L, Hct 35.8 L, MCV 89.1, MCH 27.1, MCHC 30.4 L, RDW 15.0, Plt Count 229, MPV 9.9, Neut % (Auto) 79.6, Lymph % (Auto) 9.9 L, [place] % (Auto) 6.7, Eos % (Auto) 2.6, Baso % (Auto) 0.6, Neut # (Auto) 7.6, Lymph # (Auto) 1.0, Winston # (Auto) 0.6, Eos # (Auto) 0.3, Baso # (Auto) 0.1, PT 16.6 H, INR 1.55 H, VBG pH 7.31, VBG pCO2 75.9 H, VBG pO2 42.4 H, VBG HCO3 37.1 H, VBG Total CO2 39.4 H, VBG O2 Saturation 72.7 H, VBG Base Excess 10.8 H, VBG Lactic Acid 1.2, Sodium 138, Potassium 4.2, Chloride 97 L, Carbon Dioxide 37 H, Anion Gap 8.2, BUN 24 H, Creatinine 1.80 H, Estimated Creat Clear 75, Estimated GFR 38 L, Est GFR ( Amer) 45 L, Glucose 106 H, Calcium 8.6, Magnesium 2.0, Total Bilirubin 0.4, AST 17, ALT 15, Alkaline Phosphatase 78, T otal Creatine Kinase 53 L, Troponin I 0.03, NT-Pro-B Natriuret Pep 2730 H, Total Protein 7.7, Albumin 3.8, Globulin 3.9 H, Albumin/Globulin Ratio 1.0 L, Lipase 62 12/19/24 13:57: Urine Color Yellow, Urine Appearance Clear, Urine pH 6.0, Ur Specific [place] 1.020, Urine Protein 1+ A, Urine Glucose (UA) Negative, Urine Ketones Negative, Urine Blood Trace-i, Urine Nitrate Negative, Urine Bilirubin Negative, Urine Urobilinogen 0.2, Ur Leukocyte Esterase 1+ A, Urine RBC Occasional, Urine WBC 10-20, Ur Squamous Epith Cells 3-5 12/20/24 06:06 12/20/24 06:06 Orders (Tests/Meds): ED MEDICATIONS Generic Name Dose Route Start Last Admin Trade Name Freq PRN Reason Stop Dose Admin Acetaminophen 650 mg 12/19/24 16:27 Acetaminophen 325mg Tab PO 01/18/25 16:26 Q4HP PRN Fever or Mild Pain (1-3) Aspirin 81 mg 12/20/24 09:00 12/20/24 08:23 Aspirin Ec 81mg Tablet PO 01/19/25 08:59 81 mg DAILY ROSELYN Administration Atorvastatin Calcium 10 mg 12/20/24 21:00 Atorvastatin 10mg Tablet PO 01/19/25 20:59 HS ROSELYN Budesonide 0.5 mg 12/20/24 18:00 Budesonide 0.5mg/2ml Neb 01/19/25 17:59 BIDRT ROSELYN Bumetanide 2 mg 12/20/24 09:00 12/20/24 15:01 Bumetanide 1mg/4ml Vial IV 01/19/25 08:59 2 mg TID ROSELYN Administration Diltiazem HCl 240 mg 12/20/24 09:00 12/20/24 08:23 Diltiazem Er 240mg Capsule PO 01/19/25 08:59 240 mg BID ROSELYN Administration Finasteride 5 mg 12/20/24 09:00 12/20/24 08:24 Finasteride 5mg Tablet PO 01/19/25 08:59 5 mg DAILY ROSELYN Administration Gabapentin 600 mg 12/20/24 09:00 12/20/24 08:24 Gabapentin 600mg Tablet PO 01/19/25 08:59 600 mg BID ROSELYN Administration Ceftriaxone Sodium 1 gm/ 50 mls @ 100 mls/hr 12/20/24 09:00 12/20/24 08:22 Sodium Chloride IV 12/30/24 08:59 100 mls/hr Q24H ROSELYN Administration Doxycycline Hyclate 100 mg/ 250 mls @ 166.667 mls/hr 12/19/24 21:30 12/20/24 11:15 Sodium Chloride IV 12/29/24 21:29 166.667 mls/hr Q12H ROSELYN Administration Ipratropium [place] 0.5 mg 12/20/24 14:25 Ipratropium [place] 0.5 Mg/2.5ml Solution 01/19/25 14:24 Q4RT ROSELYN Isosorbide Mononitrate 60 mg 12/20/24 09:00 12/20/24 08:24 Isosorbide [place] 60mg Tab.Er.24h PO 01/19/25 08:59 60 mg DAILY ROSELYN Administration Levalbuterol HCl 1.25 mg 12/20/24 14:25 Levalbuterol 1.25mg/3ml Neb 01/19/25 14:24 Q4RT ROSELYN Metoprolol Succinate 25 mg 12/20/24 09:00 12/20/24 08:24 Metoprolol Succinate Xl 25mg Tablet PO 01/19/25 08:59 25 mg BID ROSELYN Administration Metoprolol Tartrate 5 mg 12/20/24 10:57 12/20/24 11:21 Metoprolol Tartrate 5mg/5ml Vial IV 01/19/25 10:56 5 mg Q6HP PRN Administration HR > 110 Ondansetron HCl 4 mg 12/19/24 16:27 Ondansetron 4mg/2ml Vial IV 01/18/25 16:26 Q6HP PRN Nausea Phenylephrine HCl 1 ml 12/20/24 03:51 12/20/24 08:25 Phenylephrine 0.5% Nasal [place] 15ml NS 01/19/25 03:50 2 spray Q4HP PRN Administration Congestion Polyethylene Glycol 17 gm 12/20/24 10:30 12/20/24 11:15 Polyethylene Glycol 3350 17 Gm Packet PO 01/19/25 10:29 17 gm DAILY ROSELYN Administration Ropinirole HCl 0.25 mg 12/20/24 09:00 12/20/24 15:01 Ropinirole Hcl 0.25 Mg Tablet PO 01/19/25 08:59 0.25 mg TID ROSELYN Administration Sodium Chloride 10 ml 12/20/24 07:29 Sodium Chloride 0.9% 10ml Flush Syringe IV 01/19/25 07:28 NEEDED PRN Maintain IV Site Sodium Chloride 3 ml 12/20/24 08:04 12/20/24 08:54 Sodium Chloride 3% 15ml Neb IH 01/19/25 08:03 3 ml ONCE PRN Administration INDUCE SPUTUM COLLECTION Tamsulosin HCl 0.4 mg 12/20/24 09:00 12/20/24 08:24 Tamsulosin 0.4mg Capsule PO 01/19/25 08:59 0.4 mg DAILY ROSELYN Administration Warfarin Sodium 4 mg 12/20/24 11:00 12/20/24 11:21 Warfarin 2mg Tablet PO 12/21/24 11:01 4 mg COUMADIN ROSELYN Administration Warfarin Sodium 2 mg 12/22/24 11:00 Warfarin 2mg Tablet PO 01/21/25 10:59 [email or web address] [facility] Discontinued Medications Generic Name Dose Route Start Last Admin Trade Name Freq PRN Reason Stop Dose Admin Albuterol/Ipratropium 3 ml 12/19/24 21:30 12/20/24 11:45 Ipratropium/Albuterol 3 Ml Neb IH 01/18/25 21:29 3 ml Q6RT ROSELYN Administration Bumetanide 2 mg 12/20/24 09:00 Bumetanide 1 Mg Tablet PO 01/19/25 08:59 BIDL ROSELYN Ceftriaxone Sodium 1 gm/ 50 mls @ 100 mls/hr 12/19/24 15:07 12/19/24 15:27 Sodium Chloride IV 12/19/24 15:36 100 mls/hr ONCE ONE Administration Azithromycin 500 mg/ Sodium 250 mls @ 250 mls/hr 12/19/24 15:15 12/19/24 15:26 Chloride IV 12/29/24 15:14 250 mls/hr Q24H ROSELYN Administration Iopamidol 75 ml 12/19/24 14:44 12/19/24 14:44 Iopamidol-370 (76%);100ml Bottle IV 12/19/24 14:45 75 ml ONCE ONE Administration Lorazepam 0.5 mg 12/19/24 14:29 12/19/24 14:44 Lorazepam 2mg/Ml Vial IV 12/19/24 14:30 0.5 mg ONCE ONE Administration Non-Formulary Medication 150 mg 12/20/24 09:00 12/20/24 08:23 Dabigatran Etexilate [Pradaxa] PO 01/19/25 08:59 Not Given BID ROSELYN Sodium Chloride 10 ml 12/19/24 14:29 Sodium Chloride 0.9% 10ml Vial IV 01/18/25 14:28 NEEDED PRN to Dilute Lorazepam inj Sodium Chloride 10 ml 12/19/24 14:44 12/19/24 14:45 Sodium Chloride 0.9% 10ml Syr (Rad Only) IV 12/19/24 14:45 10 ml ONCE ONE Administration ORDERS Category Date Time Status CT abdomen pelvis w con Stat Cat Scan 12/19/24 12:[address] chest wo con Stat Cat Scan 12/19/24 12:50 Completed XR chest portable Stat Exams 12/19/24 12:50 Completed CK [Creatine Kinase] Stat Lab 12/19/24 13:46 Completed Complete Blood Count Auto Diff Stat Lab 12/19/24 13:46 Completed Comprehensive Metabolic Panel Stat Lab 12/19/24 13:46 Completed Lipase Stat Lab 12/19/24 13:46 Completed Magnesium Stat Lab 12/19/24 13:46 Completed NT Pro Brain Natriuretic Pep. Stat Lab 12/19/24 13:46 Completed Prothrombin Time INR Stat Lab 12/19/24 13:46 Completed Troponin I Q3H Lab 12/19/24 Completed Troponin I Q3H Lab 12/19/24 19:20 Completed Troponin I Stat Lab 12/19/24 13:46 Completed Urinalysis and Microscopic Stat Lab 12/19/24 13:57 Completed Urine Culture Stat Micro 12/19/24 13:57 Received VBG [Venous Blood Gas] Stat RT 12/19/24 13:46 Completed Medical Decision Narrative: 69-year-old male presents emerged part with shortness of air, bilateral swelling, differential diagnose, not limited to, acute CHF, COPD exacerbation, pulmonary edema, anasarca, dependent edema, lymphedema, pleural effusion, ACS, cardiac arrhythmia, electrolyte disturbance. I discussed patient case with attending physician Dr. Brown and With Obtain laboratory studies, proBNP, lipase, magnesium level, PT/INR troponin urinalysis, CK level, chest x-ray, CT chest without contrast CT and pelvis with contrast for evaluation of characterization, VBG. Reviewed the patient's EKG at 12:53 PM, sinus rhythm with a first-degree AV block, 86 bpm RI interval is mildly elongated to 16 QT interval within normal limits, there is a chronic appearing right bundle branch block there is no STEMI. Of note, there is significant motion artifact was somewhat limits interpretation of the patient's EKG. I reviewed the patient's repeat EKG at 1320 4 PM, there is atrial fibrillation, at 85 bpm, QT interval within normal some of there is no STEMI again right bundle branch block is present. PT/INR are elevated at 16.6, and 1.55, patient is on anticoagulation therapy with warfarin. CBC does not show any leukocytosis, however there is some anemia, that is present unsure of chronicity, globin is 10.9, hematocrit 35.8. Otherwise unremarkable CBC. There is no leukocytosis. VBG is notable for pH within normal limits at 7.31, pCO2 is elevated at 75.9, bicarb is elevated at 37.1. Urinalysis is notable for 1+ proteinuria, negative ketonuria, trace hematuria, negative nitrites, there is 1+ leukocyte esterase, 10-20 WBCs and 3-5 squamous cells. Will start patient on supplemental 2 L nasal cannula. CMP is notable for elevated CO2 level at 37, BUN and creatinine are mildly elevated at 24 and 1.8 respectively, GFR is 38, First troponin within normal limits. proBNP is elevated at 2730. Notified by nursing staff at approximately 2:25 PM, who was notified by CT staff that the patient is having some anxiety , in CT scanner, some difficulty with laying flat and some claustrophobia. This with the attending physician, will give 0.5 mg IV Ativan, patient is on submental oxygen therapy, for anxiety and for patient to tolerate scans. Reviewed the patient's chest x-ray along the corresponding radiologic report no acute cardiopulmonary process. The patient CT chest without contrast on the corresponding radiologic report mild bronchopneumonia. Will start some IV ceftriaxone and IV azithromycin for community acquired pneumonia. Reviewed the patient's CT abdomen pelvis with contrast along the corresponding radiologic report no bowel obstruction or ascites nonspecific mild left common iliac adenopathy uncomplicated cholelithiasis. I discussed this patient's case with the hospitalist Dr. Killian 3:10 PM, he is agreement with current admission plan/treatment plan, patient will be admitted for pneumonia with worsening oxygen requirement, and fluid overload in the setting of HFpEF versus lymphedema. Discussed need for admission with the patient at the bedside patient is agreement with current admission plan/treatment plan. Examination of the patient at 3:30 PM, patient is more somnolent and has creased work of breathing, somewhat hard to arouse, will place patient on BiPAP, this could be due to hypercapnia, in the setting of acute on chronic respiratory failure and increased work of breathing. Note, around 4 PM, patient's heart rate had elevation around 110 to 120 bpm after BiPAP administration, as well as a drop in his blood pressure to around 94-95 systolic could be due to anxiety, or overcompensation with the patient's, will take the patient off BiPAP and continue with nasal cannula for oxygen supplementation, for fluid overload will give 2 mg of IV Bumex. Patient now meeting sepsis criteria with tachypnea and tachycardia with new rhythm/heart rate change, however we will not give IV fluid bolus because of the patient's fluid overload/CHF and lower extremity edema at baseline. Will however obtain lactic acid level and blood cultures. <Austyn Brown MD - Last Filed: 12/20/24 15:03> Vital Signs: 02/26/25 12:36 12/19/24 15:33 12/19/24 16:00 Temperature 97.9 F Temperature Source Oral Pulse Rate 48 L 117 H Pulse Rate [Left Radial] 80 Respiratory Rate 26 H 21 Blood Pressure 120/91 H 94/66 L Blood Pressure [Right Arm] 149/76 H Blood Pressure Mean [Right Arm] 100 02 Sat by Pulse Oximetry 91 L 98 91 L Oxygen Delivery Method Room Air Oxygen Flow Rate (LPM) 12/19/24 16:10 12/19/24 16:21 Temperature 98.2 F Temperature Source Pulse Rate 72 104 H Pulse Rate [Left Radial] Respiratory Rate 20 Blood Pressure 121/78 121/78 Blood Pressure [Right Arm] Blood Pressure Mean [Right Arm] 02 Sat by Pulse Oximetry 96 Oxygen Delivery Method Nasal Cannula Oxygen Flow Rate (LPM) 3 Lab Data Lab Results 12/19/24 13:46: WBC 9.6, RBC 4.02 L, Hgb 10.9 L, Hct 35.8 L, MCV 89.1, MCH 27.1, MCHC 30.4 L, RDW 15.0, Plt Count 229, MPV 9.9, Neut % (Auto) 79.6, Lymph % (Auto) 9.9 L, [place] % (Auto) 6.7, Eos % (Auto) 2.6, Baso % (Auto) 0.6, Neut # (Auto) 7.6, Lymph # (Auto) 1.0, [place] # (Auto) 0.6, Eos # (Auto) 0.3, Baso # (Auto) 0.1, PT 16.6 H, INR 1.55 H, VBG pH 7.31, VBG pCO2 75.9 H, VBG pO2 42.4 H, VBG HCO3 37.1 H, VBG Total CO2 39.4 H, VBG O2 Saturation 72.7 H, VBG Base Excess 10.8 H, VBG Lactic Acid 1.2, Sodium 138, Potassium 4.2, Chloride 97 L, Carbon Dioxide 37 H, Anion Gap 8.2, BUN 24 H, Creatinine 1.80 H, Estimated Creat Clear 75, Estimated GFR 38 L, Est GFR ( Amer) 45 L, Glucose 106 H, Calcium 8.6, Magnesium 2.0, Total Bilirubin 0.4, AST 17, ALT 15, Alkaline Phosphatase 78, T otal Creatine Kinase 53 L, Troponin I 0.03, NT-Pro-B Natriuret Pep 2730 H, Total Protein 7.7, Albumin 3.8, Globulin 3.9 H, Albumin/Globulin Ratio 1.0 L, Lipase 62 12/19/24 13:57: Urine Color Yellow, Urine Appearance Clear, Urine pH 6.0, Ur Specific [place] 1.020, Urine Protein 1+ A, Urine Glucose (UA) Negative, Urine Ketones Negative, Urine Blood Trace-i, Urine Nitrate Negative, Urine Bilirubin Negative, Urine Urobilinogen 0.2, Ur Leukocyte Esterase 1+ A, Urine RBC Occasional, Urine WBC 10-20, Ur Squamous Epith Cells 3-5 Orders (Tests/Meds): ED MEDICATIONS Generic Name Dose Route Start Last Admin Trade Name Freq PRN Reason Stop Dose Admin Acetaminophen 650 mg 12/19/24 16:27 Acetaminophen 325mg Tab PO 01/18/25 16:26 Q4HP PRN Fever or Mild Pain (1-3) Aspirin 81 mg 12/20/24 09:00 12/20/24 08:23 Aspirin Ec 81mg Tablet PO 01/19/25 08:59 81 mg DAILY ROSELYN Administration Atorvastatin Calcium 10 mg 12/20/24 21:00 Atorvastatin 10mg Tablet PO 01/19/25 20:59 HS ROSELYN Budesonide 0.5 mg 12/20/24 18:00 Budesonide 0.5mg/2ml Neb IH 01/19/25 17:59 BIDRT ROSELYN Bumetanide 2 mg 12/20/24 09:00 12/20/24 15:01 Bumetanide 1mg/4ml Vial IV 01/19/25 08:59 2 mg TID ROSELYN Administration Diltiazem HCl 240 mg 12/20/24 09:00 12/20/24 08:23 Diltiazem Er 240mg Capsule PO 01/19/25 08:59 240 mg BID ROSELYN Administration Finasteride 5 mg 12/20/24 09:00 12/20/24 08:24 Finasteride 5mg Tablet PO 01/19/25 08:59 5 mg DAILY ROSELYN Administration Gabapentin 600 mg 12/20/24 09:00 12/20/24 08:24 Gabapentin 600mg Tablet PO 01/19/25 08:59 600 mg BID ROSELYN Administration Ceftriaxone Sodium 1 gm/ 50 mls @ 100 mls/hr 12/20/24 09:00 12/20/24 08:22 Sodium Chloride IV 12/30/24 08:59 100 mls/hr Q24H ROSELYN Administration Doxycycline Hyclate 100 mg/ 250 mls @ 166.667 mls/hr 12/19/24 21:30 12/20/24 11:15 Sodium Chloride IV 12/29/24 21:29 166.667 mls/hr Q12H ROSELYN Administration Ipratropium [place] 0.5 mg 12/20/24 14:25 Ipratropium [place] 0.5 Mg/2.5ml Solution IH 01/19/25 14:24 Q4RT ROSELYN Isosorbide Mononitrate 60 mg 12/20/24 09:00 12/20/24 08:24 Isosorbide [place] 60mg Tab.Er.24h PO 01/19/25 08:59 60 mg DAILY ROSELYN Administration Levalbuterol HCl 1.25 mg 12/20/24 14:25 Levalbuterol 1.25mg/3ml Neb IH 01/19/25 14:24 Q4RT ROSELYN Metoprolol Succinate 25 mg 12/20/24 09:00 12/20/24 08:24 Metoprolol Succinate Xl 25mg Tablet PO 01/19/25 08:59 25 mg BID ROSELYN Administration Metoprolol Tartrate 5 mg 12/20/24 10:57 12/20/24 11:21 Metoprolol Tartrate 5mg/5ml Vial IV 01/19/25 10:56 5 mg Q6HP PRN Administration HR > 110 Ondansetron HCl 4 mg 12/19/24 16:27 Ondansetron 4mg/2ml Vial IV 01/18/25 16:26 Q6HP PRN Nausea Phenylephrine HCl 1 ml 12/20/24 03:51 12/20/24 08:25 Phenylephrine 0.5% Nasal [place] 15ml NS 01/19/25 03:50 2 spray Q4HP PRN Administration Congestion Polyethylene Glycol 17 gm 12/20/24 10:30 12/20/24 11:15 Polyethylene Glycol 3350 17 Gm Packet PO 01/19/25 10:29 17 gm DAILY ROSELYN Administration Ropinirole HCl 0.25 mg 12/20/24 09:00 12/20/24 15:01 Ropinirole Hcl 0.25 Mg Tablet PO 01/19/25 08:59 0.25 mg TID ROSELYN Administration Sodium Chloride 10 ml 12/20/24 07:29 Sodium Chloride 0.9% 10ml Flush Syringe IV 01/19/25 07:28 NEEDED PRN Maintain IV Site Sodium Chloride 3 ml 12/20/24 08:04 12/20/24 08:54 Sodium Chloride 3% 15ml Neb 01/19/25 08:03 3 ml ONCE PRN Administration INDUCE SPUTUM COLLECTION Tamsulosin HCl 0.4 mg 12/20/24 09:00 12/20/24 08:24 Tamsulosin 0.4mg Capsule PO 01/19/25 08:59 0.4 mg DAILY ROSELYN Administration Warfarin Sodium 4 mg 12/20/24 11:00 12/20/24 11:21 Warfarin 2mg Tablet PO 12/21/24 11:01 4 mg COUMADIN ROSELYN Administration Warfarin Sodium 2 mg 12/22/24 11:00 Warfarin 2mg Tablet PO 01/21/25 10:59 [email or web address] RO[facility]LYN Discontinued Medications Generic Name Dose Route Start Last Admin Trade Name Freq PRN Reason Stop Dose Admin Albuterol/Ipratropium 3 ml 12/19/24 21:30 12/20/24 11:45 Ipratropium/Albuterol 3 [facility] 01/18/25 21:29 3 ml Q6RT ROSELYN Administration Bumetanide 2 mg 12/20/24 09:00 Bumetanide 1 Mg Tablet PO 01/19/25 08:59 BIDL ROSELYN Ceftriaxone Sodium 1 gm/ 50 mls @ 100 mls/hr 12/19/24 15:07 12/19/24 15:27 Sodium Chloride IV 12/19/24 15:36 100 mls/hr ONCE ONE Administration Azithromycin 500 mg/ Sodium 250 mls @ 250 mls/hr 12/19/24 15:15 12/19/24 15:26 Chloride IV 12/29/24 15:14 250 mls/hr Q24H ROSELYN Administration Iopamidol 75 ml 12/19/24 14:44 12/19/24 14:44 Iopamidol-370 (76%);100ml Bottle IV 12/19/24 14:45 75 ml ONCE ONE Administration Lorazepam 0.5 mg 12/19/24 14:29 12/19/24 14:44 Lorazepam 2mg/Ml Vial IV 12/19/24 14:30 0.5 mg ONCE ONE Administration Non-Formulary Medication 150 mg 12/20/24 09:00 12/20/24 08:23 Dabigatran Etexilate [Pradaxa] PO 01/19/25 08:59 Not Given BID ROSELYN Sodium Chloride 10 ml 12/19/24 14:29 Sodium Chloride 0.9% 10ml Vial IV 01/18/25 14:28 NEEDED PRN to Dilute Lorazepam inj Sodium Chloride 10 ml 12/19/24 14:44 12/19/24 14:45 Sodium Chloride 0.9% 10ml Syr (Rad Only) IV 12/19/24 14:45 10 ml ONCE ONE Administration ORDERS Category Date Time Status CT abdomen pelvis w con Stat Cat Scan 12/19/24 12:[address] chest wo con Stat Cat Scan 12/19/24 12:50 Completed XR chest portable Stat Exams 12/19/24 12:50 Completed CK [Creatine Kinase] Stat Lab 12/19/24 13:46 Completed Complete Blood Count Auto Diff Stat Lab 12/19/24 13:46 Completed Comprehensive Metabolic Panel Stat Lab 12/19/24 13:46 Completed Lipase Stat Lab 12/19/24 13:46 Completed Magnesium Stat Lab 12/19/24 13:46 Completed NT Pro Brain Natriuretic Pep. Stat Lab 12/19/24 13:46 Completed Prothrombin Time INR Stat Lab 12/19/24 13:46 Completed Troponin I Q3H Lab 12/19/24 Completed Troponin I Q3H Lab 12/19/24 19:20 Completed Troponin I Stat Lab 12/19/24 13:46 Completed Urinalysis and Microscopic Stat Lab 12/19/24 13:57 Completed Urine Culture Stat Micro 12/19/24 13:57 Received VBG [Venous Blood Gas] Stat RT 12/19/24 13:46 Completed ECG Data Tracing #1: I reviewed this ECG and interpreted as documented below: (Atrial flutter. Rate controlled. Right bundle branch block morphology with left axis deviation ventricular rate 86, RI 216, QRS 170, QTc 440. No acute ischemic change) Tracing #2: I reviewed this ECG and interpreted as documented below: (Atrial flutter with controlled rate 85 bpm. QRS 170, QRS 451 with left axis deviation right bundle branch block. No acute ischemic change) Medical Decision Narrative: 69-year-old male presents emerged part with shortness of air, bilateral swelling, differential diagnose, not limited to, acute CHF, COPD exacerbation, pulmonary edema, anasarca, dependent edema, lymphedema, pleural effusion, ACS, cardiac arrhythmia, electrolyte disturbance. I discussed patient case with attending physician Dr. Brown and With Obtain laboratory studies, proBNP, lipase, magnesium level, PT/INR troponin urinalysis, CK level, chest x-ray, CT chest without contrast CT and pelvis with contrast for evaluation of characterization, VBG. Reviewed the patient's EKG at 12:53 PM, sinus rhythm with a first-degree AV block, 86 bpm RI interval is mildly elongated to 16 QT interval within normal limits, there is a chronic appearing right bundle branch block there is no STEMI. Of note, there is significant motion artifact was somewhat limits interpretation of the patient's EKG. I reviewed the patient's repeat EKG at 1320 4 PM, there is atrial fibrillation, at 85 bpm, QT interval within normal some of there is no STEMI again right bundle branch block is present. PT/INR are elevated at 16.6, and 1.55, patient is on anticoagulation therapy with warfarin. CBC does not show any leukocytosis, however there is some anemia, that is present unsure of chronicity, globin is 10.9, hematocrit 35.8. Otherwise unremarkable CBC. There is no leukocytosis. VBG is notable for pH within normal limits at 7.31, pCO2 is elevated at 75.9, bicarb is elevated at 37.1. Urinalysis is notable for 1+ proteinuria, negative ketonuria, trace hematuria, negative nitrites, there is 1+ leukocyte esterase, 10-20 WBCs and 3-5 squamous cells. Will start patient on supplemental 2 L nasal cannula. CMP is notable for elevated CO2 level at 37, BUN and creatinine are mildly elevated at 24 and 1.8 respectively, GFR is 38, First troponin within normal limits. proBNP is elevated at 2730. Notified by nursing staff at approximately 2:25 PM, who was notified by CT staff that the patient is having some anxiety , in CT scanner, some difficulty with laying flat and some claustrophobia. This with the attending physician, will give 0.5 mg IV Ativan, patient is on submental oxygen therapy, for anxiety and for patient to tolerate scans. Reviewed the patient's chest x-ray along the corresponding radiologic report no acute cardiopulmonary process. The patient CT chest without contrast on the corresponding radiologic report mild bronchopneumonia. Will start some IV ceftriaxone and IV azithromycin for community acquired pneumonia. Reviewed the patient's CT abdomen pelvis with contrast along the corresponding radiologic report no bowel obstruction or ascites nonspecific mild left common iliac adenopathy uncomplicated cholelithiasis. I discussed this patient's case with the hospitalist Dr. Killian 3:10 PM, he is agreement with current admission plan/treatment plan, patient will be admitted for pneumonia with worsening oxygen requirement, and fluid overload in the setting of HFpEF versus lymphedema. Discussed need for admission with the patient at the bedside patient is agreement with current admission plan/treatment plan. Examination of the patient at 3:30 PM, patient is more somnolent and has creased work of breathing, somewhat hard to arouse, will place patient on BiPAP, this could be due to hypercapnia, in the setting of acute on chronic respiratory failure and increased work of breathing. Note, around 4 PM, patient's heart rate had elevation around 110 to 120 bpm after BiPAP administration, as well as a drop in his blood pressure to around 94-95 systolic could be due to anxiety, or overcompensation with the patient's, will take the patient off BiPAP and continue with nasal cannula for oxygen supplementation, for fluid overload will give 2 mg of IV Bumex. Patient now meeting sepsis criteria with tachypnea and tachycardia with new rhythm/heart rate change, however we will not give IV fluid bolus because of the patient's fluid overload/CHF and lower extremity edema at baseline. Will however obtain lactic acid level and blood cultures. I was consulted by the GERALDINE, and we discussed the complexity of the problems being addressed. I approved the treatment and management plan for this patient's care in the Emergency Department, thus performing a substantive portion of the medical decision making. Austyn Brown MD <Renato Connelly MD - Last Filed: 12/19/24 16:12> Vital Signs: 12/19/24 12:36 12/19/24 15:33 12/19/24 16:00 Temperature 97.9 F Temperature Source Oral Pulse Rate 48 L 117 H Pulse Rate [Left Radial] 80 Respiratory Rate 26 H 21 Blood Pressure 120/91 H 94/66 L Blood Pressure [Right Arm] 149/76 H Blood Pressure Mean [Right Arm] 100 02 Sat by Pulse Oximetry 91 L 98 91 L Oxygen Delivery Method Room Air Oxygen Flow Rate (LPM) 12/19/24 16:10 12/19/24 16:21 Temperature 98.2 F Temperature Source Pulse Rate 72 104 H Pulse Rate [Left Radial] Respiratory Rate 20 Blood Pressure 121/78 121/78 Blood Pressure [Right Arm] Blood Pressure Mean [Right Arm] 02 Sat by Pulse Oximetry 96 Oxygen Delivery Method Nasal Cannula Oxygen Flow Rate (LPM) 3 Lab Data Lab Results 12/19/24 13:46: WBC 9.6, RBC 4.02 L, Hgb 10.9 L, Hct 35.8 L, MCV 89.1, MCH 27.1, MCHC 30.4 L, RDW 15.0, Plt Count 229, MPV 9.9, Neut % (Auto) 79.6, Lymph % (Auto) 9.9 L, [place] % (Auto) 6.7, Eos % (Auto) 2.6, Baso % (Auto) 0.6, Neut # (Auto) 7.6, Lymph # (Auto) 1.0, [place] # (Auto) 0.6, Eos # (Auto) 0.3, Baso # (Auto) 0.1, PT 16.6 H, INR 1.55 H, VBG pH 7.31, VBG pCO2 75.9 H, VBG pO2 42.4 H, VBG HCO3 37.1 H, VBG Total CO2 39.4 H, VBG O2 Saturation 72.7 H, VBG Base Excess 10.8 H, VBG Lactic Acid 1.2, Sodium 138, Potassium 4.2, Chloride 97 L, Carbon Dioxide 37 H, Anion Gap 8.2, BUN 24 H, Creatinine 1.80 H, Estimated Creat Clear 75, Estimated GFR 38 L, Est GFR ( Amer) 45 L, Glucose 106 H, Calcium 8.6, Magnesium 2.0, Total Bilirubin 0.4, AST 17, ALT 15, Alkaline Phosphatase 78, T otal Creatine Kinase 53 L, Troponin I 0.03, NT-Pro-B Natriuret Pep 2730 H, Total Protein 7.7, Albumin 3.8, Globulin 3.9 H, Albumin/Globulin Ratio 1.0 L, Lipase 62 12/19/24 13:57: Urine Color Yellow, Urine Appearance Clear, Urine pH 6.0, Ur Specific [place] 1.020, Urine Protein 1+ A, Urine Glucose (UA) Negative, Urine Ketones Negative, Urine Blood Trace-i, Urine Nitrate Negative, Urine Bilirubin Negative, Urine Urobilinogen 0.2, Ur Leukocyte Esterase 1+ A, Urine RBC Occasional, Urine WBC 10-20, Ur Squamous Epith Cells 3-5 Orders (Tests/Meds): ED MEDICATIONS Generic Name Dose Route Start Last Admin Trade Name Freq PRN Reason Stop Dose Admin Acetaminophen 650 mg 12/19/24 16:27 Acetaminophen 325mg Tab PO 01/18/25 16:26 Q4HP PRN Fever or Mild Pain (1-3) Aspirin 81 mg 12/20/24 09:00 12/20/24 08:23 Aspirin Ec 81mg Tablet PO 01/19/25 08:59 81 mg DAILY ROSELYN Administration Atorvastatin Calcium 10 mg 12/20/24 21:00 Atorvastatin 10mg Tablet PO 01/19/25 20:59 HS ROSELYN Budesonide 0.5 mg 12/20/24 18:00 Budesonide 0.5mg/2ml Neb IH 01/19/25 17:59 BIDRT ROSELYN Bumetanide 2 mg 12/20/24 09:00 12/20/24 15:01 Bumetanide 1mg/4ml Vial IV 01/19/25 08:59 2 mg TID ROSELYN Administration Diltiazem HCl 240 mg 12/20/24 09:00 12/20/24 08:23 Diltiazem Er 240mg Capsule PO 01/19/25 08:59 240 mg BID ROSELYN Administration Finasteride 5 mg 12/20/24 09:00 12/20/24 08:24 Finasteride 5mg Tablet PO 01/19/25 08:59 5 mg DAILY ROSELYN Administration Gabapentin 600 mg 12/20/24 09:00 12/20/24 08:24 Gabapentin 600mg Tablet PO 01/19/25 08:59 600 mg BID ROSELYN Administration Ceftriaxone Sodium 1 gm/ 50 mls @ 100 mls/hr 12/20/24 09:00 12/20/24 08:22 Sodium Chloride IV 12/30/24 08:59 100 mls/hr Q24H ROSELYN Administration Doxycycline Hyclate 100 mg/ 250 mls @ 166.667 mls/hr 12/19/24 21:30 12/20/24 11:15 Sodium Chloride IV 12/29/24 21:29 166.667 mls/hr Q12H ROSELYN Administration Ipratropium [place] 0.5 mg 12/20/24 14:25 Ipratropium [place] 0.5 Mg/2.5ml Solution 01/19/25 14:24 Q4RT ROSELYN Isosorbide Mononitrate 60 mg 12/20/24 09:00 12/20/24 08:24 Isosorbide [place] 60mg Tab.Er.24h PO 01/19/25 08:59 60 mg DAILY ROSELYN Administration Levalbuterol HCl 1.25 mg 12/20/24 14:25 Levalbuterol 1.25mg/3ml Neb 01/19/25 14:24 Q4RT ROSELYN Metoprolol Succinate 25 mg 12/20/24 09:00 12/20/24 08:24 Metoprolol Succinate Xl 25mg Tablet PO 01/19/25 08:59 25 mg BID ROSELYN Administration Metoprolol Tartrate 5 mg 12/20/24 10:57 12/20/24 11:21 Metoprolol Tartrate 5mg/5ml Vial IV 01/19/25 10:56 5 mg Q6HP PRN Administration HR > 110 Ondansetron HCl 4 mg 12/19/24 16:27 Ondansetron 4mg/2ml Vial IV 01/18/25 16:26 Q6HP PRN Nausea Phenylephrine HCl 1 ml 12/20/24 03:51 12/20/24 08:25 Phenylephrine 0.5% Nasal [place] 15ml NS 01/19/25 03:50 2 spray Q4HP PRN Administration Congestion Polyethylene Glycol 17 gm 12/20/24 10:30 12/20/24 11:15 Polyethylene Glycol 3350 17 Gm Packet PO 01/19/25 10:29 17 gm DAILY ROSELYN Administration Ropinirole HCl 0.25 mg 12/20/24 09:00 12/20/24 15:01 Ropinirole Hcl 0.25 Mg Tablet PO 01/19/25 08:59 0.25 mg TID ROSELYN Administration Sodium Chloride 10 ml 12/20/24 07:29 Sodium Chloride 0.9% 10ml Flush Syringe IV 01/19/25 07:28 NEEDED PRN Maintain IV Site Sodium Chloride 3 ml 12/20/24 08:04 12/20/24 08:54 Sodium Chloride 3% 15ml Neb 01/19/25 08:03 3 ml ONCE PRN Administration IN[employer]CE [employer] Tamsulosin HCl 0.4 mg 12/20/24 09:00 12/20/24 08:24 Tamsulosin 0.4mg Capsule PO 01/19/25 08:59 0.4 mg DAILY ROSELYN Administration Warfarin Sodium 4 mg 12/20/24 11:00 12/20/24 11:21 Warfarin 2mg Tablet PO 12/21/24 11:01 4 mg COUMADIN ROSELYN Administration Warfarin Sodium 2 mg 12/22/24 11:00 Warfarin 2mg Tablet PO 01/21/25 10:59 [email or web address] ROSELYN Discontinued Medications Generic Name Dose Route Start Last Admin Trade Name Freq PRN Reason Stop Dose Admin Albuterol/Ipratropium 3 ml 12/19/24 21:30 12/20/24 11:45 Ipratropium/Albuterol 3 Ml Neb 01/18/25 21:29 3 ml Q6RT ROSELYN Administration Bumetanide 2 mg 12/20/24 09:00 Bumetanide 1 Mg Tablet PO 01/19/25 08:59 BIDL ROSELYN Ceftriaxone Sodium 1 gm/ 50 mls @ 100 mls/hr 12/19/24 15:07 12/19/24 15:27 Sodium Chloride IV 12/19/24 15:36 100 mls/hr ONCE ONE Administration Azithromycin 500 mg/ Sodium 250 mls @ 250 mls/hr 12/19/24 15:15 12/19/24 15:26 Chloride IV 12/29/24 15:14 250 mls/hr Q24H ROSELYN Administration Iopamidol 75 ml 12/19/24 14:44 12/19/24 14:44 Iopamidol-370 (76%);100ml Bottle IV 12/19/24 14:45 75 ml ONCE ONE Administration Lorazepam 0.5 mg 12/19/24 14:29 12/19/24 14:44 Lorazepam 2mg/Ml Vial IV 12/19/24 14:30 0.5 mg ONCE ONE Administration Non-Formulary Medication 150 mg 12/20/24 09:00 12/20/24 08:23 Dabigatran Etexilate [Pradaxa] PO 01/19/25 08:59 Not Given BID ROSELYN Sodium Chloride 10 ml 12/19/24 14:29 Sodium Chloride 0.9% 10ml Vial IV 01/18/25 14:28 NEEDED PRN to Dilute Lorazepam inj Sodium Chloride 10 ml 12/19/24 14:44 12/19/24 14:45 Sodium Chloride 0.9% 10ml Syr (Rad Only) IV 12/19/24 14:45 10 ml ONCE ONE Administration ORDERS Category Date Time Status CT abdomen pelvis w con Stat Cat Scan 12/19/24 12:[address] chest wo con Stat Cat Scan 12/19/24 12:50 Completed XR chest portable Stat Exams 12/19/24 12:50 Completed CK [Creatine Kinase] Stat Lab 12/19/24 13:46 Completed Complete Blood Count Auto Diff Stat Lab 12/19/24 13:46 Completed Comprehensive Metabolic Panel Stat Lab 12/19/24 13:46 Completed Lipase Stat Lab 12/19/24 13:46 Completed Magnesium Stat Lab 12/19/24 13:46 Completed NT Pro Brain Natriuretic Pep. Stat Lab 12/19/24 13:46 Completed Prothrombin Time INR Stat Lab 12/19/24 13:46 Completed Troponin I Q3H Lab 12/19/24 Completed Troponin I Q3H Lab 12/19/24 19:20 Completed Troponin I Stat Lab 12/19/24 13:46 Completed Urinalysis and Microscopic Stat Lab 12/19/24 13:57 Completed Urine Culture Stat Micro 12/19/24 13:57 Received VBG [Venous Blood Gas] Stat RT 12/19/24 13:46 Completed ECG Data Tracing #3: Independently interpreted by me rate is 111, rhythm is irregular, atrial fibrillation with bundle branch block, significant chatter it is difficult to tell if this is sinus or atrial fibrillation, no ST elevation in anatomical contiguous leads, right bundle branch block without excessive discordance. No concordant ST deviation. Critical Care <SHAWN Simmons - Last Filed: 12/19/24 16:11> Critical Care Time Critical Care Time: No <Austyn Brown MD - Last Filed: 12/20/24 15:03> Critical Care Time Critical Care Time: Yes (respiroatory, cardiac) Attestation: On 12/19/24, the high probability of a clinically significant, sudden or life threatening deterioration of the following system(s) required my full and direct attention, intervention and personal management. The time I documented below is in addition to time spent performing reported procedures but includes the following listed in this critical care notation. Total Time Total Critical Care Time: 75
--- NOTE | 2024-12-19 13:21 | PC.NURSE ---
attempted to stick patient twice and was unsuccessful
--- NOTE | 2024-12-19 13:24 | ECG_ITS ---
APPROVED REPORT Exam: Resting ECG HR:85 bpm ECG Measurements Heart Rate 85 AXES QRSd 170 QRS -60 QT 409 T 83 QTc 451 Conclusion ATRIAL FLUTTER/TACHYCARDIA LEFT AXIS DEVIATION [QRS AXIS < -30] RIGHT BUNDLE BRANCH BLOCK [120+ ms QRS DURATION, UPRIGHT V1, 40+ ms S IN I/aVL/V4/V5/V6] ABNORMAL ECG UNCONFIRMED REPORT Electronically signed by : Neri Li MD 12/22/2024 13:29:42
--- NOTE | 2024-12-19 13:27 | PC.NURSE ---
rounded on the pt. the pt voices that he does not need anything at this time. call light is within reach of the pt.
--- NOTE | 2024-12-19 13:31 | PC.NURSE ---
asked for another EKG because it didnt look very good. EKG was done @1735
--- NOTE | 2024-12-19 13:59 | PC.NURSE ---
Estblished 18ga IV in pts L AC labs drawn and sent to lab. UA collected @1357hrs and sent to lab as well.
[2024-12-19 14:00] LABS: Microscopic, Urine URINE MICROSCOPIC (MICROSCOPIC)
[2024-12-19 14:02] LABS: Appearance,Urine CLEAR (Clear); Bilirubin,Urine Negative (Negative); Blood, Urine TRACE-I (Negative); Color,Urine YELLOW (Yellow); Glucose,Urine (UA) Negative (Negative); Ketones,Urine Negative (Negative); Leukocyte Esterase,Urine 1+ (Negative); Nitrate,Urine Negative (Negative); Protein,Urine 1+ (Negative); Urobilinogen,Urine 0.2 EU/dl (0.2)
[2024-12-19 14:03] LABS: Basophils # 0.1 K/mm3 (0-0.2); Basophils % 0.6 % (0.1-2.0); Eosinophils # 0.3 K/mm3 (0.0-0.4); Eosinophils % 2.6 % (0.1-12.0); Hematocrit 35.8 % (42.0-52.0); Hemoglobin 10.9 g/dL (14.1-18.0); INR 1.55 (0.9-1.1); Lymphocytes % 9.9 % (10-50); Mean Corpuscular HGB Conc 30.4 g/dL (31.8-35.4); Mean Corpuscular Hemoglobin 27.1 pg (27.0-31.2); Mean Corpuscular Volume 89.1 fl (80-94); Mean Platelet Volume 9.9 fl (7.4-10.4); Monocytes # 0.6 K/mm3 (0.1-1.0); Monocytes % 6.7 % (1.7-9.3); Neutrophils # 7.6 K/mm3 (1.8-7.8); Neutrophils % 79.6 % (37.0-80.0); Platelet Count 229 K/mm3 (142-424); Prothrombin Time 16.6 seconds (10.1-12.5); Red Blood Count 4.02 M/mm3 (4.60-6.20); White Blood Count 9.6 K/mm3 (4.8-10.8)
[2024-12-19 14:04] LABS: Lactate Venous 1.2 mmol/L (0.4-2.0); VBG Base Excess 10.8 mmol/L (-2.4-2.3); VBG HCO3 37.1 mmol/L (23-30); VBG Oxygen Saturation 72.7 % (50-70); VBG PCO2 75.9 mmol/L (35-51); VBG PH 7.31 mmol/L (7.31-7.41); VBG PO2 42.4 mmol/L (28-40); VBG Total CO2 39.4 mmol/L (23-27)
[2024-12-19 14:05] LABS: Alanine Aminotransferase 15 U/L (12-78); Albumin Level 3.8 g/dl (3.5-5.0); Alkaline Phosphatase 78 U/L (38-126); Aspartate Amino Transferase 17 U/L (17-59); Bilirubin,Total 0.4 mg/dl (0.2-1.3); Blood Urea Nitrogen 24 mg/dl (9-20); Calcium 8.6 mg/dl (8.4-10.2); Chloride 97 mmol/L (98-107); Creatine Kinase 53 U/L (55-170); Creatinine Clearance Estimated 75 mL/min (50-200); Estimated Glomerular Filt Rate 38 ml/min (>60); GFR (African American) 45 ML/MIN (>60); Globulin 3.9 g/dL (1.3-3.2); Glucose 106 mg/dl (74-100); Potassium 4.2 mmoL/L (3.5-5.1); Sodium 138 mmol/L (136-145); Total Protein,Serum 7.7 g/dl (6.3-8.2)
[2024-12-19 14:11] LABS: Anion Gap 8.2 mEq/L (5-15); Carbon Dioxide 37 mmol/L (22.0-30.0)
[2024-12-19 14:12] LABS: RBC,Urine Occasional #/hpf (0-3)
[2024-12-19 14:16] LABS: Lipase 62 U/L (23-300); Troponin I 0.03 ng/ml (0.00-0.034)
--- NOTE | 2024-12-19 14:22 | PC.NURSE ---
rounded on the pt. the pt voices that he does not need anything at this time. call light is within reach of the pt.
[2024-12-19 14:25] LABS: NT Pro Brain Natriuretic Pep. 2730 pg/mL (0-125)
[2024-12-19] MEDS: LORazepam 2MG/ML VIAL 0.5 MG IV (14:44)
[2024-12-19] MEDS: IOPAMIDOL-370 (76%);100ML BOTTLE 75 ML IV (14:44)
[2024-12-19] MEDS: SODIUM CHLORIDE 0.9% 10ML SYR (RAD ONLY) 10 ML IV (14:45)
--- NOTE | 2024-12-19 15:13 | PC.NURSE ---
JERROD GONCALVES PA-C SPEAKING WITH HOSPITALIST
--- NOTE | 2024-12-19 15:23 | PC.NURSE ---
MANAGER VEHICLE NOTIFIED OF ADMISSION
[2024-12-19] MEDS: AZITHROMYCIN 500 MG in 0.9 % SODIUM CHLORIDE 250 ML 250 MG IV (15:26)
[2024-12-19] MEDS: CEFTRIAXONE SODIUM 1 GM in 0.9 % SODIUM CHLORIDE 50 ML IV (15:27)
--- NOTE | 2024-12-19 16:03 | PC.NURSE ---
rounded on the pt. the pt voices that he does not need anything at this time. call light is within reach of the pt.
--- NOTE | 2024-12-19 16:06 | PC.NURSE ---
pt had rythym change and 30 point pressure drop after bipap application, made ER MD aware and advised to turn off bipap
--- NOTE | 2024-12-19 16:09 | ECG_ITS ---
APPROVED REPORT Exam: Resting ECG HR:111 bpm ECG Measurements Heart Rate 111 AXES QRSd 170 QRS -17 QT 366 T 70 QTc 432 Conclusion ATRIAL FIBRILLATION WITH RAPID VENTRICULAR RESPONSE INDETERMINATE AXIS RIGHT BUNDLE BRANCH BLOCK [120+ ms QRS DURATION, UPRIGHT V1, 40+ ms S IN I/aVL/V4/V5/V6] ABNORMAL ECG No STEMI Electronically signed by : OLIVIA CRAIG, 12/20/2024 07:07:53
--- NOTE | 2024-12-19 16:22 | PC.NURSE ---
rounded on the pt. the pt voices that he does not need anything at this time. call light is within reach of the pt.
--- NOTE | 2024-12-19 16:27 | P.HP_ITS ---
History of Present Illness *Admission Date: 12/19/24 *Reason for visit:: Shortness of breath *History of present illness: Forrest West is a 69-year-old male with a medical history significant for paroxysmal A-fib, HFpEF, CAD/CABG who presents with worsening shortness of breath. Patient at this time is not very good historian given somnolence from hypercapnia. Workup in the ED significant for VBG pH 7.31, pCO2 75.9, UA highly suggestive of UTI, CT suggesting bronchopneumonia. Patient requiring 2 L nasal cannula, new requirement. Case discussed with ED provider and decision was made to admit patient for hypoxic respiratory failure, pneumonia, HFpEF. [facility] Disclaimer: The information contained in this section may have been updated after the patient was seen, as this information can be updated by other users. Medical History (Updated 12/21/24 @ 13:43 by Christy Beltrán MD) Respiratory failure with hypercapnia Asthma exacerbation Chest pain Ureterolithiasis Left flank pain Kidney stone Acute pain of right knee Acute kidney injury Kidney dysfunction Peripheral edema Declining functional status Physical deconditioning Left leg weakness Left leg swelling Heart failure RLS (restless legs syndrome) CKD (chronic kidney disease) Former smoker HLD (hyperlipidemia) HTN (hypertension) Surgical History Hx of tonsillectomy Hx of CABG Family History Other No significant family history Social History Smoking Status: Never smoker years smoked: 32 smoking status stop date: 2005 alcohol intake: never current occupational status: retired Travel in the last 8 weeks: None Other Medical History Have you received the Flu Vaccine for this season: No Have you received the Pneumonia Vaccine: No Meds Home Medications and Allergies Home Medications ?Medication ?Instructions ?Recorded ?Confirmed ?Type cetirizine 10 mg tablet 10 mg PO DAILY 12/12/22 12/19/24 History potassium chloride 10 mEq 10 meq PO BID 12/12/22 12/19/24 History capsule,extended release tamsulosin 0.4 mg capsule 0.4 mg PO HS 12/12/22 12/20/24 History gabapentin 300 mg capsule 600 mg PO BID 05/08/24 12/19/24 History ferrous sulfate 142 mg (45 mg 45 mg PO BID 08/14/24 12/19/24 History iron) tablet,extended release (Slow Release Iron) fluticasone propionate 50 1 spray intranasal DAILY 08/14/24 12/19/24 History mcg/actuation nasal spray,suspension finasteride 5 mg tablet 5 mg PO DAILY 30 days #30 tabs 10/26/24 12/19/24 Rx ropinirole 0.25 mg tablet 0.25 mg PO TID 30 days #90 tabs 10/26/24 12/19/24 Rx aspirin 81 mg tablet,delayed 81 mg PO DAILY 11/12/24 12/19/24 History release (Adult Low Dose Aspirin) atorvastatin 10 mg tablet 10 mg PO DAILY #30 tabs 11/12/24 12/19/24 Rx diltiazem HCl 240 mg 240 mg PO BID 30 days #60 caps 11/12/24 12/19/24 Rx capsule,extended release 24 hr isosorbide mononitrate 60 mg 60 mg PO DAILY 30 days #30 tabs 11/12/24 12/19/24 Rx tablet,extended release 24 hr warfarin 4 mg tablet 4 mg PO MOWEFR 11/27/24 12/20/24 History albuterol sulfate 90 mcg/actuation 2 puff inhalation Q4H PRN 12/19/24 12/20/24 History aerosol inhaler Shortness Of Breath bumetanide 2 mg tablet 4 mg PO BID 12/20/24 12/20/24 History folic acid 400 mcg tablet 400 mcg PO DAILY 12/20/24 12/20/24 History magnesium oxide 400 mg (241.3 mg 400 mg PO DAILY 12/20/24 12/20/24 History magnesium) tablet amoxicillin 500 mg-potassium 1 tab PO TID 4 days #12 tabs 12/21/24 Rx clavulanate 125 mg tablet (Augmentin) fluticasone fur. 100 mcg-umeclid 1 inh inhalation DAILY 30 days #60 12/21/24 Rx 62.5 mcg-vilant 25 mcg ea inhalat.powder (Trelegy Ellipta) metoprolol succinate 50 mg 50 mg PO BID 30 days #60 tabs 12/21/24 Rx tablet,extended release 24 hr (Toprol XL) prednisone 20 mg tablet 40 mg (2 x 20 mg) PO DAILY 4 days 12/21/24 Rx #8 tabs warfarin 4 mg tablet See Rx Instructions .Route 12/25/24 Rx .COMPLEX #30 tabs New Prescriptions to Start Prescriptions: amoxicillin-pot clavulanate [Augmentin] Constantin,Nima eoucipdslpz-[id number] [Trelegy Ellipta] Constantin,Nima metoprolol succinate [Toprol XL] Constantin,Nima prednisone Constantin,Nima Allergies Allergy/AdvReac Type Severity Reaction Status Date / Time No Known Allergies Allergy Verified 12/19/24 15:50 Exam Data for Last 24 hours Vital signs and Labs for Last 24 Hours: Temp Pulse Resp BP Pulse Ox O2 Del Method O2 Flow Rate 98.2 F 104 H 20 121/78 96 Nasal Cannula 3 12/19/24 16:21 12/19/24 16:21 12/19/24 16:21 12/19/24 16:21 12/19/24 16:10 12/19/24 16:21 12/19/24 16:21 Laboratory Results - last 24 hr 12/19/24 13:46: WBC 9.6, RBC 4.02 L, Hgb 10.9 L, Hct 35.8 L, MCV 89.1, MCH 27.1, MCHC 30.4 L, RDW 15.0, Plt Count 229, MPV 9.9, Neut % (Auto) 79.6, Lymph % (Auto) 9.9 L, [place] % (Auto) 6.7, Eos % (Auto) 2.6, Baso % (Auto) 0.6, Neut # (Auto) 7.6, Lymph # (Auto) 1.0, [place] # (Auto) 0.6, Eos # (Auto) 0.3, Baso # (Auto) 0.1, PT 16.6 H, INR 1.55 H, VBG pH 7.31, VBG pCO2 75.9 H, VBG pO2 42.4 H, VBG HCO3 37.1 H, VBG Total CO2 39.4 H, VBG O2 Saturation 72.7 H, VBG Base Excess 10.8 H, VBG Lactic Acid 1.2, Sodium 138, Potassium 4.2, Chloride 97 L, Carbon Dioxide 37 H, Anion Gap 8.2, BUN 24 H, Creatinine 1.80 H, Estimated Creat Clear 75, Estimated GFR 38 L, Est GFR ( Amer) 45 L, Glucose 106 H, Calcium 8.6, Magnesium 2.0, Total Bilirubin 0.4, AST 17, ALT 15, Alkaline Phosphatase 78, Total Creatine Kinase 53 L, Troponin I 0.03, NT-Pro-B Natriuret Pep 2730 H, Total Protein 7.7, Albumin 3.8, Globulin 3.9 H, Albumin/Globulin Ratio 1.0 L, Lipase 62 12/19/24 13:57: Urine Color Yellow, Urine Appearance Clear, Urine pH 6.0, Ur Specific [place] 1.020, Urine Protein 1+ A, Urine Glucose (UA) Negative, Urine Ketones Negative, Urine Blood Trace-i, Urine Nitrate Negative, Urine Bilirubin Negative, Urine Urobilinogen 0.2, Ur Leukocyte Esterase 1+ A, Urine RBC Occasional, Urine WBC 10-20, Ur Squamous Epith Cells 3-5 I & O for Last 24 hours: Intake & Output 12/16/24 12/17/24 12/18/24 12/19/24 23:59 23:59 23:59 23:59 Weight 136.078 kg Constitutional Constitutional: no acute distress and obese *Routine HEENT Exam Head: Present normocephalic Eye: Present EOMI and PERRL ENT: Present mucous membranes moist *Routine Neck Exam Neck: Present supple; Absent lymphadenopathy *Routine Respiratory Exam Respiratory: Present CTA bilaterally *Routine Cardiovascular Exam Cardiovascular: Present RRR *Routine Abdominal Exam Abdominal: Present soft and normoactive bowel sounds; Absent tenderness *Routine Rectal Exam Rectal:: deferred *Routine Genitalia Exam Genitalia:: deferred *Routine Extremities Exam Extremities: Present edema; Absent cyanosis or clubbing *Routine Skin Exam Skin: Present warm; Absent rash *Routine Neurological Exam Neurological: Present alert and oriented X3 Assessment and Plan *Assessment and plan (1) Pneumonia: Status: Acute Category: Medical Code(s): J18.9 - Pneumonia, unspecified organism (2) Acute and chronic respiratory failure: Status: Acute Category: Medical Code(s): J96.20 - Acute and chronic respiratory failure, unspecified whether with hypoxia or hypercapnia (3) Respiratory failure with hypercapnia: Status: Acute Category: Medical Code(s): J96.92 - Respiratory failure, unspecified with hypercapnia Plan Forrest West is a 69-year-old male with a medical history significant for paroxysmal A-fib, HFpEF, CAD/CABG who presents with worsening shortness of breath. Patient at this time is not very good historian given somnolence from hypercapnia. Workup in the ED significant for VBG pH 7.31, pCO2 75.9, UA highly suggestive of UTI, CT suggesting bronchopneumonia. Patient requiring 2 L nasal cannula, new requirement. Case discussed with ED provider and decision was made to admit patient for hypoxic respiratory failure, pneumonia, HFpEF. #Acute hypoxic, hypercapnic respiratory failure #Suspected obesity hypoventilation syndrome #Community-acquired pneumonia ? CT chest revealing bronchopneumonia, with leukocytosis. ? Continue ceftriaxone, doxycycline pending sputum cultures. ? BiPAP overnight, repeat VBG in the morning. ? Continue levalbuterol and ipratropium every 6 hours. #Right heart failure #Bilateral lower extremity venous sufficiency #Lymphedema ? Continue home Bumex 2 mg twice daily. ? Follow-up renal function, electrolytes. #UTI ? UA abnormal, urine culture pending. ? Ceftriaxone day 1. #A-fib ? Heart rate in the 120s in the morning, improved to 80s in the afternoon. ? Continue home diltiazem to 40 mg twice daily, metoprolol succinate 25 mg twice daily. ? Resume home warfarin, unable to afford Eliquis or Xarelto. Carotid Stenosis s/p CEA 2008: asymptomatic; continue aspirin, statin. BPH: flowmax 0.4mg po daily, started finasteride Restless leg syndrome. Requip 0.25mg TID Full code DVT prophylaxis: Warfarin
[2024-12-19 16:28] LABS: Lactic Acid 0.9 mmol/L (0.7-2.1)
[2024-12-19 17:11] LABS: Troponin I 0.03 ng/ml (0.00-0.034)
[2024-12-19 19:57] LABS: Troponin I 0.03 ng/ml (0.00-0.034)
[2024-12-20] VITALS (24 sets, daily range): BP systolic 132–172; BP diastolic 68–90; PULSE 80–126; RESP 14–28; TEMP 36.4–37.5; O2SAT 80–99; BMI 40.6
[2024-12-20] MEDS: DOXYCYCLINE HYCLATE 100 MG in 0.9 % SODIUM CHLORIDE 250 ML 166.667 MG IV ×3 (00:37→20:31)
[2024-12-20] MEDS: IPRATROPIUM/ALBUTEROL 3 ML NEB IH ×3 (00:48→11:45)
--- NOTE | 2024-12-20 04:55 | PC.NURSE ---
pt currently on 2l nc, tolerating well with sats 98%. complaints of stuffy nose and cant breath through my nose, i was nose spray . notified md and at this time he wants to try humidification on o2.,humidification place on o2. pt got up to chair at bs, feet propped up due to +4 pitting edema to BLE. so far pt doing well and has no needs. attempted bipap t/o shift and pt continues to ref, alert and oriented x4. cb within reach, no needs at this time
[2024-12-20 06:18] LABS: Lactate Venous 0.8 mmol/L (0.4-2.0); VBG Base Excess 6.7 mmol/L (-2.4-2.3); VBG HCO3 31.5 mmol/L (23-30); VBG Oxygen Saturation 99.2 % (50-70); VBG PCO2 51.7 mmol/L (35-51); VBG PO2 160.3 mmol/L (28-40)
[2024-12-20 06:23] LABS: Basophils % 0.4 % (0.1-2.0); Eosinophils # 0.2 K/mm3 (0.0-0.4); Hematocrit 35.9 % (42.0-52.0); Hemoglobin 10.5 g/dL (14.1-18.0); Lymphocytes # 0.9 K/mm3 (0.7-4.5); Lymphocytes % 9.5 % (10-50); Mean Corpuscular HGB Conc 29.2 g/dL (31.8-35.4); Mean Corpuscular Hemoglobin 26.6 pg (27.0-31.2); Mean Corpuscular Volume 90.9 fl (80-94); Mean Platelet Volume 10.2 fl (7.4-10.4); Monocytes # 0.6 K/mm3 (0.1-1.0); Monocytes % 6.5 % (1.7-9.3); Neutrophils # 7.7 K/mm3 (1.8-7.8); Platelet Count 200 K/mm3 (142-424); Red Blood Count 3.95 M/mm3 (4.60-6.20); Red Cell Distribution Width 15.2 % (11.5-17.5); White Blood Count 9.5 K/mm3 (4.8-10.8)
[2024-12-20 07:16] LABS: Alanine Aminotransferase 14 U/L (12-78); Albumin Level 3.6 g/dl (3.5-5.0); Alkaline Phosphatase 84 U/L (38-126); Anion Gap 5.9 mEq/L (5-15); Aspartate Amino Transferase 16 U/L (17-59); Bilirubin,Total 0.4 mg/dl (0.2-1.3); Blood Urea Nitrogen 24 mg/dl (9-20); Calcium 8.2 mg/dl (8.4-10.2); Carbon Dioxide 36 mmol/L (22.0-30.0); Chloride 99 mmol/L (98-107); Creatinine Clearance Estimated 75 mL/min (50-200); Estimated Glomerular Filt Rate 38 ml/min (>60); GFR (African American) 45 ML/MIN (>60); Globulin 3.5 g/dL (1.3-3.2); Glucose 101 mg/dl (74-100); Magnesium 2.2 mg/dl (1.6-2.3); Potassium 4.9 mmoL/L (3.5-5.1); Sodium 136 mmol/L (136-145); Total Protein,Serum 7.1 g/dl (6.3-8.2)
[2024-12-20] MEDS: CEFTRIAXONE 1 GM 1 GM in 0.9 % SODIUM CHLORIDE 50 ML IV (08:22)
[2024-12-20] MEDS: dilTIAZem ER 240MG CAPSULE 240 MG PO ×2 (08:23→20:31)
[2024-12-20] MEDS: ASPIRIN EC 81MG TABLET 81 MG PO (08:23)
[2024-12-20] MEDS: BUMETANIDE 1MG/4ML VIAL 2 MG IV ×3 (08:23→20:30)
[2024-12-20] MEDS: METOPROLOL SUCCINATE XL 25MG TABLET 25 MG PO ×2 (08:24→20:31)
[2024-12-20] MEDS: ISOSORBIDE MONO 60MG TAB.ER.24H 60 MG PO (08:24)
[2024-12-20] MEDS: FINASTERIDE 5MG TABLET 5 MG PO (08:24)
[2024-12-20] MEDS: TAMSULOSIN 0.4MG CAPSULE 0.4 MG PO (08:24)
[2024-12-20] MEDS: ROPINIROLE HCL 0.25 MG TABLET PO ×3 (08:24→20:31)
[2024-12-20] MEDS: GABAPENTIN 600MG TABLET 600 MG PO ×2 (08:24→20:31)
[2024-12-20] MEDS: PHENYLEPHRINE 0.5% NASAL SPRAY 15ML NS (08:25)
[2024-12-20] MEDS: SODIUM CHLORIDE 3% 15ML NEB 3 ML IH (08:54)
--- NOTE | 2024-12-20 10:06 | HMH.PHAINT1 ---
Pharmacy Intervention Comments: home medication list verified using list from outpatient pharmacy and pt interview
--- NOTE | 2024-12-20 10:29 | ECG_ITS ---
APPROVED REPORT Exam: Resting ECG HR:126 bpm ECG Measurements Heart Rate 126 AXES VT 223 P -17 QRSd 171 QRS -63 QT 347 T 52 QTc 422 Conclusion ELECTRONIC VENTRICULAR PACEMAKER ABNORMAL RHYTHM ECG UNCONFIRMED REPORT Electronically signed by : Neri Li MD 12/22/2024 13:29:30
[2024-12-20] MEDS: POLYETHYLENE GLYCOL 3350 17 GM PACKET PO (11:15)
[2024-12-20] MEDS: WARFARIN 2MG TABLET 4 MG PO (11:21)
[2024-12-20] MEDS: METOPROLOL TARTRATE 5MG/5ML VIAL 5 MG IV (11:21)
--- NOTE | 2024-12-20 12:10 | PC.NURSE ---
Pt was noted to be 85% on Room air at rest. 2L NC placed back on pt. He is currently 96%.
[2024-12-20 13:49] LABS: ABG Base Excess 8.4 mmol/L (-2.4-2.3); ABG HCO3 35.5 mmhg (22.0-26.0); ABG Oxygen Saturation 92 % (90-100); ABG PH 7.26 mmol/L (7.35-7.45); ABG PO2 70.8 mmhg (80-100); ABG TCO2 37.9 mmhg (23-27)
[2024-12-20 13:53] LABS: Allen's Test Patient Unable; Oxygen 1.5 lpm nc %; Source Left Radial
[2024-12-20 13:55] LABS: ABG PCO2 80.5 mmhg (35.0-45.0)
--- NOTE | 2024-12-20 14:02 | EXP.CARD.CON ---
History of Present Illness History of Present Illness Consult date: 12/20/24 Requesting physician: Nima Killian Consult reason: shortness of breath Chief complaint: SOA History of present illness: 69-year-old white male well-established patient of our office with a history of CAD s/p CABG 2008, status post CEA 2008, moderate LV dilation, CKD 3, bilateral lower extremity lymphedema, anasarca with 3 admissions already this year. We diuresed last visit and left A-fib to rate control. He was seen in office in late October with paroxysmal a-fib noted on monitor but in office EKG showed persistant A-fib so ALEIDA/DCCV was ordered. This was not done for uncelar reason at this time. In the meantime, pt presented here yesterday with worsening weakness/HERNÁNDEZ and was admitted with UTI and bronchopneumonia. We are consulted to help manage his a-fib. Currently he is relatively rate controlled at 109 and denies CP and palps. His BLE lymphedema appears worse than ever. [facility] Disclaimer: The information contained in this section may have been updated after the patient was seen, as this information can be updated by other users. Medical History Chest pain Ureterolithiasis Left flank pain Kidney stone Acute pain of right knee Acute kidney injury Kidney dysfunction Peripheral edema Declining functional status Physical deconditioning Left leg weakness Left leg swelling Heart failure RLS (restless legs syndrome) CKD (chronic kidney disease) Former smoker HLD (hyperlipidemia) HTN (hypertension) Surgical History Hx of tonsillectomy Hx of CABG Family History Other No significant family history Social History Smoking Status: Never smoker years smoked: 32 smoking status stop date: 2005 alcohol intake: never current occupational status: retired Travel in the last 8 weeks: None Have you lived/traveled outside [place] in past 30 days?: No Contact w/someone who lives/traveled outside [place] past 30 days?: No Exposure to someone with infectious disease in past 14 days?: No Do you have a fever (greater than 100.4 F or 38 C)?: No Have you tested positive for COVID-19: No Exposed to someone with COVID-19 in past 14 days?: No Do you have a sore throat?: No Do you have a cough?: No Do you have any weakness?: No Do you have any diarrhea?: No Are you experiencing any unusual bleeding?: No Do you have any muscle aches/pain?: No Do you have any abdominal pain?: No Are you experiencing loss of taste or smell?: No Review of Systems Constitutional Constitutional: Denies fatigue and Reports weakness Eyes Eyes: Denies loss of vision ENT Ears, Nose, Mouth, and Throat: Denies hearing loss and Denies vertigo *Cardiovascular Cardiovascular: Denies chest pain, Reports dyspnea, Reports edema and Denies syncope *Respiratory Respiratory: Denies cough and Reports dyspnea *Gastrointestinal Gastrointestinal: Denies change in stool character, Denies nausea and Denies vomiting *Genitourinary Genitourinary: Denies difficulty urinating *Musculoskeletal Musculoskeletal: Denies muscle weakness Integumentary/Breasts Skin/Breast: Denies changing lesions *Neurologic Neurologic: Denies loss of vision, Denies syncope, Denies vertigo and Reports weakness Endocrine Endocrine: Denies fatigue Exam Data for Last 24 hours Vital signs and Labs for Last 24 Hours: Temp Pulse Resp BP Pulse Ox O2 Del Method O2 Flow Rate 97.9 F 90 17 157/78 H 85 L Room Air 2 12/20/24 08:00 12/20/24 11:45 12/20/24 10:00 12/20/24 10:00 12/20/24 12:10 12/20/24 12:10 12/20/24 11:45 FiO2 21 12/19/24 18:30 Laboratory Results - last 24 hr 12/19/24 13:46: WBC 9.6, RBC 4.02 L, Hgb 10.9 L, Hct 35.8 L, MCV 89.1, MCH 27.1, MCHC 30.4 L, RDW 15.0, Plt Count 229, MPV 9.9, Neut % (Auto) 79.6, Lymph % (Auto) 9.9 L, [place] % (Auto) 6.7, Eos % (Auto) 2.6, Baso % (Auto) 0.6, Neut # (Auto) 7.6, Lymph # (Auto) 1.0, [place] # (Auto) 0.6, Eos # (Auto) 0.3, Baso # (Auto) 0.1, PT 16.6 H, INR 1.55 H, VBG pH 7.31, VBG pCO2 75.9 H, VBG pO2 42.4 H, VBG HCO3 37.1 H, VBG Total CO2 39.4 H, VBG O2 Saturation 72.7 H, VBG Base Excess 10.8 H, VBG Lactic Acid 1.2, Sodium 138, Potassium 4.2, Chloride 97 L, Carbon Dioxide 37 H, Anion Gap 8.2, BUN 24 H, Creatinine 1.80 H, Estimated Creat Clear 75, Estimated GFR 38 L, Est GFR ( Amer) 45 L, Glucose 106 H, Calcium 8.6, Magnesium 2.0, Total Bilirubin 0.4, AST 17, ALT 15, Alkaline Phosphatase 78, Total Creatine Kinase 53 L, Troponin I 0.03, NT-Pro-B Natriuret Pep 2730 H, Total Protein 7.7, Albumin 3.8, Globulin 3.9 H, Albumin/Globulin Ratio 1.0 L, Lipase 62 12/19/24 13:57: Urine Color Yellow, Urine Appearance Clear, Urine pH 6.0, Ur Specific [place] 1.020, Urine Protein 1+ A, Urine Glucose (UA) Negative, Urine Ketones Negative, Urine Blood Trace-i, Urine Nitrate Negative, Urine Bilirubin Negative, Urine Urobilinogen 0.2, Ur Leukocyte Esterase 1+ A, Urine RBC Occasional, Urine WBC 10-20, Ur Squamous Epith Cells 3-5 12/19/24 16:15: Lactate 0.9 12/19/24 19:20: Troponin I 0.03 12/19/24 : Troponin I 0.03 12/20/24 06:00: VBG pH 7.40, VBG pCO2 51.7 H, VBG pO2 160.3 H, VBG HCO3 31.5 H, VBG Total CO2 33.0 H, VBG O2 Saturation 99.2 H, VBG Base Excess 6.7 H, VBG Lactic Acid 0.8 12/20/24 06:06: WBC 9.5, RBC 3.95 L, Hgb 10.5 L, Hct 35.9 L, MCV 90.9, MCH 26.6 L, MCHC 29.2 L, RDW 15.2, Plt Count 200, MPV 10.2, Neut % (Auto) 81.0 H, Lymph % (Auto) 9.5 L, [place] % (Auto) 6.5, Eos % (Auto) 2.0, Baso % (Auto) 0.4, Neut # (Auto) 7.7, Lymph # (Auto) 0.9, [place] # (Auto) 0.6, Eos # (Auto) 0.2, Baso # (Auto) 0.0, Sodium 136, Potassium 4.9, Chloride 99, Carbon Dioxide 36 H, Anion Gap 5.9, BUN 24 H, Creatinine 1.80 H, Estimated Creat Clear 75, Estimated GFR 38 L, Est GFR ( Amer) 45 L, Glucose 101 H, Calcium 8.2 L, Magnesium 2.2, Total Bilirubin 0.4, AST 16 L, ALT 14, Alkaline Phosphatase 84, Total Protein 7.1, Albumin 3.6, Globulin 3.5 H, Albumin/Globulin Ratio 1.0 L 12/20/24 11:54: Specimen Source Left radial, O2 % 1.5 lpm nc, ABG pH 7.26 L, ABG pCO2 80.5 H, ABG pO2 70.8 L, ABG HCO3 35.5 H, ABG Total CO2 37.9 H, ABG O2 Saturation 92, ABG Base Excess 8.4 H, Dom Test Patient unable I & O for Last 24 hours: Intake & Output 12/17/24 12/18/24 12/19/24 12/20/24 23:59 23:59 23:59 23:59 Intake Total 180 / 330 350 / 350 Output Total 1000 / 1000 Balance 180 / 330 -650 / -650 Weight 300 lb 300 lb 0.01 oz Meds Home Medications and Allergies Home Medications ?Medication ?Instructions ?Recorded ?Confirmed ?Type cetirizine 10 mg tablet 10 mg PO DAILY 12/12/22 12/19/24 History potassium chloride 10 mEq 10 meq PO BID 12/12/22 12/19/24 History capsule,extended release tamsulosin 0.4 mg capsule 0.4 mg PO HS 12/12/22 12/20/24 History gabapentin 300 mg capsule 600 mg PO BID 05/08/24 12/19/24 History ferrous sulfate 142 mg (45 mg 45 mg PO BID 10/22/24 02/26/25 History iron) tablet,extended release (Slow Release Iron) fluticasone propionate 50 1 spray intranasal DAILY 08/14/24 12/19/24 History mcg/actuation nasal spray,suspension finasteride 5 mg tablet 5 mg PO DAILY 30 days #30 tabs 10/26/24 12/19/24 Rx ropinirole 0.25 mg tablet 0.25 mg PO TID 30 days #90 tabs 10/26/24 12/19/24 Rx aspirin 81 mg tablet,delayed 81 mg PO DAILY 11/12/24 12/19/24 History release (Adult Low Dose Aspirin) atorvastatin 10 mg tablet 10 mg PO DAILY #30 tabs 11/12/24 12/19/24 Rx diltiazem HCl 240 mg 240 mg PO BID 30 days #60 caps 11/12/24 12/19/24 Rx capsule,extended release 24 hr isosorbide mononitrate 60 mg 60 mg PO DAILY 30 days #30 tabs 11/12/24 12/19/24 Rx tablet,extended release 24 hr metoprolol succinate 25 mg 25 mg PO BID #180 tabs 11/20/24 12/19/24 Rx tablet,extended release 24 hr warfarin 4 mg tablet 4 mg PO MOWEFR 11/27/24 12/20/24 History albuterol sulfate 90 mcg/actuation 2 puff inhalation Q4H PRN 12/19/24 12/20/24 History aerosol inhaler Shortness Of Breath bumetanide 2 mg tablet 4 mg PO BID 12/20/24 12/20/24 History folic acid 400 mcg tablet 400 mcg PO DAILY 12/20/24 12/20/24 History magnesium oxide 400 mg (241.3 mg 400 mg PO DAILY 12/20/24 12/20/24 History magnesium) tablet warfarin 4 mg tablet 2 mg PO SUTUTHSA 12/20/24 12/20/24 History New Prescriptions to Start Prescriptions: Allergies Allergy/AdvReac Type Severity Reaction Status Date / Time No Known Allergies Allergy Verified 12/19/24 15:50 Assessment and Plan *Assessment and plan (1) Acute and chronic respiratory failure: Status: Acute Category: Medical Code(s): J96.20 - Acute and chronic respiratory failure, unspecified whether with hypoxia or hypercapnia (2) Pneumonia: Status: Acute Category: Medical Code(s): J18.9 - Pneumonia, unspecified organism (3) Lymphedema: Status: Acute Category: Medical Code(s): I89.0 - Lymphedema, not elsewhere classified (4) CKD (chronic kidney disease), stage IV: Status: Acute Category: Medical Code(s): N18.4 - Chronic kidney disease, stage 4 (severe) (5) A-fib: Status: Acute Qualifiers: Atrial fibrillation type: paroxysmal Qualified Code(s): I48.0 - Paroxysmal atrial fibrillation Category: Medical Code(s): I48.91 - Unspecified atrial fibrillation (6) Hx of CABG: Status: Acute Category: Surgical Code(s): Z95.1 - Presence of aortocoronary bypass graft (7) UTI (urinary tract infection): Status: Acute Category: Medical Code(s): N39.0 - Urinary tract infection, site not specified Plan PAF - known dx - relatively well controlled rate here 110 currently in setting of PNA and UTI - due to elevated adrenergic drive with infection I would not expect DCCV to be terribly successful at this time - recommend resuming home dose OAC and BB. If he becomes symptomatic or hemodynamically compromised will consider DCCV - add Lopressor 5mg IV PRN sustained HR >130 Acute on Chronic BLE Lymphedema - consult PT for unaboots and wound care CAD s/p CABG 2008 - pt denies angina here - Trop nml - EKG - A-fib 109 - cont warfarin, BB, Statin - ECHO 10/16 - nlm biv function, no WMA Chronic HFpEF - ECHO 12/17 and 10/16 - nml bi-v function, no WMA - BMI 40 and severe BLE lymphedema - ProBNP 2,730 which his less than last admission - CT Chest - no edema or effusions - Farxiga not covered by his insurance CKD-IV - 1.8 here, baseline around 2 UTI - per Hospitalist 12/20 CV Summary: CV stable. Resume home meds. Add unaboots.
[2024-12-20 16:16] LABS: ABG Base Excess 8.4 mmol/L (-2.4-2.3); ABG HCO3 32.9 mmhg (22.0-26.0); ABG Oxygen Saturation 89 % (90-100); ABG PH 7.42 mmol/L (7.35-7.45); ABG PO2 56.5 mmhg (80-100); ABG TCO2 34.5 mmhg (23-27)
[2024-12-20 16:17] LABS: Allen's Test Acceptable; Source Right Radial; Vent Rate 18
[2024-12-20 18:29] LABS: Adenovirus,PCR Not Detected (NotDetected); Bordetella Pertussis Not Detected (NotDetected); Chlamydophila Pneumoniae, PCR Not Detected (NotDetected); Coronavirus 19, PCR Not Detected (NotDetected); Coronavirus 229E Not Detected (NotDetected); Coronavirus NL63 Not Detected (NotDetected); Coronavirus OC43 Not Detected (NotDetected); Coronovirus HKU1,PCR Not Detected (NotDetected); Human Metapneumovirus Not Detected (NotDetected); Influenza A, PCR Not Detected (NotDetected); Influenza AH1, 2009 Not Detected (NotDetected); Influenza AH1, PCR Not Detected (NotDetected); Influenza AH3,PCR Not Detected (NotDetected); Influenza B, PCR Not Detected (NotDetected); Mycoplasma Pneumoniae, PCR Not Detected (NotDetected); Parainfluenza 1, PCR Not Detected (NotDetected); Parainfluenza 2, PCR Not Detected (NotDetected); Parainfluenza 3, PCR Not Detected (NotDetected); Parainfluenza 4, PCR Not Detected (NotDetected); Respiratory Syncytial Virus Not Detected (NotDetected); Rhinovirus/Enterovirus Not Detected (NotDetected)
--- NOTE | 2024-12-20 18:35 | EXP.PN ---
Subjective *Date: 12/20/24 *Time: 18:35 Interval history: Hypercapnic again this afternoon improved with BiPAP. Exam Data for Last 24 hours Vital signs and Labs for Last 24 Hours: Temp Pulse Resp BP Pulse Ox O2 Del Method O2 Flow Rate 99.2 F 99 H 22 144/89 H 91 L Nasal Cannula 2 12/20/24 18:00 12/20/24 18:00 12/20/24 18:00 12/20/24 18:00 12/20/24 18:00 12/20/24 18:00 12/20/24 18:00 FiO2 21 12/20/24 14:21 Laboratory Results - last 24 hr 12/19/24 19:20: Troponin I 0.03 12/20/24 06:00: VBG pH 7.40, VBG pCO2 51.7 H, VBG pO2 160.3 H, VBG HCO3 31.5 H, VBG Total CO2 33.0 H, VBG O2 Saturation 99.2 H, VBG Base Excess 6.7 H, VBG Lactic Acid 0.8 12/20/24 06:06: WBC 9.5, RBC 3.95 L, Hgb 10.5 L, Hct 35.9 L, MCV 90.9, MCH 26.6 L, MCHC 29.2 L, RDW 15.2, Plt Count 200, MPV 10.2, Neut % (Auto) 81.0 H, Lymph % (Auto) 9.5 L, [place] % (Auto) 6.5, Eos % (Auto) 2.0, Baso % (Auto) 0.4, Neut # (Auto) 7.7, Lymph # (Auto) 0.9, [place] # (Auto) 0.6, Eos # (Auto) 0.2, Baso # (Auto) 0.0, Sodium 136, Potassium 4.9, Chloride 99, Carbon Dioxide 36 H, Anion Gap 5.9, BUN 24 H, Creatinine 1.80 H, Estimated Creat Clear 75, Estimated GFR 38 L, Est GFR ( Amer) 45 L, Glucose 101 H, Calcium 8.2 L, Magnesium 2.2, Total Bilirubin 0.4, AST 16 L, ALT 14, Alkaline Phosphatase 84, Total Protein 7.1, Albumin 3.6, Globulin 3.5 H, Albumin/Globulin Ratio 1.0 L 12/20/24 11:54: Specimen Source Left radial, O2 % 1.5 lpm nc, ABG pH 7.26 L, ABG pCO2 80.5 H, ABG pO2 70.8 L, ABG HCO3 35.5 H, ABG Total CO2 37.9 H, ABG O2 Saturation 92, ABG Base Excess 8.4 H, Dom Test Patient unable 12/20/24 15:56: Specimen Source Right radial, O2 % 21% 18/6, ABG pH 7.42, ABG pCO2 52.0 H, ABG pO2 56.5 L, ABG HCO3 32.9 H, ABG Total CO2 34.5 H, ABG O2 Saturation 89 L, ABG Base Excess 8.4 H, Dom Test Acceptable, Vent Rate 18 I & O for Last 24 hours: Intake & Output 12/17/24 12/18/24 12/19/24 12/20/24 23:59 23:59 23:59 23:59 Intake Total 180 / 330 1250 / 1250 Output Total 1650 / 1650 Balance 180 / 330 -400 / -400 Weight 136.078 kg 136.078 kg Constitutional Constitutional: no acute distress *Routine HEENT Exam Head: Present normocephalic Eye: Present EOMI and PERRL ENT: Present mucous membranes moist *Routine Neck Exam Neck: Present supple; Absent lymphadenopathy *Routine Respiratory Exam Respiratory: Present CTA bilaterally *Routine Cardiovascular Exam Cardiovascular: Present RRR *Routine Abdominal Exam Abdominal: Present soft and normoactive bowel sounds; Absent tenderness *Routine Extremities Exam Extremities: Absent cyanosis, clubbing or edema *Routine Skin Exam Skin: Present warm; Absent rash *Routine Neurological Exam Neurological: Present alert and oriented X3 Assessment and Plan *Assessment and plan (1) Pneumonia: Status: Acute Category: Medical Code(s): J18.9 - Pneumonia, unspecified organism Plan Forrest West is a 69-year-old male with a medical history significant for paroxysmal A-fib, HFpEF, CAD/CABG who presents with worsening shortness of breath. Patient at this time is not very good historian given somnolence from hypercapnia. Workup in the ED significant for VBG pH 7.31, pCO2 75.9, UA highly suggestive of UTI, CT suggesting bronchopneumonia. Patient requiring 2 L nasal cannula, new requirement. Case discussed with ED provider and decision was made to admit patient for hypoxic respiratory failure, pneumonia, HFpEF. #Acute hypoxic, hypercapnic respiratory failure #Suspected obesity hypoventilation syndrome #Community-acquired pneumonia ? CT chest revealing bronchopneumonia, with leukocytosis. ? Continue ceftriaxone, doxycycline pending sputum cultures. ? VBG this morning showed resolved acute hypercapnia, but patient became somnolent this afternoon with ABG again showing hypercapnic respiratory failure. Started on BiPAP with improvement in symptoms and ABG. ? Continue levalbuterol and ipratropium every 6 hours. ? Pulmonology consulted, pending further recommendations. #Right heart failure #Bilateral lower extremity venous sufficiency #Lymphedema ? About a 20 pound weight gain since last admission in early October. ? Increase IV Bumex 2 mg 3 times daily. Lower extremity edema has improved with diuresis today. ? Follow-up renal function, electrolytes. ? Cardiology recommends Unna boot. #UTI ? UA abnormal, urine culture pending. ? Ceftriaxone day 2. #A-fib ? Heart rate in the 120s in the morning, improved to 80s in the afternoon. ? Continue home diltiazem to 40 mg twice daily, metoprolol succinate 25 mg twice daily. ? Resume home warfarin, unable to afford Eliquis or Xarelto. Carotid Stenosis s/p CEA 2008: asymptomatic; continue aspirin, statin. BPH: flowmax 0.4mg po daily, started finasteride Restless leg syndrome. Requip 0.25mg TID Full code DVT prophylaxis: Warfarin
[2024-12-20] MEDS: IPRATROPIUM BROMIDE 0.5 MG/2.5ML SOLUTION IH ×2 (18:37→21:52)
[2024-12-20] MEDS: LEVALBUTEROL 1.25MG/3ML NEB 1.25 MG IH ×2 (18:38→21:52)
[2024-12-20] MEDS: BUDESONIDE 0.5MG/2ML NEB 0.5 MG IH (18:38)
[2024-12-20] MEDS: ATORVASTATIN 10MG TABLET 10 MG PO (20:31)
--- NOTE | 2024-12-20 21:59 | PC.NURSE ---
2129- Patient called out stating it hurt to urinate. Bladder scanned 857ml, 225ml in purewick canister, notified Angelina Coats APRN of bladder scan amount, verbal order to insert morse.
--- NOTE | 2024-12-20 22:20 | PC.NURSE ---
Addendum entered by Milli Tomlinson RN 12/20/24 22:23: At this time Original Note: Placed on BiPAP around 2215, patient at this has taken off BiPAP, states I am not putting that on anymore , 2L NC placed on patient, notified Angelina Coats APRN of refusal to wear the BiPAP.
[2024-12-21] VITALS (11 sets, daily range): BP systolic 141–167; BP diastolic 71–86; PULSE 80–124; RESP 14–21; TEMP 36.6–37.1; O2SAT 87–96; BMI 40.6
[2024-12-21] MEDS: IPRATROPIUM BROMIDE 0.5 MG/2.5ML SOLUTION IH ×3 (01:40→09:45)
[2024-12-21] MEDS: LEVALBUTEROL 1.25MG/3ML NEB 1.25 MG IH ×3 (01:40→09:45)
--- NOTE | 2024-12-21 02:02 | PC.NURSE ---
Patient agreed to wear BiPAP for an hour at this time, placed on BiPAP by RT
--- NOTE | 2024-12-21 04:23 | PC.NURSE ---
Alert and oriented throughout the night. No complaints from patient. Patient refused BiPAP earlier in shift per previous noted, but has worn the BiPAP since 0200 at this time. Patient has rested well throughout the night. Angulo placed this shift, pale yellow urine draining. BLE edema noted. Wheezing noted in upper bases. Patient abdomen firm, bowel sounds hypoactive. Call light in reach.
--- NOTE | 2024-12-21 04:34 | PC.NURSE ---
Patient requested BiPAP be removed at this time, placed on 2L NC.
[2024-12-21] MEDS: BUDESONIDE 0.5MG/2ML NEB 0.5 MG IH (06:39)
[2024-12-21 06:44] LABS: Basophils % 0.3 % (0.1-2.0); Eosinophils # 0.2 K/mm3 (0.0-0.4); Eosinophils % 2.5 % (0.1-12.0); Hematocrit 32.2 % (42.0-52.0); Hemoglobin 9.5 g/dL (14.1-18.0); Lymphocytes # 0.9 K/mm3 (0.7-4.5); Lymphocytes % 10.3 % (10-50); Mean Corpuscular HGB Conc 29.5 g/dL (31.8-35.4); Mean Corpuscular Hemoglobin 26.8 pg (27.0-31.2); Monocytes # 0.6 K/mm3 (0.1-1.0); Monocytes % 6.9 % (1.7-9.3); Neutrophils # 7.1 K/mm3 (1.8-7.8); Neutrophils % 79.6 % (37.0-80.0); Platelet Count 197 K/mm3 (142-424); Red Blood Count 3.54 M/mm3 (4.60-6.20); Red Cell Distribution Width 15.3 % (11.5-17.5); White Blood Count 8.9 K/mm3 (4.8-10.8)
[2024-12-21 06:48] LABS: ABG Base Excess 5.9 mmol/L (-2.4-2.3); ABG HCO3 31.6 mmhg (22.0-26.0); ABG Oxygen Saturation 90 % (90-100); ABG PH 7.34 mmol/L (7.35-7.45); ABG TCO2 33.5 mmhg (23-27)
[2024-12-21 06:50] LABS: Alanine Aminotransferase 12 U/L (12-78); Albumin Level 3.2 g/dl (3.5-5.0); Alkaline Phosphatase 71 U/L (38-126); Anion Gap 8.3 mEq/L (5-15); Aspartate Amino Transferase 14 U/L (17-59); Bilirubin,Total 0.3 mg/dl (0.2-1.3); Blood Urea Nitrogen 29 mg/dl (9-20); Calcium 8.3 mg/dl (8.4-10.2); Carbon Dioxide 39 mmol/L (22.0-30.0); Chloride 96 mmol/L (98-107); Creatinine Clearance Estimated 71 mL/min (50-200); Estimated Glomerular Filt Rate 35 ml/min (>60); GFR (African American) 43 ML/MIN (>60); Globulin 3.2 g/dL (1.3-3.2); Glucose 97 mg/dl (74-100); INR 1.51 (0.9-1.1); Magnesium 2.2 mg/dl (1.6-2.3); Potassium 4.3 mmoL/L (3.5-5.1); Prothrombin Time 16.2 seconds (10.1-12.5); Sodium 139 mmol/L (136-145); Total Protein,Serum 6.4 g/dl (6.3-8.2)
[2024-12-21 06:51] LABS: Allen's Test Acceptable; Oxygen 1.5L %; Source Right Radial
[2024-12-21 06:52] LABS: ABG PCO2 59.7 mmhg (35.0-45.0)
--- NOTE | 2024-12-21 06:53 | PC.NURSE ---
ABG results called to [facility] at this time
[2024-12-21] MEDS: CEFTRIAXONE 1 GM 1 GM in 0.9 % SODIUM CHLORIDE 50 ML IV (08:45)
[2024-12-21] MEDS: POLYETHYLENE GLYCOL 3350 17 GM PACKET PO (08:49)
[2024-12-21] MEDS: ASPIRIN EC 81MG TABLET 81 MG PO (08:50)
[2024-12-21] MEDS: METOPROLOL SUCCINATE XL 25MG TABLET 25 MG PO (08:50)
[2024-12-21] MEDS: ISOSORBIDE MONO 60MG TAB.ER.24H 60 MG PO (08:50)
[2024-12-21] MEDS: FINASTERIDE 5MG TABLET 5 MG PO (08:50)
[2024-12-21] MEDS: GABAPENTIN 600MG TABLET 600 MG PO (08:50)
[2024-12-21] MEDS: TAMSULOSIN 0.4MG CAPSULE 0.4 MG PO (08:50)
[2024-12-21] MEDS: dilTIAZem ER 240MG CAPSULE 240 MG PO (08:50)
[2024-12-21] MEDS: ROPINIROLE HCL 0.25 MG TABLET PO ×2 (08:50→13:28)
[2024-12-21] MEDS: BUMETANIDE 1MG/4ML VIAL 2 MG IV ×2 (08:51→13:29)
--- NOTE | 2024-12-21 09:37 | EXP.CARD.PN ---
Subjective Subjective Date: 12/21/24 Time: 09:37 Principal diagnosis: cellulitis, a. fib Interval history: 69-year-old white male lying in bed in no acute distress. Telemetry shows A-fib with controlled rate at 88 bpm. Exam Data for Last 24 hours Vital signs and Labs for Last 24 Hours: Temp Pulse Resp BP Pulse Ox O2 Del Method O2 Flow Rate 97.8 F 99 H 20 151/78 H 92 L Nasal Cannula 1.5 12/21/24 08:00 12/21/24 06:41 12/21/24 06:00 12/21/24 06:00 12/21/24 06:41 12/21/24 08:00 12/21/24 08:00 FiO2 21 12/21/24 02:00 Laboratory Results - last 24 hr 12/20/24 11:54: Specimen Source Left radial, O2 % 1.5 lpm nc, ABG pH 7.26 L, ABG pCO2 80.5 H, ABG pO2 70.8 L, ABG HCO3 35.5 H, ABG Total CO2 37.9 H, ABG O2 Saturation 92, ABG Base Excess 8.4 H, Dom Test Patient unable 12/20/24 15:56: Specimen Source Right radial, O2 % 21% 18/6, ABG pH 7.42, ABG pCO2 52.0 H, ABG pO2 56.5 L, ABG HCO3 32.9 H, ABG Total CO2 34.5 H, ABG O2 Saturation 89 L, ABG Base Excess 8.4 H, Dom Test Acceptable, Vent Rate 18 12/20/24 18:25: Chlamy pneumoniae PCR Not detected, Adenovirus (PCR) Not detected, B. pertussis DNA (PCR) Not detected, Coronavirus OC43 (PCR) Not detected, Coronavirus HKU1 (PCR) Not detected, Coronavirus 229E (PCR) Not detected, SARS-CoV-2 (PCR) Not detected, Coronavirus NL63 (PCR) Not detected, Human Metapneumovir PCR Not detected, Influenza A (H1) PCR Not detected, Influ A (H1N1/09) PCR Not detected, Influenza A (H3) PCR Not detected, Influenza Type A (PCR) Not detected, Influenza Type B (PCR) Not detected, M. pneumoniae (PCR) Not detected, Parainfluenza 1 (PCR) Not detected, Parainfluenza 2 (PCR) Not detected, Parainfluenza 3 (PCR) Not detected, Parainfluenza 4 (PCR) Not detected, RSV (PCR) Not detected, Entero/Rhino (PCR) Not detected 12/21/24 06:09: WBC 8.9, RBC 3.54 L, Hgb 9.5 L, Hct 32.2 L, MCV 91.0, MCH 26.8 L, MCHC 29.5 L, RDW 15.3, Plt Count 197, MPV 10.0, Neut % (Auto) 79.6, Lymph % (Auto) 10.3, [place] % (Auto) 6.9, Eos % (Auto) 2.5, Baso % (Auto) 0.3, Neut # (Auto) 7.1, Lymph # (Auto) 0.9, [place] # (Auto) 0.6, Eos # (Auto) 0.2, Baso # (Auto) 0.0, PT 16.2 H, INR 1.51 H, Sodium 139, Potassium 4.3, Chloride 96 L, Carbon Dioxide 39 H, Anion Gap 8.3, BUN 29 H, Creatinine 1.90 H, Estimated Creat Clear 71, Estimated GFR 35 L, Est GFR ( Amer) 43 L, Glucose 97, Calcium 8.3 L, Magnesium 2.2, Total Bilirubin 0.3, AST 14 L, ALT 12, Alkaline Phosphatase 71, Total Protein 6.4, Albumin 3.2 L D, Globulin 3.2, Albumin/Globulin Ratio 1.0 L 12/21/24 06:45: Specimen Source Right radial, O2 % 1.5l, ABG pH 7.34 L, ABG pCO2 59.7 H, ABG pO2 66.0 L, ABG HCO3 31.6 H, ABG Total CO2 33.5 H, ABG O2 Saturation 90, ABG Base Excess 5.9 H, Dom Test Acceptable I & O for Last 24 hours: Intake & Output 12/18/24 12/19/24 12/20/24 12/21/24 11:59 11:59 11:59 11:59 Intake Total 530 / 530 1630 / 1630 Output Total 1000 / 1000 2750 / 2750 Balance -470 / -470 -1120 / -1120 Weight 300 lb 0.01 oz 300 lb 0.01 oz Microbiology Reports for the Last 24 Hours: Microbiology 12/19/24 13:57 Urine,Clean Catch Urine Culture - Final Multiple organisms, suggests contamination. 12/19/24 21:06 Blood Blood Culture - Preliminary NO GROWTH AFTER 24 HOURS 12/19/24 21:06 Blood Blood Culture - Preliminary NO GROWTH AFTER 24 HOURS Constitutional Constitutional: no acute distress *Routine Respiratory Exam Respiratory: Present CTA bilaterally *Routine Cardiovascular Exam Cardiovascular: Present irregularly irregular *Routine Extremities Exam Extremities: Present edema Progress Note: A&P Assessment and plan (1) Pneumonia: Status: Acute (2) Acute and chronic respiratory failure: Status: Acute Assessment and Plan Assessment and Plan for All Diagnoses:: PAF - known dx - controlled rate in setting of PNA and UTI - due to elevated adrenergic drive with infection I would not expect DCCV to be terribly successful at this time - recommend resuming home dose OAC and BB. If he becomes symptomatic or hemodynamically compromised will consider DCCV - add Lopressor 5mg IV PRN sustained HR >130 Acute on Chronic BLE Lymphedema - consult PT for unaboots and wound care CAD s/p CABG 2008 - pt denies angina here - Trop nml - EKG - A-fib with current rate <100 bpm - cont warfarin, BB, Statin, isosorbide - ECHO 10/16 - nlm biv function, no WMA Chronic HFpEF - ECHO 12/17 and 10/16 - nml bi-v function, no WMA - BMI 40 and severe BLE lymphedema - ProBNP 2,730 which his less than last admission - CT Chest - no edema or effusions - Farxiga not covered by his insurance CKD-IV - 1.8 here, baseline around 2 - chronic anemia with Hgb 9.5 UTI - per Hospitalist -On ceftriaxone and doxycycline Stable from a cardiac standpoint. Nothing further to add.
[2024-12-21] MEDS: DOXYCYCLINE HYCLATE 100 MG in 0.9 % SODIUM CHLORIDE 250 ML 166.667 MG IV (09:38)
--- NOTE | 2024-12-21 10:04 | P.CONS_ITS ---
History of Present Illness History of present illness: Mr. Chauhan is a 69-year-old male with reported history of paroxysmal A-fib heart failure preserved EF CAD status post CABG presented to the ER with worsening respiratory distress and hypercarbic respiratory failure needing noninvasive ventilatory therapy and pulmonary was called for further evaluation and management. He is a never smoker. Denies any baseline respiratory complaints not using any inhalers or oxygen supplementation. Admits questionable history of asthma [facility] Disclaimer: The information contained in this section may have been updated after the patient was seen, as this information can be updated by other users. Medical History (Updated 12/21/24 @ 13:43 by Christy eBltrán MD) Respiratory failure with hypercapnia Asthma exacerbation Chest pain Ureterolithiasis Left flank pain Kidney stone Acute pain of right knee Acute kidney injury Kidney dysfunction Peripheral edema Declining functional status Physical deconditioning Left leg weakness Left leg swelling Heart failure RLS (restless legs syndrome) CKD (chronic kidney disease) Former smoker HLD (hyperlipidemia) HTN (hypertension) Surgical History Hx of tonsillectomy Hx of CABG Family History Other No significant family history Social History Smoking Status: Never smoker years smoked: 32 smoking status stop date: 2005 alcohol intake: never current occupational status: retired Travel in the last 8 weeks: None Have you lived/traveled outside [place] in past 30 days?: No Contact w/someone who lives/traveled outside US past 30 days?: No Exposure to someone with infectious disease in past 14 days?: No Do you have a fever (greater than 100.4 F or 38 C)?: No Have you tested positive for COVID-19: No Exposed to someone with COVID-19 in past 14 days?: No Do you have a sore throat?: No Do you have a cough?: No Do you have any weakness?: No Do you have any diarrhea?: No Are you experiencing any unusual bleeding?: No Do you have any muscle aches/pain?: No Do you have any abdominal pain?: No Are you experiencing loss of taste or smell?: No Review of Systems Constitutional Constitutional: Reports fatigue and Reports weakness Eyes Eyes: Denies itchy eyes and Denies loss of vision ENT Ears, Nose, Mouth, and Throat: Denies lip swelling, Denies throat swelling and Denies vertigo *Cardiovascular Cardiovascular: Reports dyspnea, Reports dyspnea on exertion and Denies syncope *Respiratory Respiratory: Reports chest congestion, Reports cough, Reports dyspnea, Reports dyspnea on exertion, Denies excessive phlegm production and Reports wheezing *Gastrointestinal Gastrointestinal: Denies abdominal pain, Denies belching and Denies cramping *Musculoskeletal Musculoskeletal: Reports back pain and Reports other (No small joint swelling or Pain) *Neurologic Neurologic: Denies loss of vision, Denies syncope, Denies vertigo and Reports weakness Psychiatric Psychiatric: Denies homicidal ideation and Denies suicidal ideation Endocrine Endocrine: Reports fatigue and Denies heat intolerance Hematologic/Lymphatic Hematologic/Lymphatic: Denies easy bleeding and Denies lymphadenopathy Allergic/Immunologic Allergic/Immunologic: Denies itchy eyes, Denies lip swelling, Denies throat swelling and Reports wheezing Pulmonology Exam Inpatient Vital signs and Labs for Last 24 Hours: Temp Pulse Resp BP Pulse Ox O2 Del Method O2 Flow Rate 97.8 F 94 H 20 148/82 H 95 Nasal Cannula 1.5 12/21/24 08:00 12/21/24 09:45 12/21/24 08:00 12/21/24 08:00 12/21/24 09:45 12/21/24 09:45 12/21/24 09:45 FiO2 21 12/21/24 02:00 Laboratory Results - last 24 hr 12/20/24 11:54: Specimen Source Left radial, O2 % 1.5 lpm nc, ABG pH 7.26 L, ABG pCO2 80.5 H, ABG pO2 70.8 L, ABG HCO3 35.5 H, ABG Total CO2 37.9 H, ABG O2 Saturation 92, ABG Base Excess 8.4 H, Dom Test Patient unable 12/20/24 15:56: Specimen Source Right radial, O2 % 21% 18/6, ABG pH 7.42, ABG pCO2 52.0 H, ABG pO2 56.5 L, ABG HCO3 32.9 H, ABG Total CO2 34.5 H, ABG O2 Saturation 89 L, ABG Base Excess 8.4 H, Dom Test Acceptable, Vent Rate 18 12/20/24 18:25: Chlamy pneumoniae PCR Not detected, Adenovirus (PCR) Not detected, B. pertussis DNA (PCR) Not detected, Coronavirus OC43 (PCR) Not detected, Coronavirus HKU1 (PCR) Not detected, Coronavirus 229E (PCR) Not detected, SARS-CoV-2 (PCR) Not detected, Coronavirus NL63 (PCR) Not detected, Human Metapneumovir PCR Not detected, Influenza A (H1) PCR Not detected, Influ A (H1N1/09) PCR Not detected, Influenza A (H3) PCR Not detected, Influenza Type A (PCR) Not detected, Influenza Type B (PCR) Not detected, M. pneumoniae (PCR) Not detected, Parainfluenza 1 (PCR) Not detected, Parainfluenza 2 (PCR) Not detected, Parainfluenza 3 (PCR) Not detected, Parainfluenza 4 (PCR) Not detected, RSV (PCR) Not detected, Entero/Rhino (PCR) Not detected 12/21/24 06:09: WBC 8.9, RBC 3.54 L, Hgb 9.5 L, Hct 32.2 L, MCV 91.0, MCH 26.8 L , MCHC 29.5 L, RDW 15.3, Plt Count 197, MPV 10.0, Neut % (Auto) 79.6, Lymph % (Auto) 10.3, [place] % (Auto) 6.9, Eos % (Auto) 2.5, Baso % (Auto) 0.3, Neut # (Auto) 7.1, Lymph # (Auto) 0.9, [place] # (Auto) 0.6, Eos # (Auto) 0.2, Baso # (Auto) 0.0, PT 16.2 H, INR 1.51 H, Sodium 139, Potassium 4.3, Chloride 96 L, C arbon Dioxide 39 H, Anion Gap 8.3, BUN 29 H, Creatinine 1.90 H, Estimated Creat Clear 71, Estimated GFR 35 L, Est GFR ( Amer) 43 L, Glucose 97, Calcium 8.3 L, Magnesium 2.2, Total Bilirubin 0.3, AST 14 L, ALT 12, Alkaline Phosphatase 71, Total Protein 6.4, Albumin 3.2 L D, Globulin 3.2, A lbumin/Globulin Ratio 1.0 L 12/21/24 06:45: Specimen Source Right radial, O2 % 1.5l, ABG pH 7.34 L, ABG pCO2 59.7 H, ABG pO2 66.0 L, ABG HCO3 31.6 H, ABG Total CO2 33.5 H, ABG O2 Saturation 90, ABG Base Excess 5.9 H, Dom Test Acceptable I & O for Labs for Last 24 Hours: Intake & Output 12/18/24 12/19/24 12/20/24 12/21/24 23:59 23:59 23:59 23:59 Intake Total 180 / 330 1500 / 1500 680 / 680 Output Total 2800 / 3350 1525 / 1525 Balance 180 / 330 -1300 / -1850 -845 / -845 Weight 300 lb 300 lb 0.01 oz 300 lb 0.01 oz Microbiology Reports for the Last 24 Hours: Microbiology 12/19/24 13:57 Urine,Clean Catch Urine Culture - Final Multiple organisms, suggests contamination. 12/19/24 21:06 Blood Blood Culture - Preliminary NO GROWTH AFTER 24 HOURS 12/19/24 21:06 Blood Blood Culture - Preliminary NO GROWTH AFTER 24 HOURS Constitutional: Present moderate distress Head: Present normocephalic and atraumatic ENT: Present normal exam, normal oropharynx and mucous membranes moist Neck: Present normal inspection and full ROM Respiratory: Present prolonged expiratory phase, rhonchi, wheezes, diminished air movement and able to speak in complete sentences Cardiac: Present S1/S2, Tachycardia and radial pulses present GI: Present soft and distention; Absent tenderness or guarding Skin: Present intact; Absent cyanosis or jaundice Neuro: Present alert, awake and oriented x 3 Extremities: Present normal inspection; Absent clubbing or cyanosis Psychiatric: Present normal affect and cooperative Meds Home Medications and Allergies Home Medications ?Medication ?Instructions ?Recorded ?Confirmed ?Type cetirizine 10 mg tablet 10 mg PO DAILY 12/12/22 12/19/24 History potassium chloride 10 mEq 10 meq PO BID 12/12/22 12/19/24 History capsule,extended release tamsulosin 0.4 mg capsule 0.4 mg PO HS 12/12/22 12/20/24 History gabapentin 300 mg capsule 600 mg PO BID 05/08/24 12/19/24 History ferrous sulfate 142 mg (45 mg 45 mg PO BID 08/14/24 12/19/24 History iron) tablet,extended release (Slow Release Iron) fluticasone propionate 50 1 spray intranasal DAILY 08/14/24 12/19/24 History mcg/actuation nasal spray,suspension finasteride 5 mg tablet 5 mg PO DAILY 30 days #30 tabs 10/26/24 12/19/24 Rx ropinirole 0.25 mg tablet 0.25 mg PO TID 30 days #90 tabs 10/26/24 12/19/24 Rx aspirin 81 mg tablet,delayed 81 mg PO DAILY 11/12/24 12/19/24 History release (Adult Low Dose Aspirin) atorvastatin 10 mg tablet 10 mg PO DAILY #30 tabs 11/12/24 12/19/24 Rx diltiazem HCl 240 mg 240 mg PO BID 30 days #60 caps 11/12/24 12/19/24 Rx capsule,extended release 24 hr isosorbide mononitrate 60 mg 60 mg PO DAILY 30 days #30 tabs 11/12/24 12/19/24 Rx tablet,extended release 24 hr metoprolol succinate 25 mg 25 mg PO BID #180 tabs 11/20/24 12/19/24 Rx tablet,extended release 24 hr warfarin 4 mg tablet 4 mg PO MOWEFR 11/27/24 12/20/24 History albuterol sulfate 90 mcg/actuation 2 puff inhalation Q4H PRN 12/19/24 12/20/24 History aerosol inhaler Shortness Of Breath bumetanide 2 mg tablet 4 mg PO BID 12/20/24 12/20/24 History folic acid 400 mcg tablet 400 mcg PO DAILY 12/20/24 12/20/24 History magnesium oxide 400 mg (241.3 mg 400 mg PO DAILY 12/20/24 12/20/24 History magnesium) tablet war[facility] 4 mg [facility] 12/20/24 12/20/24 History New Prescriptions to Start Prescriptions: Allergies Allergy/AdvReac Type Severity Reaction Status Date / Time No Known Allergies Allergy Verified 12/19/24 15:50 Results Laboratory Findings 12/21/24 06:09 12/21/24 06:09 ABG ABG pH 7.34 mmol/L (7.35-7.45) L 12/21/24 06:45 ABG pCO2 59.7 mmhg (35.0-45.0) H 12/21/24 06:45 ABG pO2 66.0 mmhg (80-100) L 12/21/24 06:45 ABG O2 Saturation 90 % (90-100) 12/21/24 06:45 PT/INR, D-dimer PT 16.2 seconds (10.1-12.5) H 12/21/24 06:09 INR 1.51 (0.9-1.1) H 12/21/24 06:09 Abnormal lab findings: Abnormal Labs 12/19/24 12/19/24 12/20/24 13:46 13:57 06:00 RBC 4.02 L Hgb 10.9 L Hct 35.8 L MCH MCHC 30.4 L Neut % (Auto) Lymph % (Auto) 9.9 L PT 16.6 H INR 1.55 H ABG pH ABG pCO2 ABG pO2 ABG HCO3 ABG Total CO2 ABG O2 Saturation ABG Base Excess VBG pCO2 75.9 H 51.7 H VBG pO2 42.4 H 160.3 H VBG HCO3 37.1 H 31.5 H VBG Total CO2 39.4 H 33.0 H VBG O2 Saturation 72.7 H 99.2 H VBG Base Excess 10.8 H 6.7 H Chloride 97 L Carbon Dioxide 37 H BUN 24 H Creatinine 1.80 H Estimated GFR 38 L Est GFR ( Amer) 45 L Glucose 106 H Calcium AST Total Creatine Kinase 53 L NT-Pro-B Natriuret Pep 2730 H Albumin Globulin 3.9 H Albumin/Globulin Ratio 1.0 L Urine Protein 1+ A Ur Leukocyte Esterase 1+ A 12/20/24 12/20/24 12/20/24 06:06 11:54 15:56 RBC 3.95 L Hgb 10.5 L Hct 35.9 L MCH 26.6 L MCHC 29.2 L Neut % (Auto) 81.0 H Lymph % (Auto) 9.5 L PT INR ABG pH 7.26 L ABG pCO2 80.5 H 52.0 H ABG pO2 70.8 L 56.5 L ABG HCO3 35.5 H 32.9 H ABG Total CO2 37.9 H 34.5 H ABG O2 Saturation 89 L ABG Base Excess 8.4 H 8.4 H VBG pCO2 VBG pO2 VBG HCO3 VBG Total CO2 VBG O2 Saturation VBG Base Excess Chloride Carbon Dioxide 36 H BUN 24 H Creatinine 1.80 H Estimated GFR 38 L Est GFR ( Amer) 45 L Glucose 101 H Calcium 8.2 L AST 16 L Total Creatine Kinase NT-Pro-B Natriuret Pep Albumin Globulin 3.5 H Albumin/Globulin Ratio 1.0 L Urine Protein Ur Leukocyte Esterase 12/21/24 12/21/24 06:09 06:45 RBC 3.54 L Hgb 9.5 L Hct 32.2 L MCH 26.8 L MCHC 29.5 L Neut % (Auto) Lymph % (Auto) PT 16.2 H INR 1.51 H ABG pH 7.34 L ABG pCO2 59.7 H ABG pO2 66.0 L ABG HCO3 31.6 H ABG Total CO2 33.5 H ABG O2 Saturation ABG Base Excess 5.9 H VBG pCO2 VBG pO2 VBG HCO3 VBG Total CO2 VBG O2 Saturation VBG Base Excess Chloride 96 L Carbon Dioxide 39 H BUN 29 H Creatinine 1.90 H Estimated GFR 35 L Est GFR ( Amer) 43 L Glucose Calcium 8.3 L AST 14 L Total Creatine Kinase NT-Pro-B Natriuret Pep Albumin 3.2 L D Globulin Albumin/Globulin Ratio 1.0 L Urine Protein Ur Leukocyte Esterase Assessment and Plan *Assessment and plan (1) Pneumonia: Status: Acute Category: Medical Code(s): J18.9 - Pneumonia, unspecified organism (2) Asthma exacerbation: Status: Acute Category: Medical Code(s): J45.901 - Unspecified asthma with (acute) exacerbation (3) Respiratory failure with hypercapnia: Status: Acute Category: Medical Code(s): J96.92 - Respiratory failure, unspecified with hypercapnia Plan Mr. Chauhan is a 69-year-old male with reported history of paroxysmal A-fib heart failure preserved EF CAD status post CABG presented to the ER with worsening respiratory distress and hypercarbic respiratory failure needing noninvasive ventilatory therapy and pulmonary was called for further evaluation and management. He is a never smoker. Denies any baseline respiratory complaints not using any inhalers or oxygen supplementation. Admits questionable history of asthma Afebrile. Hemodynamically stable. No significant evidence of leukocytosis. Blood gas upon admission hypercarbic respiratory failure with a pH of 7.26 and pCO2 80.5. Improved upon noninvasive ventilatory therapy.. Repeat blood gas this morning showed slight worsening of the noted hypercarbic respiratory failure. Comprehensive respiratory viral PCR panel negative. CT chest upon admission without contrast no dense consolidative changes. Very minimal patchy airspace disease predominantly in the left lingula. No significant emphysematous changes appreciated. Currently receiving ceftriaxone and doxycycline along with nebulization therapies every 4 hours on a scheduled basis. Not receiving any steroids at this point of time. Diffuse wheezing noted on auscultation. Etiology of this patient's hypercarbic respiratory failure can well be from a Asthma exacerbation/YONATAN/OHS. Plan: Trelegy 100 inhaler along with DuoNebs 4 times daily as needed No need for noninvasive ventilator therapy overnight. Follow-up with daytime ABG to evaluate for OHS and nocturnal oximetry testing evaluate for possible YONATAN On room air this morning saturating 88 to 90%. Continue ceftriaxone and doxycycline pending final culture results. Antibiotics can be weaned to Augmentin to complete a total of 5-day course Prednisone 40 mg daily x 5 days
--- NOTE | 2024-12-21 11:11 | PC.NURSE ---
pt's room air sat was 87% while pt was at rest
[2024-12-21] MEDS: WARFARIN 2MG TABLET 4 MG PO (11:14)
[2024-12-21] MEDS: PHENYLEPHRINE 0.5% NASAL SPRAY 15ML NS (11:17)
[2024-12-21] MEDS: METOPROLOL TARTRATE 5MG/5ML VIAL 5 MG IV (11:30)
--- NOTE | 2024-12-21 12:24 | [facility].PTEV ---
Physical Therapy Evaluation Rehab PT IP Evaluation Start: 12/20/24 14:14 Freq: ONCE Status: Active Protocol: Document 12/21/24 12:18 JEWELS (Rec: 12/21/24 12:24 JEWELS [id number]) Subjective/History History History 69-year-old male with a medical history significant for paroxysmal A-fib, HFpEF, CAD/CABG who presents with worsening shortness of breath. Pt reports he lives alone, no ADILIA his apt, and he generally is independent with ambulation using a RW at baseline. He has chronic B LE edema due to multiple co- morbid factors. Subjective Subjective Currently he presents awake supine in bed, and agrees to B LE edema assessment. B LE present with 2+ pitting edema from the knee distally ans MILD hyperkeratosis to B lower legs. Rehab PT IP prob,goals,plan Problems Date of Evaluation: 12/21/24 Discharge Plan PT Discharge Plan Pt B LE edema is consistent with his baseline status at this time. Currently pt was fit with tubigrip compression garments to B lower legs for edema control. No further inpatient therapy needs at this time. Pt would be a good candidate for outpatient lymphedema treatment after hospital d/c. Eval Complexity Eval Charge Codes 31638 - High Complexity PHYSICIAN CERTIFICATION: I certify the specified therapy services for Forrest Chauhan are required, authorized, and reviewed every 30 days.
--- NOTE | 2024-12-21 14:01 | EXP.DC.SUM ---
General Admission date:: 12/19/24 HPI HPI HPI: Forrest West is a 69-year-old male with a medical history significant for paroxysmal A-fib, HFpEF, CAD/CABG who presents with worsening shortness of breath. Patient at this time is not very good historian given somnolence from hypercapnia. Workup in the ED significant for VBG pH 7.31, pCO2 75.9, UA highly suggestive of UTI, CT suggesting bronchopneumonia. Patient requiring 2 L nasal cannula, new requirement. Case discussed with ED provider and decision was made to admit patient for hypoxic respiratory failure, pneumonia, HFpEF. #Acute hypoxic, hypercapnic respiratory failure #Community-acquired pneumonia ? CT chest revealing bronchopneumonia, with leukocytosis. ? Ceftriaxone, doxycycline pending sputum cultures. ? BiPAP overnight, repeat VBG in the morning. ? DuoNebs every 6 hours. #Right heart failure #Bilateral lower extremity venous sufficiency #Lymphedema ? Continue home 2 mg twice daily. Hospital Course Hospital Course Hospital Course: Forrest West is a 69-year-old male with a medical history significant for paroxysmal A-fib, HFpEF, CAD/CABG who presents with worsening shortness of breath. Patient at this time is not very good historian given somnolence from hypercapnia. Workup in the ED significant for VBG pH 7.31, pCO2 75.9, UA highly suggestive of UTI, CT suggesting bronchopneumonia. Patient requiring 2 L nasal cannula, new requirement. Case discussed with ED provider and decision was made to admit patient for hypoxic respiratory failure, pneumonia, HFpEF. #Acute on chronic hypoxic, hypercapnic respiratory failure #Suspected obesity hypoventilation syndrome, sleep apnea #Community-acquired pneumonia ? CT chest revealing bronchopneumonia, with leukocytosis. Patient was quite somnolent on admission, prompting blood gases showing acute on chronic hypercapnia, likely from sleep apnea and obesity hypoventilation syndrome. ? Clinically improved with BiPAP, antibiotics, DuoNebs, steroids. ? ABG showed improving hypercapnic respiratory failure. Patient will have a close follow-up with pulmonology for further evaluation for sleep study to qualify for BiPAP. ? Weaned to 2 L nasal cannula, saturating 87% on room air at rest. ? Discharged with Augmentin and prednisone for 4 more days. #Right heart failure #Bilateral lower extremity venous sufficiency #Lymphedema ? About a 20 pound weight gain since last admission in early October. ? Improved with IV Bumex diuresis, had total net output of -3 L. ? Increased home Bumex to 2 mg twice daily. ? Wound care consulted, applied bilateral tubigrip compression garments. #UTI ? UA abnormal, urine culture pending. ? Discharged with Augmentin for 4 more days. #A-fib ? Heart rate in the 120s in the morning, improved to 80s in the afternoon with increasing metoprolol. ? Continue home diltiazem to 40 mg twice daily, ? Increase metoprolol succinate to 50 mg twice daily for better rate control. ? Resume home warfarin, unable to afford Eliquis or Xarelto. Carotid Stenosis s/p CEA 2008: asymptomatic; continue aspirin, statin. BPH: flowmax 0.4mg po daily, started finasteride Restless leg syndrome. Requip 0.25mg TID Exam Data for Last 24 hours Vital signs and Labs for Last 24 Hours: Temp Pulse Resp BP Pulse Ox O2 Del Method O2 Flow Rate 97.8 F 100 H 20 144/86 H 90 L Nasal Cannula 1 12/21/24 08:00 12/21/24 12:00 12/21/24 10:00 12/21/24 10:00 12/21/24 10:00 12/21/24 11:21 12/21/24 11:21 FiO2 21 12/21/24 02:00 Laboratory Results - last 24 hr 12/20/24 15:56: Specimen Source Right radial, O2 % 21% 18/6, ABG pH 7.42, ABG pCO2 52.0 H, ABG pO2 56.5 L, ABG HCO3 32.9 H, ABG Total CO2 34.5 H, ABG O2 Saturation 89 L, ABG Base Excess 8.4 H, Dom Test Acceptable, Vent Rate 18 12/20/24 18:25: Chlamy pneumoniae PCR Not detected, Adenovirus (PCR) Not detected, B. pertussis DNA (PCR) Not detected, Coronavirus OC43 (PCR) Not detected, Coronavirus HKU1 (PCR) Not detected, Coronavirus 229E (PCR) Not detected, SARS-CoV-2 (PCR) Not detected, Coronavirus NL63 (PCR) Not detected, Human Metapneumovir PCR Not detected, Influenza A (H1) PCR Not detected, Influ A (H1N1/09) PCR Not detected, Influenza A (H3) PCR Not detected, Influenza Type A (PCR) Not detected, Influenza Type B (PCR) Not detected, M. pneumoniae (PCR) Not detected, Parainfluenza 1 (PCR) Not detected, Parainfluenza 2 (PCR) Not detected, Parainfluenza 3 (PCR) Not detected, Parainfluenza 4 (PCR) Not detected, RSV (PCR) Not detected, Entero/Rhino (PCR) Not detected 12/21/24 06:09: WBC 8.9, RBC 3.54 L, Hgb 9.5 L, Hct 32.2 L, MCV 91.0, MCH 26.8 L, MCHC 29.5 L, RDW 15.3, Plt Count 197, MPV 10.0, Neut % (Auto) 79.6, Lymph % (Auto) 10.3, [place] % (Auto) 6.9, Eos % (Auto) 2.5, Baso % (Auto) 0.3, Neut # (Auto) 7.1, Lymph # (Auto) 0.9, [place] # (Auto) 0.6, Eos # (Auto) 0.2, Baso # (Auto) 0.0, PT 16.2 H, INR 1.51 H, Sodium 139, Potassium 4.3, Chloride 96 L, Carbon Dioxide 39 H, Anion Gap 8.3, BUN 29 H, Creatinine 1.90 H, Estimated Creat Clear 71, Estimated GFR 35 L, Est GFR ( Amer) 43 L, Glucose 97, Calcium 8.3 L, Magnesium 2.2, Total Bilirubin 0.3, AST 14 L, ALT 12, Alkaline Phosphatase 71, Total Protein 6.4, Albumin 3.2 L D, Globulin 3.2, Albumin/Globulin Ratio 1.0 L 12/21/24 06:45: Specimen Source Right radial, O2 % 1.5l, ABG pH 7.34 L, ABG pCO2 59.7 H, ABG pO2 66.0 L, ABG HCO3 31.6 H, ABG Total CO2 33.5 H, ABG O2 Saturation 90, ABG Base Excess 5.9 H, Dom Test Acceptable I & O for Last 24 hours: Intake & Output 12/18/24 12/19/24 12/20/24 12/21/24 23:59 23:59 23:59 23:59 Intake Total 180 / 330 1500 / 1500 930 / 930 Output Total 2800 / 3350 2650 / 2650 Balance 180 / 330 -1300 / -1850 -1720 / -1720 Weight 136.078 kg 136.078 kg 136.078 kg Microbiology Reports for the Last 24 Hours: Microbiology 12/19/24 13:57 Urine,Clean Catch Urine Culture - Final Multiple organisms, suggests contamination. 12/19/24 21:06 Blood Blood Culture - Preliminary NO GROWTH AFTER 24 HOURS 12/19/24 21:06 Blood Blood Culture - Preliminary NO GROWTH AFTER 24 HOURS Constitutional Constitutional: no acute distress and obese *Routine HEENT Exam Head: Present normocephalic Eye: Present EOMI and PERRL ENT: Present mucous membranes moist *Routine Neck Exam Neck: Present supple; Absent lymphadenopathy *Routine Respiratory Exam Respiratory: Present CTA bilaterally *Routine Cardiovascular Exam Cardiovascular: Present RRR *Routine Abdominal Exam Abdominal: Present soft and normoactive bowel sounds; Absent tenderness *Routine Extremities Exam Extremities: Absent cyanosis, clubbing or edema *Routine Skin Exam Skin: Present warm; Absent rash *Routine Neurological Exam Neurological: Present alert and oriented X3 Results Data Completed and Pending Labs on day of discharge: Labs from last 24 hours 12/21/24 12/21/24 12/20/24 06:45 06:09 18:25 WBC 8.9 RBC 3.54 L Hgb 9.5 L Hct 32.2 L MCV 91.0 MCH 26.8 L MCHC 29.5 L RDW 15.3 Plt Count 197 MPV 10.0 Neut % (Auto) 79.6 Lymph % (Auto) 10.3 [place] % (Auto) 6.9 Eos % (Auto) 2.5 Baso % (Auto) 0.3 Neut # (Auto) 7.1 Lymph # (Auto) 0.9 [place] # (Auto) 0.6 Eos # (Auto) 0.2 Baso # (Auto) 0.0 PT 16.2 H INR 1.51 H Specimen Source Right radial O2 % 1.5l ABG pH 7.34 L ABG pCO2 59.7 H ABG pO2 66.0 L ABG HCO3 31.6 H ABG Total CO2 33.5 H ABG O2 Saturation 90 ABG Base Excess 5.9 H Dom Test Acceptable Vent Rate Sodium 139 Potassium 4.3 Chloride 96 L Carbon Dioxide 39 H Anion Gap 8.3 BUN 29 H Creatinine 1.90 H Estimated Creat Clear 71 Estimated GFR 35 L Est GFR ( Amer) 43 L Glucose 97 Calcium 8.3 L Magnesium 2.2 Total Bilirubin 0.3 AST 14 L ALT 12 Alkaline Phosphatase 71 Total Protein 6.4 Albumin 3.2 L D Globulin 3.2 Albumin/Globulin Ratio 1.0 L Chlamy pneumoniae PCR Not detected Adenovirus (PCR) Not detected B. pertussis DNA (PCR) Not detected Coronavirus OC43 (PCR) Not detected Coronavirus HKU1 (PCR) Not detected Coronavirus 229E (PCR) Not detected SARS-CoV-2 (PCR) Not detected Coronavirus NL63 (PCR) Not detected Human Metapneumovir PCR Not detected Influenza A (H1) PCR Not detected Influ A (H1N1/09) PCR Not detected Influenza A (H3) PCR Not detected Influenza Type A (PCR) Not detected Influenza Type B (PCR) Not detected M. pneumoniae (PCR) Not detected Parainfluenza 1 (PCR) Not detected Parainfluenza 2 (PCR) Not detected Parainfluenza 3 (PCR) Not detected Parainfluenza 4 (PCR) Not detected RSV (PCR) Not detected Entero/Rhino (PCR) Not detected 12/20/24 15:56 WBC RBC Hgb Hct MCV MCH MCHC RDW Plt Count MPV Neut % (Auto) Lymph % (Auto) [place] % (Auto) Eos % (Auto) Baso % (Auto) Neut # (Auto) Lymph # (Auto) [place] # (Auto) Eos # (Auto) Baso # (Auto) PT INR Specimen Source Right radial O2 % 21% 18/6 ABG pH 7.42 ABG pCO2 52.0 H ABG pO2 56.5 L ABG HCO3 32.9 H ABG Total CO2 34.5 H ABG O2 Saturation 89 L ABG Base Excess 8.4 H Dom Test Acceptable Vent Rate 18 Sodium Potassium Chloride Carbon Dioxide Anion Gap BUN Creatinine Estimated Creat Clear Estimated GFR Est GFR ( Amer) Glucose Calcium Magnesium Total Bilirubin AST ALT Alkaline Phosphatase Total Protein Albumin Globulin Albumin/Globulin Ratio Chlamy pneumoniae PCR Adenovirus (PCR) B. pertussis DNA (PCR) Coronavirus OC43 (PCR) Coronavirus HKU1 (PCR) Coronavirus 229E (PCR) SARS-CoV-2 (PCR) Coronavirus NL63 (PCR) Human Metapneumovir PCR Influenza A (H1) PCR Influ A (H1N1/09) PCR Influenza A (H3) PCR Influenza Type A (PCR) Influenza Type B (PCR) M. pneumoniae (PCR) Parainfluenza 1 (PCR) Parainfluenza 2 (PCR) Parainfluenza 3 (PCR) Parainfluenza 4 (PCR) RSV (PCR) Entero/Rhino (PCR) Preliminary micro results at discharge 12/19/24 21:06 Blood Culture - Preliminary Blood NO GROWTH AFTER 24 HOURS 12/19/24 21:06 Blood Culture - Preliminary Blood NO GROWTH AFTER 24 HOURS DS: Diagnosis Discharge Diagnosis (1) Pneumonia: Status: Acute Code(s): J18.9 - Pneumonia, unspecified organism (2) Asthma exacerbation: Status: Acute Code(s): J45.901 - Unspecified asthma with (acute) exacerbation (3) Respiratory failure with hypercapnia: Status: Acute Code(s): J96.92 - Respiratory failure, unspecified with hypercapnia Meds Home Medications and Allergies Home Medications ?Medication ?Instructions ?Recorded ?Confirmed ?Type cetirizine 10 mg tablet 10 mg PO DAILY 12/12/22 12/19/24 History potassium chloride 10 mEq 10 meq PO BID 12/12/22 12/19/24 History capsule,extended release tamsulosin 0.4 mg capsule 0.4 mg PO HS 12/12/22 12/20/24 History gabapentin 300 mg capsule 600 mg PO BID 05/08/24 12/19/24 History ferrous sulfate 142 mg (45 mg 45 mg PO BID 08/14/24 12/19/24 History iron) tablet,extended release (Slow Release Iron) fluticasone propionate 50 1 spray intranasal DAILY 08/14/24 12/19/24 History mcg/actuation nasal spray,suspension finasteride 5 mg tablet 5 mg PO DAILY 30 days #30 tabs 10/26/24 12/19/24 Rx ropinirole 0.25 mg tablet 0.25 mg PO TID 30 days #90 tabs 10/26/24 12/19/24 Rx aspirin 81 mg tablet,delayed 81 mg PO DAILY 11/12/24 12/19/24 History release (Adult Low Dose Aspirin) atorvastatin 10 mg tablet 10 mg PO DAILY #30 tabs 11/12/24 12/19/24 Rx diltiazem HCl 240 mg 240 mg PO BID 30 days #60 caps 11/12/24 12/19/24 Rx capsule,extended release 24 hr isosorbide mononitrate 60 mg 60 mg PO DAILY 30 days #30 tabs 11/12/24 12/19/24 Rx tablet,extended release 24 hr warfarin 4 mg tablet 4 mg PO MOWEFR 11/27/24 12/20/24 History albuterol sulfate 90 mcg/actuation 2 puff inhalation Q4H PRN 12/19/24 12/20/24 History aerosol inhaler Shortness Of Breath bumetanide 2 mg tablet 4 mg PO BID 12/20/24 12/20/24 History folic acid 400 mcg tablet 400 mcg PO DAILY 12/20/24 12/20/24 History magnesium oxide 400 mg (241.3 mg 400 mg PO DAILY 12/20/24 12/20/24 History magnesium) tablet amoxicillin 500 mg-potassium 1 tab PO TID 4 days #12 tabs 12/21/24 Rx clavulanate 125 mg tablet (Augmentin) fluticasone fur. 100 mcg-umeclid 1 inh inhalation DAILY 30 days #60 12/21/24 Rx 62.5 mcg-vilant 25 mcg ea inhalat.powder (Trelegy Ellipta) metoprolol succinate 50 mg 50 mg PO BID 30 days #60 tabs 12/21/24 Rx tablet,extended release 24 hr (Toprol XL) prednisone 20 mg tablet 40 mg (2 x 20 mg) PO DAILY 4 days 12/21/24 Rx #8 tabs warfarin 4 mg tablet See Rx Instructions .Route 12/25/24 Rx .COMPLEX #30 tabs New Prescriptions to Start Prescriptions: amoxicillin-pot clavulanate [Augmentin] Nima Killian [id number] [Trelegy Ellipta] Nima Killian metoprolol succinate [Toprol XL] Nima Killian prednisone Nima Killian Allergies Allergy/AdvReac Type Severity Reaction Status Date / Time No Known Allergies Allergy Verified 12/19/24 15:50 Discharge Plan Disposition Patient Disposition: Home, Self-Care Condition: Fair Discharge Order Discharge Orders: Discharge Order (Routine); Ordered 12/21/24 Ordered By: Nima Killian Follow up Plan Follow up with: Parker Junior PA [Physician Tie Inspector] - 12/25/24 1:45 pm Christy Beltrán MD [Physician] - 01/15/25 1:20 pm True Barker APRN [Primary Care Provider] - 01/08/25 12:00 pm Prescriptions/Medication Reconciliation: New metoprolol succinate [Toprol XL] 50 mg Tablet Extended Release 24 Hr 50 mg PO BID 30 Days Qty: 60 0RF prednisone 20 mg Tablet 40 mg PO DAILY 4 Days Qty: 8 0RF Trelegy Ellipta 100-62.5-25 mcg Blister With Device 1 inh inhalation DAILY 30 Days Qty: 60 0RF amoxicillin-pot clavulanate [Augmentin] 500-125 mg tablet 1 tab PO TID 4 Days Qty: 12 0RF Continued aspirin [Adult Low Dose Aspirin] 81 mg tablet,delayed release (DR/EC) 81 mg PO DAILY isosorbide mononitrate 60 mg tablet extended release 24 hr 60 mg PO DAILY 30 Days Qty: 30 11RF atorvastatin 10 mg tablet 10 mg PO DAILY Qty: 30 11RF diltiazem HCl 240 mg capsule,extended release 24hr 240 mg PO BID 30 Days Qty: 60 11RF gabapentin 300 mg capsule 600 mg PO BID Patient Comments: Take 2 capsules twice a day by oral route for 30 days. fluticasone propionate 50 mcg/actuation spray,suspension 1 spray intranasal DAILY Patient Comments: [place] 1 spray every day by intranasal route for 30 days. ferrous sulfate [Slow Release Iron] 142 mg (45 mg iron) tablet extended release 45 mg PO BID Patient Comments: TAKE ONE TABLET BY MOUTH TWICE DAILY warfarin 4 mg Tablet 4 mg PO MOWEFR potassium chloride 10 mEq capsule, extended release 10 meq PO BID Patient Comments: Take 1 capsule twice a day by oral route for 30 days. cetirizine 10 mg tablet 10 mg PO DAILY Patient Comments: take 1 tablet Once a day for 30 day(s) tamsulosin 0.4 mg capsule 0.4 mg PO HS Patient Comments: TAKE ONE CAPSULE BY MOUTH ONCE DAILY for 30 days finasteride 5 mg Tablet 5 mg PO DAILY 30 Days Qty: 30 0RF ropinirole 0.25 mg Tablet 0.25 mg PO TID 30 Days Qty: 90 0RF albuterol sulfate 90 mcg/actuation HFA aerosol inhaler 2 puff INHALATION Q4H PRN (Reason: Shortness Of Breath) Patient Comments: Inhale 2 puffs every 4 hours by inhalation route for 30 days, for RESCUE; NEEDED INHALER. folic acid 400 mcg tablet 400 mcg PO DAILY Patient Comments: Take 1 tablet every day by oral route for 30 days. magnesium oxide 400 mg (241.3 mg magnesium) tablet 400 mg PO DAILY Patient Comments: Take 1 tablet every day by oral route as directed. bumetanide 2 mg tablet 4 mg PO BID Discontinued metoprolol succinate 25 mg tablet extended release 24 hr 25 mg PO BID Qty: 180 2RF No Action warfarin 4 mg tablet See Rx Instructions .ROUTE .COMPLEX Qty: 30 3RF Dose Instruction: TAKE ONE TABLET EVERY DAY OR DIRECTED Rx Instructions: TAKE ONE TABLET EVERY DAY OR DIRECTED Other Ambulatory Orders: In Lab Sleep Study Req (Routine) Timeframe: 1 Week Facility: [facility] - Location: Respiratory Therapy Ordered By: Nima Killian Problem Reconciliation Problems Reviewed?: Yes Patient Discharge Instructions Patient Instructions: Congestive Heart Failure (Alternative Therapy), Pneumonia--Adult, Heart Failure, DI for Pneumonia -- Adult, Coumadin Vitamin K/ Diet Print Language: Lithuanian Providers Primary Care Provider: True Barker Admit Provider: Nima Killian Attending Provider: Nima Killian
[2024-12-21] MEDS: predniSONE 20MG TAB 40 MG PO (14:10)
[2024-12-21] MEDS: FLUTICASONE/UMECLIDIN/VILANTER 100/62.5/25MCG INHALER 1 PUFF IH (14:49)
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
== END 2024-12-21 16:31 | disposition home or self-care (01) | DRG 193 ==
LOC: ER 15:20 → 2ND 15:57
PROVIDERS: Internal Medicine Pulmonary Disease; Physician Assistant; Admitting Provider Student in an Organized Health Care Education/Training Program; Emergency Provider Emergency Medicine; PCP Nurse Practitioner Family; Visit Provider Student in an Organized Health Care Education/Training Program
DX: J18.9 Pneumonia, unspecified organism (principal); J96.01 Acute respiratory failure with hypoxia; J96.02 Acute respiratory failure with hypercapnia; N18.4 Chronic kidney disease, stage 4 (severe); I13.0 Hypertensive heart and chronic kidney disease with heart failure and stage 1 through stage 4 chronic kidney disease, or unspecified chronic kidney disease; I50.20 Unspecified systolic (congestive) heart failure; Z68.41 Body mass index [BMI] 40.0-44.9, adult; E66.2 Morbid (severe) obesity with alveolar hypoventilation; N39.0 Urinary tract infection, site not specified; I48.0 Paroxysmal atrial fibrillation; Z95.1 Presence of aortocoronary bypass graft; I89.0 Lymphedema, not elsewhere classified; Z79.01 Long term (current) use of anticoagulants; Z79.899 Other long term (current) drug therapy; F17.290 Nicotine dependence, other tobacco product, uncomplicated; Z79.82 Long term (current) use of aspirin; E78.5 Hyperlipidemia, unspecified; I87.2 Venous insufficiency (chronic) (peripheral); I50.810 Right heart failure, unspecified; N40.0 Benign prostatic hyperplasia without lower urinary tract symptoms; G25.81 Restless legs syndrome; Z79.51 Long term (current) use of inhaled steroids
CPT/HCPCS: 71045; 71250; 74177; 80053; 81001; 82550; 82803; 83605; 83690; 83735; 83880; 84484; 85025; 85610; 87040; 87086; 87633; 93005; 94640; 94660; 94761; 97163; 99285; J0456; J0696; J1939; J2060; J7050; J7614; J7620; J7644; Q9967

== ENCOUNTER 2025-01-01 10:34 | Outpatient (CLI) | payer MEDICARE, SELFPAY ==
[2025-01-01 11:01] LABS: PHA INR Fingerstick 1.3 (0.9-1.1)
== END 2025-01-01 11:34 ==
LOC: ACC 10:35
PROVIDERS: PCP Nurse Practitioner Family; Visit Provider Nurse Practitioner
DX: I48.91 Unspecified atrial fibrillation (principal); Z79.01 Long term (current) use of anticoagulants
CPT/HCPCS: 85610; 99211; G0463